=== PATIENT | male | born 1980 | race Hispanic/Latino ===

== ENCOUNTER 2022-05-26 21:38 | Emergency (ER) | payer OTHER ==
[~2022-05-26] VITALS: Ht 175.3 cm; Wt 77.1 kg
[2022-05-26 22:03] LABS: BASOPHILS % (AUTO) 0.4 % (0.0-5.0); EOSINOPHILS % (AUTO) 0.1 % (0.0-8.0); HEMATOCRIT 42.6 % (42-54); LYMPHOCYTES % (AUTO) 24.6 % (21.0-51.0); MEAN CORPUSCULAR HEMOGLOBIN 30.1 pg (27.0-33.0); MEAN CORPUSCULAR VOLUME 86.1 fL (79-99); MONOCYTES % (AUTO) 7.8 % (3.0-13.0); NEUTROPHILS % (AUTO) 66.8 % (40.0-77.0); PLATELET COUNT (AUTO) 164 K/uL (130-400); RED BLOOD CELL COUNT(AUTO) 4.95 MIL/uL (4.50-6.20); RED CELL DISTRIBUTION WIDTH 12.5 % (11.0-15.5)
[2022-05-26 22:11] LABS: CREATININE 1.1 mg/dL (0.5-1.5); POTASSIUM 3.5 mmol/L (3.5-5.1)
[2022-05-26] MEDS: 0.9%NACL 1000ML 1,000 ML IV SCH ×2 (22:11→23:09)
[2022-05-26 22:23] LABS: ALBUMIN 3.4 g/dL (3.5-5.0); TOTAL PROTEIN, SERUM 6.5 g/dL (6.0-8.3)
[2022-05-26] MEDS ORDERED: 0.9%NACL 1000ML 1,000 ML IV SCH (23:00)
[2022-05-26 23:50] LABS: APPEARANCE,URINE CLEAR (CLEAR); BILIRUBIN,URINE NEGATIVE (NEGATIVE); COLOR,URINE YELLOW (YELLOW); GLUCOSE, URINE (UA) NEGATIVE (NEGATIVE); KETONES,URINE 40 mg/dL (NEGATIVE); LEUKOCYTE ESTERASE ,URINE NEGATIVE (NEGATIVE); NITRATE,URINE NEGATIVE (NEGATIVE); OCCULT BLOOD,URINE NEGATIVE (NEGATIVE); PROTEIN,URINE NEGATIVE (NEGATIVE); UROBILINOGEN,URINE 0.2 mg/dL (0.2-1.0)
[2022-05-27] MEDS ORDERED: ACET-66 PO (00:36)
[2022-05-27] MEDS ORDERED: D-ME118S47 PO (00:36)
[2022-05-27] MEDS ORDERED: ONDA4TAB10 PO (00:36)
[2022-05-27 00:58] VITALS: BP 105/59
== END 2022-05-27 01:33 | disposition home or self-care (01) ==
LOC: EDH 21:38
DX: U07.1 COVID-19 (principal); R55 Syncope and collapse; E86.0 Dehydration; J45.909 Unspecified asthma, uncomplicated; F31.9 Bipolar disorder, unspecified
CPT/HCPCS: 99285; 70450; 96360; 71045; 87635; 82550; 83874; 84484; 80053; 85025; 81003; 36415; 72125; 93005; C9803; J7030

== ENCOUNTER 2022-08-04 10:36 | Emergency (ER) | payer OTHER ==
[~2022-08-04] VITALS: Ht 175.3 cm; Wt 83.9 kg
[~2022-08-04 10:36] MED LIST: ACET-66 PO; D-ME118S47 PO; ONDA4TAB10 PO
[2022-08-04] MEDS ORDERED: IPRATROPIUM/ALBUTEROL SULFATE 3 ML SOLUTION IH ONE ×3 (10:47→13:00)
[2022-08-04] MEDS ORDERED: SOLU-MEDROL 125MG VIAL IVP STA (10:47)
[2022-08-04 10:56] LABS: BASOPHILS % (AUTO) 0.3 % (0.0-5.0); EOSINOPHILS % (AUTO) 0.4 % (0.0-8.0); HEMATOCRIT 41.4 % (42-54); LYMPHOCYTES % (AUTO) 6.8 % (21.0-51.0); MEAN CORPUSCULAR HEMOGLOBIN 29.7 pg (27.0-33.0); MEAN CORPUSCULAR HGB CONC 34.5 g/dL (32.0-36.0); MEAN CORPUSCULAR VOLUME 86.1 fL (79-99); MONOCYTES % (AUTO) 7.5 % (3.0-13.0); NEUTROPHILS % (AUTO) 84.7 % (40.0-77.0); PLATELET COUNT (AUTO) 286 K/uL (130-400); RED BLOOD CELL COUNT(AUTO) 4.81 MIL/uL (4.50-6.20); RED CELL DISTRIBUTION WIDTH 13.1 % (11.0-15.5); WHITE BLOOD COUNT (AUTO) 15.8 K/uL (4.8-10.8)
[2022-08-04 11:05] LABS: POTASSIUM 3.6 mmol/L (3.5-5.1)
[2022-08-04 11:09] LABS: ALBUMIN 3.9 g/dL (3.5-5.0); TOTAL PROTEIN, SERUM 7.6 g/dL (6.0-8.3)
[2022-08-04 12:57] VITALS: BP 126/78
[2022-08-04] MEDS ORDERED: PRED5TAB PO (12:58)
== END 2022-08-04 13:46 | disposition home or self-care (01) ==
LOC: EDH 10:36
DX: J45.901 Unspecified asthma with (acute) exacerbation (principal); Z20.822 Contact with and (suspected) exposure to COVID-19; Z88.6 Allergy status to analgesic agent
CPT/HCPCS: 99285; 96374; 71045; 87635; 80053; 85025; 87804 ×2; 36415; 93005; 94640 ×2; C9803; J2930

== ENCOUNTER 2022-08-09 09:52 | Inpatient (IN) | payer OTHER ==
[~2022-08-09] VITALS: Ht 175.3 cm; Wt 83.9 kg
[~2022-08-09 09:52] MED LIST changes: +PRED5TAB PO
[2022-08-09 10:14] LABS: HEMATOCRIT 38.5 % (42-54); MEAN CORPUSCULAR HEMOGLOBIN 29.6 pg (27.0-33.0); MEAN CORPUSCULAR HGB CONC 34.5 g/dL (32.0-36.0); MEAN CORPUSCULAR VOLUME 85.7 fL (79-99); PLATELET COUNT (AUTO) 271 K/uL (130-400); RED BLOOD CELL COUNT(AUTO) 4.49 MIL/uL (4.50-6.20); RED CELL DISTRIBUTION WIDTH 12.7 % (11.0-15.5); WHITE BLOOD COUNT (AUTO) 17.3 K/uL (4.8-10.8)
[2022-08-09 10:22] LABS: CREATININE 0.8 mg/dL (0.5-1.5); POTASSIUM 3.1 mmol/L (3.5-5.1)
[2022-08-09 10:23] LABS: BASOPHILS % (AUTO) 0.2 % (0.0-5.0); EOSINOPHILS % (AUTO) 1.1 % (0.0-8.0); LYMPHOCYTES % (AUTO) 13.4 % (21.0-51.0); MONOCYTES % (AUTO) 10.6 % (3.0-13.0)
[2022-08-09 10:27] LABS: TOTAL PROTEIN, SERUM 7.1 g/dL (6.0-8.3)
[2022-08-09] MEDS ORDERED: AZITHROMYCIN 250 MG TABLET PO ONE (11:00)
[2022-08-09] MEDS ORDERED: CEFTRIAXONE 1G VIAL IVP ONE (11:00)
[2022-08-09] MEDS ORDERED: ACETAMINOPHEN 325 MG TAB PO PRN ×2 (11:00)
[2022-08-09] MEDS: AZITHROMYCIN 500MG+NS 250ML IVPB SCH (11:00)
[2022-08-09] MEDS ORDERED: CEFTRIAXONE 1G VIAL IV SCH (11:00)
[2022-08-09] MEDS ORDERED: SOLU-MEDROL 125MG VIAL IVP ONE (11:00)
[2022-08-09] MEDS ORDERED: IPRATROPIUM/ALBUTEROL SULFATE 3 ML SOLUTION IH ONE (11:00)
[2022-08-09] MEDS ORDERED: DIPHENHYDRAMINE HCL 25 MG CAPSULE PO PRN (11:00)
[2022-08-09] MEDS ORDERED: ACETAMINOPHEN WITH CODEINE 1 TAB TAB PO PRN ×2 (11:00)
[2022-08-09] MEDS ORDERED: ONDANSETRON 4MG INJ IV PRN (11:00)
[2022-08-09] MEDS ORDERED: 0.9%NACL 1000ML 1,000 ML IV ONE (11:00)
[2022-08-09] MEDS ORDERED: ACETAMINOPHEN 500 MG TABLET PO ONE (11:00)
[2022-08-09] MEDS: 0.9%NACL 1000ML 1,000 ML IV SCH ×2 (11:29→20:38)
[2022-08-09] MEDS: SOLU-MEDROL 40MG VIAL IVP SCH ×3 (11:30→23:04)
[2022-08-09] MEDS: IPRATROPIUM 0.5 MG/2.5 ML INH IH SCH ×3 (14:07→22:56)
[2022-08-09 17:40] VITALS: BP 124/70
[2022-08-09 20:28] VITALS: BP 113/73
[2022-08-09] MEDS: FAMOTIDINE 20MG TAB PO SCH (20:38)
[2022-08-09 23:30] VITALS: BP 110/69
[2022-08-10] MEDS: IPRATROPIUM 0.5 MG/2.5 ML INH IH SCH ×5 (01:56→21:33)
[2022-08-10] MEDS: GUAIFENESIN-CODEINE 5 ML SYRUP PO PRN ×3 (03:11→23:03)
[2022-08-10 03:39] VITALS: BP 103/59
[2022-08-10] MEDS: SOLU-MEDROL 40MG VIAL IVP SCH ×4 (04:58→23:03)
[2022-08-10 05:20] LABS: HEMATOCRIT 38.2 % (42-54); MEAN CORPUSCULAR HEMOGLOBIN 29.6 pg (27.0-33.0); MEAN CORPUSCULAR HGB CONC 33.5 g/dL (32.0-36.0); MEAN CORPUSCULAR VOLUME 88.2 fL (79-99); RED BLOOD CELL COUNT(AUTO) 4.33 MIL/uL (4.50-6.20); RED CELL DISTRIBUTION WIDTH 12.8 % (11.0-15.5); WHITE BLOOD COUNT (AUTO) 17.5 K/uL (4.8-10.8)
[2022-08-10 05:26] LABS: CREATININE 0.8 mg/dL (0.5-1.5); POTASSIUM 3.7 mmol/L (3.5-5.1)
[2022-08-10 07:50] VITALS: BP 98/79
[2022-08-10] MEDS: FAMOTIDINE 20MG TAB PO SCH ×2 (08:31→20:07)
[2022-08-10] MEDS: ENOXAPARIN SODIUM 30 MG/0.3 ML SQ SCH (08:32)
[2022-08-10] MEDS: 0.9%NACL 1000ML 1,000 ML IV SCH ×2 (08:32→17:00)
[2022-08-10 11:50] VITALS: BP 105/67
[2022-08-10] MEDS ORDERED: CEFTRIAXONE 1G VIAL IVP SCH (12:30)
[2022-08-10] MEDS ORDERED: 0.9% NACL 250ML 250 ML ONE (12:52)
[2022-08-10] MEDS: AZITHROMYCIN 500MG+NS 250ML IVPB SCH (13:30)
[2022-08-10] MEDS ORDERED: RISP3TAB44 PO (14:30)
[2022-08-10] MEDS ORDERED: ESCI10TA PO (14:30)
[2022-08-10] MEDS ORDERED: LAMO300T PO (14:31)
[2022-08-10 15:50] VITALS: BP 124/76
[2022-08-10 21:02] VITALS: BP 109/70
[2022-08-11] MEDS: IPRATROPIUM 0.5 MG/2.5 ML INH IH SCH ×4 (00:13→09:56)
[2022-08-11 00:21] VITALS: BP 108/59
[2022-08-11] MEDS: 0.9%NACL 1000ML 1,000 ML IV SCH (03:00)
[2022-08-11] MEDS: GUAIFENESIN-CODEINE 5 ML SYRUP PO PRN ×2 (04:25→08:07)
[2022-08-11 04:33] VITALS: BP 106/61
[2022-08-11 05:34] LABS: BASOPHILS % (AUTO) 0.3 % (0.0-5.0); HEMATOCRIT 35.6 % (42-54); LYMPHOCYTES % (AUTO) 11.8 % (21.0-51.0); MEAN CORPUSCULAR HEMOGLOBIN 29.5 pg (27.0-33.0); MEAN CORPUSCULAR VOLUME 86.8 fL (79-99); MONOCYTES % (AUTO) 3.8 % (3.0-13.0); NEUTROPHILS % (AUTO) 81.6 % (40.0-77.0); PLATELET COUNT (AUTO) 329 K/uL (130-400); RED CELL DISTRIBUTION WIDTH 13.1 % (11.0-15.5); WHITE BLOOD COUNT (AUTO) 19.7 K/uL (4.8-10.8)
[2022-08-11] MEDS: SOLU-MEDROL 40MG VIAL IVP SCH (05:51)
[2022-08-11 06:01] LABS: ALBUMIN 2.4 g/dL (3.5-5.0); CREATININE 0.8 mg/dL (0.5-1.5); POTASSIUM 3.8 mmol/L (3.5-5.1); TOTAL PROTEIN, SERUM 6.1 g/dL (6.0-8.3)
[2022-08-11 07:45] VITALS: BP 116/63
[2022-08-11] MEDS: ENOXAPARIN SODIUM 30 MG/0.3 ML SQ SCH (08:07)
[2022-08-11] MEDS: FAMOTIDINE 20MG TAB PO SCH (08:07)
[2022-08-11] MEDS ORDERED: LEVO-70 PO (09:33)
[2022-08-11] MEDS ORDERED: DEXA4 PO (09:33)
== END 2022-08-11 11:35 | disposition home or self-care (01) | DRG 177 ==
LOC: EDH 09:52 → EDHIP 09:53 → 3DH 12:37
PROVIDERS: ADMIT Hospitalist; ATTEND Hospitalist
DX: J15.6 Pneumonia due to other Gram-negative bacteria (principal); J96.01 Acute respiratory failure with hypoxia; E87.1 Hypo-osmolality and hyponatremia; J45.901 Unspecified asthma with (acute) exacerbation; Z20.822 Contact with and (suspected) exposure to COVID-19; E87.6 Hypokalemia; E86.0 Dehydration; K59.00 Constipation, unspecified; T38.0X5A Adverse effect of glucocorticoids and synthetic analogues, initial encounter; F31.9 Bipolar disorder, unspecified; G47.00 Insomnia, unspecified; Z87.891 Personal history of nicotine dependence
CPT/HCPCS: 36415; 71045; 76705; 80048; 80053; 83605; 83880; 84145; 84484; 85025; 85027; 87040; 87071; 87077; 87186; 87205; 87635; 87804; 93005; 94640; 94664; C9803; G0378; J0456; J0696; J1650; J2920; J2930; J7030; J7050

== ENCOUNTER 2023-01-04 02:57 | Emergency (ER) | payer MEDICAID ==
[~2023-01-04 02:57] MED LIST changes: +DEXA4 PO; +ESCI10TA PO; +LAMO300T PO; +LEVO-70 PO; +RISP3TAB44 PO
[2023-01-04 03:39] LABS: BASOPHILS % (AUTO) 0.4 % (0.0-5.0); EOSINOPHILS % (AUTO) 1.2 % (0.0-8.0); HEMATOCRIT 42.1 % (42-54); LYMPHOCYTES % (AUTO) 22.2 % (21.0-51.0); MEAN CORPUSCULAR HEMOGLOBIN 29.8 pg (27.0-33.0); MEAN CORPUSCULAR HGB CONC 34.2 g/dL (32.0-36.0); MONOCYTES % (AUTO) 7.6 % (3.0-13.0); NEUTROPHILS % (AUTO) 68.2 % (40.0-77.0); PLATELET COUNT (AUTO) 293 K/uL (130-400); RED BLOOD CELL COUNT(AUTO) 4.84 MIL/uL (4.50-6.20); RED CELL DISTRIBUTION WIDTH 12.8 % (11.0-15.5); WHITE BLOOD COUNT (AUTO) 9.7 K/uL (4.8-10.8)
[2023-01-04 03:51] LABS: CREATININE 1.1 mg/dL (0.5-1.5); POTASSIUM 3.2 mmol/L (3.5-5.1)
[2023-01-04 03:55] LABS: ALBUMIN 3.7 g/dL (3.5-5.0); TOTAL PROTEIN, SERUM 6.7 g/dL (6.0-8.3)
[2023-01-04] MEDS ORDERED: POTASSIUM BICARB/CIT AC 25 MEQ TABLET.EFF PO STA (03:55)
[2023-01-04] MEDS ORDERED: POTASSIUM BICARB/CIT AC 25 MEQ TABLET.EFF ONE (05:47)
[2023-01-04 07:43] VITALS: BP 114/72
[2023-01-04] MEDS ORDERED: IBUP-2070 PO (07:43)
== END 2023-01-04 08:03 | disposition home or self-care (01) ==
LOC: EDH 02:57
DX: R07.89 Other chest pain (principal); Z79.52 Long term (current) use of systemic steroids; Z79.899 Other long term (current) drug therapy; Z88.6 Allergy status to analgesic agent
CPT/HCPCS: 36415; 71045; 74176; 80053; 84484; 85025; 93005

== ENCOUNTER 2024-10-31 12:31 | Inpatient (IN) | payer SELFPAY ==
[~2024-10-31] VITALS: Ht 175.3 cm; Wt 70.3 kg
[~2024-10-31 12:31] MED LIST changes: +BROM118S48 PO; -D-ME118S47 PO; +IBUP-2070 PO; +ONDA-243 PO; -ONDA4TAB10 PO; +rocuRONium bROMide 10MG/1ML 5ML VL IV ONE
--- NOTE | 2024-10-31 12:53 | EKG ---
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
[2024-10-31] MEDS: 0.9%NACL 1000ML 1,000 ML IV ONE ×2 (13:08→16:08)
[2024-10-31] MEDS: MAGNESIUM 2GM PREMIX 50ML 50 ML IV SCH (13:08)
[2024-10-31] MEDS: Solu-medROL 125MG VIAL IVP ONE (13:08)
[2024-10-31 13:09] LABS: SARS-CoV-2, RNA, NAAT NEGATIVE SARS CoV-2 (NEGATIVE)
--- NOTE | 2024-10-31 13:09 | HMCIMG ---
CHEST 1VW HISTORY: Shortness of breath COMPARISON: 01/04/2023 FINDINGS: A frontal projection of the chest was obtained. No acute pulmonary infiltrates is seen. The heart is normal in size. COPD changes are seen. Degenerative changes are seen. No evidence of aortic calcification is seen. IMPRESSION: 1. No acute pulmonary infiltrate is seen.
[2024-10-31 13:13] LABS: POTASSIUM 3.6 mmol/L (3.5-5.1)
[2024-10-31 13:14] LABS: INFLUENZA TYPE B Negative For Type B (NEGATIVE)
[2024-10-31 13:18] LABS: MAGNESIUM 1.9 mg/dL (1.80-2.40)
[2024-10-31 13:20] LABS: ABG BASE EXCESS -1.7 mmol/L (-2.0-3.0); ABG HCO3 24.9 mmol/L (21.0-28.0); ABG OXYGEN SATURATION 99.3 % (94.0-98.0); ABG PCO2 49 mmHg (35-48); ABG PH 7.325 (7.350-7.450); DEVICE COMMENT LR JULIE; VENT MODE, BG NRBM (ROOM AIR)
[2024-10-31 13:22] LABS: INFLUENZA TYPE A Positive For Type A (NEGATIVE)
--- NOTE | 2024-10-31 13:25 | NUR ---
PT CONTINUES WITH SOB S/P ABG PT PLACED ON BIPAP.
[2024-10-31 13:27] VITALS: PULSE 118; RESP 22; O2SAT 100
[2024-10-31 13:27] LABS: BASOPHILS # (AUTO) 0.05 K/uL (0.00-0.20); BASOPHILS % (AUTO) 0.5 % (0.0-5.0); EOSINOPHILS # (AUTO) 0.01 K/uL (0.00-0.70); EOSINOPHILS % (AUTO) 0.1 % (0.0-8.0); HEMATOCRIT 43.5 % (42-54); IMMATURE GRANULOCYTE ABSOLUTE 0.05 K/uL (0-1); LYMPHOCYTES # (AUTO) 0.7 K/uL (1.0-4.8); LYMPHOCYTES % (AUTO) 6.8 % (21.0-51.0); MEAN CORPUSCULAR HGB CONC 33.8 g/dL (32.0-36.0); MEAN CORPUSCULAR VOLUME 88.8 fL (79-99); MONOCYTES # (AUTO) 1.3 K/uL (0.1-1.0); MONOCYTES % (AUTO) 13.2 % (3.0-13.0); NEUTROPHILS % (AUTO) 78.9 % (40.0-77.0); PLATELET COUNT (AUTO) 317 K/uL (130-400); WHITE BLOOD COUNT (AUTO) 10.2 K/uL (4.8-10.8)
--- NOTE | 2024-10-31 13:40 | NUR ---
PT ANXIOUS, NOT TOLERATING BIPAP MASK, REMOVING BIPAP MASK.
[2024-10-31] MEDS: LORazepam 2 MG/ML 1 ML VIAL IVP ONE (13:43)
[2024-10-31 13:59] LABS: B-TYPE NATRIURETIC PEPTIDE 37 pg/mL (0-100)
--- NOTE | 2024-10-31 13:59 | ERN ---
ED Note History of Present Illness Stated Complaint: SOB Chief Complaint: Adult-Asthma Time Seen by MD: 12:33 Time Seen by Midlevel: 12:33 Dictation: Patient is a 44-year-old male with a past medical history of asthma presenting to the emergency department via EMS for evaluation of shortness of breath. According to EMS patient started having difficulty breathing last night however it worsened today. Upon EMS arrival on scene patient was found to have an O2 saturation in the 50s and was found to be in the tripod position in severe respiratory distress. Patient was given DuoNeb treatments in route and was put on high-flow oxygen. On arrival patient is only reporting shortness of breath and specifically denies any chest pain, or any other symptoms at this time. Allergies: Coded Allergies: aspirin (Unverified Allergy, Unknown, 08/04/22) Home Meds Active Scripts Ibuprofen (Ibuprofen) 600 Mg Tablet, 600 MG PO Q6H PRN for PAIN, #30 TAB Prov:FELA POPE MD 01/04/23 Dexamethasone (Decadron) 4 Mg Tab, 4 MG PO BID, #14 TAB 0 Refills Prov:VINOD SHIELDS 08/11/22 Levofloxacin (Levofloxacin) 500 Mg Tablet, 500 MG PO DAILY, #7 TAB 0 Refills Prov:VINOD SHIELDS 08/11/22 Prednisone (Prednisone) 5 Mg Tablet, 5 MG PO BID for 7 Days, #14 TAB Prov:VICKY MORALES MD 08/04/22 Ondansetron (Ondansetron Odt) 4 Mg Tab.rapdis, 4 MG PO ONCE for nausea, #15 TAB Prov:FELA POPE MD 05/27/22 D-Methorphan Hb/P-Epd HCl/Bpm (Bromfed Dm Cough Syrup) 118 Ml Syrup, 10 ML PO QID, #120 ML Prov:FELA POPE MD 05/27/22 Acetaminophen (Acetaminophen) 500 Mg Tablet, 1000 MG PO QID, #50 TAB Prov:FELA POPE MD 05/27/22 Reported Medications Lamotrigine (Lamictal Xr) 300 Mg Tab.er.24, 300 MG PO DAILY 08/10/22 Escitalopram Oxalate (Lexapro) 10 Mg Tablet, 10 MG PO DAILY, TAB 08/10/22 Risperidone (Risperdal) 3 Mg Tablet, 3 MG PO HS, TAB 08/10/22 Past Medical History Past Medical History: Asthma, Bipolar Surgical History: None Surgical History Other: ABDOMINAL SX Social History: Lives with family, Other Review of System Dictation Constitutional: Negative for fever,chills, and weight loss Eyes: Negative for injury, pain,redness, and discharge ENT: Negative for injury,pain or swelling Cardiovascular: Negative for chest pain, palpitations, and edema Respiratory: Positive shortness of breath negative for cough, and wheezing, Abdomen/GI: Negative for abdominal pain, nausea, vomiting, diarrhea, and con stipation Back: Negative for injury and pain : Negative for injury, bleeding and discharge MS/Extremity: Negative for injury and deformity Skin: Negative for rash, and discoloration Neuro: Negative for headache, weakness, numbness, tingling, and seizure Psych: Negative for suicide ideation, homicidal ideation, and hallucinations Initial Vital Sign VS Vital Signs Date Time Temp Pulse Resp B/P (MAP) Pulse Ox O2 Delivery O2 Flow Rate FiO2 10/31/24 12:36 115 20 97 Nasal Cannula 5.0 10/31/24 12:43 99.7 119/74 N/A Physical Exam Dictation General: awake, alert, moderate respiratory distress Head/Face: Normocephalic, atraumatic Eyes: PERRL, EOMI, vision at baseline ENT: oral cavity clear, TMs clear, no signs of infection Neck: Trachea midline, supple, no nuchal rigidity Cardiovascular: Tachycardic No MRGs Respiratory: Moderate respiratory distress, diminished breath sounds bilaterally, wheezing bilaterally, tachypneic Abdomen: Soft, non-tender, non-distended, normal bowel sounds, no guarding or rebound. Skin: Warm, dry, normal turgor, no rash MS/Extremity: Pulses equal, no cyanosis, neurovascular intact, FROM Neuro: COAx4, GCS 15, strength 5/5, CN 2-12 intact, normal cerebellar exam, normal gait, Psych: Normal behavior, mood, and affect normal Results (Laboratory/Radiology) Laboratory/Radiology Laboratory Tests Test 10/31/24 12:46 10/31/24 12:52 10/31/24 13:18 10/31/24 15:52 Influenza Type A Antigen Positive For Type A Influenza Type B Antigen Negative For Type B SARS-CoV-2, RNA, NAAT NEGATIVE SARS CoV-2 White Blood Count 10.2 K/uL (4.8-10.8) Red Blood Count 4.90 MIL/uL (4.50-6.20) Hemoglobin 14.7 g/dL (14.0-18.0) Hematocrit 43.5 % (42-54) Mean Corpuscular Volume 88.8 fL (79-99) Mean Corpuscular Hemoglobin 30.0 pg (27.0-33.0) Mean Corpuscular Hemoglobin Concent 33.8 g/dL (32.0-36.0) Red Cell Distribution Width 13.0 % (11.0-15.5) Platelet Count 317 K/uL (130-400) Mean Platelet Volume 9.7 fL (7.5-10.5) Immature Granulocyte % (Auto) 0.5 % (0-1) Neutrophils (%) (Auto) 78.9 % (40.0-77.0) H Lymphocytes (%) (Auto) 6.8 % (21.0-51.0) L Monocytes (%) (Auto) 13.2 % (3.0-13.0) H Eosinophils (%) (Auto) 0.1 % (0.0-8.0) Basophils (%) (Auto) 0.5 % (0.0-5.0) Neutrophils # (Auto) 8.0 K/uL (1.8-7.7) H Lymphocytes # (Auto) 0.7 K/uL (1.0-4.8) L Monocytes # (Auto) 1.3 K/uL (0.1-1.0) H Eosinophils # (Auto) 0.01 K/uL (0.00-0.70) Basophils # (Auto) 0.05 K/uL (0.00-0.20) Absolute Immature Granulocyte (auto 0.05 K/uL (0-1) Nucleated Red Blood Cells 0.0 % (0.0-0.19) White Cell Morphology Comment See comments Sodium Level 139 mmol/L (136-145) Potassium Level 3.6 mmol/L (3.5-5.1) Chloride Level 102 mmol/L (101-111) Carbon Dioxide Level 27 mmol/L (21-32) Blood Urea Nitrogen 15 mg/dL (7-18) Creatinine 1.0 mg/dL (0.5-1.3) Glomerular Filtration Rate Calc 96 mL/min (>90) Random Glucose 131 mg/dL (70-105) H Lactic Acid Level 1.6 mmol/L (0.8-2.5) Total Calcium 9.1 mg/dL (8.5-10.1) Magnesium Level 1.90 mg/dL (1.80-2.40) Total Creatine Kinase 131 U/L (21-232) Troponin I High Sensitivity 9 ng/L (4-75) B-Type Natriuretic Peptide 37 pg/mL (0-100) Procalcitonin < 0.05 ng/mL (0.05-0.5) L Blood Gas Specimen Type Arterial Arterial Blood pH 7.325 (7.350-7.450) Arterial Blood Partial Pressure CO2 49 mmHg (35-48) H Arterial Blood Partial Pressure O2 209.0 mmHg (83.0-108.0) H Arterial Blood HCO3 24.9 mmol/L (21.0-28.0) Arterial Blood Oxygen Saturation 99.3 % (94.0-98.0) H Arterial Blood Base Excess -1.7 mmol/L (-2.0-3.0) Blood Gas Temperature 37.0 CELSIUS (35.5-37.0) Blood Gas Flow-by 15.00 L/min (0.00-15.00) Blood Gas Vent Mode NRBM (ROOM AIR) FiO2 100.0 % Blood Gas Specimen Comment LR NYDIA Urine Color YELLOW (YELLOW) Urine Appearance CLEAR (CLEAR) Urine pH 5.5 (5.0-8.0) Urine Specific Robinson 1.035 (1.001-1.031) Urine Protein 30 mg/dL (NEGATIVE) H Urine Glucose (UA) NEGATIVE mg/dL (NEGATIVE) Urine Ketones NEGATIVE mg/dL (NEGATIVE) Urine Occult Blood +- (TRACE) (NEGATIVE) H Urine Nitrate NEGATIVE (NEGATIVE) Urine Bilirubin NEGATIVE mg/dL (NEGATIVE) Urine Urobilinogen 0.2 mg/dL (0.2-1.0) Urine Leukocyte Esterase NEGATIVE Greta/uL Urine RBC 6-10 /HPF (0-1) H Urine WBC 2-5 /HPF (0-1) H Urine Bacteria FEW /HPF (None Seen) Urine Opiates Screen NEGATIVE (NEGATIVE) Urine Barbiturates Screen NEGATIVE (NEGATIVE) Urine Phencyclidine Screen NEGATIVE (NEGATIVE) Urine Amphetamines Screen NEGATIVE (NEGATIVE) Urine Benzodiazepines Screen NEGATIVE (NEGATIVE) Urine Cocaine Screen POSITIVE (NEGATIVE) H Urine Marijuana (THC) Screen POSITIVE (NEGATIVE) H Test 10/31/24 16:10 10/31/24 19:18 Blood Gas Specimen Type Arterial Arterial Arterial Blood pH 7.174 (7.350-7.450) 7.201 (7.350-7.450) Arterial Blood Partial Pressure CO2 70 mmHg (35-48) *H 67 mmHg (35-48) *H Arterial Blood Partial Pressure O2 359.8 mmHg (83.0-108.0) 154.6 mmHg (83.0-108.0) H Arterial Blood HCO3 25.1 mmol/L (21.0-28.0) 25.7 mmol/L (21.0-28.0) Arterial Blood Oxygen Saturation 99.7 % (94.0-98.0) H 98.5 % (94.0-98.0) H Arterial Blood Base Excess -5.0 mmol/L (-2.0-3.0) L -3.8 mmol/L (-2.0-3.0) L Blood Gas Temperature 37.0 CELSIUS (35.5-37.0) 37.0 CELSIUS (35.5-37.0) Blood Gas Respiration Rate 20.0 min. Blood Gas Vent Mode PRVC IT .9 (ROOM AIR) FiO2 80.0 % 60.0 % Blood Gas Tidal Volume 480 ml Blood Gas Specimen Comment RR DR DEGROOT RB [facility] Labs Reviewed?: Yes EKG Comment: EKG 10/31/2024 time 12:50 p.m. ventricular rate 129, [place] 146, QRS D 102, QT 303 sinus tachycardia, right axis deviation. No STEMI ED Course ED Course Orders Procedure Category Date Status Time 12 Lead Ekg Tracing- EKG 10/31/24 Complete Technical 12:35 B-Type Natriuretic LAB 10/31/24 Complete Peptide 12:35 Cbc With Differential LAB 10/31/24 Complete 12:35 Basic Metabolic Panel LAB 10/31/24 Complete 12:35 Troponin I High LAB 10/31/24 Complete Sensitivity 12:35 Magnesium LAB 10/31/24 Complete 12:35 Covid Rna Naat LAB 10/31/24 Complete 12:35 Creatine Kinase, Total LAB 10/31/24 Complete 12:35 Influenza Type A & B, LAB 10/31/24 Complete Rapid 12:35 Procalcitonin LAB 10/31/24 Complete 12:35 Chest 1vw RAD 10/31/24 Resulted 12:35 Methylprednisolone PHA 10/31/24 Complete Succ 125mg (Solu-Medr 13:00 Magnesium 2gm Premix PHA 10/31/24 Complete 50ml (Magnesium 2gm 13:00 Arterial Blood Gas RT 10/31/24 Transmitted 12:35 Bipap Settings RT 10/31/24 Transmitted 12:41 Lactic Acid LAB 10/31/24 Complete 12:41 0.9%Nacl 1000ml (Ns PHA 10/31/24 Complete 1000ml) 13:00 Arterial Blood Gas LAB 10/31/24 Complete 13:18 Lorazepam 2 Mg PHA 10/31/24 Complete (Ativan) 14:00 Oseltamivir Phosphate PHA 10/31/24 Complete (Tamiflu) 14:30 Acetaminophen 325 Tab PHA 10/31/24 In Process (Tylenol 325mg Tab 15:00 Methylprednisolone PHA 10/31/24 In Process Succ 40mg (Solu-Medro 15:00 Famotidine 20mg Tab PHA 10/31/24 In Process (Pepcid 20mg Tab) 21:00 Lactulose 20 Gm/30 Ml PHA 10/31/24 In Process Udcup (Constulose 15:00 Ondansetron 4mg Inj PHA 10/31/24 In Process (Zofran 4mg Inj) 15:00 Ceftriaxone 1g Vial PHA 10/31/24 In Process (Rocephine 1g Inj) 15:00 Azithromycin 500mg+Ns PHA 10/31/24 In Process 250ml (Azithromyci 16:00 Oseltamivir Phosphate PHA 11/01/24 In Process (Tamiflu) 09:00 Magnesium 2gm Premix PHA 10/31/24 In Process 50ml (Magnesium 2gm 15:00 Initiate Po JASON 10/31/24 In Process Hypokalemia Protoc 14:47 Potassium Chloride PHA 10/31/24 In Process 20meq/100ml (Potassiu 15:00 Potassium Chl 10% PHA 10/31/24 In Process Elixir 20meq (Kcl 10% 15:00 Potassium Chloride PHA 10/31/24 In Process 20meq Er (K-Dur/Klor- 15:00 Notify Physician If CPOE 10/31/24 Transmitted There Is 14:47 Notify Md On The Next CPOE 10/31/24 Transmitted 14:47 Notify Md On The CPOE 10/31/24 Transmitted Next(Cont.) 14:47 Montelukast Sodium 10 PHA 10/31/24 In Process Mg Tab (Singulair) 21:00 Respiratory RT 10/31/24 Transmitted Communication 14:51 Pulmonology Consult CONPHYSVC 10/31/24 Transmitted 14:51 Albuterol 0.083% PHA 10/31/24 Complete 2.5mg/3ml (Proventil 15:30 0.9%Nacl 1000ml (Ns PHA 10/31/24 Complete 1000ml) 15:30 Admit Orders ADM 10/31/24 Transmitted 15:18 Cbc With Differential LAB 11/01/24 Verified 04:00 Cbc With Differential LAB 11/02/24 Verified 04:00 Cbc With Differential LAB 11/03/24 Verified 04:00 Comprehensive LAB 11/01/24 Verified Metabolic Panel 04:00 Comprehensive LAB 11/02/24 Verified Metabolic Panel 04:00 Comprehensive LAB 11/03/24 Verified Metabolic Panel 04:00 Magnesium LAB 11/01/24 Verified 04:00 Magnesium LAB 11/02/24 Verified 04:00 Magnesium LAB 11/03/24 Verified 04:00 Propofol 1000 Mg/100 PHA 10/31/24 Complete Ml (Diprivan 1000mg 15:36 Aspiration Precautions CPOE 10/31/24 Transmitted 15:36 Apply Scds CPOE 10/31/24 Transmitted 15:36 Chest 1vw RAD 10/31/24 Resulted 15:48 Nurse Driven Peoples JASON 10/31/24 In Process Removal Pro 15:53 Urinalysis Profile LAB 10/31/24 Complete Catherized 15:53 Etomidate 20mg Vial PHA 10/31/24 Complete (Amidate 20mg Vial) 16:00 Rocuronium [place] PHA 10/31/24 Complete (Zemuron) 16:00 Propofol 1000 Mg/100 PHA 10/31/24 In Process Ml (Diprivan 1000mg 16:00 Midazolam Hcl PHA 10/31/24 Complete (Midazolam Hcl) 16:00 Midazolam 50mg-0.9% PHA 10/31/24 In Process Ns 50ml (Midazolam 5 16:30 Arterial Blood Gas LAB 10/31/24 Complete 16:10 Drug Screen Urine LAB 10/31/24 Complete 16:27 Rocuronium [place] PHA 10/31/24 Complete (Zemuron) 17:00 Nothing By Mouth DIET 11/01/24 Transmitted Breakfast Arterial Blood Gas RT 10/31/24 Transmitted 18:30 Ventilator Settings RT 10/31/24 Transmitted 17:39 Arterial Blood Gas LAB 10/31/24 Complete 19:18 Fentanyl 1000mcg+Ns PHA 10/31/24 Complete 100ml (Fentanyl 1000 19:30 Fentanyl 2500mcg+Ns PHA 10/31/24 In Process 250ml (Fentanyl 2500 19:30 Compound Narc Iv Misc PHA 10/31/24 In Process (Compound Narc Iv 20:00 Acetaminophen 650mg PHA 10/31/24 Complete Supp (Tylenol 650mg 19:42 Norepinephrin 4mg/Ns PHA 10/31/24 Complete 250ml (Levophed 4mg 20:16 Norepinephrin 4mg/Ns PHA 10/31/24 In Process 250ml (Levophed 4mg 20:30 Norepinephrin 4mg/Ns PHA 10/31/24 In Process 250ml (Levophed 4mg 20:30 Acetaminophen 650mg PHA 10/31/24 In Process Supp (Tylenol 650mg 21:00 Vital Signs Date Time Temp Pulse Resp B/P (MAP) Pulse Ox O2 Delivery O2 Flow Rate FiO2 10/31/24 20:49 99.7 98 30 96/55 9 Ventilator+ 45 10/31/24 20:16 82/50 10/31/24 19:42 100.2 10/31/24 19:40 100.2 110 30 98/62 98 Ventilator+ 60 10/31/24 19:24 111 45 10/31/24 18:19 107 30 110/76 100 Ventilator+ 5.0 80 10/31/24 17:30 10/31/24 17:20 109 28 99/64 98 Ventilator+ 5.0 80 10/31/24 16:44 111 22 119/74 98 Ventilator+ 15 80 10/31/24 16:16 60 10/31/24 15:50 125 80 10/31/24 15:31 125 28 10/31/24 15:00 99.7 119 30 118/82 94 Bi-PAP+ 5.0 40 10/31/24 14:30 99.7 120 30 134/89 97 Bi-PAP+ 5.0 40 10/31/24 14:00 99.7 117 30 135/84 94 Bi-PAP+ 40 10/31/24 13:30 99.7 116 22 125/80 97 Non-Rebreather+ 12 40 10/31/24 13:27 118 22 40 10/31/24 12:43 99.7 122 28 119/74 98 Nasal Cannula* 4 N/A Simple Mask* 10/31/24 12:36 115 20 97 Nasal Cannula 5.0 HEART Score Response (Comments) Value History: Low suspicion (0) 0 EKG: Normal 0 Age: < 45yrs (0) 0 Risk Factors: No known risk factors (0) 0 Initial Troponin: Normal limit (0) 0 HEART Score Risk: Low Risk for MACE (1-3) Total 0 Medical Decision Making MDM MDM: Differential diagnosis: Hypoxemia, asthma exacerbation, acute respiratory distress, pneumonia, viral syndrome, pulmonary edema, pneumothorax Rationale: Tests considered and ordered secondary to shared decision making include: labs, ECG and radiology Previous outside records reviewed: Old ER visits. Risk of complication and/or morbidity or mortality of patient management: None Medications-Per medication reconciliation Need for hospitalization: Patient does meet criteria for hospitalization. Need for emergency major/minor surgery: No There are no social concerns with this patient. Prescription drug management Prescriptions will include symptomatic care Patient's prior external medical records from other ER visits were reviewed by me as indicated. Prior testing and results from previous visits were reviewed. Prior tests were taken into account with medical decision making and resource utilization, independent historian/historians were used to obtain complete medical history. I independently interpreted the test that were performed, results were reviewed by me and considered findings on radiology if ordered. Medical management and examination interpretation discussions were had by me with other qualified healthcare professionals as indicated for the patient's care. Procedure Time of Intubation: 15:42 Intubation Method: orotracheal Tube Size (cm): 7.5 Medications: Versed Breath Sounds after Intubation: equal Intubation Complications: no complications Post Intubation Xray: Yes Progress Patient was given continuous nebs on BiPAP despite max treatment patient continued to worsen and became very labored and lethargic requiring emergent intubation. Endotracheal intubation procedure performed by Dr. Gonzalez. Medications given: Propofol, Versed and rocuronium. A 7.5 Tajik ET tube was inserted and visualized going through the vocal cords, colormetric change was visualized, breath sounds were heard in both lung burgess equally. The ET tube was placed at 25 cm measured at the teeth. A chest ray was ordered to verify ET tube placement. Patient tolerated procedure well and there was no complications. Critical Care Note Critical Time: other (Total critical care time was 35 minutes. Excluding time for procedures. Management of critically ill patient with concern for acute de compensation. Management included interpretation of laboratory values and imaging, hemodynamics, time for consultation with consultants and admitting physician.) DX & DISP Disposition: Inpatient Decision to Admit Date: Oct 31, 2024 Departure Impression: Primary Impression: Acute severe exacerbation of asthma Additional Impressions: Respiratory distress, Influenza A, Hypoxemia Condition: Stable Referrals: MOIRA DE ANDA (PCP) I have reviewed, & agreed with my scribe's, documentation. (Entered by Katrin Freeman, acting as a scribe for ULISES Kan) I performed this substantive portion of this visit. I have reviewed and personally made and approve the management plan that is documented in the note by myself or the ELIZA. I acknowledge full responsibility for the patient's management plan. I personally scribed for MARIA ESTHER KAN ([email or web address]) on 10/31/24 at 13:59. Electronically submitted by Katrin Freeman ([place]). I personally scribed for MARIA ESTHER KAN ([email or web address]) on 10/31/24 at 16:06. Electronically submitted by Katrin Freeman ([place]). MARIA ESTHER KAN Oct 31, 2024 13:59
[2024-10-31] MEDS: OSELTAMIVIR PHOSPHATE 75 MG CAP PO ONE (14:34)
[2024-10-31] MEDS ORDERED: PoTASSium chloRIDE 20MEQ ER 20 MEQ ERTAB PO PRN (15:00)
[2024-10-31] MEDS ORDERED: MAGNESIUM 2GM PREMIX 50ML 50 ML IV PRN (15:00)
[2024-10-31] MEDS ORDERED: PoTASSium chloRIDE 20MEQ/100ML 100 ML IV PRN (15:00)
--- NOTE | 2024-10-31 15:01 | HP ---
[facility] HISTORY AND PHYSICAL Date of Service: Oct 31, 2024 Time of Service: 14:54 HISTORY OF PRESENT ILLNESS: [ ] Admission date 10/31/2024 PCP; DR Chaz Garcia chief Complaints: Shortness of breath This is a 44-year-old male was brought in by EMS with chief complaints of Shortness of breath. Apparently the patient called 911 given to having a asthma attack in on arrival patient was found with oxygen saturation of on room air of 54%. Patient has a significant underlying history of asthma he took albu terol inhaler at home he reports he has been using it as per ER note. Unable to obtain history data due to dyspneic we will obtain history from ER notes and from ER physician. On arrival to ED patient was dyspneic per ER physican was hardly moving air throughout all lung Corey and immediately was placed on BiPAP support and was given IV steroids and DuoNeb. ER workup positive for influenza A Patient was seen in ED the patient appears acutely ill. ER physician removed BiPAP to see how patient we will do on 10 L so far oxygenation level at 95%. However he continues to use accessory muscles to breathe he will be transition to ICU: high risk for decompensated airway. 1542 Patient was unable to tolerate 10 L became dyspneic and anxious therefore ER physician intubated patient mode PRVC rate 20 tidal volume 480 Peep: 5 FI O2 60% on sedation patient will transitioned to ICU once bed is available. Spoke to family at bedside all questions answered. REVIEW OF SYSTEMS A14 point ROS was obtained all relevant positive documented otherwise ROS negative PAST MEDICAL HISTORY: [ ]Asthma PAST SURGICAL HISTORY: [ Stomach surgery PAST SOCIAL HISTORY: Smoker smokes 3-4 cigars on a daily basis. No alcohol alcohol as per family FAMILY HISTORY: [ ] noncontributory Coded Allergies: aspirin (Unverified Allergy, Unknown, 08/04/22) PHYSICAL EXAM GENERAL APPEARANCE: The patient is awake, alert, and oriented,++acute cardiopulmonary distress requiring ventilation support and sedation NEUROLOGICAL: Cranial nerves II-XII grossly intact. Motor is 5/5 in bilateral upper and lower extremities proximal to distal. No sensory deficits. HEENT: Face is symmetric. Pupils are equal and reactive. Extraocular movements are intact. NECK: Supple. No JVD. No thyromegaly. No submental, submandibular, pre-/postauricular, occipital or supraclavicular lymphadenopathy. CHEST: Normal chest expansion. No Telemetry. LUNGS: miminal breath sound throughout: ++Wheezing CARDIOVASCULAR: Regular. S1 and S2 normal. No appreciable rubs, murmurs or gallops. ABDOMEN: Soft, nontender, and nondistended. There is no rebound, voluntary guarding, or rigidity. : Deferred. No Peoples. EXTREMITIES: Non-edematous and not cyanotic. No clubbing. Good capillary refill. SKIN: No skin breakdown. Vital Sign (Last 24 Hours) 10/31/24 12:43 Temp 99.7 Pulse 122 Resp 28 B/P (MAP) 119/74 Pulse Ox 98 O2 Delivery Nasal Cannula* Simple Mask* O2 Flow Rate 4 FiO2 N/A LABS: Laboratory: Test 10/31/24 13:18 10/31/24 12:52 10/31/24 12:46 Range/Units Blood Gas Specimen Type Arterial Arterial Blood pH 7.325 L 7.350-7.450 Arterial Blood Partial Pressure CO2 49 H 35-48 mmHg Arterial Blood Partial Pressure O2 209.0 H 83.0-108.0 mmHg Arterial Blood HCO3 24.9 21.0-28.0 mmol/L Arterial Blood Oxygen Saturation 99.3 H 94.0-98.0 % Arterial Blood Base Excess -1.7 -2.0-3.0 mmol/L Blood Gas Temperature 37.0 35.5-37.0 CELSIUS Blood Gas Flow-by 15.00 0.00-15.00 L/min Blood Gas Vent Mode NRBM ROOM AIR FiO2 100.0 % Blood Gas Specimen Comment LR NYDIA White Blood Count 10.2 4.8-10.8 K/uL Red Blood Count 4.90 4.50-6.20 MIL/uL Hemoglobin 14.7 14.0-18.0 g/dL Hematocrit 43.5 42-54 % Mean Corpuscular Volume 88.8 79-99 fL Mean Corpuscular Hemoglobin 30.0 27.0-33.0 pg Mean Corpuscular Hemoglobin Concent 33.8 32.0-36.0 g/dL Red Cell Distribution Width 13.0 11.0-15.5 % Platelet Count 317 130-400 K/uL Mean Platelet Volume 9.7 7.5-10.5 fL Immature Granulocyte % (Auto) 0.5 0-1 % Neutrophils (%) (Auto) 78.9 H 40.0-77.0 % Lymphocytes (%) (Auto) 6.8 L 21.0-51.0 % Monocytes (%) (Auto) 13.2 H 3.0-13.0 % Eosinophils (%) (Auto) 0.1 0.0-8.0 % Basophils (%) (Auto) 0.5 0.0-5.0 % Neutrophils # (Auto) 8.0 H 1.8-7.7 K/uL Lymphocytes # (Auto) 0.7 L 1.0-4.8 K/uL Monocytes # (Auto) 1.3 H 0.1-1.0 K/uL Eosinophils # (Auto) 0.01 0.00-0.70 K/uL Basophils # (Auto) 0.05 0.00-0.20 K/uL Absolute Immature Granulocyte (auto 0.05 0-1 K/uL Nucleated Red Blood Cells 0.0 0.0-0.19 % White Cell Morphology Comment See comments Sodium Level 139 136-145 mmol/L Potassium Level 3.6 3.5-5.1 mmol/L Chloride Level 102 101-111 mmol/L Carbon Dioxide Level 27 21-32 mmol/L Blood Urea Nitrogen 15 7-18 mg/dL Creatinine 1.0 0.5-1.3 mg/dL Glomerular Filtration Rate Calc 96 >90 mL/min Random Glucose 131 H 70-105 mg/dL Lactic Acid Level 1.6 0.8-2.5 mmol/L Total Calcium 9.1 8.5-10.1 mg/dL Magnesium Level 1.90 1.80-2.40 mg/dL Total Creatine Kinase 131 21-232 U/L Troponin I High Sensitivity 9 4-75 ng/L B-Type Natriuretic Peptide 37 0-100 pg/mL Procalcitonin < 0.05 L 0.05-0.5 ng/mL Influenza Type A Antigen Positive For Type A *A NEGATIVE Influenza Type B Antigen Negative For Type B NEGATIVE SARS-CoV-2, RNA, NAAT NEGATIVE SARS CoV-2 NEGATIVE Current Medications Medications (Trade) Dose Ordered Sig/Martinez Route PRN Reason Start Time Stop Time Status Last Admin Dose Admin Acetaminophen (TYLenol 325MG TAB) 650 mg Q4H PRN PO TEMPERATURE GREATER THAN 101.5 10/31/24 15:00 11/30/24 14:59 UNV Azithromycin 250 ml @ 250 mls/hr Q24H IVPB 10/31/24 15:00 11/10/24 14:59 UNV Ceftriaxone Sodium (ROCEphine 1G INJ) 1 gm Q24H IVPB 10/31/24 15:00 11/10/24 14:59 UNV Famotidine (Pepcid 20mg Tab) 20 mg BID PO 10/31/24 21:00 11/30/24 20:59 UNV Lactulose (Constulose 20gm/ 30ml Udcup) 20 gm BID PRN PO CONSTIPATION 10/31/24 15:00 11/30/24 14:59 UNV Magnesium Sulfate 50 ml @ 0 mls/hr PROTOCOL IV 10/31/24 13:00 11/30/24 12:59 10/31/24 13:08 25 MLS/HR Magnesium Sulfate 50 ml @ 0 mls/hr PROTOCOL PRN IV low mag level 10/31/24 15:00 11/30/24 14:59 UNV Methylprednisolone Sodium Succinate (Solu-medROL 40MG) 60 mg Q8H IVP 10/31/24 15:00 11/30/24 14:59 UNV Montelukast Sodium (SinguLAIR) 10 mg HS PO 10/31/24 21:00 11/30/24 20:59 UNV Ondansetron HCl (zoFRAN 4MG INJ) 4 mg Q6H PRN IVP NAUSEA/VOMITING 10/31/24 15:00 11/30/24 14:59 UNV Oseltamivir Phosphate (Tamiflu) 75 mg DAILY PO 11/01/24 09:00 11/06/24 08:59 UNV Potassium Chloride 100 ml @ 100 mls/hr AD PRN IV POTASSIUM PROTOCOL 10/31/24 15:00 11/30/24 14:59 UNV Potassium Chloride (K-Dur/Klor-Con 20meq) 20 meq AD PRN PO POTASSIUM PROTOCOL 10/31/24 15:00 11/30/24 14:59 UNV Potassium Chloride (KCl 10% Elixir 20meq/15ml) 20 meq AD PRN PO POTASSIUM PROTOCOL 10/31/24 15:00 11/30/24 14:59 UNV DIAGNOSTICS / RADIOLOGY: [ ] ASSESSMENT: Sepsis (temperature 99.7 pulse 122 respirations 28) Acute respiratory failure with hypoxia requiring BiPAP support on arrival POA 10 L trials unsuccessful requiring intubation 10/31/2024 at 15:42 p.m. Acute asthma exacerbation POA viral syndrome POA Positive influenza A POA Active smoker smokes cigars 3-4 POA Chronic problems asthma, bipolar disorder. PLAN: [ ] Admit:ICU Droplet isolation condition:Guarded Status: Full code IVF:Heplock Consultants: [facility](critical care) Antibiotics: Azithromycin 500 mg IV daily, Rocephin IV1 gm Daily and PO [place] flu Medications: DuoNeb scheduled, IV steroids: Solumedrol 60 mg poq8 hrs, montelukast 10 mg po HS oxygen supplemental to keep O2 sat above 92%: Continue on mechanical ventilation support mode [place] be see rate 20 tidal volume 480. peep: 5 FiO2 60% aspiration precaution: HOB elevated at 45 degree at all time. Labs cbc, cmp, mag+ Replace electrolytes as needed as per protocol to keep potassium above 4.0 magnesium 2.0. home medications: lamotrigine 300 gm po daily and Risperdal 200 mg at bedtime for bipolar will resumed once off sedation PRN: MEDICATIONS Tylenol 650 mg po every 4 hrs for fever, Tessalon 100 mg po q8 hrs for cough Zofran 4 mg IV every 6 hrs for n/v Hydralazine 5 mg IV every 4 hrs systolic pressure > 160 bowel regiment: lactulose 20 gm PO BID PRN constipation Pain management: Tylenol No. As directed smoking cessation Supportive measures: DVT ppx, GI ppx all questions answered time spent: > 35 min Supervising MD: Dr. Geiger c/d This document was generated in part using voice recognition software, occasional wrong word or sound alike substitutions may have occurred due to the inherent limitations of voice recognition software. Read the chart carefully and recognize using context, where the substitutions have occurred. Although every effort was made to edit the content, primer supervisor and typing errors may occur ADVANCED CARE PLANNING 1. Which of the following were discussed? Hospice Care - Yes / No Therapeutic options - Yes / No Advance Directives - Yes / No Other discussions - 2. Discussed with who? 3. Voluntary nature of this service was explained to the patient? Yes / No 4. Amount of time spent - 5. Reviewed by Physician? (if this service was performed by NPP) Yes / No ATTESTATION BY PHYSICIAN I have seen and examined the patient. I reviewed the documentation, medical d ecision making, and treatment plan as noted by the mid-level provider above. I agree with the findings and plan of care. Lore Geiger MD, ELIZABETH NP Oct 31, 2024 15:01
--- NOTE | 2024-10-31 15:30 | NUR ---
PT CONTINUES TO BE IN DISTRESS, TIGHTNESS TO CHEST, NO IMPROVMENT WITH TREATMENT.
[2024-10-31 15:31] VITALS: PULSE 125; RESP 28
--- NOTE | 2024-10-31 15:45 | NUR ---
VENTILATOR SETTINGS: PRVC MODE TV 480 RATE 20 FIO2 80% PEEP 5
[2024-10-31 15:50] VITALS: PULSE 125; O2SAT 100
[2024-10-31] MEDS ORDERED: MIDAZOLAM HCL 50 MG in 0.9%NACL 50ML 50 ML IV SCH (16:00)
--- NOTE | 2024-10-31 16:00 | NUR ---
INTUBATION NOTE 1540HRS: ETOMIDATE 20MG IVP GIVEN TO PT 1541HRS: ROCURONIUM 100MG IVP GIVEN TO PT. 1542HRS: PT SEDATED AND INTUBATED W/7.5ETT/25CMS AT THE TEETCH 1543HRS: COLOR CHANGE CONFIRMATION ON ETCO2 DETECTOR 1545HRS: PROPOFOL DRIP 20MCG/KG/MIN STARTED POST INTUBATION RSI MEDS GIVEN BY ME. DOROTEO ADNE RN
--- NOTE | 2024-10-31 16:11 | HMCIMG ---
CHEST 1VW HISTORY: Tube placement COMPARISON: 10/31/2024 FINDINGS: A frontal projection of the chest was obtained. Mild bilateral pulmonary infiltrates are seen may be related to mild pulmonary vascular congestion with possible superimposed pneumonitis. The heart is borderline enlarged. Endotracheal tube is seen with distal tip at 4 cm above mónica. No evidence of aortic calcification is seen. IMPRESSION: 1. Mild bilateral pulmonary infiltrates are seen may be related to mild pulmonary vascular congestion with possible superimposed pneumonitis.
[2024-10-31 16:12] LABS: ABG HCO3 25.1 mmol/L (21.0-28.0); ABG OXYGEN SATURATION 99.7 % (94.0-98.0); ABG PCO2 70 mmHg (35-48); ABG PH 7.174 (7.350-7.450); PO2, ARTERIAL BG 359.8 mmHg (83.0-108.0); VENT MODE, BG PRVC IT .9 (ROOM AIR)
[2024-10-31] MEDS: cefTRIAXone 1G VIAL IVPB SCH (16:16)
--- NOTE | 2024-10-31 16:35 | NUR ---
REPORT GIVEN TO JANEL ROUSSEAU PT MOVED FROM ROOM ER 4 TO ER 16
[2024-10-31] MEDS: ALBUTEROL 0.083% 2.5 MG/3 ML INH IH ONE (16:38)
[2024-10-31] MEDS: ETOMIDATE 20MG VIAL IVP ONE (16:42)
[2024-10-31] MEDS: MIDAZOLAM 50MG-0.9% NS 50ML 50 ML IV SCH (16:45)
[2024-10-31] MEDS: proPOFol 1000 MG/100 ML 100 ML IV ONE (16:46)
[2024-10-31] MEDS: Solu-medROL 40MG VIAL IVP SCH (16:50)
[2024-10-31] MEDS: AZITHROMYCIN 500MG+NS 250ML 250 ML IVPB SCH (16:50)
[2024-10-31 17:06] LABS: APPEARANCE,URINE CLEAR (CLEAR); BILIRUBIN,URINE NEGATIVE (NEGATIVE); COLOR,URINE YELLOW (YELLOW); GLUCOSE, URINE (UA) NEGATIVE (NEGATIVE); KETONES,URINE NEGATIVE (NEGATIVE); LEUKOCYTE ESTERASE ,URINE NEGATIVE Leu/uL (NEGATIVE); NITRATE,URINE NEGATIVE (NEGATIVE); PH,URINE 5.5 (5.0-8.0); PROTEIN,URINE 30 mg/dL (NEGATIVE); UROBILINOGEN,URINE 0.2 mg/dL (0.2-1.0)
[2024-10-31 17:07] LABS: ADD UA MICROSCOPIC YES
[2024-10-31 17:14] LABS: AMPHET/METH SCREEN,URINE NEGATIVE (NEGATIVE); BARBITURATE SCREEN, URINE NEGATIVE (NEGATIVE); BENZODIAZEPINES SCREEN,URINE NEGATIVE (NEGATIVE); CANNABINOID SCREEN,URINE POSITIVE (NEGATIVE); COCAINE SCREEN,URINE POSITIVE (NEGATIVE); OPIATE SCREEN,URINE NEGATIVE (NEGATIVE); PHENCYCLIDINE SCREEN,URINE NEGATIVE (NEGATIVE)
[2024-10-31 17:21] LABS: BACTERIA,URINE FEW /HPF (None Seen); MUCUS,URINE MOD LPF (None Seen)
--- NOTE | 2024-10-31 17:39 | CONS ---
[facility] CONSULTATION NOTE Date Patient Seen: Oct 31, 2024 Time of Visit: 2044 Supervising Physician: [Dr. Jesus Alberto Bates ] Reason for Consultation: [Critical care management] Primary Care Physician: [Jose Narvaez Dr. and Dr. Bautista Outpatient Specialists: [ ] Inpatient Consults: [BIS team-pulmo ] PROBLEM LIST: Acute hypoxic respiratory failure needing intubation-POA Acute respiratory distress-POA Respiratory acidosis-POA (+) Flu A -POA Bilateral community-acquired pneumonia-POA Acute asthma exacerbation-POA Septic shock requiring pressor support-POA (+) cocaine and cannabis screen- POA Chronic asthma Bipolar disorder Chronic nicotine disorder - uses 4 cigars daily Anxiety disorder PLAN: -Continue critical care management -Continue vent management and ABG monitoring: adjust accordingly -Start on IV Zosyn and Doxycycline, deescalate as warranted -Continue Tamiflu -Daily SBT and sedation vacation as tolerated -Smoking cessation education -Counselling and patient education regarding lifestyle modification -Neb treatment scheduled q6H and PRN for SOB/wheeze -Continue IV Solumedrol therapy -Manage anxiety PRN HPI: [Patient is unable to participate on the HPI due to being intubated and sedated. Per hospitalist's HPI. "This is a 44-year-old male was brought in by EMS with chief complaints of Shortness of breath. Apparently the patient called 911 given to having a asthma attack in on arrival patient was found with oxygen saturation of on room air of 54%. Patient has a significant underlying history of asthma he took albuterol inhaler at home he reports he has been using it as per ER note. Unable to obtain history data due to dyspneic we will obtain history from ER notes and from ER physician. On arrival to ED patient was dyspneic per ER physican was hardly moving air throughout all lung Corey and immediately was placed on BiPAP support and was given IV steroids and DuoNeb. ER workup positive for influenza A Patient was seen in ED the patient appears acutely ill. ER physician removed BiPAP to see how patient we will do on 10 L so far oxygenation level at 95%. However he continues to use accessory muscles to breathe he will be transition to ICU: high risk for decompensated airway. Patient was unable to tolerate 10 L became dyspneic and anxious therefore ER physician intubated patient mode PRVC rate 20 tidal volume 480 Peep: 5 FI O2 60% on sedation patient will transitioned to ICU once bed is available. Spoke to family at bedside all questions answered." BIS team was consulted for critical care management in the setting of septic shock and intubation 2/2 acute hypoxic respiratory failure. According to the patient's mother, patient was doing well this morning and he even drove him yesterday to the clinic where she herself was diagnosed of flu. This afternoon, everything changed and happened so rapidly with complaint of sudden asthma attack and respiratory distress. Patient is now receiving 3 sedatives namely Propofol, Fentanyl and Versed which according to the bedside RN took awhile to optimize as the patient continues to fight it and tends to override the vent.He is currently on Levophed for pressor support. He appears to continue using his accessory mnuscles despite being on ventilator. Lung sounds have positive wheezing across lung corey. We will continue to follow along patient's response to treatment as enumerated above. Goals of care were discussed with the mother verbalizing understanding and agreement. On behalf of BIS team, thank you for the opportunity to participate on Mr. Lloyd's case. PAST MEDICAL HX: see above PAST SURGICAL HX: noncontributory SOCIAL HISTORY: (+) cigar 4 pieces a day tobacco, no ETOH, (+) cocaine and marijuana illicit drug use Coded Allergies: aspirin (Unverified Allergy, Unknown, 08/04/22) REVIEW OF SYSTEMS: Unable to perform 12 point ROS due to being intubated and sedated. PHYSICAL EXAM: GENERAL: Intubated and sedated HEENT: EOMI, Sclera non icteric, moist mucosa NECK: Supple, no JVD, trachea midline LUNGS: Diffused wheezing bilaterally. No rhonchi or rales HEART: Regular rate and rhythm. Normal S1 and S2, without murmurs ABD: Abdomen soft, nontender. Bowel sounds present EXT: No clubbing cyanosis or edema : Peoples in situ NEURO: Deferred Vital Signs (last 8hr) Date Time Temp Pulse Resp B/P (MAP) Pulse Ox O2 Delivery O2 Flow Rate FiO2 10/31/24 17:30 40 10/31/24 17:20 109 28 99/64 98 Ventilator+ 5.0 80 10/31/24 16:44 111 22 119/74 98 Ventilator+ 15 80 10/31/24 16:16 60 10/31/24 15:50 125 80 10/31/24 15:31 125 28 10/31/24 15:00 99.7 119 30 118/82 94 Bi-PAP+ 5.0 40 10/31/24 14:30 99.7 120 30 134/89 97 Bi-PAP+ 5.0 40 10/31/24 14:00 99.7 117 30 135/84 94 Bi-PAP+ 40 10/31/24 13:30 99.7 116 22 125/80 97 Non-Rebreather+ 12 40 10/31/24 13:27 118 22 40 10/31/24 12:43 99.7 122 28 119/74 98 Nasal Cannula* 4 N/A Simple Mask* 10/31/24 12:36 115 20 97 Nasal Cannula 5.0 LABS: Hematology Labs: Test 10/31/24 12:52 Range/Units White Blood Count 10.2 4.8-10.8 K/uL Red Blood Count 4.90 4.50-6.20 MIL/uL Hemoglobin 14.7 14.0-18.0 g/dL Hematocrit 43.5 42-54 % Mean Corpuscular Volume 88.8 79-99 fL Mean Corpuscular Hemoglobin 30.0 27.0-33.0 pg Mean Corpuscular Hemoglobin Concent 33.8 32.0-36.0 g/dL Red Cell Distribution Width 13.0 11.0-15.5 % Platelet Count 317 130-400 K/uL Mean Platelet Volume 9.7 7.5-10.5 fL Immature Granulocyte % (Auto) 0.5 0-1 % Neutrophils (%) (Auto) 78.9 H 40.0-77.0 % Lymphocytes (%) (Auto) 6.8 L 21.0-51.0 % Monocytes (%) (Auto) 13.2 H 3.0-13.0 % Eosinophils (%) (Auto) 0.1 0.0-8.0 % Basophils (%) (Auto) 0.5 0.0-5.0 % Neutrophils # (Auto) 8.0 H 1.8-7.7 K/uL Lymphocytes # (Auto) 0.7 L 1.0-4.8 K/uL Monocytes # (Auto) 1.3 H 0.1-1.0 K/uL Eosinophils # (Auto) 0.01 0.00-0.70 K/uL Basophils # (Auto) 0.05 0.00-0.20 K/uL Absolute Immature Granulocyte (auto 0.05 0-1 K/uL Nucleated Red Blood Cells 0.0 0.0-0.19 % White Cell Morphology Comment See comments Chemistry Labs: Test 10/31/24 12:52 Range/Units Sodium Level 139 136-145 mmol/L Potassium Level 3.6 3.5-5.1 mmol/L Chloride Level 102 101-111 mmol/L Carbon Dioxide Level 27 21-32 mmol/L Blood Urea Nitrogen 15 7-18 mg/dL Creatinine 1.0 0.5-1.3 mg/dL Glomerular Filtration Rate Calc 96 >90 mL/min Random Glucose 131 H 70-105 mg/dL Lactic Acid Level 1.6 0.8-2.5 mmol/L Total Calcium 9.1 8.5-10.1 mg/dL Magnesium Level 1.90 1.80-2.40 mg/dL Total Creatine Kinase 131 21-232 U/L Troponin I High Sensitivity 9 4-75 ng/L B-Type Natriuretic Peptide 37 0-100 pg/mL Procalcitonin < 0.05 L 0.05-0.5 ng/mL DIAGNOSTICS / RADIOLOGY RESULTS: [ ] PLAN NEURO: Minimize central acting medications as possible. Maintain fall precautions, adequate lighting during the day PULMONARY: Supplemental 02 as needed. Maintain aspiration precautions at all times CARDIOVASCULAR: Follow hemodynamics. Vital signs per facility protocol GI & NUTRITION: Continue with nutritional support. Continue stool softeners and laxatives as needed. KIDNEYS & ELECTROLYTES: Strict monitoring of intake, output and overall fluid balance. Avoid nephrotoxic medications to the extent possible. Medications to be dosed according to renal function. Monitor electrolytes and replace as needed ENDOCRINE: Maintain blood glucose between 100-180 at all times. Hypoglycemia protocol in place INFECTIOUS DISEASE: Trend temperature, WBC and procalcitonin level Follow cultures, deescalate antibiotics as soon as possible. Panculture if new onset fever ONCOLOGY/HEMATOLOGY/COAGULATION: Monitor for s/s of bleeding Monitor hemoglobin, coagulation studies as needed SKIN: Pressure ulcer prevention per facility protocol Specialty mattress ORTHO/REHAB: Continue PT/OT Prophylaxis: Continue GI and DVT prophylaxis Code Status: Full Resuscitation Disposition: TBD Other: Total patient care time: 35 minutes ANANDA LEIVA Oct 31, 2024 17:39
[2024-10-31] MEDS: rocuRONium bROMide 10MG/1ML 5ML VL IV ONE (18:18)
[2024-10-31 19:20] LABS: ABG BASE EXCESS -3.8 mmol/L (-2.0-3.0); ABG HCO3 25.7 mmol/L (21.0-28.0); ABG OXYGEN SATURATION 98.5 % (94.0-98.0); ABG PCO2 67 mmHg (35-48); ABG PH 7.201 (7.350-7.450); PO2, ARTERIAL BG 154.6 mmHg (83.0-108.0)
[2024-10-31 19:24] VITALS: PULSE 111; O2SAT 94
[2024-10-31] MEDS ORDERED: FENTanyl 1000MCG+NS 100ML 100 ML IV SCH (19:30)
[2024-10-31] MEDS: acetaMINOPHEN 650 MG SUPPOSITORY RC PRN (19:42)
[2024-10-31] MEDS ORDERED: COMPOUND NARC IV MISC 1 EACH IVSOLN MISC PRN (20:00)
[2024-10-31] MEDS: NOREPINEPHRIN 4MG/NS 250ML 250 ML IV SCH (20:16)
[2024-10-31] MEDS ORDERED: NOREPINEPHRIN 4MG/NS 250ML 250 ML IV SCH (20:30)
[2024-10-31] MEDS: acetaMINOPHEN 650 MG SUPPOSITORY RC ONE (20:38)
[2024-10-31] MEDS: NOREPINEPHRIN 4MG/NS 250ML 250 ML IV ONE (20:38)
[2024-10-31] MEDS: monteLUKAST sodIUM 10 MG TAB PO SCH (21:00)
[2024-10-31] MEDS: FAMOTIDINE 20MG TAB PO SCH (21:00)
[2024-10-31 21:47] VITALS: PULSE 98; O2SAT 96
--- NOTE | 2024-10-31 22:01 | NUR ---
REPORT GIVEN TO LUPE ROUSSEAU
[2024-10-31] MEDS: proPOFol 1000 MG/100 ML IV PRN (22:50)
[2024-10-31] MEDS: FENTanyl 2500MCG+NS 250ML 250 ML IV SCH (22:52)
[2024-11-01] VITALS (101 sets, daily range): BP systolic 88–124; BP diastolic 44–70; PULSE 49–99; RESP 18–34; TEMP 98.1–100.1; O2SAT 95–99
[2024-11-01] MEDS: ZOSYN 3.375GM +NS 50ML IV SCH (00:49)
[2024-11-01] MEDS: DOXYCYCLINE 100MG+NS 250ML 250 ML IV SCH (00:50)
[2024-11-01 02:32] LABS: BASOPHILS # (AUTO) 0.01 K/uL (0.00-0.20); BASOPHILS % (AUTO) 0.1 % (0.0-5.0); EOSINOPHILS # (AUTO) 0.07 K/uL (0.00-0.70); EOSINOPHILS % (AUTO) 0.5 % (0.0-8.0); HEMATOCRIT 42.2 % (42-54); IMMATURE GRANULOCYTE ABSOLUTE 0.09 K/uL (0-1); LYMPHOCYTES # (AUTO) 0.6 K/uL (1.0-4.8); LYMPHOCYTES % (AUTO) 4.1 % (21.0-51.0); MEAN CORPUSCULAR VOLUME 93.8 fL (79-99); MONOCYTES # (AUTO) 0.7 K/uL (0.1-1.0); MONOCYTES % (AUTO) 4.8 % (3.0-13.0); NEUTROPHILS # (AUTO) 13.1 K/uL (1.8-7.7); NEUTROPHILS % (AUTO) 89.9 % (40.0-77.0); PLATELET COUNT (AUTO) 289 K/uL (130-400); RED CELL DISTRIBUTION WIDTH 13.2 % (11.0-15.5); WHITE BLOOD COUNT (AUTO) 14.5 K/uL (4.8-10.8)
[2024-11-01] MEDS: IpraTROPium/alBUTERol SULFATE 3 ML SOLUTION IH SCH ×2 (02:41→09:58)
[2024-11-01] MEDS: IpraTROPium/alBUTERol SULFATE 3 ML SOLUTION IH ONE ×3 (02:42→09:59)
[2024-11-01 02:53] LABS: ALBUMIN 3.4 g/dL (3.5-5.0); BILIRUBIN,TOTAL 0.3 mg/dL (0.2-1.0); CREATININE 1.6 mg/dL (0.5-1.3); MAGNESIUM 2.4 mg/dL (1.80-2.40); POTASSIUM 5.4 mmol/L (3.5-5.1); TOTAL PROTEIN, SERUM 6.7 g/dL (6.0-8.3)
[2024-11-01] MEDS: OSELTAMIVIR PHOSPHATE 75 MG CAP PO SCH (07:54)
[2024-11-01] MEDS: FAMOTIDINE 20MG VIAL IV SCH (07:54)
[2024-11-01 07:55] LABS: ABG BASE EXCESS -3.3 mmol/L (-2.0-3.0); ABG HCO3 25.6 mmol/L (21.0-28.0); ABG OXYGEN SATURATION 97.8 % (94.0-98.0); ABG PCO2 63 mmHg (35-48); ABG PH 7.224 (7.350-7.450); CARBON MONOXIDE 0.5 % (0.5-1.5); DEVICE COMMENT RR EDDY; HHb 2.2; PO2, ARTERIAL BG 107.6 mmHg (83.0-108.0); VENT MODE, BG PRVC-AC (ROOM AIR)
[2024-11-01] MEDS: ENOXAPARIN SODIUM 40 MG/0.4 ML SYRINGE SQ SCH (07:55)
[2024-11-01 08:57] LABS: INR <= 0.93 (0.85-1.15); PROTHROMBIN TIME 10.4 SEC (9.6-11.6)
--- NOTE | 2024-11-01 09:07 | NUR ---
DCP: HOME [place] pt's mother Shanelle Anderson [phone]. 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 Mother reports pt has applied for SSI in past for Bipolar, was denied. Educated mother on Medicaid criteria. [employer] rep to visit with mother for possible assistance. Pt is independent of all his ADLS. No in home care services or HH needed at this time. [facility] is [facility] at [facility] and [facility]. Pt to wa home with parents. Community resources given to mother Addendum: 11/01/24 at 0910 by DEMAR LUTZ Amended: Links added.
--- NOTE | 2024-11-01 09:34 | PN ---
[facility] PROGRESS NOTE Date Patient Seen: Nov 01, 2024 Time of Visit: 09:34 Supervising Physician: Dr. Macias Primary Care Physician: [Jose Narvaez Dr. and Dr. Bautista Outpatient Specialists: [ ] Inpatient Consults: [[facility] team-pulmo ] PROBLEM LIST: Acute hypoxemic respiratory failure requiring intubation-POA Acute asthma exacerbation-POA Respiratory acidosis-POA (+) Flu A -POA Bilateral community-acquired pneumonia-POA Septic shock requiring pressor support-POA (+) cocaine and cannabis screen- POA Chronic asthma Bipolar disorder Chronic nicotine disorder - uses 4 cigars daily Anxiety disorder INTERVAL HISTORY: 10/31/2024: HPI: [Patient is unable to participate on the HPI due to being intubated and sedated. Per hospitalist's HPI. "This is a 44-year-old male was brought in by EMS with chief complaints of Shortness of breath. Apparently the patient called 911 given to having a asthma attack in on arrival patient was found with oxygen saturation of on room air of 54%. Patient has a significant underlying history of asthma he took albuterol inhaler at home he reports he has been using it as per ER note. Unable to obtain history data due to dyspneic we will obtain history from ER notes and from ER physician. On arrival to ED patient was dyspneic per ER physican was hardly moving air throughout all lung Corey and immediately was placed on BiPAP support and was given IV steroids and DuoNeb. ER workup positive for influenza A Patient was seen in ED the patient appears acutely ill. ER physician removed BiPAP to see how patient we will do on 10 L so far oxygenation level at 95%. However he continues to use accessory muscles to breathe he will be transition to ICU: high risk for decompensated airway. Patient was unable to tolerate 10 L became dyspneic and anxious therefore ER physician intubated patient mode PRVC rate 20 tidal volume 480 Peep: 5 FI O2 60% on sedation patient will transitioned to ICU once bed is available. Spoke to family at bedside all questions answered." [facility] team was consulted for critical care management in the setting of septic shock and intubation 2/2 acute hypoxic respiratory failure. According to the patient's mother, patient was doing well this morning and he even drove him yesterday to the clinic where she herself was diagnosed of flu. This afternoon, everything changed and happened so rapidly with complaint of sudden asthma attack and respiratory distress. Patient is now receiving 3 sedatives namely Propofol, Fentanyl and Versed which according to the bedside RN took awhile to optimize as the patient continues to fight it and tends to override the vent.He is currently on Levophed for pressor support. He appears to continue using his accessory mnuscles despite being on ventilator. Lung sounds have positive wheezing across lung corey. We will continue to follow along patient's response to treatment as enumerated above. Goals of care were discussed with the mother verbalizing understanding and agreement. On behalf of [facility] team, thank you for the opportunity to participate on Mr. Lloyd's case. 11/01/2024: At the time of my evaluation, the patient was lying in bed. He remains intubated and family members present at the bedside. Vital signs today remains generally stable. Laboratory data showed a increase of WBCs to 14.5 which may be reactive to steroids, though neutrophil predominance. Chemistry panel showing elevated potassium to 5.4, we will repeat potassium level later today. Also, renal parameters increase the BUN 27 creatinine 1.6 we will monitor the trend. The patient remains with Tamiflu and empiric antibiotic therapy with Zosyn/doxy combination. The remains on steroid therapy as ordered. The patient remains on sedation with propofol and fentanyl drip. Also on pressor therapy with Levophed. No other complaint. REVIEW OF SYSTEMS: Unable to perform 12 point ROS due to being intubated and sedated. PHYSICAL EXAM: GENERAL: Intubated and sedated HEENT: EOMI, Sclera non icteric, moist mucosa NECK: Supple, no JVD, trachea midline LUNGS: Diffused wheezing bilaterally. No rhonchi or rales HEART: Regular rate and rhythm. Normal S1 and S2, without murmurs ABD: Abdomen soft, nontender. Bowel sounds present EXT: No clubbing cyanosis or edema : Peoples in situ NEURO: Deferred Vital Signs (last 8hr) Date Time Temp Pulse Resp B/P (MAP) Pulse Ox O2 Delivery O2 Flow Rate FiO2 11/01/24 08:30 64 30 106/64 (78) 98 11/01/24 08:15 64 30 111/68 (82) 98 11/01/24 08:00 98.2 11/01/24 08:00 66 31 113/65 (81) 98 11/01/24 07:45 69 32 111/69 (83) 98 11/01/24 07:30 67 32 112/70 (84) 99 11/01/24 07:15 73 31 109/64 (79) 99 11/01/24 07:00 45 11/01/24 06:56 68 45 11/01/24 06:55 65 30 11/01/24 06:46 67 31 101/59 (73) 98 11/01/24 06:31 67 30 103/60 (74) 97 11/01/24 06:16 67 30 102/61 (75) 97 11/01/24 06:01 69 31 105/60 (75) 97 11/01/24 05:46 67 29 107/65 (79) 97 11/01/24 05:37 103/58 11/01/24 05:31 68 29 106/61 (76) 97 11/01/24 05:16 68 33 103/58 (73) 98 11/01/24 05:01 69 31 103/65 (78) 98 11/01/24 04:46 69 30 104/64 (77) 98 11/01/24 04:31 70 32 105/62 (76) 98 11/01/24 04:16 70 30 104/68 (80) 98 11/01/24 04:01 73 31 104/67 (79) 98 11/01/24 04:00 73 31 104/67 98 11/01/24 03:46 76 28 104/66 (79) 98 11/01/24 03:31 76 28 105/68 (80) 98 11/01/24 03:23 45 11/01/24 03:16 80 23 111/62 (78) 98 11/01/24 03:01 84 22 96/67 (77) 99 11/01/24 03:01 83 45 11/01/24 02:46 85 30 102/63 (76) 99 11/01/24 02:42 99 Ventilator+ 45 11/01/24 02:41 84 18 11/01/24 02:31 84 34 97/58 (71) 96 11/01/24 02:16 88 31 89/51 (64) 95 11/01/24 02:01 89 32 95/57 (70) 95 11/01/24 01:45 90 32 92/54 (67) 95 LABS: Hematology Labs: Test 11/01/24 02:22 10/31/24 12:52 Range/Units White Blood Count 14.5 #H 4.8-10.8 K/uL Red Blood Count 4.50 4.50-6.20 MIL/uL Hemoglobin 13.5 L 14.0-18.0 g/dL Hematocrit 42.2 42-54 % Mean Corpuscular Volume 93.8 79-99 fL Mean Corpuscular Hemoglobin 30.0 27.0-33.0 pg Mean Corpuscular Hemoglobin Concent 32.0 32.0-36.0 g/dL Red Cell Distribution Width 13.2 11.0-15.5 % Platelet Count 289 130-400 K/uL Mean Platelet Volume 9.3 7.5-10.5 fL Immature Granulocyte % (Auto) 0.6 0-1 % Neutrophils (%) (Auto) 89.9 H 40.0-77.0 % Lymphocytes (%) (Auto) 4.1 L 21.0-51.0 % Monocytes (%) (Auto) 4.8 3.0-13.0 % Eosinophils (%) (Auto) 0.5 0.0-8.0 % Basophils (%) (Auto) 0.1 0.0-5.0 % Neutrophils # (Auto) 13.1 H 1.8-7.7 K/uL Lymphocytes # (Auto) 0.6 L 1.0-4.8 K/uL Monocytes # (Auto) 0.7 0.1-1.0 K/uL Eosinophils # (Auto) 0.07 0.00-0.70 K/uL Basophils # (Auto) 0.01 0.00-0.20 K/uL Absolute Immature Granulocyte (auto 0.09 0-1 K/uL Nucleated Red Blood Cells 0.0 0.0-0.19 % White Cell Morphology Comment See comments Chemistry Labs: Test 11/01/24 02:22 10/31/24 12:52 Range/Units Sodium Level 137 136-145 mmol/L Potassium Level 5.4 H 3.5-5.1 mmol/L Chloride Level 104 101-111 mmol/L Carbon Dioxide Level 28 21-32 mmol/L Blood Urea Nitrogen 27 H 7-18 mg/dL Creatinine 1.6 H 0.5-1.3 mg/dL Glomerular Filtration Rate Calc 54 >90 mL/min Random Glucose 172 H 70-105 mg/dL Total Calcium 8.2 L 8.5-10.1 mg/dL Magnesium Level 2.40 1.80-2.40 mg/dL Total Bilirubin 0.3 0.2-1.0 mg/dL Aspartate Amino Transf (AST/SGOT) 31 10-37 U/L Alanine Aminotransferase (ALT/SGPT) 36 12-78 U/L Alkaline Phosphatase 86 50-136 U/L Total Protein 6.7 6.0-8.3 g/dL Albumin 3.4 L 3.5-5.0 g/dL Lactic Acid Level 1.6 0.8-2.5 mmol/L Total Creatine Kinase 131 21-232 U/L Troponin I High Sensitivity 9 4-75 ng/L B-Type Natriuretic Peptide 37 0-100 pg/mL Procalcitonin < 0.05 L 0.05-0.5 ng/mL Coagulation Labs: Test 11/01/24 08:35 Range/Units Prothrombin Time 10.4 9.6-11.6 SEC Prothromb Time International Ratio <= 0.93 0.85-1.15 DIAGNOSTICS / RADIOLOGY RESULTS: [ ] PLAN 11/01/2024: For now, we are going to continue current management for the patient. We are going to change steroid therapy to hydrocortisone and we will continue bronchodilator therapy. We will resume his asthma management. He will remain intubated and we will continue on pressor therapy as well as sedation. We are going to repeat surveillance labs in the morning as well as a chest x- ray. We will monitor the patient's progress and response to management. We will continue to provide general supportive care, GI and DVT prophylaxis. Further orders per attending MD and hospital course. NEURO: Minimize central acting medications as possible. Fall Precautions. Well lighted room through the day and minimize interruptions through the night to prevent acute delirium. PULMONARY: Supplemental 02 as needed Titrate Fio2 to keep Spo2 > or = 90% DuoNebs and CPT as needed IS hourly while awake for pulmonary hygiene Out of bed to chair as tolerated CARDIOVASCULAR: Follow hemodynamics. Titrate vasopressor to keep MAP >65 or systolic blood pressure >95mmHg DIPS: [ ] LINES: [ ] GI & NUTRITION: Continue nutritional support Aspirations precautions Prokinetic agents and laxatives as needed KIDNEYS & ELECTROLYTES: Strict monitoring of intake and output Daily weights Avoid nephrotoxic agents Monitor electrolytes and replace as needed Goal urine output of 30mL/hr or 0.5mL/kg/hr Urine output: [ ] Fluid Balance: [ ] ENDOCRINE: Maintain blood glucose between 100-180 at all times. Insulin sliding scale for blood glucose management INFECTIOUS DISEASE: Trend temperature. Shaw-culture if febrile. Micro: [ ] Antibiotics: [ ] HEMATOLOGY & COAGULATION: Monitor H&H. Keep Hgb > 7 Transfuse 1 unit of PRBC for Hgb < 7 Transfuse 1 pack of platelets of platelets < 20, 000 Watch for any signs and symptoms of bleeding SKIN: Pressure ulcer prevention per facility protocol Rehab: PT/OT Prophylaxis: GI: [ ] DVT: [ ] Code Status: Full Resuscitation Disposition: [ ] Other: Total patient care time exceeds 35 minutes excluding all procedures. Case was discussed and seen with my supervising physician. The above plan was formulated and agreed upon. LAURA WHITNEY NP Nov 01, 2024 09:34
--- NOTE | 2024-11-01 09:53 | HMCIMG ---
CHEST 1VW HISTORY: Intubated COMPARISON: None FINDINGS: A frontal projection of the chest was obtained. No acute pulmonary infiltrates is seen. The heart is normal in size. All the lines and tubes are again seen in place. No evidence of aortic calcification is seen. IMPRESSION: 1. No acute pulmonary infiltrate is seen.
--- NOTE | 2024-11-01 10:42 | PRN ---
[facility] Procedure Note [facility] Procedure Note DATE OF PROCEDURE: 11/01/2024 INDICTAION: Septic shock Procedures performed: -Central line placement, right internal jugular vein. -Intraoperative ultrasound guidance with permanent recording of images in chart. Pre-procedure checklist: -Informed consent obtained. -Time-out performed per hospital policy. Medications: -Lidocaine 1% 5 ml Description of procedure: Hand hygiene was performed. Cap, mask, sterile gown, and sterile gloves were donned. Area was prepped with 2% chlorhexidine and a large sterile drape was applied with sterile field maintained. 5 ml of Lidocaine injected into surrounding tissue. Using ultrasound probe with sterile sleeve in place, procedure site was assessed and the vein was entered with direct ultrasound guidance while maintaining strict sterile technique. Triple lumen catheter was inserted with Seldinger technique. Venous blood was aspirated freely from all 3 ports and flushed with 10 ml of 0.9% saline each. Line secured at the hub and sutured in place. Biopatch placed in the correct position and clear sterile dressing was applied. A post-procedure chest x-ray was ordered. Procedure was performed under direct supervision of Dr. Ruddy Macias. Time spent on this procedure is independent of the time spent planning and coordinating the patient's care. LAURA WHITNEY NP Nov 01, 2024 10:42
--- NOTE | 2024-11-01 10:50 | PRN ---
Procedure Note: Art Line Procedure Note Date: 11/01/2024 Time:1032am Procedure: Arterial line This is a procedure note. Procedure performed: 1. Arterial line insertion. 2. Intraoperative Ultrasound Diagnosis: Hypoxic respiratory failure Site: [Right] radial artery. Description of procedure: Consent obtained/ waived, procedure performed emergently. Hand hygiene. Time out done. Chlorhexidine was used to prepare the skin. Intraoperative US was used to localize vascular structure and intra-arterial access of guidewire. 20g Arterial line inserted with Seldinger technique on site specified above. Line secured at the hub. Patient tolerated procedure well. No immediate complications. EBL: 0.5 cc LAURA WHITNEY NP Nov 01, 2024 10:50
[2024-11-01] MEDS: hydroCORTisone SOD SUCCINATE 100 MG/2 ML VIAL IVP SCH (11:22)
[2024-11-01 12:18] LABS: ABG BASE EXCESS -3.8 mmol/L (-2.0-3.0); ABG HCO3 22.7 mmol/L (21.0-28.0); ABG OXYGEN SATURATION 98.6 % (94.0-98.0); ABG PCO2 47 mmHg (35-48); ABG PH 7.306 (7.350-7.450); CARBON MONOXIDE 0.3 % (0.5-1.5); DEVICE COMMENT ALINE; HHb 1.4; PO2, ARTERIAL BG 145.7 mmHg (83.0-108.0); VENT MODE, BG PRVC (ROOM AIR)
--- NOTE | 2024-11-01 12:59 | HMCIMG ---
CHEST 1VW HISTORY: Catheter placement COMPARISON: None FINDINGS: A frontal projection of the chest was obtained. No acute pulmonary infiltrates is seen. The heart is normal in size. Endotracheal tube is seen with distal tip at 3 cm above mónica. All the lines and tubes are again seen in place. No evidence of aortic calcification is seen. IMPRESSION: 1. No acute pulmonary infiltrate is seen.
--- NOTE | 2024-11-01 14:07 | PN ---
[facility] PROGRESS NOTE Date of Service: Nov 01, 2024 Time of Service: 13:12 SUBJECTIVE: 11/01 patient seen at bedside, no acute events overnight. He remains intubated and sedated, on a low dose of pressors. WBC increased from 10.2 up to 14.5, potassium increased from 3.6 up to 5.4, creatinine increased from 1.0 up to 1.6, remainder of his labs are relatively unremarkable. He still has a prominent wheeze. Patient is positive for influenza. Further care per critical Care. REVIEW OF SYSTEMS A14 point ROS was obtained all relevant positive documented otherwise ROS negative PHYSICAL EXAM GENERAL APPEARANCE: The patient is awake, alert, and oriented,++acute cardiopulmonary distress requiring ventilation support and sedation NEUROLOGICAL: Cranial nerves II-XII grossly intact. Motor is 5/5 in bilateral upper and lower extremities proximal to distal. No sensory deficits. HEENT: Face is symmetric. Pupils are equal and reactive. Extraocular movements are intact. NECK: Supple. No JVD. No thyromegaly. No submental, submandibular, pre- /postauricular, occipital or supraclavicular lymphadenopathy. CHEST: Normal chest expansion. No Telemetry. LUNGS: miminal breath sound throughout: ++Wheezing CARDIOVASCULAR: Regular. S1 and S2 normal. No appreciable rubs, murmurs or gallops. ABDOMEN: Soft, nontender, and nondistended. There is no rebound, voluntary guarding, or rigidity. : Deferred. No Peoples. EXTREMITIES: Non-edematous and not cyanotic. No clubbing. Good capillary refill. SKIN: No skin breakdown. Vital Signs (last 8hr) Date Time Temp Pulse Resp B/P (MAP) Pulse Ox O2 Delivery O2 Flow Rate FiO2 11/01/24 12:04 113/52 11/01/24 12:00 60 30 111/59 (76) 98 11/01/24 12:00 98.1 11/01/24 11:52 60 45 11/01/24 11:30 66 30 94/61 (72) 99 11/01/24 11:15 73 30 91/52 (65) 99 11/01/24 11:00 69 30 90/54 (66) 98 88/50 (63) 11/01/24 10:45 63 29 104/63 (77) 99 103/60 (74) 11/01/24 10:30 65 30 103/60 (74) 99 11/01/24 10:15 65 30 103/60 (74) 99 11/01/24 10:08 45 11/01/24 10:00 61 31 111/67 (82) 99 11/01/24 09:59 62 30 11/01/24 09:45 62 31 106/62 (77) 98 11/01/24 09:30 63 31 106/61 (76) 99 11/01/24 09:24 65 45 11/01/24 09:15 63 30 107/66 (80) 98 11/01/24 09:00 61 31 104/61 (75) 98 11/01/24 08:45 63 31 106/64 (78) 98 11/01/24 08:30 64 30 106/64 (78) 98 11/01/24 08:15 64 30 111/68 (82) 98 11/01/24 08:00 98 Ventilator+ 45 11/01/24 08:00 98.2 11/01/24 08:00 66 31 113/65 (81) 98 11/01/24 07:45 69 32 111/69 (83) 98 11/01/24 07:30 67 32 112/70 (84) 99 11/01/24 07:15 73 31 109/64 (79) 99 11/01/24 07:00 45 11/01/24 06:56 68 45 11/01/24 06:55 65 30 11/01/24 06:46 67 31 101/59 (73) 98 11/01/24 06:31 67 30 103/60 (74) 97 11/01/24 06:16 67 30 102/61 (75) 97 11/01/24 06:01 69 31 105/60 (75) 97 11/01/24 05:46 67 29 107/65 (79) 97 11/01/24 05:37 103/58 11/01/24 05:31 68 29 106/61 (76) 97 11/01/24 05:16 68 33 103/58 (73) 98 LABS: Laboratory: Test 11/01/24 12:16 11/01/24 08:35 11/01/24 02:22 10/31/24 15:52 Range/Units Blood Gas Specimen Type Arterial Arterial Blood pH 7.306 L 7.350-7.450 Arterial Blood Partial Pressure CO2 47 35-48 mmHg Arterial Blood Partial Pressure O2 145.7 H 83.0-108.0 mmHg Arterial Blood HCO3 22.7 21.0-28.0 mmol/L Arterial Blood Oxygen Saturation 98.6 H 94.0-98.0 % Arterial Blood Base Excess -3.8 L -2.0-3.0 mmol/L Hemoglobin (Blood Gas) 13.9 13.5-17.5 g/dL Sodium (Blood Gas) 140 136-145 MMOL/L Bedside Potassium (Blood Gas) 4.5 3.4-4.5 MMOL/L Bedside Chloride (Blood Gas) 104 98-107 MMOL/L Bedside Glucose (Blood Gas) 185 H 65-95 MG/DL Bedside Ionized Calcium (Blood Gas) 1.21 1.15-1.33 MMOL/L Bedside Lactic Acid (Blood Gas) 1.57 H 0.36-0.75 MMOL/L Blood Gas Temperature 37.0 35.5-37.0 CELSIUS Blood Gas Respiration Rate 30.0 min. Blood Gas Vent Mode PRVC ROOM AIR FiO2 45.0 % Blood Gas Tidal Volume 450 ml Blood Gas PEEP 5 cm H2O Blood Gas Specimen Comment [place] Prothrombin Time 10.4 9.6-11.6 SEC Prothromb Time International Ratio <= 0.93 0.85-1.15 White Blood Count 14.5 #H 4.8-10.8 K/uL Red Blood Count 4.50 4.50-6.20 MIL/uL Hemoglobin 13.5 L 14.0-18.0 g/dL Hematocrit 42.2 42-54 % Mean Corpuscular Volume 93.8 79-99 fL Mean Corpuscular Hemoglobin 30.0 27.0-33.0 pg Mean Corpuscular Hemoglobin Concent 32.0 32.0-36.0 g/dL Red Cell Distribution Width 13.2 11.0-15.5 % Platelet Count 289 130-400 K/uL Mean Platelet Volume 9.3 7.5-10.5 fL Immature Granulocyte % (Auto) 0.6 0-1 % Neutrophils (%) (Auto) 89.9 H 40.0-77.0 % Lymphocytes (%) (Auto) 4.1 L 21.0-51.0 % Monocytes (%) (Auto) 4.8 3.0-13.0 % Eosinophils (%) (Auto) 0.5 0.0-8.0 % Basophils (%) (Auto) 0.1 0.0-5.0 % Neutrophils # (Auto) 13.1 H 1.8-7.7 K/uL Lymphocytes # (Auto) 0.6 L 1.0-4.8 K/uL Monocytes # (Auto) 0.7 0.1-1.0 K/uL Eosinophils # (Auto) 0.07 0.00-0.70 K/uL Basophils # (Auto) 0.01 0.00-0.20 K/uL Absolute Immature Granulocyte (auto 0.09 0-1 K/uL Nucleated Red Blood Cells 0.0 0.0-0.19 % Sodium Level 137 136-145 mmol/L Potassium Level 5.4 H 3.5-5.1 mmol/L Chloride Level 104 101-111 mmol/L Carbon Dioxide Level 28 21-32 mmol/L Blood Urea Nitrogen 27 H 7-18 mg/dL Creatinine 1.6 H 0.5-1.3 mg/dL Glomerular Filtration Rate Calc 54 >90 mL/min Random Glucose 172 H 70-105 mg/dL Total Calcium 8.2 L 8.5-10.1 mg/dL Magnesium Level 2.40 1.80-2.40 mg/dL Total Bilirubin 0.3 0.2-1.0 mg/dL Aspartate Amino Transf (AST/SGOT) 31 10-37 U/L Alanine Aminotransferase (ALT/SGPT) 36 12-78 U/L Alkaline Phosphatase 86 50-136 U/L Total Protein 6.7 6.0-8.3 g/dL Albumin 3.4 L 3.5-5.0 g/dL Urine Color YELLOW YELLOW Urine Appearance CLEAR CLEAR Urine pH 5.5 5.0-8.0 Urine Specific [place] 1.035 H 1.001-1.031 Urine Protein 30 H NEGATIVE mg/dL Urine Glucose (UA) NEGATIVE NEGATIVE mg/dL Urine Ketones NEGATIVE NEGATIVE mg/dL Urine Occult Blood +- (TRACE) H NEGATIVE Urine Nitrate NEGATIVE NEGATIVE Urine Bilirubin NEGATIVE NEGATIVE mg/dL Urine Urobilinogen 0.2 0.2-1.0 mg/dL Urine Leukocyte Esterase NEGATIVE NEGATIVE Greta/uL Urine RBC 6-10 H 0-1 /HPF Urine WBC 2-5 H 0-1 /HPF Urine Bacteria FEW None Seen /HPF Urine Opiates Screen NEGATIVE NEGATIVE Urine Barbiturates Screen NEGATIVE NEGATIVE Urine Phencyclidine Screen NEGATIVE NEGATIVE Urine Amphetamines Screen NEGATIVE NEGATIVE Urine Benzodiazepines Screen NEGATIVE NEGATIVE Urine Cocaine Screen POSITIVE H NEGATIVE Urine Marijuana (THC) Screen POSITIVE H NEGATIVE Test 10/31/24 13:18 10/31/24 12:52 10/31/24 12:46 Range/Units Blood Gas Flow-by 15.00 0.00-15.00 L/min White Cell Morphology Comment See comments Lactic Acid Level 1.6 0.8-2.5 mmol/L Total Creatine Kinase 131 21-232 U/L Troponin I High Sensitivity 9 4-75 ng/L B-Type Natriuretic Peptide 37 0-100 pg/mL Procalcitonin < 0.05 L 0.05-0.5 ng/mL Influenza Type A Antigen Positive For Type A *A NEGATIVE Influenza Type B Antigen Negative For Type B NEGATIVE SARS-CoV-2, RNA, NAAT NEGATIVE SARS CoV-2 NEGATIVE Current Medications Medications (Trade) Dose Ordered Sig/Martinez Route PRN Reason Start Time Stop Time Status Last Admin Dose Admin Acetaminophen (TYLenol 325MG TAB) 650 mg Q4H PRN PO TEMPERATURE GREATER THAN 101.5 10/31/24 15:00 11/30/24 14:59 Acetaminophen (TYLenol 650MG SUPPOSITORY) 650 mg Q6H PRN RC MILD PAIN (1-3) 10/31/24 21:00 11/30/24 20:59 10/31/24 19:42 650 MG Albuterol (DUOneb) 1 udvial [id number] IH 11/01/24 10:00 12/01/24 01:59 11/01/24 09:58 1 UDVIAL Albuterol (DUOneb) 1 udvial [id number] IH 11/01/24 02:00 11/01/24 09:42 DC 11/01/24 06:56 1 UDVIAL Azithromycin 250 ml @ 250 mls/hr Q24H IVPB 10/31/24 16:00 10/31/24 23:39 DC 10/31/24 16:50 250 MLS/HR Budesonide (Pulmicort 0.5 Mg/2ml) 0.5 mg BIDRESP IH 11/01/24 18:00 12/01/24 17:59 Ceftriaxone Sodium (ROCEphine 1G INJ) 1 gm Q24H IVPB 10/31/24 15:00 10/31/24 23:39 DC 10/31/24 16:16 1 GM Doxycycline Hyclate 250 ml @ 125 mls/hr Q12H IV 11/01/24 00:00 11/11/24 00:00 11/01/24 11:22 125 MLS/HR Enoxaparin Sodium (Lovenox) 40 mg DAILY SQ 11/01/24 09:00 12/01/24 08:59 11/01/24 07:55 40 MG Famotidine (Pepcid 20mg Vial) 20 mg BID IV 11/01/24 09:00 12/01/24 08:59 11/01/24 07:54 20 MG Famotidine (Pepcid 20mg Tab) 20 mg BID PO 10/31/24 21:00 11/01/24 01:45 DC Fentanyl Citrate 100 ml @ 2.5 mls/hr PROTOCOL IV 10/31/24 19:30 10/31/24 19:25 DC Fentanyl/Sodium Chloride 250 ml @ 0 mls/hr PROTOCOL IV 10/31/24 19:30 11/05/24 19:29 11/01/24 09:50 20 MLS/HR Hydrocortisone Sodium Succinate (Solu-corTEF 100MG) 50 mg Q6H IVP 11/01/24 11:00 12/01/24 10:59 11/01/24 11:22 50 MG Lactulose (Constulose 20gm/ 30ml Udcup) 20 gm BID PRN PO CONSTIPATION 10/31/24 15:00 11/30/24 14:59 Magnesium Sulfate 50 ml @ 0 mls/hr PROTOCOL IV 10/31/24 13:00 10/31/24 14:54 DC 10/31/24 13:08 25 MLS/HR Magnesium Sulfate 50 ml @ 0 mls/hr PROTOCOL PRN IV low mag level 10/31/24 15:00 11/30/24 14:59 Methylprednisolone Sodium Succinate (Solu-medROL 40MG) 60 mg Q8H IVP 10/31/24 15:00 11/01/24 09:46 DC 11/01/24 06:42 60 MG Midazolam HCl 50 ml @ 0 mls/hr PROTOCOL IV 10/31/24 16:30 11/07/24 16:29 11/01/24 09:19 9 MLS/HR Midazolam HCl 50 mg/Sodium Chloride 50 ml @ 0 mls/hr PROTOCOL IV 10/31/24 16:00 10/31/24 16:02 DC Montelukast Sodium (SinguLAIR) 10 mg HS PO 10/31/24 21:00 11/30/24 20:59 Norepinephrine 250 ml @ 27.225 mls/ hr PROTOCOL IV 10/31/24 20:30 11/30/24 20:29 11/01/24 12:04 35.58 MLS/HR Norepinephrine 250 ml @ 0 mls/hr PROTOCOL IV 10/31/24 20:30 11/30/24 20:29 Ondansetron HCl (zoFRAN 4MG INJ) 4 mg Q6H PRN IVP NAUSEA/VOMITING 10/31/24 15:00 11/30/24 14:59 Oseltamivir Phosphate (Tamiflu) 75 mg BID PO 11/01/24 09:00 11/06/24 08:59 11/01/24 07:54 75 MG Piperacillin Sod/ Tazobactam Sod (Zosyn 3.375gm+NS 50ml) 3.375 gm Q8H IV 11/01/24 00:00 11/11/24 00:00 11/01/24 07:55 3.375 GM Polyethylene Glycol (MIRalax 3350 17 GM POWD.PACK) 17 gm DAILY PO 11/02/24 09:00 12/02/24 08:59 Potassium Chloride 100 ml @ 100 mls/hr AD PRN IV POTASSIUM PROTOCOL 10/31/24 15:00 11/30/24 14:59 Potassium Chloride (K-Dur/Klor-Con 20meq) 20 meq AD PRN PO POTASSIUM PROTOCOL 10/31/24 15:00 11/30/24 14:59 Potassium Chloride (KCl 10% Elixir 20meq/15ml) 20 meq AD PRN PO POTASSIUM PROTOCOL 10/31/24 15:00 11/30/24 14:59 Propofol (DIPRivan 1000MG/ 100ML) 1,000 mg PROTOCOL PRN IV SEDATION 10/31/24 16:00 11/30/24 15:59 11/01/24 11:36 1,000 MG Rocuronium [place] 100 mg/ Sodium Chloride 100 ml @ 0 mls/hr PROTOCOL IV 10/31/24 16:00 1/8/25 16:44 DC DIAGNOSTICS / RADIOLOGY: [ ] ASSESSMENT: Sepsis, ruled out Acute asthma exacerbation POA Acute hypoxic respiratory failure with hypoxia requiring BiPAP support on arrival POA 10 L trials unsuccessful requiring intubation 10/31/2024 at 15:42 p.m. viral syndrome POA Positive influenza A POA Active smoker smokes cigars 3-4 POA Polysubstance abuse disorder Chronic problems asthma, bipolar disorder. PLAN: Continue DuoNebs Continue budesonide Continue mechanical ventilation, wean as able Continue pressors wean as able Continue Tamiflu 75 mg twice daily Continue Zosyn and doxycycline Disposition: Pending improvement in respiratory status Greater than 35 minutes ICU time spent in care of this patient CHEY HENRIQUEZ MD Nov 01, 2024 14:07
[2024-11-01] MEDS: polyETHYLene GLYCol 3350 17 GM POWD.PACK PO SCH (16:05)
[2024-11-01] MEDS: LACTULOSE 20 GM/30 ML UDCUP PO PRN (16:05)
--- NOTE | 2024-11-01 16:25 | NUR ---
SPEECH TRIGGER COMPLETED (INTUBATION). Pt IS A 44 Y.O. MALE ADMITTED SECONDARY TO ACUTE RESPIRATORY DISTRESS WITH HYPOXIA. Pt HAS A PAST MEDICAL HISTORY SIGNIFICANT FOR ASTHMA. Pt CURRENTLY INTUBATED AND NPO. PLEASE REQUEST [facility] FOR BEDSIDE SWALLOW EVALUATION 24 HOURS POST EXTUBATION IF ANY S/S OF ASPIRATION ARISE WITH ORAL INTAKE. FACILITIES CUSTODIAN COORDINATED WITH NURSE VARELA. ALL QUESTIONS ANSWERED AT THIS TIME. Addendum: 11/01/[address] [facility]Y RIVERA Amended: Links added.
[2024-11-01] MEDS: BUDESONIDE 0.5 MG/2 ML INH IH SCH (18:48)
[2024-11-01] MEDS: INSULIN humuLIN R 100 UNIT/ML 3ML SQ SCH (23:28)
[2024-11-02] VITALS (106 sets, daily range): BP systolic 100–167; BP diastolic 52–96; PULSE 40–115; RESP 23–34; TEMP 97.5–98.9; O2SAT 96–100
[2024-11-02] MEDS: NOREPINEPHRIN 8MG/250ML NS 250 ML IV PRN (00:01)
[2024-11-02 04:27] LABS: ABG BASE EXCESS -2.5 mmol/L (-2.0-3.0); ABG OXYGEN SATURATION 98.6 % (94.0-98.0); ABG PCO2 54 mmHg (35-48); ABG PH 7.282 (7.350-7.450); CARBON MONOXIDE 0.3 % (0.5-1.5); HHb 1.4; PO2, ARTERIAL BG 143.3 mmHg (83.0-108.0); VENT MODE, BG PRVC IT .6 (ROOM AIR)
[2024-11-02 04:38] LABS: BASOPHILS # (AUTO) 0.02 K/uL (0.00-0.20); BASOPHILS % (AUTO) 0.1 % (0.0-5.0); HEMATOCRIT 40.5 % (42-54); IMMATURE GRANULOCYTE ABSOLUTE 0.11 K/uL (0-1); LYMPHOCYTES # (AUTO) 1.5 K/uL (1.0-4.8); LYMPHOCYTES % (AUTO) 7.1 % (21.0-51.0); MEAN CORPUSCULAR HGB CONC 32.3 g/dL (32.0-36.0); MEAN CORPUSCULAR VOLUME 92.9 fL (79-99); MONOCYTES # (AUTO) 1.7 K/uL (0.1-1.0); MONOCYTES % (AUTO) 8.4 % (3.0-13.0); NEUTROPHILS # (AUTO) 17.1 K/uL (1.8-7.7); NEUTROPHILS % (AUTO) 83.9 % (40.0-77.0); PLATELET COUNT (AUTO) 262 K/uL (130-400); RED BLOOD CELL COUNT(AUTO) 4.36 MIL/uL (4.50-6.20); RED CELL DISTRIBUTION WIDTH 13.1 % (11.0-15.5); WHITE BLOOD COUNT (AUTO) 20.4 K/uL (4.8-10.8)
[2024-11-02 04:59] LABS: ALBUMIN 2.7 g/dL (3.5-5.0); BILIRUBIN,TOTAL 0.2 mg/dL (0.2-1.0); CREATININE 0.7 mg/dL (0.5-1.3); MAGNESIUM 2.4 mg/dL (1.80-2.40); POTASSIUM 4.6 mmol/L (3.5-5.1); TOTAL PROTEIN, SERUM 5.7 g/dL (6.0-8.3)
[2024-11-02] MEDS: ARTIFICAL TEARS SOL 15 ML OU SCH (06:58)
--- NOTE | 2024-11-02 08:43 | HMCIMG ---
CHEST 1VW HISTORY: Intubated COMPARISON: 11/01/2024 FINDINGS: A frontal projection of the chest was obtained. No acute pulmonary infiltrates is seen. The heart is borderline enlarged. All the lines and tubes are again seen in place. Endotracheal tube is seen with distal tip at 5.9 cm above mónica. No evidence of aortic calcification is seen. IMPRESSION: 1. No acute pulmonary infiltrate is seen.
[2024-11-02] MEDS: polyETHYLene GLYCol 3350 17 GM POWD.PACK PO SCH (08:50)
[2024-11-02] MEDS: CHLORHEXIDINE GLUCONATE 15 ML MOUTHWASH MM SCH (08:50)
--- NOTE | 2024-11-02 10:22 | PN ---
[facility] PROGRESS NOTE Date Patient Seen: Nov 02, 2024 Time of Visit: 10:22 Supervising Physician: Dr. Macias Primary Care Physician: [Jose Narvaez Dr. and Dr. Bautista Outpatient Specialists: [ ] Inpatient Consults: [BIS team-pulmo ] PROBLEM LIST: Acute hypoxemic respiratory failure requiring intubation-POA Acute asthma exacerbation-POA Respiratory acidosis-POA (+) Flu A -POA Bilateral community-acquired pneumonia-POA Septic shock requiring pressor support-POA (+) cocaine and cannabis screen- POA Chronic asthma Bipolar disorder Chronic nicotine disorder - uses 4 cigars daily Anxiety disorder INTERVAL HISTORY: 10/31/2024: HPI: [Patient is unable to participate on the HPI due to being intubated and sedated. Per hospitalist's HPI. "This is a 44-year-old male was brought in by EMS with chief complaints of Shortness of breath. Apparently the patient called 911 given to having a asthma attack in on arrival patient was found with oxygen saturation of on room air of 54%. Patient has a significant underlying history of asthma he took albuterol inhaler at home he reports he has been using it as per ER note. Unable to obtain history data due to dyspneic we will obtain history from ER notes and from ER physician. On arrival to ED patient was dyspneic per ER physican was hardly moving air throughout all lung Corey and immediately was placed on BiPAP support and was given IV steroids and DuoNeb. ER workup positive for influenza A Patient was seen in ED the patient appears acutely ill. ER physician removed BiPAP to see how patient we will do on 10 L so far oxygenation level at 95%. However he continues to use accessory muscles to breathe he will be transition to ICU: high risk for decompensated airway. Patient was unable to tolerate 10 L became dyspneic and anxious therefore ER physician intubated patient mode PRVC rate 20 tidal volume 480 Peep: 5 FI O2 60% on sedation patient will transitioned to ICU once bed is available. Spoke to family at bedside all questions answered." BIS team was consulted for critical care management in the setting of septic shock and intubation 2/2 acute hypoxic respiratory failure. According to the patient's mother, patient was doing well this morning and he even drove him yesterday to the clinic where she herself was diagnosed of flu. This afternoon, everything changed and happened so rapidly with complaint of sudden asthma attack and respiratory distress. Patient is now receiving 3 sedatives namely Propofol, Fentanyl and Versed which according to the bedside RN took awhile to optimize as the patient continues to fight it and tends to override the vent.He is currently on Levophed for pressor support. He appears to continue using his accessory mnuscles despite being on ventilator. Lung sounds have positive wheezing across lung corey. We will continue to follow along patient's response to treatment as enumerated above. Goals of care were discussed with the mother verbalizing understanding and agreement. On behalf of BIS team, thank you for the opportunity to participate on Mr. Lloyd's case. 11/01/2024: At the time of my evaluation, the patient was lying in bed. He remains intubated and family members present at the bedside. Vital signs today remains generally stable. Laboratory data showed a increase of WBCs to 14.5 which may be reactive to steroids, though neutrophil predominance. Chemistry panel showing elevated potassium to 5.4, we will repeat potassium level later today. Also, renal parameters increase the BUN 27 creatinine 1.6 we will monitor the trend. The patient remains with Tamiflu and empiric antibiotic therapy with Zosyn/doxy combination. The remains on steroid therapy as ordered. The patient remains on sedation with propofol and fentanyl drip. Also on pressor therapy with Levophed. No other complaint. 11/02/2024: At the time of my evaluation, the patient is lying in bed. He remains intubated. Most recent ABG showed a pH of 7.2, pCO2 54 and PO2 of 142.3. He continues on PRVC mode, rate of 26, FiO2 40%, tidal volume of 420 and a PEEP of 5. He is also hydrocortisone and receiving empiric antibiotic therapy with cefepime, doxy and Tamiflu. For sedation, the patient continues on propofol, Versed and fentanyl. Patient's mother was present at the bedside. No new complaint. REVIEW OF SYSTEMS: Unable to perform 12 point ROS due to being intubated and sedated. PHYSICAL EXAM: GENERAL: Intubated and sedated HEENT: EOMI, Sclera non icteric, moist mucosa NECK: Supple, no JVD, trachea midline LUNGS: Diffused wheezing bilaterally. No rhonchi or rales HEART: Regular rate and rhythm. Normal S1 and S2, without murmurs ABD: Abdomen soft, nontender. Bowel sounds present EXT: No clubbing cyanosis or edema : Peoples in situ NEURO: Deferred Vital Signs (last 8hr) Date Time Temp Pulse Resp B/P (MAP) Pulse Ox O2 Delivery O2 Flow Rate FiO2 11/02/24 10:03 51 28 11/02/24 09:35 58 40 11/02/24 08:52 117/62 11/02/24 07:40 40 11/02/24 06:35 42 28 11/02/24 06:31 42 45 11/02/24 06:30 75 28 113/58 (76) 99 45 11/02/24 06:15 41 28 115/57 (76) 100 45 11/02/24 06:00 42 28 120/68 (85) 100 45 118/59 (78) 11/02/24 05:45 42 28 118/58 (78) 100 45 11/02/24 05:30 41 28 118/58 (78) 100 45 11/02/24 05:15 42 28 118/58 (78) 100 45 11/02/24 05:00 43 28 121/69 (86) 100 45 116/58 (77) 11/02/24 04:45 42 28 111/55 (73) 100 45 11/02/24 04:30 41 26 113/56 (75) 100 45 11/02/24 04:15 41 26 115/56 (75) 100 45 11/02/24 04:00 45 11/02/24 04:00 97.5 43 26 119/67 (84) 100 45 110/55 (73) 11/02/24 04:00 100 Ventilator+ 45 11/02/24 03:45 43 26 112/55 (74) 99 45 11/02/24 03:30 42 26 108/53 (71) 99 45 11/02/24 03:15 53 26 119/65 (83) 99 45 11/02/24 03:00 43 26 124/66 (85) 99 45 131/65 (87) 11/02/24 02:45 43 26 134/66 (88) 99 45 11/02/24 02:30 40 28 11/02/24 02:30 41 26 135/67 (89) 100 11/02/24 02:27 40 45 LABS: Hematology Labs: Test 11/02/24 04:14 10/31/24 12:52 Range/Units White Blood Count 20.4 H 4.8-10.8 K/uL Red Blood Count 4.36 L 4.50-6.20 MIL/uL Hemoglobin 13.1 L 14.0-18.0 g/dL Hematocrit 40.5 L 42-54 % Mean Corpuscular Volume 92.9 79-99 fL Mean Corpuscular Hemoglobin 30.0 27.0-33.0 pg Mean Corpuscular Hemoglobin Concent 32.3 32.0-36.0 g/dL Red Cell Distribution Width 13.1 11.0-15.5 % Platelet Count 262 130-400 K/uL Mean Platelet Volume 9.9 7.5-10.5 fL Immature Granulocyte % (Auto) 0.5 0-1 % Neutrophils (%) (Auto) 83.9 H 40.0-77.0 % Lymphocytes (%) (Auto) 7.1 L 21.0-51.0 % Monocytes (%) (Auto) 8.4 3.0-13.0 % Eosinophils (%) (Auto) 0.0 0.0-8.0 % Basophils (%) (Auto) 0.1 0.0-5.0 % Neutrophils # (Auto) 17.1 H 1.8-7.7 K/uL Lymphocytes # (Auto) 1.5 1.0-4.8 K/uL Monocytes # (Auto) 1.7 H 0.1-1.0 K/uL Eosinophils # (Auto) 0.00 0.00-0.70 K/uL Basophils # (Auto) 0.02 0.00-0.20 K/uL Absolute Immature Granulocyte (auto 0.11 0-1 K/uL Nucleated Red Blood Cells 0.0 0.0-0.19 % White Cell Morphology Comment See comments Chemistry Labs: Test 11/02/24 05:53 11/02/24 04:14 10/31/24 12:52 Range/Units Whole Blood Glucose 154 H 70-110 MG/DL Sodium Level 143 136-145 mmol/L Potassium Level 4.6 3.5-5.1 mmol/L Chloride Level 110 101-111 mmol/L Carbon Dioxide Level 29 21-32 mmol/L Blood Urea Nitrogen 17 7-18 mg/dL Creatinine 0.7 0.5-1.3 mg/dL Glomerular Filtration Rate Calc 117 >90 mL/min Random Glucose 162 H 70-105 mg/dL Total Calcium 8.3 L 8.5-10.1 mg/dL Magnesium Level 2.40 1.80-2.40 mg/dL Total Bilirubin 0.2 0.2-1.0 mg/dL Aspartate Amino Transf (AST/SGOT) 38 H 10-37 U/L Alanine Aminotransferase (ALT/SGPT) 32 12-78 U/L Alkaline Phosphatase 65 50-136 U/L Total Protein 5.7 L 6.0-8.3 g/dL Albumin 2.7 L 3.5-5.0 g/dL Lactic Acid Level 1.6 0.8-2.5 mmol/L Total Creatine Kinase 131 21-232 U/L Troponin I High Sensitivity 9 4-75 ng/L B-Type Natriuretic Peptide 37 0-100 pg/mL Procalcitonin < 0.05 L 0.05-0.5 ng/mL Coagulation Labs: Test 11/01/24 08:35 Range/Units Prothrombin Time 10.4 9.6-11.6 SEC Prothromb Time International Ratio <= 0.93 0.85-1.15 DIAGNOSTICS / RADIOLOGY RESULTS: [ ] PLAN 11/01/2024: For now, we are going to continue current management for the patient. We are going to change steroid therapy to hydrocortisone and we will continue bronchodilator therapy. We will resume his asthma management. He will remain intubated and we will continue on pressor therapy as well as sedation. We are going to repeat surveillance labs in the morning as well as a chest x- ray. We will monitor the patient's progress and response to management. We will continue to provide general supportive care, GI and DVT prophylaxis. Further orders per attending MD and hospital course. 11/02/2024: For now, we are going to continue current management for the patient. I am going to increase the rate to 28 L per minute and we will repeat an ABG 2 hours after. We will continue antibiotic therapy as ordered as well as steroid therapy. I am going to change hydrocortisone back to Solu-Medrol 60 mg q.6 hours. We will request a respiratory culture as well as a procalcitonin level with a.m. labs. We will add MRSA coverage with vancomycin pharmacy to dose. We will start the patient on feedings through the NGT with Glucerna 1.5. We will monitor the patient's progress and response to management. Hopefully, we may be able to start SBT soon. We will continue to provide general supportive care, GI and DVT prophylaxis. Further orders per attending MD and hospital course. NEURO: Minimize central acting medications as possible. Fall Precautions. Well lighted room through the day and minimize interruptions through the night to prevent acute delirium. PULMONARY: Supplemental 02 as needed Titrate Fio2 to keep Spo2 > or = 90% DuoNebs and CPT as needed IS hourly while awake for pulmonary hygiene Out of bed to chair as tolerated CARDIOVASCULAR: Follow hemodynamics. Titrate vasopressor to keep MAP >65 or systolic blood pressure >95mmHg DIPS: Propofol, Versed and Fentanyl. LINES: Right SVC central line. Right brachial Arterial line GI & NUTRITION: Continue nutritional support Aspirations precautions Prokinetic agents and laxatives as needed KIDNEYS & ELECTROLYTES: Strict monitoring of intake and output Daily weights Avoid nephrotoxic agents Monitor electrolytes and replace as needed Goal urine output of 30mL/hr or 0.5mL/kg/hr Urine output: 1800 Fluid Balance: +701.4 ENDOCRINE: Maintain blood glucose between 100-180 at all times. Insulin sliding scale for blood glucose management INFECTIOUS DISEASE: Trend temperature. Shaw-culture if febrile. Micro: [ ] Antibiotics: [ ] HEMATOLOGY & COAGULATION: Monitor H&H. Keep Hgb > 7 Transfuse 1 unit of PRBC for Hgb < 7 Transfuse 1 pack of platelets of platelets < 20, 000 Watch for any signs and symptoms of bleeding SKIN: Pressure ulcer prevention per facility protocol Rehab: PT/OT Prophylaxis: GI: Famotidine DVT: Lovenox Code Status: Full Resuscitation Disposition: ICU Other: Total patient care time exceeds 35 minutes excluding all procedures. Case was discussed and seen with my supervising physician. The above plan was formulated and agreed upon. LAURA WHITNEY NP Nov 02, 2024 10:22
[2024-11-02] MEDS ORDERED: VANCOMYCIN PROTOCOL PER PHARMACY IV SCH (10:30)
[2024-11-02 11:05] LABS: ABG BASE EXCESS 0.2 mmol/L (-2.0-3.0); ABG HCO3 26.6 mmol/L (21.0-28.0); ABG OXYGEN SATURATION 96.9 % (94.0-98.0); ABG PCO2 50 mmHg (35-48); ABG PH 7.346 (7.350-7.450); PO2, ARTERIAL BG 95.4 mmHg (83.0-108.0); VENT MODE, BG PRVC (ROOM AIR)
[2024-11-02] MEDS: VANCOMYCIN 2GM/500 ML BAG 500 ML IV ONE (11:15)
[2024-11-02] MEDS: ceFEPime HCL 2 GM VIAL IVPB SCH (11:15)
--- NOTE | 2024-11-02 12:45 | PN ---
[facility] PROGRESS NOTE Date of Service: Nov 02, 2024 Time of Service: 12:43 SUBJECTIVE: 11/01 patient seen at bedside, no acute events overnight. He remains intubated and sedated, on a low dose of pressors. WBC increased from 10.2 up to 14.5, potassium increased from 3.6 up to 5.4, creatinine increased from 1.0 up to 1.6, remainder of his labs are relatively unremarkable. He still has a prominent wheeze. Patient is positive for influenza. Further care per critical Care. 11/02 patient seen at bedside, no acute events overnight. He remains intubated and sedated, FiO2 has been decreased from 45 down to 40%. We will defer to pulmonology for extubation. He remains on pressors, we will wean as able. WBC increased from 14.5 up to 20.4, hemoglobin stable at 13.1, remainder of his labs are relatively unremarkable. REVIEW OF SYSTEMS A14 point ROS was obtained all relevant positive documented otherwise ROS negative PHYSICAL EXAM GENERAL APPEARANCE: The patient is awake, alert, and oriented,++acute cardiopulmonary distress requiring ventilation support and sedation NEUROLOGICAL: Cranial nerves II-XII grossly intact. Motor is 5/5 in bilateral upper and lower extremities proximal to distal. No sensory deficits. HEENT: Face is symmetric. Pupils are equal and reactive. Extraocular movements are intact. NECK: Supple. No JVD. No thyromegaly. No submental, submandibular, pre- /postauricular, occipital or supraclavicular lymphadenopathy. CHEST: Normal chest expansion. No Telemetry. LUNGS: miminal breath sound throughout: ++Wheezing CARDIOVASCULAR: Regular. S1 and S2 normal. No appreciable rubs, murmurs or gallops. ABDOMEN: Soft, nontender, and nondistended. There is no rebound, voluntary guarding, or rigidity. : Deferred. No Peoples. EXTREMITIES: Non-edematous and not cyanotic. No clubbing. Good capillary refill. SKIN: No skin breakdown. Vital Signs (last 8hr) Date Time Temp Pulse Resp B/P (MAP) Pulse Ox O2 Delivery O2 Flow Rate FiO2 11/02/24 12:17 49 40 11/02/24 10:03 51 28 11/02/24 09:35 58 40 11/02/24 08:52 117/62 11/02/24 07:40 40 11/02/24 06:35 42 28 11/02/24 06:31 42 45 11/02/24 06:30 75 28 113/58 (76) 99 45 11/02/24 06:15 41 28 115/57 (76) 100 45 11/02/24 06:00 42 28 120/68 (85) 100 45 118/59 (78) 11/02/24 05:45 42 28 118/58 (78) 100 45 11/02/24 05:30 41 28 118/58 (78) 100 45 11/02/24 05:15 42 28 118/58 (78) 100 45 11/02/24 05:00 43 28 121/69 (86) 100 45 116/58 (77) 11/02/24 04:45 42 28 111/55 (73) 100 45 LABS: Laboratory: Test 11/02/24 11:26 11/02/24 11:04 11/02/24 04:25 11/02/24 04:14 Range/Units Whole Blood Glucose 137 H 70-110 MG/DL Blood Gas Specimen Type Arterial Arterial Blood pH 7.346 L 7.350-7.450 Arterial Blood Partial Pressure CO2 50 H 35-48 mmHg Arterial Blood Partial Pressure O2 95.4 83.0-108.0 mmHg Arterial Blood HCO3 26.6 21.0-28.0 mmol/L Arterial Blood Oxygen Saturation 96.9 94.0-98.0 % Arterial Blood Base Excess 0.2 -2.0-3.0 mmol/L Blood Gas Temperature 37.0 35.5-37.0 CELSIUS Blood Gas Respiration Rate 28.0 min. Blood Gas Vent Mode PRVC ROOM AIR FiO2 40.0 % Blood Gas Tidal Volume 420 ml Blood Gas PEEP 5 cm H2O Blood Gas Specimen Comment ISRAEL FINNEY RN Hemoglobin (Blood Gas) 13.7 13.5-17.5 g/dL Sodium (Blood Gas) 141 136-145 MMOL/L Bedside Potassium (Blood Gas) 4.4 3.4-4.5 MMOL/L Bedside Chloride (Blood Gas) 106 98-107 MMOL/L Bedside Glucose (Blood Gas) 141 H 65-95 MG/DL Bedside Ionized Calcium (Blood Gas) 1.20 1.15-1.33 MMOL/L Bedside Lactic Acid (Blood Gas) 0.83 H 0.36-0.75 MMOL/L White Blood Count 20.4 H 4.8-10.8 K/uL Red Blood Count 4.36 L 4.50-6.20 MIL/uL Hemoglobin 13.1 L 14.0-18.0 g/dL Hematocrit 40.5 L 42-54 % Mean Corpuscular Volume 92.9 79-99 fL Mean Corpuscular Hemoglobin 30.0 27.0-33.0 pg Mean Corpuscular Hemoglobin Concent 32.3 32.0-36.0 g/dL Red Cell Distribution Width 13.1 11.0-15.5 % Platelet Count 262 130-400 K/uL Mean Platelet Volume 9.9 7.5-10.5 fL Immature Granulocyte % (Auto) 0.5 0-1 % Neutrophils (%) (Auto) 83.9 H 40.0-77.0 % Lymphocytes (%) (Auto) 7.1 L 21.0-51.0 % Monocytes (%) (Auto) 8.4 3.0-13.0 % Eosinophils (%) (Auto) 0.0 0.0-8.0 % Basophils (%) (Auto) 0.1 0.0-5.0 % Neutrophils # (Auto) 17.1 H 1.8-7.7 K/uL Lymphocytes # (Auto) 1.5 1.0-4.8 K/uL Monocytes # (Auto) 1.7 H 0.1-1.0 K/uL Eosinophils # (Auto) 0.00 0.00-0.70 K/uL Basophils # (Auto) 0.02 0.00-0.20 K/uL Absolute Immature Granulocyte (auto 0.11 0-1 K/uL Nucleated Red Blood Cells 0.0 0.0-0.19 % Sodium Level 143 136-145 mmol/L Potassium Level 4.6 3.5-5.1 mmol/L Chloride Level 110 101-111 mmol/L Carbon Dioxide Level 29 21-32 mmol/L Blood Urea Nitrogen 17 7-18 mg/dL Creatinine 0.7 0.5-1.3 mg/dL Glomerular Filtration Rate Calc 117 >90 mL/min Random Glucose 162 H 70-105 mg/dL Total Calcium 8.3 L 8.5-10.1 mg/dL Magnesium Level 2.40 1.80-2.40 mg/dL Total Bilirubin 0.2 0.2-1.0 mg/dL Aspartate Amino Transf (AST/SGOT) 38 H 10-37 U/L Alanine Aminotransferase (ALT/SGPT) 32 12-78 U/L Alkaline Phosphatase 65 50-136 U/L Total Protein 5.7 L 6.0-8.3 g/dL Albumin 2.7 L 3.5-5.0 g/dL Test 11/01/24 08:35 10/31/24 15:52 10/31/24 13:18 10/31/24 12:52 Range/Units Prothrombin Time 10.4 9.6-11.6 SEC Prothromb Time International Ratio <= 0.93 0.85-1.15 Urine Color YELLOW YELLOW Urine Appearance CLEAR CLEAR Urine pH 5.5 5.0-8.0 Urine Specific [place] 1.035 H 1.001-1.031 Urine Protein 30 H NEGATIVE mg/dL Urine Glucose (UA) NEGATIVE NEGATIVE mg/dL Urine Ketones NEGATIVE NEGATIVE mg/dL Urine Occult Blood +- (TRACE) H NEGATIVE Urine Nitrate NEGATIVE NEGATIVE Urine Bilirubin NEGATIVE NEGATIVE mg/dL Urine Urobilinogen 0.2 0.2-1.0 mg/dL Urine Leukocyte Esterase NEGATIVE NEGATIVE Greta/uL Urine RBC 6-10 H 0-1 /HPF Urine WBC 2-5 H 0-1 /HPF Urine Bacteria FEW None Seen /HPF Urine Opiates Screen NEGATIVE NEGATIVE Urine Barbiturates Screen NEGATIVE NEGATIVE Urine Phencyclidine Screen NEGATIVE NEGATIVE Urine Amphetamines Screen NEGATIVE NEGATIVE Urine Benzodiazepines Screen NEGATIVE NEGATIVE Urine Cocaine Screen POSITIVE H NEGATIVE Urine Marijuana (THC) Screen POSITIVE H NEGATIVE Blood Gas Flow-by 15.00 0.00-15.00 L/min White Cell Morphology Comment See comments Lactic Acid Level 1.6 0.8-2.5 mmol/L Total Creatine Kinase 131 21-232 U/L Troponin I High Sensitivity 9 4-75 ng/L B-Type Natriuretic Peptide 37 0-100 pg/mL Procalcitonin < 0.05 L 0.05-0.5 ng/mL Test 10/31/24 12:46 Range/Units Influenza Type A Antigen Positive For Type A *A NEGATIVE Influenza Type B Antigen Negative For Type B NEGATIVE SARS-CoV-2, RNA, NAAT NEGATIVE SARS CoV-2 NEGATIVE Current Medications Medications (Trade) Dose Ordered Sig/Martinez Route PRN Reason Start Time Stop Time Status Last Admin Dose Admin Acetaminophen (TYLenol 325MG TAB) 650 mg Q4H PRN PO TEMPERATURE GREATER THAN 101.5 10/31/24 15:00 11/30/24 14:59 Acetaminophen (TYLenol 650MG SUPPOSITORY) 650 mg Q6H PRN RC MILD PAIN (1-3) 10/31/24 21:00 11/30/24 20:59 10/31/24 19:42 650 MG Albuterol (DUOneb) 1 udvial [id number] IH 11/01/24 10:00 12/01/24 01:59 11/02/24 10:03 1 UDVIAL Albuterol (DUOneb) 1 udvial [id number] IH 11/01/24 02:00 11/01/24 09:42 DC 11/01/24 06:56 1 UDVIAL Artificial Tears (Artificial Tears) 1 DROP OR AD Q8H OU 11/02/24 06:30 12/02/24 06:29 11/02/24 06:58 1 DROP Azithromycin 250 ml @ 250 mls/hr Q24H IVPB 10/31/24 16:00 10/31/24 23:39 DC 10/31/24 16:50 250 MLS/HR Budesonide (Pulmicort 0.5 Mg/2ml) 0.5 mg BIDRESP IH 11/01/24 18:00 12/01/24 17:59 11/02/24 06:34 0.5 MG Cefepime HCl (MAXipime 2 gm vial) 2 gm Q8H IVPB 11/02/24 10:30 11/12/24 10:29 11/02/24 11:15 2 GM Ceftriaxone Sodium (ROCEphine 1G INJ) 1 gm Q24H IVPB 10/31/24 15:00 10/31/24 23:39 DC 10/31/24 16:16 1 GM Chlorhexidine Gluconate (Peridex) 15 ml TID MM 11/02/24 09:00 11/16/24 08:59 11/02/24 08:50 15 ML Doxycycline Hyclate 250 ml @ 125 mls/hr Q12H IV 11/01/24 00:00 11/11/24 00:00 11/01/24 23:28 125 MLS/HR Enoxaparin Sodium (Lovenox) 40 mg DAILY SQ 11/01/24 09:00 12/01/24 08:59 11/02/24 08:50 40 MG Famotidine (Pepcid 20mg Vial) 20 mg BID IV 11/01/24 09:00 12/01/24 08:59 11/02/24 08:49 20 MG Famotidine (Pepcid 20mg Tab) 20 mg BID PO 10/31/24 21:00 11/01/24 01:45 DC Fentanyl Citrate 100 ml @ 2.5 mls/hr PROTOCOL IV 10/31/24 19:30 10/31/24 19:25 DC Fentanyl/Sodium Chloride 250 ml @ 0 mls/hr PROTOCOL IV 10/31/24 19:30 11/05/24 19:29 11/02/24 02:56 15 MLS/HR Hydrocortisone Sodium Succinate (Solu-corTEF 100MG) 50 mg Q6H IVP 11/01/24 11:00 12/01/24 10:59 11/02/24 11:15 50 MG Insulin Human Regular (humuLIN R 100 UNIT/ML 3ML) INSULIN SLIDING SCAL... Q6H6 SQ 11/02/24 00:00 12/02/24 00:00 Lactulose (Constulose 20gm/ 30ml Udcup) 20 gm BID PRN PO CONSTIPATION 10/31/24 15:00 11/30/24 14:59 11/01/24 16:05 20 GM Magnesium Sulfate 50 ml @ 0 mls/hr PROTOCOL IV 10/31/24 13:00 10/31/24 14:54 DC 10/31/24 13:08 25 MLS/HR Magnesium Sulfate 50 ml @ 0 mls/hr PROTOCOL PRN IV low mag level 10/31/24 15:00 11/30/24 14:59 Methylprednisolone Sodium Succinate (Solu-medROL 40MG) 60 mg Q8H IVP 10/31/24 15:00 11/01/24 09:46 DC 11/01/24 06:42 60 MG Midazolam HCl 50 ml @ 0 mls/hr PROTOCOL IV 10/31/24 16:30 11/07/24 16:29 11/02/24 08:51 7 MLS/HR Midazolam HCl 50 mg/Sodium Chloride 50 ml @ 0 mls/hr PROTOCOL IV 10/31/24 16:00 10/31/24 16:02 DC Montelukast Sodium (SinguLAIR) 10 mg HS PO 10/31/24 21:00 11/30/24 20:59 11/01/24 19:53 10 MG Norepinephrine 250 ml @ 27.225 mls/ hr PROTOCOL IV 10/31/24 20:30 11/02/24 10:27 DC 11/01/24 18:24 41.06 MLS/HR Norepinephrine 250 ml @ 0 mls/hr PROTOCOL IV 10/31/24 20:30 11/01/24 22:43 DC Norepinephrine Bitartrate 250 ml @ 0 mls/hr AD PRN IV TITRATE 11/01/24 23:00 12/01/24 22:59 11/02/24 08:52 20.5 MLS/HR Ondansetron HCl (zoFRAN 4MG INJ) 4 mg Q6H PRN IVP NAUSEA/VOMITING 10/31/24 15:00 11/30/24 14:59 Oseltamivir Phosphate (Tamiflu) 75 mg BID PO 11/01/24 09:00 11/06/24 08:59 11/02/24 08:50 75 MG Piperacillin Sod/ Tazobactam Sod (Zosyn 3.375gm+NS 50ml) 3.375 gm Q8H IV 11/01/24 00:00 11/02/24 10:26 DC 11/02/24 08:49 3.375 GM Polyethylene Glycol (MIRalax 3350 17 GM POWD.PACK) 17 gm DAILY PO 11/02/24 09:00 12/02/24 08:59 11/02/24 08:50 17 GM Polyethylene Glycol (MIRalax 3350 17 GM POWD.PACK) 17 gm ONCE PO 11/01/24 15:30 11/01/24 21:30 DC 11/01/24 16:05 17 GM Potassium Chloride 100 ml @ 100 mls/hr AD PRN IV POTASSIUM PROTOCOL 10/31/24 15:00 11/30/24 14:59 Potassium Chloride (K-Dur/Klor-Con 20meq) 20 meq AD PRN PO POTASSIUM PROTOCOL 10/31/24 15:00 11/30/24 14:59 Potassium Chloride (KCl 10% Elixir 20meq/15ml) 20 meq AD PRN PO POTASSIUM PROTOCOL 10/31/24 15:00 11/30/24 14:59 Propofol (DIPRivan 1000MG/ 100ML) 1,000 mg PROTOCOL PRN IV SEDATION 10/31/24 16:00 11/30/24 15:59 11/01/24 22:47 1,000 MG Rocuronium [place] 100 mg/ Sodium Chloride 100 ml @ 0 mls/hr PROTOCOL IV 10/31/24 16:00 10/31/24 16:44 DC Vancomycin HCl 250 ml @ 125 mls/hr Q8H IV 11/02/24 20:30 11/12/24 20:29 Vancomycin HCl (Vancomycin Protocol) 1 each AD IV 11/02/24 10:30 11/16/24 10:29 DIAGNOSTICS / RADIOLOGY: [ ] ASSESSMENT: Sepsis, ruled out Acute asthma exacerbation POA Acute hypoxic respiratory failure with hypoxia requiring BiPAP support on arrival POA 10 L trials unsuccessful requiring intubation 10/31/2024 at 15:42 p.m. viral syndrome POA Positive influenza A POA Active smoker smokes cigars 3-4 POA Polysubstance abuse disorder Chronic problems asthma, bipolar disorder. PLAN: Continue DuoNebs Continue budesonide Continue mechanical ventilation, wean as able Continue pressors wean as able Continue Tamiflu 75 mg twice daily Continue Zosyn and doxycycline Disposition: Pending improvement in respiratory status Greater than 35 minutes ICU time spent in care of this patient CHEY HENRIQUEZ MD Nov 02, 2024 12:45
[2024-11-02] MEDS: Solu-medROL 40MG VIAL IVP SCH (14:26)
[2024-11-02] MEDS: VANCOMYCIN 1G/250ML KIT 250 ML IV SCH (20:08)
[2024-11-02] MEDS ORDERED: albuterol sulfate IH (22:59)
[2024-11-03] VITALS (106 sets, daily range): BP systolic 100–174; BP diastolic 46–90; PULSE 37–80; RESP 20–30; TEMP 97.7–98.5; O2SAT 94–99
[2024-11-03 03:41] LABS: BASOPHILS # (AUTO) 0.01 K/uL (0.00-0.20); BASOPHILS % (AUTO) 0.1 % (0.0-5.0); IMMATURE GRANULOCYTE ABSOLUTE 0.09 K/uL (0-1); MEAN CORPUSCULAR HEMOGLOBIN 30.2 pg (27.0-33.0); MEAN CORPUSCULAR HGB CONC 32.8 g/dL (32.0-36.0); MEAN CORPUSCULAR VOLUME 92.2 fL (79-99); MONOCYTES # (AUTO) 0.5 K/uL (0.1-1.0); MONOCYTES % (AUTO) 3.8 % (3.0-13.0); NEUTROPHILS # (AUTO) 12.6 K/uL (1.8-7.7); NEUTROPHILS % (AUTO) 88.5 % (40.0-77.0); PLATELET COUNT (AUTO) 230 K/uL (130-400); RED BLOOD CELL COUNT(AUTO) 4.34 MIL/uL (4.50-6.20); RED CELL DISTRIBUTION WIDTH 13.2 % (11.0-15.5); WHITE BLOOD COUNT (AUTO) 14.2 K/uL (4.8-10.8)
[2024-11-03 04:01] LABS: ALBUMIN 2.6 g/dL (3.5-5.0); BILIRUBIN,TOTAL 0.3 mg/dL (0.2-1.0); CREATININE 0.5 mg/dL (0.5-1.3); MAGNESIUM 2.4 mg/dL (1.80-2.40); TOTAL PROTEIN, SERUM 5.5 g/dL (6.0-8.3)
--- NOTE | 2024-11-03 09:17 | HMCIMG ---
CHEST 1VW HISTORY: Intubated COMPARISON: 11/02/2024 FINDINGS: A frontal projection of the chest was obtained. Mild bilateral pulmonary infiltrates are seen may be related to mild pulmonary vascular congestion with possible superimposed pneumonitis. Endotracheal tube is seen with distal tip at 4.5 cm above mónica. The heart is borderline enlarged. Degenerative changes are seen. No evidence of aortic calcification is seen. IMPRESSION: 1. Mild bilateral pulmonary infiltrates are seen may be related to mild pulmonary vascular congestion with possible superimposed pneumonitis.
--- NOTE | 2024-11-03 10:23 | PN ---
[facility] PROGRESS NOTE Date Patient Seen: Nov 03, 2024 Time of Visit: 10:23 Supervising Physician: Dr. Baxter Primary Care Physician: [Jose Narvaez Dr. and Dr. Bautista Outpatient Specialists: [ ] Inpatient Consults: [[facility] team-pulmo ] PROBLEM LIST: Acute hypoxemic respiratory failure requiring intubation-POA Acute asthma exacerbation-POA Respiratory acidosis-POA (+) Flu A -POA Bilateral community-acquired pneumonia-POA Septic shock requiring pressor support-POA (+) cocaine and cannabis screen- POA Chronic asthma Bipolar disorder Chronic nicotine disorder - uses 4 cigars daily Anxiety disorder INTERVAL HISTORY: 10/31/2024: HPI: [Patient is unable to participate on the HPI due to being intubated and sedated. Per hospitalist's HPI. "This is a 44-year-old male was brought in by EMS with chief complaints of Shortness of breath. Apparently the patient called 911 given to having a asthma attack in on arrival patient was found with oxygen saturation of on room air of 54%. Patient has a significant underlying history of asthma he took albuterol inhaler at home he reports he has been using it as per ER note. Unable to obtain history data due to dyspneic we will obtain history from ER notes and from ER physician. On arrival to ED patient was dyspneic per ER physican was hardly moving air throughout all lung Corey and immediately was placed on BiPAP support and was given IV steroids and DuoNeb. ER workup positive for influenza A Patient was seen in ED the patient appears acutely ill. ER physician removed BiPAP to see how patient we will do on 10 L so far oxygenation level at 95%. However he continues to use accessory muscles to breathe he will be transition to ICU: high risk for decompensated airway. Patient was unable to tolerate 10 L became dyspneic and anxious therefore ER physician intubated patient mode PRVC rate 20 tidal volume 480 Peep: 5 FI O2 60% on sedation patient will transitioned to ICU once bed is available. Spoke to family at bedside all questions answered." BIS team was consulted for critical care management in the setting of septic shock and intubation 2/2 acute hypoxic respiratory failure. According to the patient's mother, patient was doing well this morning and he even drove him yesterday to the clinic where she herself was diagnosed of flu. This afternoon, everything changed and happened so rapidly with complaint of sudden asthma attack and respiratory distress. Patient is now receiving 3 sedatives namely Propofol, Fentanyl and Versed which according to the bedside RN took awhile to optimize as the patient continues to fight it and tends to override the vent.He is currently on Levophed for pressor support. He appears to continue using his accessory mnuscles despite being on ventilator. Lung sounds have positive wheezing across lung corey. We will continue to follow along patient's response to treatment as enumerated above. Goals of care were discussed with the mother verbalizing understanding and agreement. On behalf of BIS team, thank you for the opportunity to participate on Mr. Lloyd's case. 11/01/2024: At the time of my evaluation, the patient was lying in bed. He remains intubated and family members present at the bedside. Vital signs today remains generally stable. Laboratory data showed a increase of WBCs to 14.5 which may be reactive to steroids, though neutrophil predominance. Chemistry panel showing elevated potassium to 5.4, we will repeat potassium level later today. Also, renal parameters increase the BUN 27 creatinine 1.6 we will monitor the trend. The patient remains with Tamiflu and empiric antibiotic therapy with Zosyn/doxy combination. The remains on steroid therapy as ordered. The patient remains on sedation with propofol and fentanyl drip. Also on pressor therapy with Levophed. No other complaint. 11/02/2024: At the time of my evaluation, the patient is lying in bed. He remains intubated. Most recent ABG showed a pH of 7.2, pCO2 54 and PO2 of 142.3. He continues on PRVC mode, rate of 26, FiO2 40%, tidal volume of 420 and a PEEP of 5. He is also hydrocortisone and receiving empiric antibiotic therapy with cefepime, doxy and Tamiflu. For sedation, the patient continues on propofol, Versed and fentanyl. Patient's mother was present at the bedside. No new complaint. 11/03/2024: At the time of my evaluation, the patient was lying in bed, sedated and remains intubated on assist control mode. Vital signs remain generally stable except for bradycardia in the 40s. Laboratory data today showed increased WBC to 14.2 though improved from yesterday. Chemistry panel showed no changes of concern. No overnight acute event. 24 hour I & O: Urine output of a 1050 mL with a positive balance of 1505.7 ML Vent mode/ABG: PRBC/no ABGs this a.m. for review. Sedation Drips: Fentanyl, Versed, propofol Pressors: Norepinephrine Antibiotics/antiviral: Vancomycin, cefepime, doxycycline, Tamiflu Microbiology data: Respiratory culture showing few Gram-positive cocci in chains on Gram stain, culture showing no growth. Blood cultures so far showing no growth. Imaging data: Mild pulmonary vascular congestion. Pathology data: None REVIEW OF SYSTEMS: Unable to perform 12 point ROS due to being intubated and sedated. PHYSICAL EXAM: GENERAL: Intubated and sedated HEENT: EOMI, Sclera non icteric, moist mucosa NECK: Supple, no JVD, trachea midline LUNGS: Diffused wheezing bilaterally. No rhonchi or rales HEART: Regular rate and rhythm. Normal S1 and S2, without murmurs ABD: Abdomen soft, nontender. Bowel sounds present EXT: No clubbing cyanosis or edema : Peoples in situ NEURO: Deferred Vital Signs (last 8hr) Date Time Temp Pulse Resp B/P (MAP) Pulse Ox O2 Delivery O2 Flow Rate FiO2 11/03/24 10:11 42 28 11/03/24 10:00 40 28 137/76 (96) 97 40 115/56 (75) 11/03/24 09:45 40 28 117/57 (77) 11/03/24 09:34 41 40 11/03/24 09:30 41 28 111/55 (73) 11/03/24 09:15 40 28 115/56 (75) 11/03/24 09:00 41 28 129/76 (93) 96 40 111/54 (73) 11/03/24 08:45 41 28 111/54 (73) 11/03/24 08:30 42 28 106/52 (70) 11/03/24 08:15 43 28 107/53 (71) 11/03/24 08:00 98.1 43 28 120/67 (84) 95 40 105/50 (68) 11/03/24 08:00 98.1 11/03/24 07:45 44 28 101/49 (66) 11/03/24 07:40 94 Ventilator+ 40 11/03/24 07:30 44 29 101/49 (66) 95 1/11/25 07:20 40 11/03/24 07:15 45 29 100/46 (64) 95 11/03/24 07:00 45 28 112/82 (92) 94 112/63 (79) 11/03/24 06:45 47 28 102/49 (66) 94 11/03/24 06:44 38 40 11/03/24 06:15 97.9 45 28 116/58 (77) 97 11/03/24 06:00 38 28 111/56 (74) 97 11/03/24 05:45 39 28 112/56 (74) 97 11/03/24 05:30 40 28 114/57 (76) 97 11/03/24 05:15 39 28 113/57 (75) 97 11/03/24 05:00 39 28 126/77 (93) 97 110/55 (73) 11/03/24 04:45 39 28 111/56 (74) 97 11/03/24 04:30 39 28 111/55 (73) 97 11/03/24 04:15 39 28 115/58 (77) 97 11/03/24 04:00 41 28 127/73 (91) 97 112/59 (76) 11/03/24 04:00 40 11/03/24 04:00 97 Ventilator+ 40 11/03/24 03:45 41 28 106/56 (73) 97 11/03/24 03:30 45 28 122/61 (81) 97 11/03/24 03:15 40 28 121/60 (80) 97 11/03/24 03:01 40 40 11/03/24 03:00 42 28 128/69 (88) 97 112/58 (76) 11/03/24 02:45 41 28 114/58 (76) 97 11/03/24 02:30 42 28 111/58 (75) 97 LABS: Hematology Labs: Test 11/03/24 03:27 Range/Units White Blood Count 14.2 #H 4.8-10.8 K/uL Red Blood Count 4.34 L 4.50-6.20 MIL/uL Hemoglobin 13.1 L 14.0-18.0 g/dL Hematocrit 40.0 L 42-54 % Mean Corpuscular Volume 92.2 79-99 fL Mean Corpuscular Hemoglobin 30.2 27.0-33.0 pg Mean Corpuscular Hemoglobin Concent 32.8 32.0-36.0 g/dL Red Cell Distribution Width 13.2 11.0-15.5 % Platelet Count 230 130-400 K/uL Mean Platelet Volume 9.8 7.5-10.5 fL Immature Granulocyte % (Auto) 0.6 0-1 % Neutrophils (%) (Auto) 88.5 H 40.0-77.0 % Lymphocytes (%) (Auto) 7.0 L 21.0-51.0 % Monocytes (%) (Auto) 3.8 3.0-13.0 % Eosinophils (%) (Auto) 0.0 0.0-8.0 % Basophils (%) (Auto) 0.1 0.0-5.0 % Neutrophils # (Auto) 12.6 H 1.8-7.7 K/uL Lymphocytes # (Auto) 1.0 1.0-4.8 K/uL Monocytes # (Auto) 0.5 0.1-1.0 K/uL Eosinophils # (Auto) 0.00 0.00-0.70 K/uL Basophils # (Auto) 0.01 0.00-0.20 K/uL Absolute Immature Granulocyte (auto 0.09 0-1 K/uL Nucleated Red Blood Cells 0.0 0.0-0.19 % Chemistry Labs: Test 11/03/24 06:10 11/03/24 03:27 Range/Units Whole Blood Glucose 137 H 70-110 MG/DL Sodium Level 147 H 136-145 mmol/L Potassium Level 4.0 3.5-5.1 mmol/L Chloride Level 110 101-111 mmol/L Carbon Dioxide Level 32 21-32 mmol/L Blood Urea Nitrogen 18 7-18 mg/dL Creatinine 0.5 0.5-1.3 mg/dL Glomerular Filtration Rate Calc 130 >90 mL/min Random Glucose 145 H 70-105 mg/dL Total Calcium 8.3 L 8.5-10.1 mg/dL Magnesium Level 2.40 1.80-2.40 mg/dL Total Bilirubin 0.3 # 0.2-1.0 mg/dL Aspartate Amino Transf (AST/SGOT) 40 H 10-37 U/L Alanine Aminotransferase (ALT/SGPT) 34 12-78 U/L Alkaline Phosphatase 62 50-136 U/L Total Protein 5.5 L 6.0-8.3 g/dL Albumin 2.6 L 3.5-5.0 g/dL Procalcitonin < 0.05 L 0.05-0.5 ng/mL DIAGNOSTICS / RADIOLOGY RESULTS: [ ] PLAN 11/01/2024: For now, we are going to continue current management for the patient. We are going to change steroid therapy to hydrocortisone and we will continue bronchodilator therapy. We will resume his asthma management. He will remain intubated and we will continue on pressor therapy as well as sedation. We are going to repeat surveillance labs in the morning as well as a chest x- ray. We will monitor the patient's progress and response to management. We will continue to provide general supportive care, GI and DVT prophylaxis. Further orders per attending MD and hospital course. 11/02/2024: For now, we are going to continue current management for the patient. I am going to increase the rate to 28 L per minute and we will repeat an ABG 2 hours after. We will continue antibiotic therapy as ordered as well as steroid therapy. I am going to change hydrocortisone back to Solu-Medrol 60 mg q.6 hours. We will request a respiratory culture as well as a procalcitonin level with a.m. labs. We will add MRSA coverage with vancomycin pharmacy to dose. We will start the patient on feedings through the NGT with Glucerna 1.5. We will monitor the patient's progress and response to management. Hopefully, we may be able to start SBT soon. We will continue to provide general supportive care, GI and DVT prophylaxis. Further orders per attending MD and hospital course. 11/03/2024: The patient will remain sedated for now and we will order paralytic agent rocuronium 50 mg IV x1. I am going to also request an ABG now to assess for gas exchange, then we will adjust ventilator settings. Due to wheezing I am going to increase the Solu-Medrol to 80 mg IV q.6. We will continue to follow the ABG changes. Cardiac-philippe, the patient is stable. He is receiving nutrition through the NGT with Glucerna 1.5, we will continue this regimen for now. There is no major electrolyte derangements and renal parameters are within normal range, we will continue to monitor. We will continue antibiotic therapy as mentioned above and we will follow the culture and sensitivity report. Currently, there is no coagulopathy. Skin remains intact. We will address physical therapy and the need for physical rehabilitation once the acute issues are stabilized. We will monitor the patient's progress and response to management. We will continue to provide general supportive care, GI and DVT prophylaxis. Further orders per attending MD and hospital course. NEURO: Minimize central acting medications as possible. Fall Precautions. Well lighted room through the day and minimize interruptions through the night to prevent acute delirium. PULMONARY: Supplemental 02 as needed Titrate Fio2 to keep Spo2 > or = 90% DuoNebs and CPT as needed IS hourly while awake for pulmonary hygiene Out of bed to chair as tolerated CARDIOVASCULAR: Follow hemodynamics. Titrate vasopressor to keep MAP >65 or systolic blood pressure >95mmHg DIPS: LINES: Right SVC central line. Right brachial Arterial line GI & NUTRITION: Continue nutritional support Aspirations precautions Prokinetic agents and laxatives as needed KIDNEYS & ELECTROLYTES: Strict monitoring of intake and output Daily weights Avoid nephrotoxic agents Monitor electrolytes and replace as needed Goal urine output of 30mL/hr or 0.5mL/kg/hr Urine output: Fluid Balance: ENDOCRINE: Maintain blood glucose between 100-180 at all times. Insulin sliding scale for blood glucose management INFECTIOUS DISEASE: Trend temperature. Shaw-culture if febrile. Micro: [ ] Antibiotics: [ ] HEMATOLOGY & COAGULATION: Monitor H&H. Keep Hgb > 7 Transfuse 1 unit of PRBC for Hgb < 7 Transfuse 1 pack of platelets of platelets < 20, 000 Watch for any signs and symptoms of bleeding SKIN: Pressure ulcer prevention per facility protocol Rehab: PT/OT Prophylaxis: GI: Famotidine DVT: Lovenox Code Status: Full Resuscitation Disposition: ICU Other: Total patient care time exceeds 35 minutes excluding all procedures. Case was discussed and seen with my supervising physician. The above plan was formulated and agreed upon. LAURA WHITNEY NP Nov 03, 2024 10:23
[2024-11-03] MEDS ORDERED: FLUT1AER6 IH (10:54)
[2024-11-03] MEDS: diazePAM 5 MG TAB NG SCH (11:56)
--- NOTE | 2024-11-03 13:59 | PN ---
[facility] PROGRESS NOTE Date of Service: Nov 03, 2024 Time of Service: 13:33 SUBJECTIVE: 11/01 patient seen at bedside, no acute events overnight. He remains intubated and sedated, on a low dose of pressors. WBC increased from 10.2 up to 14.5, potassium increased from 3.6 up to 5.4, creatinine increased from 1.0 up to 1.6, remainder of his labs are relatively unremarkable. He still has a prominent wheeze. Patient is positive for influenza. Further care per critical Care. 11/02 patient seen at bedside, no acute events overnight. He remains intubated and sedated, FiO2 has been decreased from 45 down to 40%. We will defer to pulmonology for extubation. He remains on pressors, we will wean as able. WBC increased from 14.5 up to 20.4, hemoglobin stable at 13.1, remainder of his labs are relatively unremarkable. 11/03 patient seen at bedside, no acute events overnight he remains intubated and sedated, FiO2 at 40%, peep of 5. Patient continues on pressors, we will continue to wean as able. WBC decreased from 20.4 down to 14.2, hemoglobin stable at 13.1 same as yesterday, remainder of his labs are relatively unremarkable. REVIEW OF SYSTEMS A14 point ROS was obtained all relevant positive documented otherwise ROS negative PHYSICAL EXAM GENERAL APPEARANCE: The patient is awake, alert, and oriented,++acute cardiopulmonary distress requiring ventilation support and sedation NEUROLOGICAL: Cranial nerves II-XII grossly intact. Motor is 5/5 in bilateral upper and lower extremities proximal to distal. No sensory deficits. HEENT: Face is symmetric. Pupils are equal and reactive. Extraocular movements are intact. NECK: Supple. No JVD. No thyromegaly. No submental, submandibular, pre- /postauricular, occipital or supraclavicular lymphadenopathy. CHEST: Normal chest expansion. No Telemetry. LUNGS: miminal breath sound throughout: ++Wheezing CARDIOVASCULAR: Regular. S1 and S2 normal. No appreciable rubs, murmurs or gallops. ABDOMEN: Soft, nontender, and nondistended. There is no rebound, voluntary guarding, or rigidity. : Deferred. No Peoples. EXTREMITIES: Non-edematous and not cyanotic. No clubbing. Good capillary refill. SKIN: No skin breakdown. Vital Signs (last 8hr) Date Time Temp Pulse Resp B/P (MAP) Pulse Ox O2 Delivery O2 Flow Rate FiO2 11/03/24 12:00 97.7 40 28 135/75 (95) 99 40 108/53 (71) 11/03/24 12:00 97.7 11/03/24 11:45 40 29 114/56 (75) 11/03/24 11:39 40 40 11/03/24 11:30 94 Ventilator+ 40 11/03/24 11:30 42 28 113/56 (75) 11/03/24 11:15 42 28 113/55 (74) 11/03/24 11:00 41 28 139/77 (97) 99 40 121/58 (79) 11/03/24 10:45 42 28 121/58 (79) 11/03/24 10:30 42 28 120/58 (78) 11/03/24 10:15 41 28 119/57 (77) 11/03/24 10:11 42 28 11/03/24 10:08 40 11/03/24 10:00 40 28 137/76 (96) 97 40 115/56 (75) 11/03/24 09:45 40 28 117/57 (77) 11/03/24 09:34 41 40 11/03/24 09:30 41 28 111/55 (73) 11/03/24 09:15 40 28 115/56 (75) 11/03/24 09:00 41 28 129/76 (93) 96 40 111/54 (73) 11/03/24 08:45 41 28 111/54 (73) 11/03/24 08:30 42 28 106/52 (70) 11/03/24 08:15 43 28 107/53 (71) 11/03/24 08:00 98.1 43 28 120/67 (84) 95 40 105/50 (68) 11/03/24 08:00 98.1 11/03/24 07:45 44 28 101/49 (66) 11/03/24 07:40 94 Ventilator+ 40 11/03/24 07:30 44 29 101/49 (66) 95 11/03/24 07:20 40 11/03/24 07:15 45 29 100/46 (64) 95 11/03/24 07:00 45 28 112/82 (92) 94 112/63 (79) 11/03/24 06:45 47 28 102/49 (66) 94 11/03/24 06:44 38 40 11/03/24 06:15 97.9 45 28 116/58 (77) 97 11/03/24 06:00 38 28 111/56 (74) 97 11/03/24 05:45 39 28 112/56 (74) 97 LABS: Laboratory: Test 11/03/24 11:20 11/03/24 11:04 11/03/24 03:27 11/02/24 11:04 Range/Units Vancomycin Level Trough 11.8 10.0-20.0 UG/ML Whole Blood Glucose 146 H 70-110 MG/DL White Blood Count 14.2 #H 4.8-10.8 K/uL Red Blood Count 4.34 L 4.50-6.20 MIL/uL Hemoglobin 13.1 L 14.0-18.0 g/dL Hematocrit 40.0 L 42-54 % Mean Corpuscular Volume 92.2 79-99 fL Mean Corpuscular Hemoglobin 30.2 27.0-33.0 pg Mean Corpuscular Hemoglobin Concent 32.8 32.0-36.0 g/dL Red Cell Distribution Width 13.2 11.0-15.5 % Platelet Count 230 130-400 K/uL Mean Platelet Volume 9.8 7.5-10.5 fL Immature Granulocyte % (Auto) 0.6 0-1 % Neutrophils (%) (Auto) 88.5 H 40.0-77.0 % Lymphocytes (%) (Auto) 7.0 L 21.0-51.0 % Monocytes (%) (Auto) 3.8 3.0-13.0 % Eosinophils (%) (Auto) 0.0 0.0-8.0 % Basophils (%) (Auto) 0.1 0.0-5.0 % Neutrophils # (Auto) 12.6 H 1.8-7.7 K/uL Lymphocytes # (Auto) 1.0 1.0-4.8 K/uL Monocytes # (Auto) 0.5 0.1-1.0 K/uL Eosinophils # (Auto) 0.00 0.00-0.70 K/uL Basophils # (Auto) 0.01 0.00-0.20 K/uL Absolute Immature Granulocyte (auto 0.09 0-1 K/uL Nucleated Red Blood Cells 0.0 0.0-0.19 % Sodium Level 147 H 136-145 mmol/L Potassium Level 4.0 3.5-5.1 mmol/L Chloride Level 110 101-111 mmol/L Carbon Dioxide Level 32 21-32 mmol/L Blood Urea Nitrogen 18 7-18 mg/dL Creatinine 0.5 0.5-1.3 mg/dL Glomerular Filtration Rate Calc 130 >90 mL/min Random Glucose 145 H 70-105 mg/dL Total Calcium 8.3 L 8.5-10.1 mg/dL Magnesium Level 2.40 1.80-2.40 mg/dL Total Bilirubin 0.3 # 0.2-1.0 mg/dL Aspartate Amino Transf (AST/SGOT) 40 H 10-37 U/L Alanine Aminotransferase (ALT/SGPT) 34 12-78 U/L Alkaline Phosphatase 62 50-136 U/L Total Protein 5.5 L 6.0-8.3 g/dL Albumin 2.6 L 3.5-5.0 g/dL Procalcitonin < 0.05 L 0.05-0.5 ng/mL Blood Gas Specimen Type Arterial Arterial Blood pH 7.346 L 7.350-7.450 Arterial Blood Partial Pressure CO2 50 H 35-48 mmHg Arterial Blood Partial Pressure O2 95.4 83.0-108.0 mmHg Arterial Blood HCO3 26.6 21.0-28.0 mmol/L Arterial Blood Oxygen Saturation 96.9 94.0-98.0 % Arterial Blood Base Excess 0.2 -2.0-3.0 mmol/L Blood Gas Temperature 37.0 35.5-37.0 CELSIUS Blood Gas Respiration Rate 28.0 min. Blood Gas Vent Mode PRVC ROOM AIR FiO2 40.0 % Blood Gas Tidal Volume 420 ml Blood Gas PEEP 5 cm H2O Blood Gas Specimen Comment ISRAEL FINNEY RN Test 11/02/24 04:25 Range/Units Hemoglobin (Blood Gas) 13.7 13.5-17.5 g/dL Sodium (Blood Gas) 141 136-145 MMOL/L Bedside Potassium (Blood Gas) 4.4 3.4-4.5 MMOL/L Bedside Chloride (Blood Gas) 106 98-107 MMOL/L Bedside Glucose (Blood Gas) 141 H 65-95 MG/DL Bedside Ionized Calcium (Blood Gas) 1.20 1.15-1.33 MMOL/L Bedside Lactic Acid (Blood Gas) 0.83 H 0.36-0.75 MMOL/L Current Medications Medications (Trade) Dose Ordered Sig/Martinez Route PRN Reason Start Time Stop Time Status Last Admin Dose Admin Acetaminophen (TYLenol 325MG TAB) 650 mg Q4H PRN PO TEMPERATURE GREATER THAN 101.5 10/31/24 15:00 11/30/24 14:59 Acetaminophen (TYLenol 650MG SUPPOSITORY) 650 mg Q6H PRN RC MILD PAIN (1-3) 10/31/24 21:00 11/30/24 20:59 10/31/24 19:42 650 MG Albuterol (DUOneb) 1 udvial [id number] IH 11/01/24 10:00 12/01/24 01:59 11/03/24 10:04 1 UDVIAL Albuterol (DUOneb) 1 udvial [id number] IH 11/01/24 02:00 11/01/24 09:42 DC 11/01/24 06:56 1 UDVIAL Artificial Tears (Artificial Tears) 1 DROP OR AD Q8H OU 11/02/24 06:30 12/02/24 06:29 11/03/24 13:30 1 DROP Azithromycin 250 ml @ 250 mls/hr Q24H IVPB 10/31/24 16:00 10/31/24 23:39 DC 10/31/24 16:50 250 MLS/HR Budesonide (Pulmicort 0.5 Mg/2ml) 0.5 mg BIDRESP IH 11/01/24 18:00 12/01/24 17:59 11/03/24 06:44 0.5 MG Cefepime HCl (MAXipime 2 gm vial) 2 gm Q8H IVPB 11/02/24 10:30 11/12/24 10:29 11/03/24 09:48 2 GM Ceftriaxone Sodium (ROCEphine 1G INJ) 1 gm Q24H IVPB 10/31/24 15:00 10/31/24 23:39 DC 10/31/24 16:16 1 GM Chlorhexidine Gluconate (Peridex) 15 ml TID MM 11/02/24 09:00 11/16/24 08:59 11/03/24 13:30 15 ML Diazepam (VALium 5 mg TAB) 10 mg Q8H NG 11/03/24 12:00 12/03/24 11:59 11/03/24 11:56 10 MG Doxycycline Hyclate 250 ml @ 125 mls/hr Q12H IV 11/01/24 00:00 11/11/24 00:00 11/03/24 11:00 125 MLS/HR Enoxaparin Sodium (Lovenox) 40 mg DAILY SQ 11/01/24 09:00 12/01/24 08:59 11/03/24 08:49 40 MG Famotidine (Pepcid 20mg Vial) 20 mg BID IV 11/01/24 09:00 12/01/24 08:59 11/03/24 08:49 20 MG Famotidine (Pepcid 20mg Tab) 20 mg BID PO 10/31/24 21:00 11/01/24 01:45 DC Fentanyl Citrate 100 ml @ 2.5 mls/hr PROTOCOL IV 10/31/24 19:30 10/31/24 19:25 DC Fentanyl/Sodium Chloride 250 ml @ 0 mls/hr PROTOCOL IV 10/31/24 19:30 11/05/24 19:29 11/03/24 06:16 20 MLS/HR Hydrocortisone Sodium Succinate (Solu-corTEF 100MG) 50 mg Q6H IVP 11/01/24 11:00 11/02/24 13:55 DC 11/02/24 11:15 50 MG Insulin Human Regular (humuLIN R 100 UNIT/ML 3ML) INSULIN SLIDING SCAL... Q6H6 SQ 11/02/24 00:00 12/02/24 00:00 Lactulose (Constulose 20gm/ 30ml Udcup) 20 gm BID PRN PO CONSTIPATION 10/31/24 15:00 11/30/24 14:59 11/01/24 16:05 20 GM Magnesium Sulfate 50 ml @ 0 mls/hr PROTOCOL IV 10/31/24 13:00 10/31/24 14:54 DC 10/31/24 13:08 25 MLS/HR Magnesium Sulfate 50 ml @ 0 mls/hr PROTOCOL PRN IV low mag level 10/31/24 15:00 11/30/24 14:59 Methylprednisolone Sodium Succinate (Solu-medROL 40MG) 60 mg Q6H IVP 11/02/24 14:00 12/02/24 13:59 11/03/24 08:48 60 MG Methylprednisolone Sodium Succinate (Solu-medROL 40MG) 60 mg Q8H IVP 10/31/24 15:00 11/01/24 09:46 DC 11/01/24 06:42 60 MG Midazolam HCl 50 ml @ 0 mls/hr PROTOCOL IV 10/31/24 16:30 11/07/24 16:29 11/03/24 09:06 10 MLS/HR Midazolam HCl 50 mg/Sodium Chloride 50 ml @ 0 mls/hr PROTOCOL IV 10/31/24 16:00 10/31/24 16:02 DC Montelukast Sodium (SinguLAIR) 10 mg HS PO 10/31/24 21:00 11/30/24 20:59 11/02/24 20:08 10 MG Norepinephrine 250 ml @ 27.225 mls/ hr PROTOCOL IV 10/31/24 20:30 11/02/24 10:27 DC 11/01/24 18:24 41.06 MLS/HR Norepinephrine 250 ml @ 0 mls/hr PROTOCOL IV 10/31/24 20:30 11/01/24 22:43 DC Norepinephrine Bitartrate 250 ml @ 0 mls/hr AD PRN IV TITRATE 11/01/24 23:00 12/01/24 22:59 11/02/24 17:31 20.5 MLS/HR Ondansetron HCl (zoFRAN 4MG INJ) 4 mg Q6H PRN IVP NAUSEA/VOMITING 10/31/24 15:00 11/30/24 14:59 Oseltamivir Phosphate (Tamiflu) 75 mg BID PO 11/01/24 09:00 11/06/24 08:59 11/03/24 08:49 75 MG Piperacillin Sod/ Tazobactam Sod (Zosyn 3.375gm+NS 50ml) 3.375 gm Q8H IV 11/01/24 00:00 11/02/24 10:26 DC 11/02/24 08:49 3.375 GM Polyethylene Glycol (MIRalax 3350 17 GM POWD.PACK) 17 gm DAILY PO 11/02/24 09:00 12/02/24 08:59 11/03/24 08:49 17 GM Polyethylene Glycol (MIRalax 3350 17 GM POWD.PACK) 17 gm ONCE PO 11/01/24 15:30 11/01/24 21:30 DC 11/01/24 16:05 17 GM Potassium Chloride 100 ml @ 100 mls/hr AD PRN IV POTASSIUM PROTOCOL 10/31/24 15:00 11/30/24 14:59 Potassium Chloride (K-Dur/Klor-Con 20meq) 20 meq AD PRN PO POTASSIUM PROTOCOL 10/31/24 15:00 11/30/24 14:59 Potassium Chloride (KCl 10% Elixir 20meq/15ml) 20 meq AD PRN PO POTASSIUM PROTOCOL 10/31/24 15:00 11/30/24 14:59 Propofol (DIPRivan 1000MG/ 100ML) 1,000 mg PROTOCOL PRN IV SEDATION 10/31/24 16:00 11/30/24 15:59 11/01/24 22:47 1,000 MG Rocuronium [place] 100 mg/ Sodium Chloride 100 ml @ 0 mls/hr PROTOCOL IV 10/31/24 16:00 10/31/24 16:44 DC Vancomycin HCl 250 ml @ 125 mls/hr Q8H IV 11/02/24 20:30 11/12/24 20:29 11/03/24 13:16 125 MLS/HR Vancomycin HCl (Vancomycin Protocol) 1 each AD IV 11/02/24 10:30 11/16/24 10:29 DIAGNOSTICS / RADIOLOGY: [ ] ASSESSMENT: Sepsis, ruled out Acute asthma exacerbation POA Acute hypoxic respiratory failure with hypoxia requiring BiPAP support on arrival POA 10 L trials unsuccessful requiring intubation 10/31/2024 at 15:42 p.m. viral syndrome POA Positive influenza A POA Active smoker smokes cigars 3-4 POA Polysubstance abuse disorder Chronic problems asthma, bipolar disorder. PLAN: Continue DuoNebs Continue budesonide Continue mechanical ventilation, wean as able Continue pressors wean as able Continue Tamiflu 75 mg twice daily Continue Zosyn and doxycycline Continue vancomycin Continue dexamethasone Disposition: Pending improvement in respiratory status Greater than 35 minutes ICU time spent in care of this patient CHEY HENRIQUEZ MD Nov 03, 2024 13:59
[2024-11-03 15:21] LABS: ABG BASE EXCESS 0.9 mmol/L (-2.0-3.0); ABG HCO3 26.2 mmol/L (21.0-28.0); ABG OXYGEN SATURATION 95.2 % (94.0-98.0); ABG PCO2 44 mmHg (35-48); CARBON MONOXIDE 0.2 % (0.5-1.5); HHb 4.8; PO2, ARTERIAL BG 76.8 mmHg (83.0-108.0); VENT MODE, BG PRVC (ROOM AIR)
[2024-11-03] MEDS: rocuRONium bROMide 10MG/1ML 5ML VL IV SCH (15:27)
[2024-11-03] MEDS: PHARMACY COMMUNICATION MISC SCH (15:28)
[2024-11-03 16:38] LABS: ABG BASE EXCESS 4.5 mmol/L (-2.0-3.0); ABG HCO3 30.8 mmol/L (21.0-28.0); ABG OXYGEN SATURATION 95.4 % (94.0-98.0); ABG PCO2 53 mmHg (35-48); ABG PH 7.386 (7.350-7.450); CARBON MONOXIDE 0.3 % (0.5-1.5); HHb 4.6; PO2, ARTERIAL BG 81.6 mmHg (83.0-108.0); VENT MODE, BG PRVC (ROOM AIR)
--- NOTE | 2024-11-03 16:45 | NUR ---
ABG RESULTS Jose WHITNEY [employer] HAND NOTIFIED OF ABG RESULTS. NO NEW ORDERS RECEIVED.
[2024-11-03] MEDS: Solu-medROL 40MG VIAL IVP SCH (20:07)
[2024-11-04] VITALS (85 sets, daily range): BP systolic 97–144; BP diastolic 52–77; PULSE 43–88; RESP 14–22; TEMP 97.7–99.3; O2SAT 95–100
[2024-11-04 07:36] LABS: ABG BASE EXCESS -0.1 mmol/L (-2.0-3.0); ABG HCO3 25.4 mmol/L (21.0-28.0); ABG OXYGEN SATURATION 96.5 % (94.0-98.0); ABG PCO2 45 mmHg (35-48); ABG PH 7.373 (7.350-7.450); CARBON MONOXIDE 0.2 % (0.5-1.5); HHb 3.5; VENT MODE, BG PRVC (ROOM AIR)
--- NOTE | 2024-11-04 08:41 | HMCIMG ---
CHEST 1VW HISTORY: Intubated COMPARISON: 11/03/2024 FINDINGS: A frontal projection of the chest was obtained. Mild bilateral pulmonary infiltrates are seen may be related to mild pulmonary vascular congestion with possible superimposed pneumonitis. The heart is borderline enlarged. Endotracheal tube is seen with distal tip at 3.6 cm above mónica. All the lines and tubes are again seen in place. No evidence of aortic calcification is seen. IMPRESSION: 1. Mild bilateral pulmonary infiltrates are seen may be related to mild pulmonary vascular congestion with possible superimposed pneumonitis.
[2024-11-04 10:10] LABS: HEMATOCRIT 39.8 % (42-54); IMMATURE GRANULOCYTE ABSOLUTE 0.11 K/uL (0-1); LYMPHOCYTES # (AUTO) 1.1 K/uL (1.0-4.8); LYMPHOCYTES % (AUTO) 9.8 % (21.0-51.0); MEAN CORPUSCULAR HEMOGLOBIN 30.2 pg (27.0-33.0); MEAN CORPUSCULAR HGB CONC 31.9 g/dL (32.0-36.0); MEAN CORPUSCULAR VOLUME 94.5 fL (79-99); MONOCYTES # (AUTO) 0.6 K/uL (0.1-1.0); MONOCYTES % (AUTO) 5.7 % (3.0-13.0); NEUTROPHILS # (AUTO) 9.4 K/uL (1.8-7.7); NEUTROPHILS % (AUTO) 83.5 % (40.0-77.0); PLATELET COUNT (AUTO) 220 K/uL (130-400); RED BLOOD CELL COUNT(AUTO) 4.21 MIL/uL (4.50-6.20); RED CELL DISTRIBUTION WIDTH 13.3 % (11.0-15.5); WHITE BLOOD COUNT (AUTO) 11.3 K/uL (4.8-10.8)
[2024-11-04 10:17] LABS: CREATININE 0.6 mg/dL (0.5-1.3); POTASSIUM 4.2 mmol/L (3.5-5.1)
--- NOTE | 2024-11-04 11:18 | PN ---
[facility] PROGRESS NOTE Date Patient Seen: Nov 04, 2024 Time of Visit: 11:09 Supervising Physician: Dr. Baxter Primary Care Physician: [Jose Narvaez Dr. and Dr. Bautista Outpatient Specialists: [ ] Inpatient Consults: [BIS team-pulmo ] PROBLEM LIST: Acute hypoxemic respiratory failure requiring intubation-POA Acute asthma exacerbation-POA Respiratory acidosis-POA (+) Flu A -POA Bilateral community-acquired pneumonia-POA Septic shock requiring pressor support-POA (+) cocaine and cannabis screen- POA Chronic asthma Bipolar disorder Chronic nicotine disorder - uses 4 cigars daily Anxiety disorder INTERVAL HISTORY: 10/31/2024: HPI: [Patient is unable to participate on the HPI due to being intubated and sedated. Per hospitalist's HPI. "This is a 44-year-old male was brought in by EMS with chief complaints of Shortness of breath. Apparently the patient called 911 given to having a asthma attack in on arrival patient was found with oxygen saturation of on room air of 54%. Patient has a significant underlying history of asthma he took albuterol inhaler at home he reports he has been using it as per ER note. Unable to obtain history data due to dyspneic we will obtain history from ER notes and from ER physician. On arrival to ED patient was dyspneic per ER physican was hardly moving air throughout all lung Corey and immediately was placed on BiPAP support and was given IV steroids and DuoNeb. ER workup positive for influenza A Patient was seen in ED the patient appears acutely ill. ER physician removed BiPAP to see how patient we will do on 10 L so far oxygenation level at 95%. However he continues to use accessory muscles to breathe he will be transition to ICU: high risk for decompensated airway. Patient was unable to tolerate 10 L became dyspneic and anxious therefore ER physician intubated patient mode PRVC rate 20 tidal volume 480 Peep: 5 FI O2 60% on sedation patient will transitioned to ICU once bed is available. Spoke to family at bedside all questions answered." BIS team was consulted for critical care management in the setting of septic shock and intubation 2/2 acute hypoxic respiratory failure. According to the patient's mother, patient was doing well this morning and he even drove him yesterday to the clinic where she herself was diagnosed of flu. This afternoon, everything changed and happened so rapidly with complaint of sudden asthma attack and respiratory distress. Patient is now receiving 3 sedatives namely Propofol, Fentanyl and Versed which according to the bedside RN took awhile to optimize as the patient continues to fight it and tends to override the vent.He is currently on Levophed for pressor support. He appears to continue using his accessory mnuscles despite being on ventilator. Lung sounds have positive wheezing across lung corey. We will continue to follow along patient's response to treatment as enumerated above. Goals of care were discussed with the mother verbalizing understanding and agreement. On behalf of BIS team, thank you for the opportunity to participate on Mr. Lloyd's case. 11/01/2024: At the time of my evaluation, the patient was lying in bed. He remains intubated and family members present at the bedside. Vital signs today remains generally stable. Laboratory data showed a increase of WBCs to 14.5 which may be reactive to steroids, though neutrophil predominance. Chemistry panel showing elevated potassium to 5.4, we will repeat potassium level later today. Also, renal parameters increase the BUN 27 creatinine 1.6 we will monitor the trend. The patient remains with Tamiflu and empiric antibiotic therapy with Zosyn/doxy combination. The remains on steroid therapy as ordered. The patient remains on sedation with propofol and fentanyl drip. Also on pressor therapy with Levophed. No other complaint. 11/02/2024: At the time of my evaluation, the patient is lying in bed. He remains intubated. Most recent ABG showed a pH of 7.2, pCO2 54 and PO2 of 142.3. He continues on PRVC mode, rate of 26, FiO2 40%, tidal volume of 420 and a PEEP of 5. He is also hydrocortisone and receiving empiric antibiotic therapy with cefepime, doxy and Tamiflu. For sedation, the patient continues on propofol, Versed and fentanyl. Patient's mother was present at the bedside. No new complaint. 11/03/2024: At the time of my evaluation, the patient was lying in bed, sedated and remains intubated on assist control mode. Vital signs remain generally stable except for bradycardia in the 40s. Laboratory data today showed increased WBC to 14.2 though improved from yesterday. Chemistry panel showed no changes of concern. No overnight acute event. 24 hour I & O: Urine output of a 1050 mL with a positive balance of 1505.7 ML Vent mode/ABG: PRBC/no ABGs this a.m. for review. Sedation Drips: Fentanyl, Versed, propofol Pressors: Norepinephrine Antibiotics/antiviral: Vancomycin, cefepime, doxycycline, Tamiflu Microbiology data: Respiratory culture showing few Gram-positive cocci in chains on Gram stain, culture showing no growth. Blood cultures so far showing no growth. Imaging data: Mild pulmonary vascular congestion. Pathology data: None 11/04/2024. At the time of my evaluation, the patient is lying in bed. He remains vented and sedated. Currently off pressor therapy. Family members are present at the bedside. Staff nurse reports no acute events overnight. No other complaint. REVIEW OF SYSTEMS: Unable to perform 12 point ROS due to being intubated and sedated. PHYSICAL EXAM: GENERAL: Intubated and sedated HEENT: EOMI, Sclera non icteric, moist mucosa NECK: Supple, no JVD, trachea midline LUNGS: Diffused wheezing bilaterally. No rhonchi or rales HEART: Regular rate and rhythm. Normal S1 and S2, without murmurs ABD: Abdomen soft, nontender. Bowel sounds present EXT: No clubbing cyanosis or edema : Peoples in situ NEURO: Deferred Vital Signs (last 8hr) Date Time Temp Pulse Resp B/P (MAP) Pulse Ox O2 Delivery O2 Flow Rate FiO2 11/04/24 10:27 40 11/04/24 10:24 61 20 11/04/24 10:21 66 40 11/04/24 08:00 99.3 11/04/24 07:45 98 Ventilator+ 40 11/04/24 07:39 58 20 11/04/24 07:30 53 20 103/55 (71) 98 11/04/24 07:17 57 40 11/04/24 07:15 60 20 113/64 (80) 98 11/04/24 07:00 59 20 101/63 (76) 95 103/57 (72) 11/04/24 06:45 62 18 104/56 (72) 96 11/04/24 05:42 40 11/04/24 04:00 95 Ventilator+ 40 11/04/24 04:00 99.0 11/04/24 03:25 63 40 LABS: Hematology Labs: Test 11/04/24 09:55 Range/Units White Blood Count 11.3 H 4.8-10.8 K/uL Red Blood Count 4.21 L 4.50-6.20 MIL/uL Hemoglobin 12.7 L 14.0-18.0 g/dL Hematocrit 39.8 L 42-54 % Mean Corpuscular Volume 94.5 79-99 fL Mean Corpuscular Hemoglobin 30.2 27.0-33.0 pg Mean Corpuscular Hemoglobin Concent 31.9 L 32.0-36.0 g/dL Red Cell Distribution Width 13.3 11.0-15.5 % Platelet Count 220 130-400 K/uL Mean Platelet Volume 9.7 7.5-10.5 fL Immature Granulocyte % (Auto) 1.0 0-1 % Neutrophils (%) (Auto) 83.5 H 40.0-77.0 % Lymphocytes (%) (Auto) 9.8 L 21.0-51.0 % Monocytes (%) (Auto) 5.7 3.0-13.0 % Eosinophils (%) (Auto) 0.0 0.0-8.0 % Basophils (%) (Auto) 0.0 0.0-5.0 % Neutrophils # (Auto) 9.4 H 1.8-7.7 K/uL Lymphocytes # (Auto) 1.1 1.0-4.8 K/uL Monocytes # (Auto) 0.6 0.1-1.0 K/uL Eosinophils # (Auto) 0.00 0.00-0.70 K/uL Basophils # (Auto) 0.00 0.00-0.20 K/uL Absolute Immature Granulocyte (auto 0.11 0-1 K/uL Nucleated Red Blood Cells 0.0 0.0-0.19 % Chemistry Labs: Test 11/04/24 09:55 11/04/24 06:08 11/03/24 03:27 Range/Units Sodium Level 148 H 136-145 mmol/L Potassium Level 4.2 3.5-5.1 mmol/L Chloride Level 111 101-111 mmol/L Carbon Dioxide Level 35 H 21-32 mmol/L Blood Urea Nitrogen 25 H 7-18 mg/dL Creatinine 0.6 0.5-1.3 mg/dL Glomerular Filtration Rate Calc 123 >90 mL/min Random Glucose 142 H 70-105 mg/dL Total Calcium 8.6 8.5-10.1 mg/dL Whole Blood Glucose 138 H 70-110 MG/DL Magnesium Level 2.40 1.80-2.40 mg/dL Total Bilirubin 0.3 # 0.2-1.0 mg/dL Aspartate Amino Transf (AST/SGOT) 40 H 10-37 U/L Alanine Aminotransferase (ALT/SGPT) 34 12-78 U/L Alkaline Phosphatase 62 50-136 U/L Total Protein 5.5 L 6.0-8.3 g/dL Albumin 2.6 L 3.5-5.0 g/dL Procalcitonin < 0.05 L 0.05-0.5 ng/mL DIAGNOSTICS / RADIOLOGY RESULTS: [ ] PLAN 11/01/2024: For now, we are going to continue current management for the patient. We are going to change steroid therapy to hydrocortisone and we will continue bronchodilator therapy. We will resume his asthma management. He will remain intubated and we will continue on pressor therapy as well as sedation. We are going to repeat surveillance labs in the morning as well as a chest x- ray. We will monitor the patient's progress and response to management. We will continue to provide general supportive care, GI and DVT prophylaxis. Further orders per attending MD and hospital course. 11/02/2024: For now, we are going to continue current management for the patient. I am going to increase the rate to 28 L per minute and we will repeat an ABG 2 hours after. We will continue antibiotic therapy as ordered as well as steroid therapy. I am going to change hydrocortisone back to Solu-Medrol 60 mg q.6 hours. We will request a respiratory culture as well as a procalcitonin level with a.m. labs. We will add MRSA coverage with vancomycin pharmacy to dose. We will start the patient on feedings through the NGT with Glucerna 1.5. We will monitor the patient's progress and response to management. Hopefully, we may be able to start SBT soon. We will continue to provide general supportive care, GI and DVT prophylaxis. Further orders per attending MD and hospital course. 11/03/2024: The patient will remain sedated for now and we will order paralytic agent rocuronium 50 mg IV x1. I am going to also request an ABG now to assess for gas exchange, then we will adjust ventilator settings. Due to wheezing I am going to increase the Solu-Medrol to 80 mg IV q.6. We will continue to follow the ABG changes. Cardiac-philippe, the patient is stable. He is receiving nutrition through the NGT with Glucerna 1.5, we will continue this regimen for now. There is no major electrolyte derangements and renal parameters are within normal range, we will continue to monitor. We will continue antibiotic therapy as mentioned above and we will follow the culture and sensitivity report. Currently, there is no coagulopathy. Skin remains intact. We will address physical therapy and the need for physical rehabilitation once the acute issues are stabilized. We will monitor the patient's progress and response to management. We will continue to provide general supportive care, GI and DVT prophylaxis. Further orders per attending MD and hospital course. 11/04/2024: For now, the patient I am going to continue current management as o rdered. We will continue with current respiratory management and steroid dose. We will follow the progress and response to management. Further orders per attending MD and hospital course. NEURO: Patient is sedated Minimize central acting medications as possible. Fall Precautions. Well lighted room through the day and minimize interruptions through the night to prevent acute delirium. PULMONARY: Supplemental 02 as needed Titrate Fio2 to keep Spo2 > or = 90% DuoNebs and CPT as needed once patient is off vent IS hourly while awake for pulmonary hygiene once patient is off vent Out of bed to chair as tolerated when patient is off vent CARDIOVASCULAR: Follow hemodynamics. Titrate vasopressor to keep MAP >65 or systolic blood pressure >95mmHg DIPS: Currently off Levophed LINES: Right SVC central line. Right brachial Arterial line GI & NUTRITION: Continue nutritional support Aspirations precautions Prokinetic agents and laxatives as needed KIDNEYS & ELECTROLYTES: Strict monitoring of intake and output Daily weights Avoid nephrotoxic agents Monitor electrolytes and replace as needed Goal urine output of 30mL/hr or 0.5mL/kg/hr Urine output: 1100 Fluid Balance: +[id number] ENDOCRINE: Maintain blood glucose between 100-180 at all times. Insulin sliding scale for blood glucose management INFECTIOUS DISEASE: Trend temperature. No recent febrile events. Shaw-culture if febrile. Micro: Respiratory and blood cultures showing no growth Antibiotics: Vanco, cefepime and doxycycline. HEMATOLOGY & COAGULATION: Monitor H&H. Keep Hgb > 7 Transfuse 1 unit of PRBC for Hgb < 7 Transfuse 1 pack of platelets of platelets < 20, 000 Watch for any signs and symptoms of bleeding SKIN: Pressure ulcer prevention per facility protocol Rehab: PT/OT once patient is off vent and condition has stabilized. Prophylaxis: GI: Famotidine DVT: Lovenox Code Status: Full Resuscitation Disposition: ICU Other: Total patient care time exceeds 35 minutes excluding all procedures. Case was discussed and seen with my supervising physician. The above plan was formulated and agreed upon. LAURA WHITNEY NP Nov 04, 2024 11:18
--- NOTE | 2024-11-04 12:04 | PN ---
[facility] PROGRESS NOTE Date of Service: Nov 04, 2024 Time of Service: 12:00 SUBJECTIVE: 11/01 patient seen at bedside, no acute events overnight. He remains intubated and sedated, on a low dose of pressors. WBC increased from 10.2 up to 14.5, potassium increased from 3.6 up to 5.4, creatinine increased from 1.0 up to 1.6, remainder of his labs are relatively unremarkable. He still has a prominent wheeze. Patient is positive for influenza. Further care per critical Care. 11/02 patient seen at bedside, no acute events overnight. He remains intubated and sedated, FiO2 has been decreased from 45 down to 40%. We will defer to pulmonology for extubation. He remains on pressors, we will wean as able. WBC increased from 14.5 up to 20.4, hemoglobin stable at 13.1, remainder of his labs are relatively unremarkable. 11/03 patient seen at bedside, no acute events overnight he remains intubated and sedated, FiO2 at 40%, peep of 5. Patient continues on pressors, we will continue to wean as able. WBC decreased from 20.4 down to 14.2, hemoglobin stable at 13.1 same as yesterday, remainder of his labs are relatively unremarkable. 11/04 patient seen at bedside, no acute events overnight. He remains intubated and sedated, FiO2 at 40% peep of 7. Patient has been weaned off pressors. WBC improved from 14.2 down to 11.3, hemoglobin decreased from 13.1 down to 12.7, remainder of his labs are relatively unremarkable. REVIEW OF SYSTEMS A14 point ROS was obtained all relevant positive documented otherwise ROS negative PHYSICAL EXAM GENERAL APPEARANCE: The patient is awake, alert, and oriented,++acute cardiopulmonary distress requiring ventilation support and sedation NEUROLOGICAL: Cranial nerves II-XII grossly intact. Motor is 5/5 in bilateral upper and lower extremities proximal to distal. No sensory deficits. HEENT: Face is symmetric. Pupils are equal and reactive. Extraocular movements are intact. NECK: Supple. No JVD. No thyromegaly. No submental, submandibular, pre- /postauricular, occipital or supraclavicular lymphadenopathy. CHEST: Normal chest expansion. No Telemetry. LUNGS: miminal breath sound throughout: ++Wheezing CARDIOVASCULAR: Regular. S1 and S2 normal. No appreciable rubs, murmurs or gallops. ABDOMEN: Soft, nontender, and nondistended. There is no rebound, voluntary guarding, or rigidity. : Deferred. No Peoples. EXTREMITIES: Non-edematous and not cyanotic. No clubbing. Good capillary refill. SKIN: No skin breakdown. Vital Signs (last 8hr) Date Time Temp Pulse Resp B/P (MAP) Pulse Ox O2 Delivery O2 Flow Rate FiO2 11/04/24 11:50 97 Ventilator+ 40 11/04/24 10:27 40 11/04/24 10:24 61 20 11/04/24 10:21 66 40 11/04/24 08:00 99.3 11/04/24 07:45 98 Ventilator+ 40 11/04/24 07:39 58 20 11/04/24 07:30 53 20 103/55 (71) 98 11/04/24 07:17 57 40 11/04/24 07:15 60 20 113/64 (80) 98 11/04/24 07:00 59 20 101/63 (76) 95 103/57 (72) 11/04/24 06:45 62 18 104/56 (72) 96 11/04/24 05:42 40 LABS: Laboratory: Test 11/04/24 09:55 11/04/24 07:34 11/04/24 06:08 11/03/24 11:20 Range/Units White Blood Count 11.3 H 4.8-10.8 K/uL Red Blood Count 4.21 L 4.50-6.20 MIL/uL Hemoglobin 12.7 L 14.0-18.0 g/dL Hematocrit 39.8 L 42-54 % Mean Corpuscular Volume 94.5 79-99 fL Mean Corpuscular Hemoglobin 30.2 27.0-33.0 pg Mean Corpuscular Hemoglobin Concent 31.9 L 32.0-36.0 g/dL Red Cell Distribution Width 13.3 11.0-15.5 % Platelet Count 220 130-400 K/uL Mean Platelet Volume 9.7 7.5-10.5 fL Immature Granulocyte % (Auto) 1.0 0-1 % Neutrophils (%) (Auto) 83.5 H 40.0-77.0 % Lymphocytes (%) (Auto) 9.8 L 21.0-51.0 % Monocytes (%) (Auto) 5.7 3.0-13.0 % Eosinophils (%) (Auto) 0.0 0.0-8.0 % Basophils (%) (Auto) 0.0 0.0-5.0 % Neutrophils # (Auto) 9.4 H 1.8-7.7 K/uL Lymphocytes # (Auto) 1.1 1.0-4.8 K/uL Monocytes # (Auto) 0.6 0.1-1.0 K/uL Eosinophils # (Auto) 0.00 0.00-0.70 K/uL Basophils # (Auto) 0.00 0.00-0.20 K/uL Absolute Immature Granulocyte (auto 0.11 0-1 K/uL Nucleated Red Blood Cells 0.0 0.0-0.19 % Sodium Level 148 H 136-145 mmol/L Potassium Level 4.2 3.5-5.1 mmol/L Chloride Level 111 101-111 mmol/L Carbon Dioxide Level 35 H 21-32 mmol/L Blood Urea Nitrogen 25 H 7-18 mg/dL Creatinine 0.6 0.5-1.3 mg/dL Glomerular Filtration Rate Calc 123 >90 mL/min Random Glucose 142 H 70-105 mg/dL Total Calcium 8.6 8.5-10.1 mg/dL Blood Gas Specimen Type Arterial Arterial Blood pH 7.373 7.350-7.450 Arterial Blood Partial Pressure CO2 45 35-48 mmHg Arterial Blood Partial Pressure O2 95.0 83.0-108.0 mmHg Arterial Blood HCO3 25.4 21.0-28.0 mmol/L Arterial Blood Oxygen Saturation 96.5 94.0-98.0 % Arterial Blood Base Excess -0.1 -2.0-3.0 mmol/L Hemoglobin (Blood Gas) 12.8 L 13.5-17.5 g/dL Sodium (Blood Gas) 142 136-145 MMOL/L Bedside Potassium (Blood Gas) 4.1 3.4-4.5 MMOL/L Bedside Chloride (Blood Gas) 105 98-107 MMOL/L Bedside Glucose (Blood Gas) 107 H 65-95 MG/DL Bedside Ionized Calcium (Blood Gas) 1.23 1.15-1.33 MMOL/L Bedside Lactic Acid (Blood Gas) 0.91 H 0.36-0.75 MMOL/L Blood Gas Temperature 37.0 35.5-37.0 CELSIUS Blood Gas Respiration Rate 20.0 min. Blood Gas Vent Mode PRVC ROOM AIR FiO2 40.0 % Blood Gas Tidal Volume 450 ml Blood Gas PEEP 7 cm H2O Blood Gas Specimen Comment A-LINE LAVERN Whole Blood Glucose 138 H 70-110 MG/DL Vancomycin Level Trough 11.8 10.0-20.0 UG/ML Test 11/03/24 03:27 Range/Units Magnesium Level 2.40 1.80-2.40 mg/dL Total Bilirubin 0.3 # 0.2-1.0 mg/dL Aspartate Amino Transf (AST/SGOT) 40 H 10-37 U/L Alanine Aminotransferase (ALT/SGPT) 34 12-78 U/L Alkaline Phosphatase 62 50-136 U/L Total Protein 5.5 L 6.0-8.3 g/dL Albumin 2.6 L 3.5-5.0 g/dL Procalcitonin < 0.05 L 0.05-0.5 ng/mL Current Medications Medications (Trade) Dose Ordered Sig/Martinez Route PRN Reason Start Time Stop Time Status Last Admin Dose Admin Acetaminophen (TYLenol 325MG TAB) 650 mg Q4H PRN PO TEMPERATURE GREATER THAN 101.5 10/31/24 15:00 11/30/24 14:59 Acetaminophen (TYLenol 650MG SUPPOSITORY) 650 mg Q6H PRN RC MILD PAIN (1-3) 10/31/24 21:00 11/30/24 20:59 10/31/24 19:42 650 MG Albuterol (DUOneb) 1 udvial [id number] IH 11/01/24 10:00 12/01/24 01:59 11/04/24 10:23 1 UDVIAL Albuterol (DUOneb) 1 udvial [id number] IH 11/01/24 02:00 11/01/24 09:42 DC 11/01/24 06:56 1 UDVIAL Artificial Tears (Artificial Tears) 1 DROP OR AD Q8H OU 11/02/24 06:30 12/02/24 06:29 11/04/24 06:30 1 DROP Azithromycin 250 ml @ 250 mls/hr Q24H IVPB 10/31/24 16:00 10/31/24 23:39 DC 10/31/24 16:50 250 MLS/HR Budesonide (Pulmicort 0.5 Mg/2ml) 0.5 mg BIDRESP IH 11/01/24 18:00 12/01/24 17:59 11/04/24 07:23 0.5 MG Cefepime HCl (MAXipime 2 gm vial) 2 gm Q8H IVPB 11/02/24 10:30 11/12/24 10:29 11/04/24 09:38 2 GM Ceftriaxone Sodium (ROCEphine 1G INJ) 1 gm Q24H IVPB 10/31/24 15:00 10/31/24 23:39 DC 10/31/24 16:16 1 GM Chlorhexidine Gluconate (Peridex) 15 ml TID MM 11/02/24 09:00 11/16/24 08:59 11/04/24 08:01 15 ML Diazepam (VALium 5 mg TAB) 10 mg Q8H NG 11/03/24 12:00 12/03/24 11:59 11/04/24 11:00 10 MG Doxycycline Hyclate 250 ml @ 125 mls/hr Q12H IV 11/01/24 00:00 11/11/24 00:00 11/04/24 11:00 125 MLS/HR Enoxaparin Sodium (Lovenox) 40 mg DAILY SQ 11/01/24 09:00 12/01/24 08:59 11/04/24 08:01 40 MG Famotidine (Pepcid 20mg Vial) 20 mg BID IV 11/01/24 09:00 12/01/24 08:59 11/04/24 08:01 20 MG Famotidine (Pepcid 20mg Tab) 20 mg BID PO 10/31/24 21:00 11/01/24 01:45 DC Fentanyl Citrate 100 ml @ 2.5 mls/hr PROTOCOL IV 10/31/24 19:30 10/31/24 19:25 DC Fentanyl/Sodium Chloride 250 ml @ 0 mls/hr PROTOCOL IV 10/31/24 19:30 11/05/24 19:29 11/04/24 06:36 15 MLS/HR Hydrocortisone Sodium Succinate (Solu-corTEF 100MG) 50 mg Q6H IVP 11/01/24 11:00 11/02/24 13:55 DC 11/02/24 11:15 50 MG Insulin Human Regular (humuLIN R 100 UNIT/ML 3ML) INSULIN SLIDING SCAL... Q6H6 SQ 11/02/24 00:00 12/02/24 00:00 Lactulose (Constulose 20gm/ 30ml Udcup) 20 gm BID PRN PO CONSTIPATION 10/31/24 15:00 11/30/24 14:59 11/01/24 16:05 20 GM Magnesium Sulfate 50 ml @ 0 mls/hr PROTOCOL IV 10/31/24 13:00 10/31/24 14:54 DC 10/31/24 13:08 25 MLS/HR Magnesium Sulfate 50 ml @ 0 mls/hr PROTOCOL PRN IV low mag level 10/31/24 15:00 11/30/24 14:59 Methylprednisolone Sodium Succinate (Solu-medROL 40MG) 60 mg Q6H IVP 11/02/24 14:00 11/03/24 15:10 DC 11/03/24 13:35 60 MG Methylprednisolone Sodium Succinate (Solu-medROL 40MG) 60 mg Q8H IVP 10/31/24 15:00 11/01/24 09:46 DC 11/01/24 06:42 60 MG Methylprednisolone Sodium Succinate (Solu-medROL 40MG) 80 mg Q6H IVP 11/03/24 20:00 12/03/24 19:59 11/04/24 08:01 80 MG Midazolam HCl 50 ml @ 0 mls/hr PROTOCOL IV 10/31/24 16:30 11/07/24 16:29 11/04/24 08:50 8 MLS/HR Midazolam HCl 50 mg/Sodium Chloride 50 ml @ 0 mls/hr PROTOCOL IV 10/31/24 16:00 10/31/24 16:02 DC Montelukast Sodium (SinguLAIR) 10 mg HS PO 10/31/24 21:00 11/30/24 20:59 11/03/24 19:58 10 MG Norepinephrine 250 ml @ 27.225 mls/ hr PROTOCOL IV 10/31/24 20:30 11/02/24 10:27 DC 11/01/24 18:24 41.06 MLS/HR Norepinephrine 250 ml @ 0 mls/hr PROTOCOL IV 10/31/24 20:30 11/01/24 22:43 DC Norepinephrine Bitartrate 250 ml @ 0 mls/hr AD PRN IV TITRATE 11/01/24 23:00 12/01/24 22:59 11/03/24 22:51 6.48 MLS/HR Ondansetron HCl (zoFRAN 4MG INJ) 4 mg Q6H PRN IVP NAUSEA/VOMITING 10/31/24 15:00 11/30/24 14:59 Oseltamivir Phosphate (Tamiflu) 75 mg BID PO 11/01/24 09:00 11/06/24 08:59 11/04/24 08:01 75 MG Pharmacy Profile Note (Pharmacy Communication) 1 each ONCE MISC 11/03/24 15:30 11/10/24 15:29 Piperacillin Sod/ Tazobactam Sod (Zosyn 3.375gm+NS 50ml) 3.375 gm Q8H IV 11/01/24 00:00 11/02/24 10:26 DC 11/02/24 08:49 3.375 GM Polyethylene Glycol (MIRalax 3350 17 GM POWD.PACK) 17 gm DAILY PO 11/02/24 09:00 12/02/24 08:59 11/04/24 08:01 17 GM Polyethylene Glycol (MIRalax 3350 17 GM POWD.PACK) 17 gm ONCE PO 11/01/24 15:30 11/01/24 21:30 DC 11/01/24 16:05 17 GM Potassium Chloride 100 ml @ 100 mls/hr AD PRN IV POTASSIUM PROTOCOL 10/31/24 15:00 11/30/24 14:59 Potassium Chloride (K-Dur/Klor-Con 20meq) 20 meq AD PRN PO POTASSIUM PROTOCOL 10/31/24 15:00 11/30/24 14:59 Potassium Chloride (KCl 10% Elixir 20meq/15ml) 20 meq AD PRN PO POTASSIUM PROTOCOL 10/31/24 15:00 11/30/24 14:59 Propofol (DIPRivan 1000MG/ 100ML) 1,000 mg PROTOCOL PRN IV SEDATION 10/31/24 16:00 11/30/24 15:59 11/01/24 22:47 1,000 MG Rocuronium [place] 100 mg/ Sodium Chloride 100 ml @ 0 mls/hr PROTOCOL IV 10/31/24 16:00 10/31/24 16:44 DC Rocuronium [place] (ZemuRON) 50 mg ONCE IV 11/03/24 15:25 11/03/24 16:25 DC 11/03/24 15:27 50 MG Vancomycin HCl 250 ml @ 125 mls/hr Q8H IV 11/02/24 20:30 11/12/24 20:29 11/04/24 03:46 125 MLS/HR Vancomycin HCl (Vancomycin Protocol) 1 each AD IV 11/02/24 10:30 11/16/24 10:29 DIAGNOSTICS / RADIOLOGY: [ ] ASSESSMENT: Sepsis, ruled out Acute asthma exacerbation POA Acute hypoxic respiratory failure with hypoxia requiring BiPAP support on arrival POA 10 L trials unsuccessful requiring intubation 10/31/2024 at 15:42 p.m. viral syndrome POA Positive influenza A POA Active smoker smokes cigars 3-4 POA Polysubstance abuse disorder Chronic problems asthma, bipolar disorder. PLAN: Continue DuoNebs Continue budesonide Continue mechanical ventilation, wean as able Continue pressors wean as able Continue Tamiflu 75 mg twice daily Continue Zosyn and doxycycline Continue vancomycin Continue dexamethasone Disposition: Pending improvement in respiratory status Greater than 35 minutes ICU time spent in care of this patient CEHY HENRIQUEZ MD Nov 04, 2024 12:04
[2024-11-04] MEDS ORDERED: COMPOUND IV REFRIGERATED 1 EACH IVSOLN MISC PRN (13:00)
[2024-11-04] MEDS: VANCOMYCIN 1.25 GM/250 ML BAG 250 ML IV SCH (13:27)
[2024-11-05] VITALS (106 sets, daily range): BP systolic 98–151; BP diastolic 54–104; PULSE 38–94; RESP 10–19; TEMP 98.3–99; O2SAT 97–100
[2024-11-05 08:15] LABS: BASOPHILS # (AUTO) 0.01 K/uL (0.00-0.20); BASOPHILS % (AUTO) 0.1 % (0.0-5.0); EOSINOPHILS # (AUTO) 0.02 K/uL (0.00-0.70); EOSINOPHILS % (AUTO) 0.2 % (0.0-8.0); HEMATOCRIT 37.8 % (42-54); LYMPHOCYTES # (AUTO) 1.4 K/uL (1.0-4.8); LYMPHOCYTES % (AUTO) 12.7 % (21.0-51.0); MEAN CORPUSCULAR HEMOGLOBIN 30.1 pg (27.0-33.0); MEAN CORPUSCULAR HGB CONC 32.3 g/dL (32.0-36.0); MEAN CORPUSCULAR VOLUME 93.3 fL (79-99); MONOCYTES # (AUTO) 0.6 K/uL (0.1-1.0); MONOCYTES % (AUTO) 5.8 % (3.0-13.0); NEUTROPHILS # (AUTO) 8.8 K/uL (1.8-7.7); NEUTROPHILS % (AUTO) 80.3 % (40.0-77.0); PLATELET COUNT (AUTO) 207 K/uL (130-400); RED BLOOD CELL COUNT(AUTO) 4.05 MIL/uL (4.50-6.20); RED CELL DISTRIBUTION WIDTH 13.3 % (11.0-15.5)
[2024-11-05 08:35] LABS: CREATININE 0.5 mg/dL (0.5-1.3); MAGNESIUM 2.7 mg/dL (1.80-2.40); PHOSPHORUS 2.7 mg/dL (2.5-4.9); POTASSIUM 4.2 mmol/L (3.5-5.1)
--- NOTE | 2024-11-05 09:09 | HMCIMG ---
CHEST 1VW HISTORY: Intubated COMPARISON: 11/04/2024 FINDINGS: A frontal projection of the chest was obtained. Prominent interstitial markings are seen with possible superimposed infiltrates. Endotracheal tube is seen with distal tip at 4.3 cm above mónica. The heart is borderline enlarged. All the lines and tubes are again seen in place. No evidence of aortic calcification is seen. IMPRESSION: 1. Prominent interstitial markings are seen with possible superimposed infiltrates.
[2024-11-05 09:28] LABS: ABG BASE EXCESS 5.1 mmol/L (-2.0-3.0); ABG HCO3 31.6 mmol/L (21.0-28.0); ABG OXYGEN SATURATION 95.1 % (94.0-98.0); ABG PCO2 55 mmHg (35-48); ABG PH 7.378 (7.350-7.450); CARBON MONOXIDE 0.2 % (0.5-1.5); DEVICE COMMENT ALINE; HHb 4.9; PO2, ARTERIAL BG 80.7 mmHg (83.0-108.0); VENT MODE, BG PRVC (ROOM AIR)
--- NOTE | 2024-11-05 09:31 | PN ---
[facility] PROGRESS NOTE Date of Service: Nov 05, 2024 Time of Service: 09:31 SUBJECTIVE: 11/01 patient seen at bedside, no acute events overnight. He remains intubated and sedated, on a low dose of pressors. WBC increased from 10.2 up to 14.5, potassium increased from 3.6 up to 5.4, creatinine increased from 1.0 up to 1.6, remainder of his labs are relatively unremarkable. He still has a prominent wheeze. Patient is positive for influenza. Further care per critical Care. 11/02 patient seen at bedside, no acute events overnight. He remains intubated and sedated, FiO2 has been decreased from 45 down to 40%. We will defer to pulmonology for extubation. He remains on pressors, we will wean as able. WBC increased from 14.5 up to 20.4, hemoglobin stable at 13.1, remainder of his labs are relatively unremarkable. 11/03 patient seen at bedside, no acute events overnight he remains intubated and sedated, FiO2 at 40%, peep of 5. Patient continues on pressors, we will continue to wean as able. WBC decreased from 20.4 down to 14.2, hemoglobin stable at 13.1 same as yesterday, remainder of his labs are relatively unremarkable. 11/04 patient seen at bedside, no acute events overnight. He remains intubated and sedated, FiO2 at 40% peep of 7. Patient has been weaned off pressors. WBC improved from 14.2 down to 11.3, hemoglobin decreased from 13.1 down to 12.7, remainder of his labs are relatively unremarkable. 11/05 patient is seen and examined at bedside, remains intubated, on mechanical ventilation, on fentanyl and Versed drip. He is on droplet precautions. Getting nutritional support via NG tube. WBC improving, today at 11.0, hemoglobin 12.2, hematocrit 37.8. ABG with pH of 7.37, PO2 80.7. Chest x-ray showing prominent interstitial markings with possible superimposed infiltrates. REVIEW OF SYSTEMS A14 point ROS was obtained all relevant positive documented otherwise ROS negative PHYSICAL EXAM GENERAL APPEARANCE: Patient remains intubated, remains on mechanical ventilation. Nutritional support via NG tube. NEUROLOGICAL: Cranial nerves II-XII grossly intact. Motor is 5/5 in bilateral upper and lower extremities proximal to distal. No sensory deficits. HEENT: Face is symmetric. Pupils are equal and reactive. Extraocular movements are intact. NECK: Supple. No JVD. No thyromegaly. No submental, submandibular, pre-/postauricular, occipital or supraclavicular lymphadenopathy. CHEST: Normal chest expansion. No Telemetry. LUNGS: miminal breath sound throughout: ++Wheezing CARDIOVASCULAR: Regular. S1 and S2 normal. No appreciable rubs, murmurs or gallops. ABDOMEN: Soft, nontender, and nondistended. There is no rebound, voluntary guarding, or rigidity. : Deferred. No Peoples. EXTREMITIES: Non-edematous and not cyanotic. No clubbing. Good capillary refill. SKIN: No skin breakdown. Vital Signs (last 8hr) Date Time Temp Pulse Resp B/P (MAP) Pulse Ox O2 Delivery O2 Flow Rate FiO2 11/05/24 09:13 66 40 11/05/24 07:45 98.4 11/05/24 07:43 40 11/05/24 07:15 44 18 105/54 (71) 99 11/05/24 07:12 42 15 11/05/24 07:00 45 18 105/56 (72) 98 11/05/24 06:50 48 40 11/05/24 06:00 45 16 103/62 (76) 97 40 114/62 (79) 11/05/24 05:45 47 18 109/59 (76) 98 11/05/24 05:30 49 18 116/65 (82) 97 11/05/24 05:15 63 17 142/79 (100) 97 11/05/24 05:00 60 18 118/74 (89) 98 40 138/75 (96) 11/05/24 04:45 49 18 121/66 (84) 98 11/05/24 04:30 51 19 151/86 (107) 99 11/05/24 04:15 42 18 112/57 (75) 98 11/05/24 04:00 40 11/05/24 04:00 98 Ventilator+ 40 11/05/24 04:00 98.8 45 18 103/65 (78) 98 40 105/56 (72) 11/05/24 03:45 44 18 104/54 (71) 98 11/05/24 03:38 48 40 11/05/24 03:30 45 18 104/55 (71) 97 11/05/24 03:15 47 18 106/56 (73) 97 11/05/24 03:00 50 18 121/78 (92) 97 40 113/60 (77) 11/05/24 02:45 61 18 141/76 (97) 97 11/05/24 02:30 52 18 126/65 (85) 98 11/05/24 02:15 92 15 11/05/24 02:15 48 18 120/64 (82) 99 11/05/24 02:00 51 18 123/80 (94) 99 40 125/68 (87) 11/05/24 01:45 45 18 116/62 (80) 99 LABS: Laboratory: Test 11/05/24 09:26 11/05/24 07:56 11/05/24 05:47 11/04/24 11:35 Range/Units Blood Gas Specimen Type Arterial Arterial Blood pH 7.378 7.350-7.450 Arterial Blood Partial Pressure CO2 55 H 35-48 mmHg Arterial Blood Partial Pressure O2 80.7 L 83.0-108.0 mmHg Arterial Blood HCO3 31.6 H 21.0-28.0 mmol/L Arterial Blood Oxygen Saturation 95.1 94.0-98.0 % Arterial Blood Base Excess 5.1 H -2.0-3.0 mmol/L Hemoglobin (Blood Gas) 13.0 L 13.5-17.5 g/dL Sodium (Blood Gas) 141 136-145 MMOL/L Bedside Potassium (Blood Gas) 4.0 3.4-4.5 MMOL/L Bedside Chloride (Blood Gas) 104 98-107 MMOL/L Bedside Glucose (Blood Gas) 138 H 65-95 MG/DL Bedside Ionized Calcium (Blood Gas) 1.22 1.15-1.33 MMOL/L Bedside Lactic Acid (Blood Gas) 1.63 H 0.36-0.75 MMOL/L Blood Gas Temperature 37.0 35.5-37.0 CELSIUS Blood Gas Respiration Rate 18.0 min. Blood Gas Vent Mode PRVC ROOM AIR FiO2 40.0 % Blood Gas Tidal Volume 420 ml Blood Gas PEEP 7 cm H2O Blood Gas Specimen Comment [place] White Blood Count 11.0 H 4.8-10.8 K/uL Red Blood Count 4.05 L 4.50-6.20 MIL/uL Hemoglobin 12.2 L 14.0-18.0 g/dL Hematocrit 37.8 L 42-54 % Mean Corpuscular Volume 93.3 79-99 fL Mean Corpuscular Hemoglobin 30.1 27.0-33.0 pg Mean Corpuscular Hemoglobin Concent 32.3 32.0-36.0 g/dL Red Cell Distribution Width 13.3 11.0-15.5 % Platelet Count 207 130-400 K/uL Mean Platelet Volume 10.3 7.5-10.5 fL Immature Granulocyte % (Auto) 0.9 0-1 % Neutrophils (%) (Auto) 80.3 H 40.0-77.0 % Lymphocytes (%) (Auto) 12.7 L 21.0-51.0 % Monocytes (%) (Auto) 5.8 3.0-13.0 % Eosinophils (%) (Auto) 0.2 0.0-8.0 % Basophils (%) (Auto) 0.1 0.0-5.0 % Neutrophils # (Auto) 8.8 H 1.8-7.7 K/uL Lymphocytes # (Auto) 1.4 1.0-4.8 K/uL Monocytes # (Auto) 0.6 0.1-1.0 K/uL Eosinophils # (Auto) 0.02 0.00-0.70 K/uL Basophils # (Auto) 0.01 0.00-0.20 K/uL Absolute Immature Granulocyte (auto 0.10 0-1 K/uL Nucleated Red Blood Cells 0.0 0.0-0.19 % Sodium Level 148 H 136-145 mmol/L Potassium Level 4.2 3.5-5.1 mmol/L Chloride Level 111 101-111 mmol/L Carbon Dioxide Level 38 H 21-32 mmol/L Blood Urea Nitrogen 26 H 7-18 mg/dL Creatinine 0.5 0.5-1.3 mg/dL Glomerular Filtration Rate Calc 130 >90 mL/min Random Glucose 156 H 70-105 mg/dL Total Calcium 8.3 L 8.5-10.1 mg/dL Phosphorus Level 2.7 2.5-4.9 mg/dL Magnesium Level 2.70 H 1.80-2.40 mg/dL Whole Blood Glucose 139 H 70-110 MG/DL Vancomycin Level Trough 10.3 10.0-20.0 UG/ML Current Medications Medications (Trade) Dose Ordered Sig/Martinez Route PRN Reason Start Time Stop Time Status Last Admin Dose Admin Acetaminophen (TYLenol 325MG TAB) 650 mg Q4H PRN PO TEMPERATURE GREATER THAN 101.5 10/31/24 15:00 11/30/24 14:59 Acetaminophen (TYLenol 650MG SUPPOSITORY) 650 mg Q6H PRN RC MILD PAIN (1-3) 10/31/24 21:00 11/30/24 20:59 10/31/24 19:42 650 MG Albuterol (DUOneb) 1 udvial [id number] IH 11/01/24 10:00 12/01/24 01:59 11/05/24 07:11 1 UDVIAL Albuterol (DUOneb) 1 udvial [id number] IH 11/01/24 02:00 11/01/24 09:42 DC 11/01/24 06:56 1 UDVIAL Artificial Tears (Artificial Tears) 1 DROP OR AD Q8H OU 11/02/24 06:30 12/02/24 06:29 11/05/24 05:53 1 DROP Azithromycin 250 ml @ 250 mls/hr Q24H IVPB 10/31/24 16:00 10/31/24 23:39 DC 10/31/24 16:50 250 MLS/HR Budesonide (Pulmicort 0.5 Mg/2ml) 0.5 mg BIDRESP IH 11/01/24 18:00 12/01/24 17:59 11/05/24 07:11 0.5 MG Cefepime HCl (MAXipime 2 gm vial) 2 gm Q8H IVPB 11/02/24 10:30 11/12/24 10:29 11/05/24 01:29 2 GM Ceftriaxone Sodium (ROCEphine 1G INJ) 1 gm Q24H IVPB 10/31/24 15:00 10/31/24 23:39 DC 10/31/24 16:16 1 GM Chlorhexidine Gluconate (Peridex) 15 ml TID MM 11/02/24 09:00 11/16/24 08:59 11/05/24 08:08 15 ML Diazepam (VALium 5 mg TAB) 10 mg Q8H NG 11/03/24 12:00 12/03/24 11:59 11/05/24 04:18 10 MG Doxycycline Hyclate 250 ml @ 125 mls/hr Q12H IV 11/01/24 00:00 11/11/24 00:00 11/04/24 23:24 125 MLS/HR Enoxaparin Sodium (Lovenox) 40 mg DAILY SQ 11/01/24 09:00 12/01/24 08:59 11/05/24 08:10 40 MG Famotidine (Pepcid 20mg Vial) 20 mg BID IV 11/01/24 09:00 12/01/24 08:59 11/05/24 08:09 20 MG Famotidine (Pepcid 20mg Tab) 20 mg BID PO 10/31/24 21:00 11/01/24 01:45 DC Fentanyl Citrate 100 ml @ 2.5 mls/hr PROTOCOL IV 10/31/24 19:30 10/31/24 19:25 DC Fentanyl/Sodium Chloride 250 ml @ 0 mls/hr PROTOCOL IV 10/31/24 19:30 11/05/24 19:29 11/05/24 09:22 20 MLS/HR Hydrocortisone Sodium Succinate (Solu-corTEF 100MG) 50 mg Q6H IVP 11/01/24 11:00 11/02/24 13:55 DC 11/02/24 11:15 50 MG Insulin Human Regular (humuLIN R 100 UNIT/ML 3ML) INSULIN SLIDING SCAL... Q6H6 SQ 11/02/24 00:00 12/02/24 00:00 Lactulose (Constulose 20gm/ 30ml Udcup) 20 gm BID PRN PO CONSTIPATION 10/31/24 15:00 11/30/24 14:59 11/05/24 08:41 20 GM Magnesium Sulfate 50 ml @ 0 mls/hr PROTOCOL IV 10/31/24 13:00 10/31/24 14:54 DC 10/31/24 13:08 25 MLS/HR Magnesium Sulfate 50 ml @ 0 mls/hr PROTOCOL PRN IV low mag level 10/31/24 15:00 11/30/24 14:59 Methylprednisolone Sodium Succinate (Solu-medROL 40MG) 60 mg Q6H IVP 11/02/24 14:00 11/03/24 15:10 DC 11/03/24 13:35 60 MG Methylprednisolone Sodium Succinate (Solu-medROL 40MG) 60 mg Q8H IVP 10/31/24 15:00 11/01/24 09:46 DC 11/01/24 06:42 60 MG Methylprednisolone Sodium Succinate (Solu-medROL 40MG) 80 mg Q6H IVP 11/03/24 20:00 12/03/24 19:59 11/05/24 08:09 80 MG Midazolam HCl 50 ml @ 0 mls/hr PROTOCOL IV 10/31/24 16:30 11/07/24 16:29 11/05/24 05:02 8 MLS/HR Midazolam HCl 50 mg/Sodium Chloride 50 ml @ 0 mls/hr PROTOCOL IV 10/31/24 16:00 10/31/24 16:02 DC Montelukast Sodium (SinguLAIR) 10 mg HS PO 10/31/24 21:00 11/30/24 20:59 11/04/24 20:07 10 MG Norepinephrine 250 ml @ 27.225 mls/ hr PROTOCOL IV 10/31/24 20:30 11/02/24 10:27 DC 11/01/24 18:24 41.06 MLS/HR Norepinephrine 250 ml @ 0 mls/hr PROTOCOL IV 10/31/24 20:30 11/01/24 22:43 DC Norepinephrine Bitartrate 250 ml @ 0 mls/hr AD PRN IV TITRATE 11/01/24 23:00 12/01/24 22:59 11/03/24 22:51 6.48 MLS/HR Ondansetron HCl (zoFRAN 4MG INJ) 4 mg Q6H PRN IVP NAUSEA/VOMITING 10/31/24 15:00 11/30/24 14:59 Oseltamivir Phosphate (Tamiflu) 75 mg BID PO 11/01/24 09:00 11/06/24 08:59 11/05/24 08:09 75 MG Pharmacy Profile Note (Pharmacy Communication) 1 each ONCE MISC 11/03/24 15:30 11/04/24 13:19 DC Piperacillin Sod/ Tazobactam Sod (Zosyn 3.375gm+NS 50ml) 3.375 gm Q8H IV 11/01/24 00:00 11/02/24 10:26 DC 11/02/24 08:49 3.375 GM Polyethylene Glycol (MIRalax 3350 17 GM POWD.PACK) 17 gm DAILY PO 11/02/24 09:00 12/02/24 08:59 11/05/24 08:09 17 GM Polyethylene Glycol (MIRalax 3350 17 GM POWD.PACK) 17 gm ONCE PO 11/01/24 15:30 11/01/24 21:30 DC 11/01/24 16:05 17 GM Potassium Chloride 100 ml @ 100 mls/hr AD PRN IV POTASSIUM PROTOCOL 10/31/24 15:00 11/30/24 14:59 Potassium Chloride (K-Dur/Klor-Con 20meq) 20 meq AD PRN PO POTASSIUM PROTOCOL 10/31/24 15:00 11/30/24 14:59 Potassium Chloride (KCl 10% Elixir 20meq/15ml) 20 meq AD PRN PO POTASSIUM PROTOCOL 10/31/24 15:00 11/30/24 14:59 Propofol (DIPRivan 1000MG/ 100ML) 1,000 mg PROTOCOL PRN IV SEDATION 10/31/24 16:00 11/30/24 15:59 11/01/24 22:47 1,000 MG Rocuronium [place] 100 mg/ Sodium Chloride 100 ml @ 0 mls/hr PROTOCOL IV 10/31/24 16:00 10/31/24 16:44 DC Rocuronium [place] (ZemuRON) 50 mg ONCE IV 11/03/24 15:25 11/03/24 16:25 DC 11/03/24 15:27 50 MG Vancomycin HCl 250 ml @ 125 mls/hr Q8H IV 11/02/24 20:30 11/04/24 12:45 DC 11/04/24 03:46 125 MLS/HR Vancomycin HCl 250 ml @ 125 mls/hr Q8H IV 11/04/24 13:00 11/14/24 12:59 11/05/24 04:17 125 MLS/HR Vancomycin HCl (Vancomycin Protocol) 1 each AD IV 11/02/24 10:30 11/16/24 10:29 DIAGNOSTICS / RADIOLOGY: [ ] CHEST 1VW HISTORY: Intubated COMPARISON: 11/04/2024 FINDINGS: A frontal projection of the chest was obtained. Prominent interstitial markings are seen with possible superimposed infiltrates. Endotracheal tube is seen with distal tip at 4.3 cm above mónica. The heart is borderline enlarged. All the lines and tubes are again seen in place. No evidence of aortic calcification is seen. IMPRESSION: 1. Prominent interstitial markings are seen with possible superimposed infiltrates. ASSESSMENT: Sepsis, ruled out Acute asthma exacerbation POA Acute hypoxic respiratory failure with hypoxia requiring BiPAP support on arrival POA 10 L trials unsuccessful requiring intubation 10/31/2024 at 15:42 p.m. viral syndrome POA Positive influenza A POA Active smoker smokes cigars 3-4 POA Polysubstance abuse disorder Chronic problems asthma, bipolar disorder. PLAN: Patient remains admitted to the ICU Patient remains intubated, on mechanical ventilation Patient remains sedated with fentanyl and Versed Continue to follow critical care input and recommendation Continue the patient on broad-spectrum IV antibiotics Continue bronchodilators Continue the patient on IV steroids Continue the patient on Tamiflu 75 mg twice daily Continue to replace electrolytes IV per protocol GI and DVT prophylaxis Disposition: Pending improvement in respiratory status Greater than 35 minutes ICU time spent in care of this patient ZACKERY MORALES MD Nov 05, 2024 09:31
--- NOTE | 2024-11-05 11:06 | PN ---
[facility] PROGRESS NOTE Date Patient Seen: Nov 05, 2024 Time of Visit: 11:06 Supervising Physician: Dr. Arnoldo Cortez Primary Care Physician: [Jose Narvaez Dr. and Dr. Bautista Outpatient Specialists: [ ] Inpatient Consults: [[facility] team-p[facility] ] PROBLEM LIST: Acute hypoxemic respiratory failure requiring intubation-POA Acute asthma exacerbation-POA Respiratory acidosis-POA (+) Flu A -POA Bilateral community-acquired pneumonia-POA Septic shock requiring pressor support-POA (+) cocaine and cannabis screen- POA Chronic asthma Bipolar disorder Chronic nicotine disorder - uses 4 cigars daily Anxiety disorder INTERVAL HISTORY: 10/31/2024: HPI: [Patient is unable to participate on the HPI due to being intubated and sedated. Per hospitalist's HPI. "This is a 44-year-old male was brought in by EMS with chief complaints of Shortness of breath. Apparently the patient called 911 given to having a asthma attack in on arrival patient was found with oxygen saturation of on room air of 54%. Patient has a significant underlying history of asthma he took albuterol inhaler at home he reports he has been using it as per ER note. Unable to obtain history data due to dyspneic we will obtain history from ER notes and from ER physician. On arrival to ED patient was dyspneic per ER physican was hardly moving air throughout all lung Corey and immediately was placed on BiPAP support and was given IV steroids and DuoNeb. ER workup positive for influenza A Patient was seen in ED the patient appears acutely ill. ER physician removed BiPAP to see how patient we will do on 10 L so far oxygenation level at 95%. However he continues to use accessory muscles to breathe he will be transition to ICU: high risk for decompensated airway. Patient was unable to tolerate 10 L became dyspneic and anxious therefore ER physician intubated patient mode PRVC rate 20 tidal volume 480 Peep: 5 FI O2 60% on sedation patient will transitioned to ICU once bed is available. Spoke to family at bedside all questions answered." BIS team was consulted for critical care management in the setting of septic shock and intubation 2/2 acute hypoxic respiratory failure. According to the patient's mother, patient was doing well this morning and he even drove him yesterday to the clinic where she herself was diagnosed of flu. This afternoon, everything changed and happened so rapidly with complaint of sudden asthma attack and respiratory distress. Patient is now receiving 3 sedatives namely Propofol, Fentanyl and Versed which according to the bedside RN took awhile to optimize as the patient continues to fight it and tends to override the vent.He is currently on Levophed for pressor support. He appears to continue using his accessory mnuscles despite being on ventilator. Lung sounds have positive wheezing across lung corey. We will continue to follow along patient's response to treatment as enumerated above. Goals of care were discussed with the mother verbalizing understanding and agreement. On behalf of BIS team, thank you for the opportunity to participate on Mr. Lloyd's case. 11/01/2024: At the time of my evaluation, the patient was lying in bed. He remains intubated and family members present at the bedside. Vital signs today remains generally stable. Laboratory data showed a increase of WBCs to 14.5 which may be reactive to steroids, though neutrophil predominance. Chemistry panel showing elevated potassium to 5.4, we will repeat potassium level later today. Also, renal parameters increase the BUN 27 creatinine 1.6 we will monitor the trend. The patient remains with Tamiflu and empiric antibiotic therapy with Zosyn/doxy combination. The remains on steroid therapy as ordered. The patient remains on sedation with propofol and fentanyl drip. Also on pressor therapy with Levophed. No other complaint. 11/02/2024: At the time of my evaluation, the patient is lying in bed. He remains intubated. Most recent ABG showed a pH of 7.2, pCO2 54 and PO2 of 142.3. He continues on PRVC mode, rate of 26, FiO2 40%, tidal volume of 420 and a PEEP of 5. He is also hydrocortisone and receiving empiric antibiotic therapy with cefepime, doxy and Tamiflu. For sedation, the patient continues on propofol, Versed and fentanyl. Patient's mother was present at the bedside. No new complaint. 11/03/2024: At the time of my evaluation, the patient was lying in bed, sedated and remains intubated on assist control mode. Vital signs remain generally stable except for bradycardia in the 40s. Laboratory data today showed increased WBC to 14.2 though improved from yesterday. Chemistry panel showed no changes of concern. No overnight acute event. 24 hour I & O: Urine output of a 1050 mL with a positive balance of 1505.7 ML Vent mode/ABG: PRBC/no ABGs this a.m. for review. Sedation Drips: Fentanyl, Versed, propofol Pressors: Norepinephrine Antibiotics/antiviral: Vancomycin, cefepime, doxycycline, Tamiflu Microbiology data: Respiratory culture showing few Gram-positive cocci in chains on Gram stain, culture showing no growth. Blood cultures so far showing no growth. Imaging data: Mild pulmonary vascular congestion. Pathology data: None 11/04/2024. At the time of my evaluation, the patient is lying in bed. He remains vented and sedated. Currently off pressor therapy. Family members are present at the bedside. Staff nurse reports no acute events overnight. No other complaint. 11/05/2024: At the time of my evaluation, the patient was lying in bed. He remains intubated and is sedated. The patient continues on pressure support 40% FiO2. Family members present at the bedside. The staff nurse reports no acute events overnight. REVIEW OF SYSTEMS: Unable to perform 12 point ROS due to being intubated and sedated. PHYSICAL EXAM: GENERAL: Intubated and sedated HEENT: EOMI, Sclera non icteric, moist mucosa NECK: Supple, no JVD, trachea midline LUNGS: Diminished lung sounds. No wheeze, rhonchi or rales HEART: Regular rate and rhythm. Normal S1 and S2, without murmurs ABD: Abdomen soft, nontender. Bowel sounds present EXT: No clubbing cyanosis or edema : Peoples in situ NEURO: Deferred Vital Signs (last 8hr) Date Time Temp Pulse Resp B/P (MAP) Pulse Ox O2 Delivery O2 Flow Rate FiO2 11/05/24 10:08 40 11/05/24 09:15 66 17 138/78 (98) 96 11/05/24 09:13 66 40 11/05/24 09:00 94 14 133/104 (114) 100 147/84 (105) 11/05/24 08:45 89 17 141/86 (104) 98 11/05/24 08:30 50 18 106/56 (73) 96 11/05/24 08:15 54 18 111/60 (77) 96 11/05/24 08:00 69 18 112/76 (88) 96 134/73 (93) 11/05/24 07:45 98.4 11/05/24 07:45 48 18 112/59 (76) 95 11/05/24 07:43 40 11/05/24 07:30 44 18 116/62 (80) 99 11/05/24 07:15 44 18 105/54 (71) 99 11/05/24 07:12 42 15 11/05/24 07:00 45 18 105/56 (72) 98 11/05/24 06:50 48 40 11/05/24 06:00 45 16 103/62 (76) 97 40 114/62 (79) 11/05/24 05:45 47 18 109/59 (76) 98 11/05/24 05:30 49 18 116/65 (82) 97 11/05/24 05:15 63 17 142/79 (100) 97 11/05/24 05:00 60 18 118/74 (89) 98 40 138/75 (96) 11/05/24 04:45 49 18 121/66 (84) 98 11/05/24 04:30 51 19 151/86 (107) 99 11/05/24 04:15 42 18 112/57 (75) 98 11/05/24 04:00 40 11/05/24 04:00 98 Ventilator+ 40 11/05/24 04:00 98.8 45 18 103/65 (78) 98 40 105/56 (72) 11/05/24 03:45 44 18 104/54 (71) 98 11/05/24 03:38 48 40 11/05/24 03:30 45 18 104/55 (71) 97 11/05/24 03:15 47 18 106/56 (73) 97 LABS: Hematology Labs: Test 11/05/24 07:56 Range/Units White Blood Count 11.0 H 4.8-10.8 K/uL Red Blood Count 4.05 L 4.50-6.20 MIL/uL Hemoglobin 12.2 L 14.0-18.0 g/dL Hematocrit 37.8 L 42-54 % Mean Corpuscular Volume 93.3 79-99 fL Mean Corpuscular Hemoglobin 30.1 27.0-33.0 pg Mean Corpuscular Hemoglobin Concent 32.3 32.0-36.0 g/dL Red Cell Distribution Width 13.3 11.0-15.5 % Platelet Count 207 130-400 K/uL Mean Platelet Volume 10.3 7.5-10.5 fL Immature Granulocyte % (Auto) 0.9 0-1 % Neutrophils (%) (Auto) 80.3 H 40.0-77.0 % Lymphocytes (%) (Auto) 12.7 L 21.0-51.0 % Monocytes (%) (Auto) 5.8 3.0-13.0 % Eosinophils (%) (Auto) 0.2 0.0-8.0 % Basophils (%) (Auto) 0.1 0.0-5.0 % Neutrophils # (Auto) 8.8 H 1.8-7.7 K/uL Lymphocytes # (Auto) 1.4 1.0-4.8 K/uL Monocytes # (Auto) 0.6 0.1-1.0 K/uL Eosinophils # (Auto) 0.02 0.00-0.70 K/uL Basophils # (Auto) 0.01 0.00-0.20 K/uL Absolute Immature Granulocyte (auto 0.10 0-1 K/uL Nucleated Red Blood Cells 0.0 0.0-0.19 % Chemistry Labs: Test 11/05/24 07:56 11/05/24 05:47 Range/Units Sodium Level 148 H 136-145 mmol/L Potassium Level 4.2 3.5-5.1 mmol/L Chloride Level 111 101-111 mmol/L Carbon Dioxide Level 38 H 21-32 mmol/L Blood Urea Nitrogen 26 H 7-18 mg/dL Creatinine 0.5 0.5-1.3 mg/dL Glomerular Filtration Rate Calc 130 >90 mL/min Random Glucose 156 H 70-105 mg/dL Total Calcium 8.3 L 8.5-10.1 mg/dL Phosphorus Level 2.7 2.5-4.9 mg/dL Magnesium Level 2.70 H 1.80-2.40 mg/dL Whole Blood Glucose 139 H 70-110 MG/DL DIAGNOSTICS / RADIOLOGY RESULTS: [ ] PLAN 11/01/2024: For now, we are going to continue current management for the patient. We are going to change steroid therapy to hydrocortisone and we will continue bronchodilator therapy. We will resume his asthma management. He will remain intubated and we will continue on pressor therapy as well as sedation. We are going to repeat surveillance labs in the morning as well as a chest x- ray. We will monitor the patient's progress and response to management. We will continue to provide general supportive care, GI and DVT prophylaxis. Further orders per attending MD and hospital course. 11/02/2024: For now, we are going to continue current management for the patient. I am going to increase the rate to 28 L per minute and we will repeat an ABG 2 hours after. We will continue antibiotic therapy as ordered as well as steroid therapy. I am going to change hydrocortisone back to Solu-Medrol 60 mg q.6 hours. We will request a respiratory culture as well as a procalcitonin level with a.m. labs. We will add MRSA coverage with vancomycin pharmacy to dose. We will start the patient on feedings through the NGT with Glucerna 1.5. We will monitor the patient's progress and response to management. Hopefully, we may be able to start SBT soon. We will continue to provide general sup portive care, GI and DVT prophylaxis. Further orders per attending MD and hospital course. 11/03/2024: The patient will remain sedated for now and we will order paralytic agent rocuronium 50 mg IV x1. I am going to also request an ABG now to assess f or gas exchange, then we will adjust ventilator settings. Due to wheezing I am going to increase the Solu-Medrol to 80 mg IV q.6. We will continue to follow the ABG changes. Cardiac-philippe, the patient is stable. He is receiving nutrition through the NGT with Glucerna 1.5, we will continue this regimen for now. There is no major electrolyte derangements and renal parameters are within normal range, we will continue to monitor. We will continue antibiotic therapy as mentioned above and we will follow the culture and sensitivity report. Currently, there is no coagulopathy. Skin remains intact. We will address physical therapy and the need for physical rehabilitation once the acute issues are stabilized. We will monitor the patient's progress and response to management. We will continue to provide general supportive care, GI and DVT prophylaxis. Further orders per attending MD and hospital course. 11/04/2024: For now, the patient I am going to continue current management as ordered. We will continue with current respiratory management and steroid dose. We will follow the progress and response to management. Further orders per attending MD and hospital course. 11/05/2024: For now, going to continue current management for the patient. He will remain on sedation currently on propofol, fentanyl and is on Levophed. The patient continues on antibiotic therapy with cefepime and vanco. We will attempt to change the patient to volume control in efforts of preparing for extubation. NEURO: Minimize central acting medications as possible. Fall Precautions. Well lighted room through the day and minimize interruptions through the night to prevent acute delirium. PULMONARY: Supplemental 02 as needed Titrate Fio2 to keep Spo2 > or = 90% DuoNebs and CPT as needed once patient is off vent IS hourly while awake for pulmonary hygiene once patient is off vent Out of bed to chair as tolerated when patient is off vent CARDIOVASCULAR: Follow hemodynamics. Titrate vasopressor to keep MAP >65 or systolic blood pressure >95mmHg DIPS: Currently off Levophed LINES: Right SVC central line. Right brachial Arterial line GI & NUTRITION: Continue nutritional support Aspirations precautions Prokinetic agents and laxatives as needed KIDNEYS & ELECTROLYTES: Strict monitoring of intake and output Daily weights Avoid nephrotoxic agents Monitor electrolytes and replace as needed Goal urine output of 30mL/hr or 0.5mL/kg/hr Urine output: 1225 Fluid Balance: +3912.0 ENDOCRINE: Maintain blood glucose between 100-180 at all times. Insulin sliding scale for blood glucose management INFECTIOUS DISEASE: Trend temperature. No recent febrile events. Shaw-culture if febrile. Micro: Respiratory and blood cultures showing no growth Antibiotics: Vanco, cefepime. HEMATOLOGY & COAGULATION: Monitor H&H. Keep Hgb > 7 Transfuse 1 unit of PRBC for Hgb < 7 Transfuse 1 pack of platelets of platelets < 20, 000 Watch for any signs and symptoms of bleeding SKIN: Pressure ulcer prevention per facility protocol Rehab: PT/OT once patient is off vent and condition has stabilized. Prophylaxis: GI: Famotidine DVT: Lovenox Code Status: Full Resuscitation Disposition: ICU Other: Total patient care time exceeds 35 minutes excluding all procedures. Case was discussed and seen with my supervising physician. The above plan was formulated and agreed upon. LAURA WHITNEY NP Nov 05, 2024 11:06
[2024-11-05] MEDS: DEXTROSE 5%-WATER 1,000 ML IV SCH (11:21)
--- NOTE | 2024-11-05 15:29 | NUR ---
Nutrition consult per hypernatremia Reviewed labs, notes, and medications. Dextrose @60 ml/hr Q13H, intubated and sedated, no pressors, on Glucerna 1.5, steroid, sedated, iv abx, hypernatremia 148, elevated BUN 26, Cr WNL, hyperglycemia 163, hypermagnesemia 2.70, hypocalcemia 8.3, elevated AST, CO2 elevated 55 per chart review. Dextrose @ 60 ml/hr Q13H provides 132 kcals, 39 g CHO per day. NG tube in place, Glucerna 1.5 @ 25ml/hr, residual 40 ml 11/04/24, wt via bed scale, last BM 11/02/24, no edema, well nourished, no wounds, 3596 balance 11/04/24 per nursing. Provide goal rate if CO2 WNL and no pressors, Glucerna 1.5 @ 60ml/hr x 22 hrs + 200 Q4H Continue trickle feeds of Glucerna 1.5 @ 25 ml/hr while CO2 elevated. Abnormal labs (elevated bun, Cr WNL, hypernatremia) consider hydrating Pt. Recommendations -Provide Glucerna 1.5 @ 60 ml/hr x 22 hrs + 200 Q4H Provides: 1980 kcals, 109 gm pro, 2201 ml per day -If bolus provide: 5 1/2 cans of Glucerna 1.5 (times: 0900,1400, 1900, 0000,0400) 30 ml before and after each feed -Monitor BM -If no BM >3 days consider stool softener -Monitor electrolytes -Replenish electrolytes per protocol -Monitor wts -Reweigh as able -Order Vit D, vit b12 labs to rule out deficiencies -Provide MVI QD -Recommend Pt to follow up with PCP -Monitor TF tolerance + need for TF adjustment -Monitor goals of care RD to follow + available for consult per protocol Addendum: 11/05/24 at [address] Amended: Links added.
[2024-11-05] MEDS ORDERED: proPOFol 1000 MG/100 ML 100 ML IV PRN (21:00)
[2024-11-05] MEDS: Solu-medROL 40MG VIAL IVP SCH (21:03)
[2024-11-05] MEDS: DOPamine 800MG/D5 250ML 250 ML IV PRN (21:11)
[2024-11-06] VITALS (87 sets, daily range): BP systolic 53–168; BP diastolic 52–133; PULSE 36–107; RESP 10–30; TEMP 98.6–98.9; O2SAT 92–100
[2024-11-06] MEDS ORDERED: FENTanyl CITRate PF 0.05 MG/ML 2,500 MCG in 0.9% NACL 250ML 200 ML IV PRN (03:30)
[2024-11-06] MEDS ORDERED: FENTanyl 2500MCG+NS 250ML 250 ML IV SCH (03:30)
[2024-11-06] MEDS: FENTanyl 2500MCG+NS 250ML 250 ML IV ONE (03:38)
[2024-11-06 04:03] LABS: ABG HCO3 32.6 mmol/L (21.0-28.0); ABG OXYGEN SATURATION 97.8 % (94.0-98.0); ABG PCO2 50 mmHg (35-48); CARBON MONOXIDE 0.2 % (0.5-1.5); HHb 2.2; VENT MODE, BG SIMV (ROOM AIR)
[2024-11-06 04:41] LABS: HEMATOCRIT 39.4 % (42-54); MEAN CORPUSCULAR HGB CONC 32.2 g/dL (32.0-36.0); MEAN CORPUSCULAR VOLUME 92.9 fL (79-99); RED BLOOD CELL COUNT(AUTO) 4.24 MIL/uL (4.50-6.20); WHITE BLOOD COUNT (AUTO) 11.7 K/uL (4.8-10.8)
[2024-11-06 04:48] LABS: ALBUMIN 2.2 g/dL (3.5-5.0); BILIRUBIN,TOTAL 0.8 mg/dL (0.2-1.0); CREATININE 0.6 mg/dL (0.5-1.3); MAGNESIUM 2.3 mg/dL (1.80-2.40); POTASSIUM 4.1 mmol/L (3.5-5.1); TOTAL PROTEIN, SERUM 5.1 g/dL (6.0-8.3)
[2024-11-06] MEDS: furoSEMIDE 20MG VIAL IV ONE (09:17)
[2024-11-06] MEDS: diazePAM 5 MG TAB NG SCH (09:17)
--- NOTE | 2024-11-06 09:20 | PN ---
[facility] PROGRESS NOTE Date Patient Seen: Nov 06, 2024 Time of Visit: 09:16 Supervising Physician: Rhiannon No MD Primary Care Physician: [Jose Narvaez Dr. and Dr. Bautista Outpatient Specialists: [ ] Inpatient Consults: [[facility] team-p[facility]mo ] PROBLEM LIST: Acute hypoxemic respiratory failure requiring intubation-POA Acute asthma exacerbation-POA Respiratory acidosis-POA (+) Flu A -POA Bilateral community-acquired pneumonia-POA Septic shock requiring pressor support-POA (+) cocaine and cannabis screen- POA Chronic asthma Bipolar disorder Chronic nicotine disorder - uses 4 cigars daily Anxiety disorder INTERVAL HISTORY: 10/31/2024: HPI: [Patient is unable to participate on the HPI due to being intubated and sedated. Per hospitalist's HPI. "This is a 44-year-old male was brought in by EMS with chief complaints of Shortness of breath. Apparently the patient called 911 given to having a asthma attack in on arrival patient was found with oxygen saturation of on room air of 54%. Patient has a significant underlying history of asthma he took albuterol inhaler at home he reports he has been using it as per ER note. Unable to obtain history data due to dyspneic we will obtain history from ER notes and from ER physician. On arrival to ED patient was dyspneic per ER physican was hardly moving air throughout all lung Corey and immediately was placed on BiPAP support and was given IV steroids and DuoNeb. ER workup positive for influenza A Patient was seen in ED the patient appears acutely ill. ER physician removed BiPAP to see how patient we will do on 10 L so far oxygenation level at 95%. However he continues to use accessory muscles to breathe he will be transition to ICU: high risk for decompensated airway. Patient was unable to tolerate 10 L became dyspneic and anxious therefore ER physician intubated patient mode PRVC rate 20 tidal volume 480 Peep: 5 FI O2 60% on sedation patient will transitioned to ICU once bed is available. Spoke to family at bedside all questions answered." BIS team was consulted for critical care management in the setting of septic shock and intubation 2/2 acute hypoxic respiratory failure. According to the patient's mother, patient was doing well this morning and he even drove him yesterday to the clinic where she herself was diagnosed of flu. This afternoon, everything changed and happened so rapidly with complaint of sudden asthma attack and respiratory distress. Patient is now receiving 3 sedatives namely Propofol, Fentanyl and Versed which according to the bedside RN took awhile to optimize as the patient continues to fight it and tends to override the vent.He is currently on Levophed for pressor support. He appears to continue using his accessory mnuscles despite being on ventilator. Lung sounds have positive wheezing across lung corey. We will continue to follow along patient's response to treatment as enumerated above. Goals of care were discussed with the mother verbalizing understanding and agreement. On behalf of BIS team, thank you for the opportunity to participate on Mr. Lloyd's case. 11/01/2024: At the time of my evaluation, the patient was lying in bed. He remains intubated and family members present at the bedside. Vital signs today remains generally stable. Laboratory data showed a increase of WBCs to 14.5 which may be reactive to steroids, though neutrophil predominance. Chemistry panel showing elevated potassium to 5.4, we will repeat potassium level later today. Also, renal parameters increase the BUN 27 creatinine 1.6 we will monitor the trend. The patient remains with Tamiflu and empiric antibiotic therapy with Zosyn/doxy combination. The remains on steroid therapy as ordered. The patient remains on sedation with propofol and fentanyl drip. Also on pressor therapy with Levophed. No other complaint. 11/02/2024: At the time of my evaluation, the patient is lying in bed. He remains intubated. Most recent ABG showed a pH of 7.2, pCO2 54 and PO2 of 142.3. He continues on PRVC mode, rate of 26, FiO2 40%, tidal volume of 420 and a PEEP of 5. He is also hydrocortisone and receiving empiric antibiotic therapy with cefepime, doxy and Tamiflu. For sedation, the patient continues on propofol, Versed and fentanyl. Patient's mother was present at the bedside. No new complaint. 11/03/2024: At the time of my evaluation, the patient was lying in bed, sedated and remains intubated on assist control mode. Vital signs remain generally stable except for bradycardia in the 40s. Laboratory data today showed increased WBC to 14.2 though improved from yesterday. Chemistry panel showed no changes of concern. No overnight acute event. 11/04/2024. At the time of my evaluation, the patient is lying in bed. He remains vented and sedated. Currently off pressor therapy. Family members are present at the bedside. Staff nurse reports no acute events overnight. No other complaint. 11/05/2024: At the time of my evaluation, the patient was lying in bed. He remains intubated and is sedated. The patient continues on pressure support 40% FiO2. Family members present at the bedside. The staff nurse reports no acute events overnight. 11/06/24- patient has been afebrile, sinus Rui heart rate in the 40s but hemodynamically stable with good blood pressure 122/76 on the monitor for, respiratory rate of 18 saturating 96% with a FiO2 of 40% on assist control volume control. This morning we will start sedation vacation and spontaneous breathing trials and likely extubate by noon if patient tolerates well and ABG per minutes. Urine output 1.9 L in the last 24 hours with a balance of +3.1 L. patient continues with elevated white count at 11.7 similar to yesterday H&H is 12.7/39.4. Chemistry kidneys are doing well creatinine 0.6 GFR of 123 carbon dioxide of 37 sodium 140 glucose 151 mg/dL total calcium of 8.0 total protein 5.1 albumin 2.2 liver enzymes slightly elevated. Mother and father at bedside explained to them the plan of care and current findings. Both in agreement answered all their questions. REVIEW OF SYSTEMS: Unable to perform 12 point ROS due to being intubated and sedated. PHYSICAL EXAM: GENERAL: Intubated, off sedation opening his eyes, not quite following commands yet. HEENT: EOMI, Sclera non icteric, moist mucosa NECK: Supple, no JVD, trachea midline LUNGS: Diminished lung sounds. No wheeze, rhonchi or rales HEART: Regular rate and rhythm. Normal S1 and S2, without murmurs ABD: Abdomen soft, nontender. Bowel sounds present EXT: No clubbing cyanosis or edema : Peoples in situ NEURO: Moving all extremities no focal weakness. On sedation vacation. Vital Signs (last 8hr) Date Time Temp Pulse Resp B/P (MAP) Pulse Ox O2 Delivery O2 Flow Rate FiO2 11/06/24 08:30 38 18 94/65 (75) 96 11/06/24 08:15 41 16 98/58 (71) 100 11/06/24 08:00 46 16 111/60 (77) 98 40 11/06/24 08:00 40 11/06/24 07:45 41 18 124/61 (82) 100 11/06/24 07:30 59 13 146/72 (96) 100 11/06/24 07:15 81 16 141/71 (94) 100 11/06/24 07:00 82 15 147/75 (99) 100 11/06/24 06:53 43 18 11/06/24 06:49 43 40 11/06/24 06:47 59 18 124/77 (93) 100 142/68 (92) 11/06/24 06:35 45 18 134/79 (97) 100 123/61 (81) 11/06/24 06:32 63 15 127/63 (84) 100 11/06/24 06:17 53 17 131/66 (87) 99 11/06/24 06:02 42 18 117/58 (77) 100 11/06/24 05:47 63 18 145/78 (100) 100 11/06/24 05:32 61 18 144/81 (102) 100 11/06/24 05:17 36 18 131/70 (90) 100 11/06/24 05:02 37 18 131/70 (90) 100 11/06/24 04:47 37 18 127/78 (94) 100 128/69 (88) 11/06/24 04:32 37 18 125/67 (86) 100 11/06/24 04:17 37 18 145/74 (97) 100 11/06/24 04:02 37 18 113/61 (78) 100 11/06/24 04:00 40 11/06/24 04:00 100 Ventilator+ 40 11/06/24 03:47 38 18 120/62 (81) 100 116/64 (81) 11/06/24 03:32 38 18 113/58 (76) 100 11/06/24 03:19 39 40 11/06/24 03:17 45 18 129/69 (89) 100 11/06/24 03:02 40 18 124/65 (84) 100 11/06/24 02:47 36 18 121/74 (90) 100 129/67 (87) 11/06/24 02:32 37 18 127/66 (86) 100 11/06/24 02:17 36 18 131/67 (88) 100 11/06/24 02:17 36 19 11/06/24 02:02 36 18 138/70 (92) 100 11/06/24 01:47 36 18 130/82 (98) 100 133/68 (89) 11/06/24 01:32 38 18 134/68 (90) 100 11/06/24 01:17 37 18 130/67 (88) 100 LABS: Hematology Labs: Test 11/06/24 04:10 11/05/24 07:56 Range/Units White Blood Count 11.7 H 4.8-10.8 K/uL Red Blood Count 4.24 L 4.50-6.20 MIL/uL Hemoglobin 12.7 L 14.0-18.0 g/dL Hematocrit 39.4 L 42-54 % Mean Corpuscular Volume 92.9 79-99 fL Mean Corpuscular Hemoglobin 30.0 27.0-33.0 pg Mean Corpuscular Hemoglobin Concent 32.2 32.0-36.0 g/dL Red Cell Distribution Width 13.0 11.0-15.5 % Platelet Count 188 130-400 K/uL Mean Platelet Volume 10.8 H 7.5-10.5 fL Nucleated Red Blood Cells 0.0 0.0-0.19 % Immature Granulocyte % (Auto) 0.9 0-1 % Neutrophils (%) (Auto) 80.3 H 40.0-77.0 % Lymphocytes (%) (Auto) 12.7 L 21.0-51.0 % Monocytes (%) (Auto) 5.8 3.0-13.0 % Eosinophils (%) (Auto) 0.2 0.0-8.0 % Basophils (%) (Auto) 0.1 0.0-5.0 % Neutrophils # (Auto) 8.8 H 1.8-7.7 K/uL Lymphocytes # (Auto) 1.4 1.0-4.8 K/uL Monocytes # (Auto) 0.6 0.1-1.0 K/uL Eosinophils # (Auto) 0.02 0.00-0.70 K/uL Basophils # (Auto) 0.01 0.00-0.20 K/uL Absolute Immature Granulocyte (auto 0.10 0-1 K/uL Chemistry Labs: Test 11/06/24 04:10 11/06/24 03:04 11/05/24 12:05 11/05/24 07:56 Range/Units Sodium Level 140 136-145 mmol/L Potassium Level 4.1 3.5-5.1 mmol/L Chloride Level 106 101-111 mmol/L Carbon Dioxide Level 37 H 21-32 mmol/L Blood Urea Nitrogen 18 7-18 mg/dL Creatinine 0.6 0.5-1.3 mg/dL Glomerular Filtration Rate Calc 123 >90 mL/min Random Glucose 151 H 70-105 mg/dL Total Calcium 8.0 L 8.5-10.1 mg/dL Magnesium Level 2.30 1.80-2.40 mg/dL Total Bilirubin 0.8 0.2-1.0 mg/dL Aspartate Amino Transf (AST/SGOT) 130 H 10-37 U/L Alanine Aminotransferase (ALT/SGPT) 487 H 12-78 U/L Alkaline Phosphatase 76 50-136 U/L Total Protein 5.1 L 6.0-8.3 g/dL Albumin 2.2 L 3.5-5.0 g/dL Whole Blood Glucose 160 H 70-110 MG/DL Vitamin B12 Level 1384 H 193-986 pg/mL Phosphorus Level 2.7 2.5-4.9 mg/dL DIAGNOSTICS / RADIOLOGY RESULTS: [ ] PLAN Wean steroids to Solu-Medrol 40 mg q.12 IV and continue to wean as tolerated Daily sedation vacation Spontaneous breathing trials Per per for extubation likely later on this afternoon, if tolerates spontaneous breathing trials and ABG per minutes. Chest x-ray daily while intubated Monitor ABG Adjust ventilator settings accordingly. Continue GI and DVT prophylaxis Credentialing Analyst due to drug abuse prior to discharge . NEURO: Minimize central acting medications as possible. Fall Precautions. Well lighted room through the day and minimize interruptions through the night to prevent acute delirium. PULMONARY: Supplemental 02 as needed Titrate Fio2 to keep Spo2 > or = 90% DuoNebs and CPT as needed once patient is off vent IS hourly while awake for pulmonary hygiene once patient is off vent Out of bed to chair as tolerated when patient is off vent CARDIOVASCULAR: Follow hemodynamics. Titrate vasopressor to keep MAP >65 or systolic blood pressure >95mmHg DIPS: None LINES: Right SVC central line. Right Arterial line GI & NUTRITION: Continue nutritional support Aspirations precautions Prokinetic agents and laxatives as needed KIDNEYS & ELECTROLYTES: Strict monitoring of intake and output Daily weights Avoid nephrotoxic agents Monitor electrolytes and replace as needed Goal urine output of 30mL/hr or 0.5mL/kg/hr Urine output: 1225 Fluid Balance: +3912.0 ENDOCRINE: Maintain blood glucose between 100-180 at all times. Insulin sliding scale for blood glucose management INFECTIOUS DISEASE: Trend temperature. No recent febrile events. Shaw-culture if febrile. Micro: Respiratory and blood cultures showing no growth Antibiotics: Vanco, cefepime. HEMATOLOGY & COAGULATION: Monitor H&H. Keep Hgb > 7 Transfuse 1 unit of PRBC for Hgb < 7 Transfuse 1 pack of platelets of platelets < 20, 000 Watch for any signs and symptoms of bleeding SKIN: Pressure ulcer prevention per facility protocol Rehab: PT/OT once patient is off vent and condition has stabilized. Prophylaxis: GI: Famotidine DVT: Lovenox Code Status: Full Resuscitation Disposition: ICU Other: Total patient care time exceeds 35 minutes excluding all procedures. Case was discussed and seen with my supervising physician. The above plan was formulated and agreed upon. JERILYN DIMAS Nov 06, 2024 09:20
--- NOTE | 2024-11-06 11:33 | HMCIMG ---
CHEST 1VW REASON: intubated COMPARISON: 11/05/2024 FINDINGS: Heart size is normal. There is no vascular congestion. ET and NG tubes remain in place. There is a right IJ central line with tip in the superior vena cava, also unchanged. IMPRESSION: 1. Stable chest x-ray.
[2024-11-06 11:47] LABS: ABG BASE EXCESS 6.5 mmol/L (-2.0-3.0); ABG HCO3 31.6 mmol/L (21.0-28.0); ABG OXYGEN SATURATION 98.7 % (94.0-98.0); ABG PCO2 47 mmHg (35-48); ABG PH 7.447 (7.350-7.450); CARBON MONOXIDE 0.3 % (0.5-1.5); CPAP, BG 5 cm H2O; HHb 1.3; PO2, ARTERIAL BG 162.9 mmHg (83.0-108.0); VENT MODE, BG CPAP PS 5 (ROOM AIR)
--- NOTE | 2024-11-06 12:08 | NUR ---
Patient extubated at 1203 and placed on aerosol mask 40%
--- NOTE | 2024-11-06 12:40 | PN ---
[facility] PROGRESS NOTE Date of Service: Nov 06, 2024 Time of Service: 12:38 SUBJECTIVE: 11/01 patient seen at bedside, no acute events overnight. He remains intubated and sedated, on a low dose of pressors. WBC increased from 10.2 up to 14.5, potassium increased from 3.6 up to 5.4, creatinine increased from 1.0 up to 1.6, remainder of his labs are relatively unremarkable. He still has a prominent wheeze. Patient is positive for influenza. Further care per critical Care. 11/02 patient seen at bedside, no acute events overnight. He remains intubated and sedated, FiO2 has been decreased from 45 down to 40%. We will defer to pulmonology for extubation. He remains on pressors, we will wean as able. WBC increased from 14.5 up to 20.4, hemoglobin stable at 13.1, remainder of his labs are relatively unremarkable. 11/03 patient seen at bedside, no acute events overnight he remains intubated and sedated, FiO2 at 40%, peep of 5. Patient continues on pressors, we will continue to wean as able. WBC decreased from 20.4 down to 14.2, hemoglobin stable at 13.1 same as yesterday, remainder of his labs are relatively unremarkable. 11/04 patient seen at bedside, no acute events overnight. He remains intubated and sedated, FiO2 at 40% peep of 7. Patient has been weaned off pressors. WBC improved from 14.2 down to 11.3, hemoglobin decreased from 13.1 down to 12.7, remainder of his labs are relatively unremarkable. 11/05 patient is seen and examined at bedside, remains intubated, on mechanical ventilation, on fentanyl and Versed drip. He is on droplet precautions. Getting nutritional support via NG tube. WBC improving, today at 11.0, hemoglobin 12.2, hematocrit 37.8. ABG with pH of 7.37, PO2 80.7. Chest x-ray showing prominent interstitial markings with possible superimposed infiltrates. 11/06 patient has been seen and examined at bedside, remains intubated, mechanical ventilation, on CPAP trial, off sedation, remains on droplet precaution, BP 147/73, saturating 100% on mechanical ventilation. Off nutritional support via NG tube. ABG shows pH of 7.44, pCO2 47, PO2 1629. Chest x-ray stable, no vascular congestion, heart size is normal. REVIEW OF SYSTEMS A14 point ROS was obtained all relevant positive documented otherwise ROS negative PHYSICAL EXAM GENERAL APPEARANCE: Patient remains intubated, remains on mechanical ventilat ion. Off sedation. NEUROLOGICAL: Cranial nerves II-XII grossly intact. Motor is 5/5 in bilateral upper and lower extremities proximal to distal. No sensory deficits. HEENT: Face is symmetric. Pupils are equal and reactive. Extraocular movements are intact. NECK: Supple. No JVD. No thyromegaly. No submental, submandibular, pre- /postauricular, occipital or supraclavicular lymphadenopathy. CHEST: Normal chest expansion. No Telemetry. LUNGS: No bilateral expiratory wheezing CARDIOVASCULAR: Regular. S1 and S2 normal. No appreciable rubs, murmurs or gallops. ABDOMEN: Soft, nontender, and nondistended. There is no rebound, voluntary guarding, or rigidity. : Deferred. No Peoples. EXTREMITIES: Non-edematous and not cyanotic. No clubbing. Good capillary refill. SKIN: No skin breakdown. Vital Signs (last 8hr) Date Time Temp Pulse Resp B/P (MAP) Pulse Ox O2 Delivery O2 Flow Rate FiO2 11/06/24 12:11 57 16 Aerosol, Face Mask 40 11/06/24 12:03 57 16 40 11/06/24 10:50 56 18 11/06/24 10:45 59 19 147/73 (97) 100 11/06/24 10:30 59 11 148/71 (96) 100 11/06/24 10:15 56 12 157/75 (102) 100 11/06/24 10:08 40 11/06/24 10:00 68 19 151/77 (101) 100 11/06/24 09:46 40 11/06/24 09:45 47 16 147/68 (94) 100 11/06/24 09:36 68 40 11/06/24 09:30 60 14 155/73 (100) 100 11/06/24 09:15 62 16 154/74 (100) 100 11/06/24 09:00 63 17 154/84 (107) 100 11/06/24 08:45 37 18 109/76 (87) 97 40 11/06/24 08:30 38 18 94/65 (75) 96 11/06/24 08:15 41 16 98/58 (71) 100 11/06/24 08:00 100 Ventilator+ 40 11/06/24 08:00 46 16 111/60 (77) 98 40 11/06/24 08:00 40 11/06/24 07:45 41 18 124/61 (82) 100 11/06/24 07:30 59 13 146/72 (96) 100 11/06/24 07:15 81 16 141/71 (94) 100 11/06/24 07:00 82 15 147/75 (99) 100 11/06/24 06:53 43 18 11/06/24 06:49 43 40 11/06/24 06:47 59 18 124/77 (93) 100 142/68 (92) 11/06/24 06:35 45 18 134/79 (97) 100 123/61 (81) 11/06/24 06:32 63 15 127/63 (84) 100 11/06/24 06:17 53 17 131/66 (87) 99 11/06/24 06:02 42 18 117/58 (77) 100 11/06/24 05:47 63 18 145/78 (100) 100 11/06/24 05:32 61 18 144/81 (102) 100 11/06/24 05:17 36 18 131/70 (90) 100 11/06/24 05:02 37 18 131/70 (90) 100 11/06/24 04:47 37 18 127/78 (94) 100 128/69 (88) LABS: Laboratory: Test 11/06/24 11:45 11/06/24 04:10 11/06/24 04:01 11/06/24 03:04 Range/Units Blood Gas Specimen Type Arterial Arterial Blood pH 7.447 7.350-7.450 Arterial Blood Partial Pressure CO2 47 35-48 mmHg Arterial Blood Partial Pressure O2 162.9 H 83.0-108.0 mmHg Arterial Blood HCO3 31.6 H 21.0-28.0 mmol/L Arterial Blood Oxygen Saturation 98.7 H 94.0-98.0 % Arterial Blood Base Excess 6.5 H -2.0-3.0 mmol/L Hemoglobin (Blood Gas) 14.1 13.5-17.5 g/dL Sodium (Blood Gas) 140 136-145 MMOL/L Bedside Potassium (Blood Gas) 3.6 3.4-4.5 MMOL/L Bedside Chloride (Blood Gas) 100 98-107 MMOL/L Bedside Glucose (Blood Gas) 114 H 65-95 MG/DL Bedside Ionized Calcium (Blood Gas) 1.15 1.15-1.33 MMOL/L Bedside Lactic Acid (Blood Gas) 4.52 *H 0.36-0.75 MMOL/L Blood Gas Temperature 37.0 35.5-37.0 CELSIUS Blood Gas Vent Mode CPAP PS 5 ROOM AIR FiO2 40.0 % Blood Gas CPAP 5 cm H2O Blood Gas Specimen Comment ISRAEL VARELA RN White Blood Count 11.7 H 4.8-10.8 K/uL Red Blood Count 4.24 L 4.50-6.20 MIL/uL Hemoglobin 12.7 L 14.0-18.0 g/dL Hematocrit 39.4 L 42-54 % Mean Corpuscular Volume 92.9 79-99 fL Mean Corpuscular Hemoglobin 30.0 27.0-33.0 pg Mean Corpuscular Hemoglobin Concent 32.2 32.0-36.0 g/dL Red Cell Distribution Width 13.0 11.0-15.5 % Platelet Count 188 130-400 K/uL Mean Platelet Volume 10.8 H 7.5-10.5 fL Nucleated Red Blood Cells 0.0 0.0-0.19 % Sodium Level 140 136-145 mmol/L Potassium Level 4.1 3.5-5.1 mmol/L Chloride Level 106 101-111 mmol/L Carbon Dioxide Level 37 H 21-32 mmol/L Blood Urea Nitrogen 18 7-18 mg/dL Creatinine 0.6 0.5-1.3 mg/dL Glomerular Filtration Rate Calc 123 >90 mL/min Random Glucose 151 H 70-105 mg/dL Total Calcium 8.0 L 8.5-10.1 mg/dL Magnesium Level 2.30 1.80-2.40 mg/dL Total Bilirubin 0.8 0.2-1.0 mg/dL Aspartate Amino Transf (AST/SGOT) 130 H 10-37 U/L Alanine Aminotransferase (ALT/SGPT) 487 H 12-78 U/L Alkaline Phosphatase 76 50-136 U/L Total Protein 5.1 L 6.0-8.3 g/dL Albumin 2.2 L 3.5-5.0 g/dL Blood Gas Respiration Rate 18.0 min. Blood Gas Tidal Volume 450 ml Blood Gas PEEP 7 cm H2O Whole Blood Glucose 160 H 70-110 MG/DL Test 11/05/24 12:05 11/05/24 07:56 Range/Units Vitamin B12 Level 1384 H 193-986 pg/mL Vancomycin Level Trough 14.2 # 10.0-20.0 UG/ML Immature Granulocyte % (Auto) 0.9 0-1 % Neutrophils (%) (Auto) 80.3 H 40.0-77.0 % Lymphocytes (%) (Auto) 12.7 L 21.0-51.0 % Monocytes (%) (Auto) 5.8 3.0-13.0 % Eosinophils (%) (Auto) 0.2 0.0-8.0 % Basophils (%) (Auto) 0.1 0.0-5.0 % Neutrophils # (Auto) 8.8 H 1.8-7.7 K/uL Lymphocytes # (Auto) 1.4 1.0-4.8 K/uL Monocytes # (Auto) 0.6 0.1-1.0 K/uL Eosinophils # (Auto) 0.02 0.00-0.70 K/uL Basophils # (Auto) 0.01 0.00-0.20 K/uL Absolute Immature Granulocyte (auto 0.10 0-1 K/uL Phosphorus Level 2.7 2.5-4.9 mg/dL Current Medications Medications (Trade) Dose Ordered Sig/Martinez Route PRN Reason Start Time Stop Time Status Last Admin Dose Admin Acetaminophen (TYLenol 325MG TAB) 650 mg Q4H PRN PO TEMPERATURE GREATER THAN 101.5 10/31/24 15:00 11/30/24 14:59 Acetaminophen (TYLenol 650MG SUPPOSITORY) 650 mg Q6H PRN RC MILD PAIN (1-3) 10/31/24 21:00 11/30/24 20:59 10/31/24 19:42 650 MG Albuterol (DUOneb) 1 udvial [id number] 11/01/24 10:00 12/01/24 01:59 11/06/24 10:49 1 UDVIAL Albuterol (DUOneb) 1 udvial [id number] 11/01/24 02:00 11/01/24 09:42 DC 11/01/24 06:56 1 UDVIAL Artificial Tears (Artificial Tears) 1 DROP OR AD Q8H OU 11/02/24 06:30 11/06/24 12:33 DC 11/06/24 06:49 1 DROP Azithromycin 250 ml @ 250 mls/hr Q24H IVPB 10/31/24 16:00 10/31/24 23:39 DC 10/31/24 16:50 250 MLS/HR Budesonide (Pulmicort 0.5 Mg/2ml) 0.5 mg BIDRESP IH 11/01/24 18:00 12/01/24 17:59 11/06/24 06:53 0.5 MG Cefepime HCl (MAXipime 2 gm vial) 2 gm Q8H IVPB 11/02/24 10:30 11/12/24 10:29 11/06/24 10:11 2 GM Ceftriaxone Sodium (ROCEphine 1G INJ) 1 gm Q24H IVPB 10/31/24 15:00 10/31/24 23:39 DC 10/31/24 16:16 1 GM Chlorhexidine Gluconate (Peridex) 15 ml TID MM 11/02/24 09:00 11/06/24 12:33 DC 11/06/24 08:18 15 ML Dexmedetomidine/ Sodium Chloride (PRECEdex 400MCG/ 100ML-NS) 400 mcg PROTOCOL IV 11/06/24 08:30 12/06/24 08:29 Dextrose 1,000 ml @ 60 mls/hr [id number] IV 11/05/24 11:30 11/06/24 09:04 DC 11/05/24 11:21 60 MLS/HR Diazepam (VALium 5 mg TAB) 10 mg Q6H NG 11/06/24 09:30 11/06/24 12:32 DC 11/06/24 09:17 10 MG Diazepam (VALium 5 mg TAB) 10 mg Q6H PRN NG ANXIETY/AGITATION 11/06/24 13:00 12/03/24 11:59 Diazepam (VALium 5 mg TAB) 10 mg Q8H NG 11/03/24 12:00 11/06/24 09:07 DC 11/06/24 03:28 10 MG Dopamine HCl/ Dextrose 250 ml @ 0 mls/hr AD PRN IV TITRATE 11/05/24 21:00 12/05/24 20:59 11/05/24 21:11 0 MLS/HR Doxycycline Hyclate 250 ml @ 125 mls/hr Q12H IV 11/01/24 00:00 11/11/24 00:00 11/06/24 11:32 125 MLS/HR Enoxaparin Sodium (Lovenox) 40 mg DAILY SQ 11/01/24 09:00 12/01/24 08:59 11/06/24 08:19 40 MG Famotidine (Pepcid 20mg Vial) 20 mg BID IV 11/01/24 09:00 12/01/24 08:59 11/06/24 08:18 20 MG Famotidine (Pepcid 20mg Tab) 20 mg BID PO 10/31/24 21:00 11/01/24 01:45 DC Fentanyl Citrate 100 ml @ 2.5 mls/hr PROTOCOL IV 10/31/24 19:30 10/31/24 19:25 DC Fentanyl Citrate 2500 mcg/Sodium Chloride 250 ml @ 0 mls/hr AD PRN IV TITRATE 11/06/24 03:30 11/06/24 03:31 DC Fentanyl/Sodium Chloride 250 ml @ 0 mls/hr PROTOCOL IV 11/06/24 03:30 11/06/24 12:17 DC Fentanyl/Sodium Chloride 250 ml @ 0 mls/hr PROTOCOL IV 10/31/24 19:30 11/05/24 19:29 DC 11/05/24 19:11 10 MLS/HR Home Med (Home Medication) (Lamotrigine (Lamictal Xr) 300 MG) HS PO 11/06/24 21:00 12/06/24 20:59 Hydrocortisone Sodium Succinate (Solu-corTEF 100MG) 50 mg Q6H IVP 11/01/24 11:00 11/02/24 13:55 DC 11/02/24 11:15 50 MG Insulin Human Regular (humuLIN R 100 UNIT/ML 3ML) INSULIN SLIDING SCAL... Q6H6 SQ 11/02/24 00:00 12/02/24 00:00 Lactulose (Constulose 20gm/ 30ml Udcup) 20 gm BID PRN PO CONSTIPATION 10/31/24 15:00 11/30/24 14:59 11/06/24 08:18 20 GM Magnesium Sulfate 50 ml @ 0 mls/hr PROTOCOL IV 10/31/24 13:00 10/31/24 14:54 DC 10/31/24 13:08 25 MLS/HR Magnesium Sulfate 50 ml @ 0 mls/hr PROTOCOL PRN IV low mag level 10/31/24 15:00 11/30/24 14:59 Methylprednisolone Sodium Succinate (Solu-medROL 40MG) 40 mg Q12H IVP 11/06/24 20:00 12/05/24 19:59 Methylprednisolone Sodium Succinate (Solu-medROL 40MG) 60 mg Q6H IVP 11/02/24 14:00 11/03/24 15:10 DC 11/03/24 13:35 60 MG Methylprednisolone Sodium Succinate (Solu-medROL 40MG) 60 mg Q6H IVP 11/05/24 20:00 11/06/24 08:58 DC 11/06/24 08:19 60 MG Methylprednisolone Sodium Succinate (Solu-medROL 40MG) 60 mg Q8H IVP 10/31/24 15:00 11/01/24 09:46 DC 11/01/24 06:42 60 MG Methylprednisolone Sodium Succinate (Solu-medROL 40MG) 80 mg Q6H IVP 11/03/24 20:00 11/05/24 16:10 DC 11/05/24 13:12 80 MG Midazolam HCl 50 ml @ 0 mls/hr PROTOCOL IV 10/31/24 16:30 11/06/24 12:17 DC 11/05/24 22:14 10 MLS/HR Midazolam HCl 50 mg/Sodium Chloride 50 ml @ 0 mls/hr PROTOCOL IV 10/31/24 16:00 10/31/24 16:02 DC Montelukast Sodium (SinguLAIR) 10 mg HS PO 10/31/24 21:00 11/30/24 20:59 11/05/24 20:41 10 MG Norepinephrine 250 ml @ 27.225 mls/ hr PROTOCOL IV 10/31/24 20:30 11/02/24 10:27 DC 11/01/24 18:24 41.06 MLS/HR Norepinephrine 250 ml @ 0 mls/hr PROTOCOL IV 10/31/24 20:30 11/01/24 22:43 DC Norepinephrine Bitartrate 250 ml @ 0 mls/hr AD PRN IV TITRATE 11/01/24 23:00 2/8/25 22:59 11/03/24 22:51 6.48 MLS/HR Ondansetron HCl (zoFRAN 4MG INJ) 4 mg Q6H PRN IVP NAUSEA/VOMITING 10/31/24 15:00 11/30/24 14:59 Oseltamivir Phosphate (Tamiflu) 75 mg BID PO 11/01/24 09:00 11/06/24 08:59 DC 11/05/24 20:40 75 MG Pharmacy Profile Note (Pharmacy Communication) 1 each ONCE MISC 11/03/24 15:30 11/04/24 13:19 DC Piperacillin Sod/ Tazobactam Sod (Zosyn 3.375gm+NS 50ml) 3.375 gm Q8H IV 11/01/24 00:00 11/02/24 10:26 DC 11/02/24 08:49 3.375 GM Polyethylene Glycol (MIRalax 3350 17 GM POWD.PACK) 17 gm DAILY PO 11/02/24 09:00 12/02/24 08:59 11/06/24 08:18 17 GM Polyethylene Glycol (MIRalax 3350 17 GM POWD.PACK) 17 gm ONCE PO 11/01/24 15:30 11/01/24 21:30 DC 11/01/24 16:05 17 GM Potassium Chloride 100 ml @ 100 mls/hr AD PRN IV POTASSIUM PROTOCOL 10/31/24 15:00 11/30/24 14:59 Potassium Chloride (K-Dur/Klor-Con 20meq) 20 meq AD PRN PO POTASSIUM PROTOCOL 10/31/24 15:00 11/30/24 14:59 Potassium Chloride (KCl 10% Elixir 20meq/15ml) 20 meq AD PRN PO POTASSIUM PROTOCOL 10/31/24 15:00 11/30/24 14:59 Propofol 100 ml @ 0 mls/hr AD PRN IV TITRATE 11/05/24 21:00 12/05/24 20:59 Propofol (DIPRivan 1000MG/ 100ML) 1,000 mg PROTOCOL PRN IV SEDATION 10/31/24 16:00 11/06/24 12:17 DC 11/05/24 21:59 1,000 MG Risperidone (RisperDAL) 3 mg HS PO 11/06/24 21:00 12/06/24 20:59 Rocuronium [place] 100 mg/ Sodium Chloride 100 ml @ 0 mls/hr PROTOCOL IV 10/31/24 16:00 10/31/24 16:44 DC Rocuronium [place] (ZemuRON) 50 mg ONCE IV 11/03/24 15:25 11/03/24 16:25 DC 11/03/24 15:27 50 MG Vancomycin HCl 250 ml @ 125 mls/hr Q8H IV 11/02/24 20:30 11/04/24 12:45 DC 11/04/24 03:46 125 MLS/HR Vancomycin HCl 250 ml @ 125 mls/hr Q8H IV 11/04/24 13:00 11/06/24 06:04 DC 11/05/24 21:02 125 MLS/HR Vancomycin HCl (Vancomycin Protocol) 1 each AD IV 11/02/24 10:30 11/06/24 06:04 DC DIAGNOSTICS / RADIOLOGY: [ ] CHEST 1VW REASON: intubated COMPARISON: 11/05/2024 FINDINGS: Heart size is normal. There is no vascular congestion. ET and NG tubes remain in place. There is a right IJ central line with tip in the superior vena cava, also unchanged. IMPRESSION: 1. Stable chest x-ray. ASSESSMENT: Sepsis, ruled out Acute asthma exacerbation POA Acute hypoxic respiratory failure with hypoxia requiring BiPAP support on arrival POA 10 L trials unsuccessful requiring intubation 10/31/2024 at 15:42 p.m. viral syndrome POA Positive influenza A POA Active smoker smokes cigars 3-4 POA Polysubstance abuse disorder Chronic problems asthma, bipolar disorder. PLAN: Patient remains admitted to the ICU Patient remains intubated, on mechanical ventilation Off sedation Continue to follow critical care input and recommendation Continue the patient on broad-spectrum IV antibiotics Continue bronchodilators Continue the patient on IV steroids Continue the patient on Tamiflu 75 mg twice daily Continue to replace electrolytes IV per protocol GI and DVT prophylaxis Disposition: Pending improvement in respiratory status, trial of extubation today. Greater than 35 minutes ICU time spent in care of this patient ZACKERY MORALES MD Nov 06, 2024 12:40
[2024-11-06] MEDS: diazePAM 5 MG TAB NG PRN (14:17)
[2024-11-06] MEDS: dexmedeTOMIDine 400MCG/NS100ML IV SCH (14:44)
[2024-11-06] MEDS: PoTASSium chl 10% ELIXIR 20MEQ 20 MEQ/15 ML UDCUP PO PRN (16:39)
[2024-11-06] MEDS: oLANZapine 5 MG TAB PO SCH (18:10)
[2024-11-06] MEDS: Solu-medROL 40MG VIAL IVP SCH (20:05)
[2024-11-06] MEDS: LORazepam 2 MG/ML 1 ML VIAL IVP PRN (20:05)
--- NOTE | 2024-11-06 20:48 | NUR ---
Spoke to Meri spike, patient is screaming yelling mom! "Where are you?!", while the mom is at bedside. The mom tells him "Im here" and he yells "no you are not!" Patient pulled off leads. Patient is pulling nasal canula. Patient is maxed out on dose of Precedex 0.5 mcg/kg/hr. The max was ordered by Dr. No. Patient recieved 2 mg ativan iv earlier. Patient is still pulling at medical equipment and screaming at the top of his voice preventing patients in the pod from sleeping. Provider ordered another 2 mg iv push one time dose. Addendum: 11/06/24 at 2100 by KINSEY HASTINGS RN RN Provider ordered 2 mg of ativan iv push
--- NOTE | 2024-11-06 20:56 | EKG ---
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
[2024-11-06] MEDS ORDERED: MIDAZOLAM HCL 1 MG/ML 2ML VIAL IVP ONE (21:00)
[2024-11-06] MEDS ORDERED: rispERIdone 1 MG TABLET PO SCH (21:00)
[2024-11-06] MEDS ORDERED: LAMOTRIGINE 300 MG PO SCH (21:00)
[2024-11-06] MEDS: LORazepam 2 MG/ML 1 ML VIAL IVP ONE (21:07)
[2024-11-06] MEDS: MELATONIN 5 MG TABLET PO SCH (21:09)
--- NOTE | 2024-11-06 21:39 | NUR ---
Spoke to Meri Saleh regarding patient receiving the 2 mg ativan. Patient is still awake trying to take off medical equipment, trying to get out of bed. Not allowing staff to take his blood pressure. Screaming very loudly. Geodon 5 mg intramuscular one time dose. Provider was stated that patient needs a sitter to avoid hurting himself. 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
[2024-11-06] MEDS: ZIPRASIDONE MESYLATE 20 MG/VIAL IM ONE ×2 (22:24)
[2024-11-07] VITALS (34 sets, daily range): BP systolic 101–143; BP diastolic 40–77; PULSE 34–72; RESP 11–24; TEMP 98.2–98.7; O2SAT 95–99
[2024-11-07 04:25] LABS: BASOPHILS # (AUTO) 0.01 K/uL (0.00-0.20); BASOPHILS % (AUTO) 0.1 % (0.0-5.0); HEMATOCRIT 36.5 % (42-54); IMMATURE GRANULOCYTE ABSOLUTE 0.09 K/uL (0-1); LYMPHOCYTES # (AUTO) 3.3 K/uL (1.0-4.8); MEAN CORPUSCULAR HEMOGLOBIN 29.8 pg (27.0-33.0); MEAN CORPUSCULAR HGB CONC 33.7 g/dL (32.0-36.0); MEAN CORPUSCULAR VOLUME 88.4 fL (79-99); MONOCYTES # (AUTO) 1.1 K/uL (0.1-1.0); MONOCYTES % (AUTO) 8.4 % (3.0-13.0); NEUTROPHILS # (AUTO) 8.6 K/uL (1.8-7.7); NEUTROPHILS % (AUTO) 65.8 % (40.0-77.0); PLATELET COUNT (AUTO) 181 K/uL (130-400); RED BLOOD CELL COUNT(AUTO) 4.13 MIL/uL (4.50-6.20); RED CELL DISTRIBUTION WIDTH 12.2 % (11.0-15.5); WHITE BLOOD COUNT (AUTO) 13.1 K/uL (4.8-10.8)
[2024-11-07 04:55] LABS: ALBUMIN 2.6 g/dL (3.5-5.0); BILIRUBIN,TOTAL 0.8 mg/dL (0.2-1.0); CREATININE 0.6 mg/dL (0.5-1.3); MAGNESIUM 2.1 mg/dL (1.80-2.40); POTASSIUM 3.1 mmol/L (3.5-5.1); TOTAL PROTEIN, SERUM 5.6 g/dL (6.0-8.3)
--- NOTE | 2024-11-07 10:54 | HMCIMG ---
CHEST 1VW REASON: Intubated COMPARISON: 11/06/2024 FINDINGS: Lungs are clear. Heart size is normal. There is no vascular congestion. NG and central line remain in place. ET tube is not visualized. IMPRESSION: 1. Stable chest.
[2024-11-07] MEDS: laMOTRigine 100 MG TABLET PO SCH (11:38)
--- NOTE | 2024-11-07 11:39 | PN ---
[facility] PROGRESS NOTE Date of Service: Nov 07, 2024 Time of Service: 11:36 SUBJECTIVE: 11/01 patient seen at bedside, no acute events overnight. He remains intubated and sedated, on a low dose of pressors. WBC increased from 10.2 up to 14.5, potassium increased from 3.6 up to 5.4, creatinine increased from 1.0 up to 1.6, remainder of his labs are relatively unremarkable. He still has a prominent wheeze. Patient is positive for influenza. Further care per critical Care. 11/02 patient seen at bedside, no acute events overnight. He remains intubated and sedated, FiO2 has been decreased from 45 down to 40%. We will defer to pulmonology for extubation. He remains on pressors, we will wean as able. WBC increased from 14.5 up to 20.4, hemoglobin stable at 13.1, remainder of his labs are relatively unremarkable. 11/03 patient seen at bedside, no acute events overnight he remains intubated and sedated, FiO2 at 40%, peep of 5. Patient continues on pressors, we will continue to wean as able. WBC decreased from 20.4 down to 14.2, hemoglobin stable at 13.1 same as yesterday, remainder of his labs are relatively unremarkable. 11/04 patient seen at bedside, no acute events overnight. He remains intubated and sedated, FiO2 at 40% peep of 7. Patient has been weaned off pressors. WBC improved from 14.2 down to 11.3, hemoglobin decreased from 13.1 down to 12.7, remainder of his labs are relatively unremarkable. 11/05 patient is seen and examined at bedside, remains intubated, on mechanical ventilation, on fentanyl and Versed drip. He is on droplet precautions. Getting nutritional support via NG tube. WBC improving, today at 11.0, hemoglobin 12.2, hematocrit 37.8. ABG with pH of 7.37, PO2 80.7. Chest x-ray showing prominent interstitial markings with possible superimposed infiltrates. 11/06 patient has been seen and examined at bedside, remains intubated, mechanical ventilation, on CPAP trial, off sedation, remains on droplet precaution, BP 147/73, saturating 100% on mechanical ventilation. Off nutritional support via NG tube. ABG shows pH of 7.44, pCO2 47, PO2 1629. Chest x-ray stable, no vascular congestion, heart size is normal. 11/07 patient is seen and examined at bedside, extubated yesterday, currently on low-dose Precedex. Withdrawing to painful stimulation. BP 114/55, heart rate of 42, afebrile, saturating 98% on 2 L via nasal cannula. CBC with a hemoglobin 12.3, hematocrit 36.5, WBC 13.1. Potassium level 3.1. Liver enzymes with an AST of 101, ALT 405. Urine toxicology screen positive for cocaine and mar ijuana. Serology test positive for influenza type A. He will remain on droplet precautions. Chest x-ray showing stable chest. Echocardiogram pending. Family at bedside, updated. REVIEW OF SYSTEMS A14 point ROS was obtained all relevant positive documented otherwise ROS negative PHYSICAL EXAM GENERAL APPEARANCE: Extubated, on low-dose Precedex. NEUROLOGICAL: Cranial nerves II-XII grossly intact. Motor is 5/5 in bilateral upper and lower extremities proximal to distal. No sensory deficits. HEENT: Face is symmetric. Pupils are equal and reactive. Extraocular movements are intact. NECK: Supple. No JVD. No thyromegaly. No submental, submandibular, pre- /postauricular, occipital or supraclavicular lymphadenopathy. CHEST: Normal chest expansion. No Telemetry. LUNGS: No bilateral expiratory wheezing CARDIOVASCULAR: Regular. S1 and S2 normal. No appreciable rubs, murmurs or gallops. ABDOMEN: Soft, nontender, and nondistended. There is no rebound, voluntary guarding, or rigidity. : Deferred. No Peoples. EXTREMITIES: Non-edematous and not cyanotic. No clubbing. Good capillary refill. SKIN: No skin breakdown. Vital Signs (last 8hr) Date Time Temp Pulse Resp B/P (MAP) Pulse Ox O2 Delivery O2 Flow Rate FiO2 11/07/24 10:35 42 18 11/07/24 10:35 42 13 N/Cannula Low lpm 2.0 28 11/07/24 08:00 98 Nasal Cannula* 2 28 11/07/24 06:47 46 22 114/55 (74) 97 11/07/24 06:31 42 13 N/Cannula Low lpm 2.0 28 11/07/24 06:31 41 18 11/07/24 05:47 35 23 124/48 (73) 100 11/07/24 04:47 56 20 101/63 (76) 98 11/07/24 04:00 95 Nasal Cannula* 2 28 11/07/24 03:47 98.2 34 24 118/51 (73) 100 LABS: Laboratory: Test 11/07/24 11:13 11/07/24 04:03 11/06/24 11:45 11/06/24 04:01 Range/Units Whole Blood Glucose 122 H 70-110 MG/DL White Blood Count 13.1 H 4.8-10.8 K/uL Red Blood Count 4.13 L 4.50-6.20 MIL/uL Hemoglobin 12.3 L 14.0-18.0 g/dL Hematocrit 36.5 L 42-54 % Mean Corpuscular Volume 88.4 79-99 fL Mean Corpuscular Hemoglobin 29.8 27.0-33.0 pg Mean Corpuscular Hemoglobin Concent 33.7 32.0-36.0 g/dL Red Cell Distribution Width 12.2 11.0-15.5 % Platelet Count 181 130-400 K/uL Mean Platelet Volume 10.3 7.5-10.5 fL Immature Granulocyte % (Auto) 0.7 0-1 % Neutrophils (%) (Auto) 65.8 40.0-77.0 % Lymphocytes (%) (Auto) 25.0 21.0-51.0 % Monocytes (%) (Auto) 8.4 3.0-13.0 % Eosinophils (%) (Auto) 0.0 0.0-8.0 % Basophils (%) (Auto) 0.1 0.0-5.0 % Neutrophils # (Auto) 8.6 H 1.8-7.7 K/uL Lymphocytes # (Auto) 3.3 1.0-4.8 K/uL Monocytes # (Auto) 1.1 H 0.1-1.0 K/uL Eosinophils # (Auto) 0.00 0.00-0.70 K/uL Basophils # (Auto) 0.01 0.00-0.20 K/uL Absolute Immature Granulocyte (auto 0.09 0-1 K/uL Nucleated Red Blood Cells 0.0 0.0-0.19 % Sodium Level 145 136-145 mmol/L Potassium Level 3.1 L 3.5-5.1 mmol/L Chloride Level 106 101-111 mmol/L Carbon Dioxide Level 35 H 21-32 mmol/L Blood Urea Nitrogen 12 7-18 mg/dL Creatinine 0.6 0.5-1.3 mg/dL Glomerular Filtration Rate Calc 123 >90 mL/min Random Glucose 103 70-105 mg/dL Total Calcium 9.0 8.5-10.1 mg/dL Magnesium Level 2.10 1.80-2.40 mg/dL Total Bilirubin 0.8 0.2-1.0 mg/dL Aspartate Amino Transf (AST/SGOT) 109 H 10-37 U/L Alanine Aminotransferase (ALT/SGPT) 405 H 12-78 U/L Alkaline Phosphatase 82 50-136 U/L Total Protein 5.6 L 6.0-8.3 g/dL Albumin 2.6 L 3.5-5.0 g/dL Blood Gas Specimen Type Arterial Arterial Blood pH 7.447 7.350-7.450 Arterial Blood Partial Pressure CO2 47 35-48 mmHg Arterial Blood Partial Pressure O2 162.9 H 83.0-108.0 mmHg Arterial Blood HCO3 31.6 H 21.0-28.0 mmol/L Arterial Blood Oxygen Saturation 98.7 H 94.0-98.0 % Arterial Blood Base Excess 6.5 H -2.0-3.0 mmol/L Hemoglobin (Blood Gas) 14.1 13.5-17.5 g/dL Sodium (Blood Gas) 140 136-145 MMOL/L Bedside Potassium (Blood Gas) 3.6 3.4-4.5 MMOL/L Bedside Chloride (Blood Gas) 100 98-107 MMOL/L Bedside Glucose (Blood Gas) 114 H 65-95 MG/DL Bedside Ionized Calcium (Blood Gas) 1.15 1.15-1.33 MMOL/L Bedside Lactic Acid (Blood Gas) 4.52 *H 0.36-0.75 MMOL/L Blood Gas Temperature 37.0 35.5-37.0 CELSIUS Blood Gas Vent Mode CPAP PS 5 ROOM AIR FiO2 40.0 % Blood Gas CPAP 5 cm H2O Blood Gas Specimen Comment ISRAEL VARELA RN Blood Gas Respiration Rate 18.0 min. Blood Gas Tidal Volume 450 ml Blood Gas PEEP 7 cm H2O Test 11/05/24 12:05 Range/Units Vitamin B12 Level 1384 H 193-986 pg/mL Vancomycin Level Trough 14.2 # 10.0-20.0 UG/ML Current Medications Medications (Trade) Dose Ordered Sig/Martinez Route PRN Reason Start Time Stop Time Status Last Admin Dose Admin Acetaminophen (TYLenol 325MG TAB) 650 mg Q4H PRN PO TEMPERATURE GREATER THAN 101.5 10/31/24 15:00 11/30/24 14:59 Acetaminophen (TYLenol 650MG SUPPOSITORY) 650 mg Q6H PRN RC MILD PAIN (1-3) 10/31/24 21:00 11/30/24 20:59 10/31/24 19:42 650 MG Albuterol (DUOneb) 1 udvial [id number] 11/01/24 10:00 12/01/24 01:59 11/07/24 10:35 1 UDVIAL Albuterol (DUOneb) 1 udvial [id number] IH 11/01/24 02:00 11/01/24 09:42 DC 11/01/24 06:56 1 UDVIAL Artificial Tears (Artificial Tears) 1 DROP OR AD Q8H OU 11/02/24 06:30 11/06/24 12:33 DC 11/06/24 06:49 1 DROP Azithromycin 250 ml @ 250 mls/hr Q24H IVPB 10/31/24 16:00 10/31/24 23:39 DC 10/31/24 16:50 250 MLS/HR Budesonide (Pulmicort 0.5 Mg/2ml) 0.5 mg BIDRESP IH 11/01/24 18:00 12/01/24 17:59 11/07/24 06:28 0.5 MG Cefepime HCl (MAXipime 2 gm vial) 2 gm Q8H IVPB 11/02/24 10:30 11/12/24 10:29 11/07/24 10:21 2 GM Ceftriaxone Sodium (ROCEphine 1G INJ) 1 gm Q24H IVPB 10/31/24 15:00 10/31/24 23:39 DC 10/31/24 16:16 1 GM Chlorhexidine Gluconate (Peridex) 15 ml TID MM 11/02/24 09:00 11/06/24 12:33 DC 11/06/24 08:18 15 ML Dexmedetomidine/ Sodium Chloride (PRECEdex 400MCG/ 100ML-NS) 400 mcg PROTOCOL IV 11/06/24 08:30 12/06/24 08:29 11/07/24 07:32 400 MCG Dextrose 1,000 ml @ 60 mls/hr [id number] IV 11/05/24 11:30 11/06/24 09:04 DC 11/05/24 11:21 60 MLS/HR Diazepam (VALium 5 mg TAB) 10 mg Q6H NG 11/06/24 09:30 11/06/24 12:32 DC 11/06/24 09:17 10 MG Diazepam (VALium 5 mg TAB) 10 mg Q6H PRN NG ANXIETY/AGITATION 11/06/24 13:00 11/06/24 17:35 DC 11/06/24 14:17 10 MG Diazepam (VALium 5 mg TAB) 10 mg Q8H NG 11/03/24 12:00 11/06/24 09:07 DC 11/06/24 03:28 10 MG Dopamine HCl/ Dextrose 250 ml @ 0 mls/hr AD PRN IV TITRATE 11/05/24 21:00 12/05/24 20:59 11/05/24 21:11 0 MLS/HR Doxycycline Hyclate 250 ml @ 125 mls/hr Q12H IV 11/01/24 00:00 11/11/24 00:00 11/06/24 23:10 125 MLS/HR Enoxaparin Sodium (Lovenox) 40 mg DAILY SQ 11/01/24 09:00 12/01/24 08:59 11/07/24 08:28 40 MG Famotidine (Pepcid 20mg Vial) 20 mg BID IV 11/01/24 09:00 12/01/24 08:59 11/07/24 08:27 20 MG Famotidine (Pepcid 20mg Tab) 20 mg BID PO 10/31/24 21:00 11/01/24 01:45 DC Fentanyl Citrate 100 ml @ 2.5 mls/hr PROTOCOL IV 10/31/24 19:30 10/31/24 19:25 DC Fentanyl Citrate 2500 mcg/Sodium Chloride 250 ml @ 0 mls/hr AD PRN IV TITRATE 11/06/24 03:30 11/06/24 03:31 DC Fentanyl/Sodium Chloride 250 ml @ 0 mls/hr PROTOCOL IV 11/06/24 03:30 11/06/24 12:17 DC Fentanyl/Sodium Chloride 250 ml @ 0 mls/hr PROTOCOL IV 10/31/24 19:30 11/05/24 19:29 DC 11/05/24 19:11 10 MLS/HR Home Med (Home Medication) (Lamotrigine (Lamictal Xr) 300 MG) HS PO 11/06/24 21:00 11/06/24 17:25 DC Hydrocortisone Sodium Succinate (Solu-corTEF 100MG) 50 mg Q6H IVP 11/01/24 11:00 11/02/24 13:55 DC 11/02/24 11:15 50 MG Insulin Human Regular (humuLIN R 100 UNIT/ML 3ML) INSULIN SLIDING SCAL... Q6H6 SQ 11/02/24 00:00 12/02/24 00:00 Lactulose (Constulose 20gm/ 30ml Udcup) 20 gm BID PRN PO CONSTIPATION 10/31/24 15:00 11/30/24 14:59 11/06/24 08:18 20 GM Lamotrigine (LAMIctal 100 MG TABLET) 200 mg DAILY PO 11/07/24 11:30 12/07/24 11:29 Lorazepam (AtiVAN) 1 mg Q4H PRN IVP ANXIETY/AGITATION 11/06/24 17:30 11/13/24 17:29 11/07/24 00:38 1 MG Magnesium Sulfate 50 ml @ 0 mls/hr PROTOCOL IV 10/31/24 13:00 10/31/24 14:54 DC 10/31/24 13:08 25 MLS/HR Magnesium Sulfate 50 ml @ 0 mls/hr PROTOCOL PRN IV low mag level 10/31/24 15:00 11/30/24 14:59 Melatonin (Melatonin) 10 mg HS PO 11/06/24 21:00 12/06/24 20:59 11/06/24 21:09 10 MG Methylprednisolone Sodium Succinate (Solu-medROL 40MG) 40 mg Q12H IVP 11/06/24 20:00 12/05/24 19:59 11/07/24 08:27 40 MG Methylprednisolone Sodium Succinate (Solu-medROL 40MG) 60 mg Q6H IVP 11/02/24 14:00 11/03/24 15:10 DC 11/03/24 13:35 60 MG Methylprednisolone Sodium Succinate (Solu-medROL 40MG) 60 mg Q6H IVP 11/05/24 20:00 11/06/24 08:58 DC 11/06/24 08:19 60 MG Methylprednisolone Sodium Succinate (Solu-medROL 40MG) 60 mg Q8H IVP 10/31/24 15:00 11/01/24 09:46 DC 11/01/24 06:42 60 MG Methylprednisolone Sodium Succinate (Solu-medROL 40MG) 80 mg Q6H IVP 11/03/24 20:00 11/05/24 16:10 DC 11/05/24 13:12 80 MG Midazolam HCl 50 ml @ 0 mls/hr PROTOCOL IV 10/31/24 16:30 11/06/24 12:17 DC 11/05/24 22:14 10 MLS/HR Midazolam HCl 50 mg/Sodium Chloride 50 ml @ 0 mls/hr PROTOCOL IV 10/31/24 16:00 10/31/24 16:02 DC Montelukast Sodium (SinguLAIR) 10 mg HS PO 10/31/24 21:00 11/30/24 20:59 11/06/24 20:05 10 MG Norepinephrine 250 ml @ 27.225 mls/ hr PROTOCOL IV 10/31/24 20:30 11/02/24 10:27 DC 11/01/24 18:24 41.06 MLS/HR Norepinephrine 250 ml @ 0 mls/hr PROTOCOL IV 10/31/24 20:30 11/01/24 22:43 DC Norepinephrine Bitartrate 250 ml @ 0 mls/hr AD PRN IV TITRATE 11/01/24 23:00 12/01/24 22:59 11/03/24 22:51 6.48 MLS/HR Olanzapine (ZyPREXA 5 mg tab) 5 mg BID PO 11/06/24 17:30 12/06/24 17:29 11/07/24 08:27 5 MG Ondansetron HCl (zoFRAN 4MG INJ) 4 mg Q6H PRN IVP NAUSEA/VOMITING 10/31/24 15:00 11/30/24 14:59 Oseltamivir Phosphate (Tamiflu) 75 mg BID PO 11/01/24 09:00 11/06/24 08:59 DC 11/05/24 20:40 75 MG Pharmacy Profile Note (Pharmacy Communication) 1 each ONCE MISC 11/03/24 15:30 1/12/25 13:19 DC Piperacillin Sod/ Tazobactam Sod (Zosyn 3.375gm+NS 50ml) 3.375 gm Q8H IV 11/01/24 00:00 11/02/24 10:26 DC 11/02/24 08:49 3.375 GM Polyethylene Glycol (MIRalax 3350 17 GM POWD.PACK) 17 gm DAILY PO 11/02/24 09:00 12/02/24 08:59 11/06/24 08:18 17 GM Polyethylene Glycol (MIRalax 3350 17 GM POWD.PACK) 17 gm ONCE PO 11/01/24 15:30 11/01/24 21:30 DC 11/01/24 16:05 17 GM Potassium Chloride 100 ml @ 100 mls/hr AD PRN IV POTASSIUM PROTOCOL 10/31/24 15:00 11/30/24 14:59 Potassium Chloride (K-Dur/Klor-Con 20meq) 20 meq AD PRN PO POTASSIUM PROTOCOL 10/31/24 15:00 11/30/24 14:59 Potassium Chloride (KCl 10% Elixir 20meq/15ml) 20 meq AD PRN PO POTASSIUM PROTOCOL 10/31/24 15:00 11/30/24 14:59 11/07/24 10:22 20 MEQ Propofol 100 ml @ 0 mls/hr AD PRN IV TITRATE 11/05/24 21:00 11/06/24 13:44 DC Propofol (DIPRivan 1000MG/ 100ML) 1,000 mg PROTOCOL PRN IV SEDATION 10/31/24 16:00 11/06/24 12:17 DC 11/05/24 21:59 1,000 MG Risperidone (RisperDAL) 3 mg HS PO 11/06/24 21:00 11/06/24 17:25 DC Rocuronium [place] 100 mg/ Sodium Chloride 100 ml @ 0 mls/hr PROTOCOL IV 10/31/24 16:00 10/31/24 16:44 DC Rocuronium [place] (ZemuRON) 50 mg ONCE IV 11/03/24 15:25 11/03/24 16:25 DC 11/03/24 15:27 50 MG Vancomycin HCl 250 ml @ 125 mls/hr Q8H IV 11/02/24 20:30 11/04/24 12:45 DC 11/04/24 03:46 125 MLS/HR Vancomycin HCl 250 ml @ 125 mls/hr Q8H IV 11/04/24 13:00 11/06/24 06:04 DC 11/05/24 21:02 125 MLS/HR Vancomycin HCl (Vancomycin Protocol) 1 each AD IV 11/02/24 10:30 11/06/24 06:04 DC DIAGNOSTICS / RADIOLOGY: [ ] CHEST 1VW REASON: Intubated COMPARISON: 11/06/2024 FINDINGS: Lungs are clear. Heart size is normal. There is no vascular congestion. NG and central line remain in place. ET tube is not visualized. IMPRESSION: 1. Stable chest. ASSESSMENT: Sepsis, ruled out Acute asthma exacerbation POA Acute hypoxic respiratory failure with hypoxia requiring BiPAP support on arrival POA 10 L trials unsuccessful requiring intubation 10/31/2024 at 15:42 p.m. viral syndrome POA Positive influenza A POA Active smoker smokes cigars 3-4 POA Polysubstance abuse disorder Chronic problems asthma, bipolar disorder. PLAN: Patient remains admitted to the ICU Continue supplemental oxygen via nasal cannula at 2 L to keep O2 sat greater than 92% Continue Precedex, wean as tolerated Continue to follow critical care input and recommendation Continue the patient on broad-spectrum IV antibiotics Continue bronchodilators Continue the patient on IV steroids Follow a.m. labs. Continue to replace electrolytes IV per protocol GI and DVT prophylaxis Disposition: Pending improvement in respiratory status, echocardiogram to evaluate ejection fraction. Family at bedside, updated, all questions answered. Greater than 35 minutes ICU time spent in care of this patient ZACKERY MORALES MD Nov 07, 2024 11:39
--- NOTE | 2024-11-07 11:49 | PN ---
[facility] PROGRESS NOTE Date Patient Seen: Nov 07, 2024 Time of Visit: 11:48 Supervising Physician: Rhiannon No MD Primary Care Physician: [Jose Narvaez Dr. and Dr. Bautista Outpatient Specialists: [ ] Inpatient Consults: [BIS team-pulmo ] PROBLEM LIST: Acute toxic metabolic encephalopathy POA vs Suspected withdrawals Acute hypoxemic respiratory failure requiring intubation-POA extubated 11/06/24, resolving asymptomatic Sinus Bradycardia Status asthmaticus-POA, resolved Respiratory acidosis-POA (+) Flu A -POA, completed tamiflu Tx Bilateral community-acquired pneumonia-POA Septic shock requiring pressor support-POA Drug abuse (+) cocaine and cannabis screen- POA Chronic asthma Bipolar disorder Chronic nicotine disorder - uses 4 cigars daily Anxiety disorder INTERVAL HISTORY: 10/31/2024: HPI: [Patient is unable to participate on the HPI due to being intubated and sedated. Per hospitalist's HPI. "This is a 44-year-old male was brought in by EMS with chief complaints of Shortness of breath. Apparently the patient called 911 given to having a asthma attack in on arrival patient was found with oxygen saturation of on room air of 54%. Patient has a significant underlying history of asthma he took albuterol inhaler at home he reports he has been using it as per ER note. Unable to obtain history data due to dyspneic we will obtain history from ER notes and from ER physician. On arrival to ED patient was dyspneic per ER physican was hardly moving air throughout all lung Corey and immediately was placed on BiPAP support and was given IV steroids and DuoNeb. ER workup positive for influenza A Patient was seen in ED the patient appears a cutely ill. ER physician removed BiPAP to see how patient we will do on 10 L so far oxygenation level at 95%. However he continues to use accessory muscles to breathe he will be transition to ICU: high risk for decompensated airway. Patient was unable to tolerate 10 L became dyspneic and anxious therefore ER physician intubated patient mode PRVC rate 20 tidal volume 480 Peep: 5 FI O2 60% on sedation patient will transitioned to ICU once bed is available. Spoke to family at bedside all questions answered." BIS team was consulted for critical care management in the setting of septic shock and intubation 2/2 acute hypoxic respiratory failure. According to the patient's mother, patient was doing well this morning and he even drove him yesterday to the clinic where she herself was diagnosed of flu. This afternoon, everything changed and happened so rapidly with complaint of sudden asthma attack and respiratory distress. Patient is now receiving 3 sedatives namely Propofol, Fentanyl and Versed which according to the bedside RN took awhile to optimize as the patient continues to fight it and tends to override the vent.He is currently on Levophed for pressor support. He appears to continue using his accessory mnuscles despite being on ventilator. Lung sounds have positive wheezing across lung corey. We will continue to follow along patient's response to treatment as enumerated above. Goals of care were discussed with the mother verbalizing understanding and agreement. On behalf of BIS team, thank you for the opportunity to participate on Mr. Lloyd's case. 11/01/2024: At the time of my evaluation, the patient was lying in bed. He remains intubated and family members present at the bedside. Vital signs today remains generally stable. Laboratory data showed a increase of WBCs to 14.5 which may be reactive to steroids, though neutrophil predominance. Chemistry panel showing elevated potassium to 5.4, we will repeat potassium level later today. Also, renal parameters increase the BUN 27 creatinine 1.6 we will monitor the trend. The patient remains with Tamiflu and empiric antibiotic therapy with Zosyn/doxy combination. The remains on steroid therapy as ordered. The patient remains on sedation with propofol and fentanyl drip. Also on pressor therapy with Levophed. No other complaint. 11/02/2024: At the time of my evaluation, the patient is lying in bed. He remains intubated. Most recent ABG showed a pH of 7.2, pCO2 54 and PO2 of 142.3. He continues on PRVC mode, rate of 26, FiO2 40%, tidal volume of 420 and a PEEP of 5. He is also hydrocortisone and receiving empiric antibiotic therapy with cefepime, doxy and Tamiflu. For sedation, the patient continues on propofol, Versed and fentanyl. Patient's mother was present at the bedside. No new complaint. 11/03/2024: At the time of my evaluation, the patient was lying in bed, sedated and remains intubated on assist control mode. Vital signs remain generally stable except for bradycardia in the 40s. Laboratory data today showed increased WBC to 14.2 though improved from yesterday. Chemistry panel showed no changes of concern. No overnight acute event. 11/04/2024. At the time of my evaluation, the patient is lying in bed. He remains vented and sedated. Currently off pressor therapy. Family members are present at the bedside. Staff nurse reports no acute events overnight. No other complaint. 11/05/2024: At the time of my evaluation, the patient was lying in bed. He remains intubated and is sedated. The patient continues on pressure support 40% FiO2. Family members present at the bedside. The staff nurse reports no acute events overnight. 11/06/24- patient has been afebrile, sinus Rui heart rate in the 40s but hemodynamically stable with good blood pressure 122/76 on the monitor for, respi ratory rate of 18 saturating 96% with a FiO2 of 40% on assist control volume control. This morning we will start sedation vacation and spontaneous breathing trials and likely extubate by noon if patient tolerates well and ABG per minutes. Urine output 1.9 L in the last 24 hours with a balance of +3.1 L. patient continues with elevated white count at 11.7 similar to yesterday H&H is 12.7/39.4. Chemistry kidneys are doing well creatinine 0.6 GFR of 123 carbon dioxide of 37 sodium 140 glucose 151 mg/dL total calcium of 8.0 total protein 5.1 albumin 2.2 liver enzymes slightly elevated. Mother and father at bedside explained to them the plan of care and current findings. Both in agreement answered all their questions. 11/07/24- Day 1 post extubation he is awake alert and follows commands but easily agitated and continuously calling out for small and occasionally attempting to pull out lines. Today we will discontinue Peoples catheter, central line and wean off oxygen as tolerated. We will attempt to wean completely off Precedex and use p.r.n. anxiety medication, as per RN patient becomes slightly more agitated after Ativan is given therefore we will change to Valium 5 mg per NG tube p.r.n. q.4 hours for agitation. Patient persistently in sinus bradycardia, 2D echo shows LVEF is 60-65% no valvular pathology no pericardial effusion of the diastolic function unable to be assess. We will consult Cardiology and appreciate recommendations. Otherwise CBC similar to yesterday, chemistry potassium slightly low today 3.1 covered per protocol kidneys are doing well liver enzymes slightly elevated but trending down albumin 2.6. Chest x-ray sta ble. Pending abdominal ultrasound for elevated liver enzymes. REVIEW OF SYSTEMS: Unable to perform 12 point ROS due to being intubated and sedated. PHYSICAL EXAM: GENERAL: Awake alert and oriented to, confused and agitated. HEENT: EOMI, Sclera non icteric, moist mucosa NECK: Supple, no JVD, trachea midline LUNGS: Clear lung sounds. No wheeze, rhonchi or rales HEART: Regular rate and rhythm. Normal S1 and S2, without murmurs ABD: Abdomen soft, nontender. Bowel sounds present EXT: No clubbing cyanosis or edema : Peoples in situ NEURO: Moving all extremities no focal weakness. GCS of 14. Vital Signs (last 8hr) Date Time Temp Pulse Resp B/P (MAP) Pulse Ox O2 Delivery O2 Flow Rate FiO2 11/07/24 10:35 42 18 11/07/24 10:35 42 13 N/Cannula Low lpm 2.0 28 11/07/24 08:00 98 Nasal Cannula* 2 28 11/07/24 06:47 46 22 114/55 (74) 97 11/07/24 06:31 42 13 N/Cannula Low lpm 2.0 28 11/07/24 06:31 41 18 11/07/24 05:47 35 23 124/48 (73) 100 11/07/24 04:47 56 20 101/63 (76) 98 11/07/24 04:00 95 Nasal Cannula* 2 28 LABS: Hematology Labs: Test 11/07/24 04:03 Range/Units White Blood Count 13.1 H 4.8-10.8 K/uL Red Blood Count 4.13 L 4.50-6.20 MIL/uL Hemoglobin 12.3 L 14.0-18.0 g/dL Hematocrit 36.5 L 42-54 % Mean Corpuscular Volume 88.4 79-99 fL Mean Corpuscular Hemoglobin 29.8 27.0-33.0 pg Mean Corpuscular Hemoglobin Concent 33.7 32.0-36.0 g/dL Red Cell Distribution Width 12.2 11.0-15.5 % Platelet Count 181 130-400 K/uL Mean Platelet Volume 10.3 7.5-10.5 fL Immature Granulocyte % (Auto) 0.7 0-1 % Neutrophils (%) (Auto) 65.8 40.0-77.0 % Lymphocytes (%) (Auto) 25.0 21.0-51.0 % Monocytes (%) (Auto) 8.4 3.0-13.0 % Eosinophils (%) (Auto) 0.0 0.0-8.0 % Basophils (%) (Auto) 0.1 0.0-5.0 % Neutrophils # (Auto) 8.6 H 1.8-7.7 K/uL Lymphocytes # (Auto) 3.3 1.0-4.8 K/uL Monocytes # (Auto) 1.1 H 0.1-1.0 K/uL Eosinophils # (Auto) 0.00 0.00-0.70 K/uL Basophils # (Auto) 0.01 0.00-0.20 K/uL Absolute Immature Granulocyte (auto 0.09 0-1 K/uL Nucleated Red Blood Cells 0.0 0.0-0.19 % Chemistry Labs: Test 11/07/24 11:13 11/07/24 04:03 11/05/24 12:05 Range/Units Whole Blood Glucose 122 H 70-110 MG/DL Sodium Level 145 136-145 mmol/L Potassium Level 3.1 L 3.5-5.1 mmol/L Chloride Level 106 101-111 mmol/L Carbon Dioxide Level 35 H 21-32 mmol/L Blood Urea Nitrogen 12 7-18 mg/dL Creatinine 0.6 0.5-1.3 mg/dL Glomerular Filtration Rate Calc 123 >90 mL/min Random Glucose 103 70-105 mg/dL Total Calcium 9.0 8.5-10.1 mg/dL Magnesium Level 2.10 1.80-2.40 mg/dL Total Bilirubin 0.8 0.2-1.0 mg/dL Aspartate Amino Transf (AST/SGOT) 109 H 10-37 U/L Alanine Aminotransferase (ALT/SGPT) 405 H 12-78 U/L Alkaline Phosphatase 82 50-136 U/L Total Protein 5.6 L 6.0-8.3 g/dL Albumin 2.6 L 3.5-5.0 g/dL Vitamin B12 Level 1384 H 193-986 pg/mL DIAGNOSTICS / RADIOLOGY RESULTS: [ ] IMAGING REPORT Signed PATIENT: SWATHI GAMING MR#: [id number] : 1980 SEX: M AGE: 44 LOCATION: [facility] ORDER 34 STATUS: ADM IN REPORT#: [id number] SERVICE 31 REASON: assess for heart failure ORDERING PHYSICIAN: JERILYN DIMAS PROCEDURE: ECHO CMP - ECHO 2-D COMPLETE APPROVED REPORT EXAM: Two-dimensional and M-mode echocardiogram with Doppler and color Doppler. INDICATION ICD: Assess for heart failure 2D Dimensions RVDd 3.8 cm LVEF(%) 76.1 (>50%) LVED Vol(simp.) 119.0 mL IVSd 0.5 (0.7-1.1cm) FS(%) 45 % LVES Vol(simp.) 51.1 mL LVDd 5.1 (3.8-5.6cm) LA (2D) 4.0 (1.6-4.0cm) LVEF(%, simp.) 57 % PWd 0.8 (0.7-1.1cm) Ao Root(2D) 3.4 (2.0-3.7cm) LA ESV INDEX (4CH) 26.90 mL/m2 IVSs 1.4 cm LVOT diam 2.4 (1.8-2.4cm) LA ESV INDEX (2CH) 35.50 mL/m2 LVDs 2.8 (2.5-4.0cm) LA ESV INDEX (BP) 30.60 mL/m2 PWs 1.7 cm M-Mode Dimensions EPSS 0.8 cm LA (MM) 3.9 (1.6-4.0cm) Ao Root(MM) 3.8 (2.0-3.7cm) Aortic Valve AoV VTI 0.3 m Ao Mean GR 3.0 mmHg LVOT VTI 0.27 m DIPAK (VMAX) 3.9 cm2 DIPAK (VTI) 3.9 cm2 Mitral Valve MV E Vmax 90.5 cm/s DECEL Time 206 ms MV A Vmax 65.8 cm/s P 1/2 T 117 ms E/A ratio 1.4 MVA (PHT) 1.9 cm2 TDI E/E' Medial 12.9 E/E' Lateral 7.6 Medial E' Peak V 7.00 cm/s Lateral E' Peak V 11.90 cm/s Pulmonary Valve PV Vmax 1.1 m/s PI End Arabella. Rod 77.4 cm/s PV Peak GR 4.8 mmHg Tricuspid Valve RAP (EST) 8 mmHg RVSP 8.0 mmHg Left Ventricle Left ventricular cavity size is normal. There is left ventricular wall thinning. LVEF is 60-65%. The LV diastolic function was unable to be assessed. Right Ventricle The right ventricle is normal size. The right ventricular systolic function is normal. Atria The left atrium size is normal. The right atrium is mildly dilated. Aortic Valve The aortic valve is normal in structure and function. No aortic regurgitation is present. There is no aortic valvular stenosis. Mitral Valve Mitral valve leaflets open well. There is no mitral valve regurgitation noted. There is no mitral valve stenosis. Tricuspid Valve The tricuspid valve is normal in structure and function. There is no tricuspid valve regurgitation noted. Pulmonic Valve The pulmonary valve is normal in structure and function. There is trace of pulmonic valvular regurgitation. Great Vessels The aortic root is normal in size. IVC is normal in size and collapses >50% with inspiration. Pericardium No pericardial effusion. Other Information Quality : Technically difficult study due to body habitus Conclusion Left ventricular cavity size is normal. LVEF is 60-65%. The LV diastolic function was unable to be assessed. The right ventricle is normal size. The right ventricular systolic function is normal. The left atrium size is normal. The right atrium is mildly dilated. No valvular pathology. No pericardial effusion. DICTATED BY: JACK GONZALEZ MD DATE: 11/07/24 0629 PLAN Wean steroidsto prednisone 10 mg po bid DC cefepime DC cvc, fc, and wean off o2 as tolerated. Valium 5 mg p.o (ng Tube). q.4 hours p.r.n. agitation. 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 Ammonia levels in the morning NEURO: Minimize central acting medications as possible. Fall Precautions. Well lighted room through the day and minimize interruptions through the night to prevent acute delirium. PULMONARY: Supplemental 02 as needed Titrate Fio2 to keep Spo2 > or = 90% DuoNebs and CPT as needed once patient is off vent IS hourly while awake for pulmonary hygiene once patient is off vent Out of bed to chair as tolerated when patient is off vent CARDIOVASCULAR: Follow hemodynamics. Titrate vasopressor to keep MAP >65 or systolic blood pressure >95mmHg DIPS: Precedex wean as tolerated LINES: piv GI & NUTRITION: Continue nutritional support Aspirations precautions Prokinetic agents and laxatives as needed KIDNEYS & ELECTROLYTES: Strict monitoring of intake and output Daily weights Avoid nephrotoxic agents Monitor electrolytes and replace as needed Goal urine output of 30mL/hr or 0.5mL/kg/hr ENDOCRINE: Maintain blood glucose between 100-180 at all times. Insulin sliding scale for blood glucose management INFECTIOUS DISEASE: Trend temperature. No recent febrile events. Shaw-culture if febrile. Micro: Respiratory and blood cultures showing no growth Antibiotics: Doxycycline HEMATOLOGY & COAGULATION: Monitor H&H. Keep Hgb > 7 Transfuse 1 unit of PRBC for Hgb < 7 Transfuse 1 pack of platelets of platelets < 20, 000 Watch for any signs and symptoms of bleeding SKIN: Pressure ulcer prevention per facility protocol Rehab: PT/OT once patient is off vent and condition has stabilized. Prophylaxis: GI: Famotidine DVT: Lovenox Code Status: Full Resuscitation Disposition: ICU Other: Total patient care time exceeds 35 minutes excluding all procedures. Case was discussed and seen with my supervising physician. The above plan was formulated and agreed upon. JERILYN DIMAS DIGITAL ENGINEER Nov 07, 2024 11:49
--- NOTE | 2024-11-07 13:30 | NUR ---
SPEECH NOTE: MBSS CANCELLED AT THIS TIME Orders for MBSS received however, as per nurse Hurst, patient not stable enough to participate in study. Recommend continue with NG tube feedings at this time. EXERCISE EQUIPMENT REPAIR TECHNICIAN will follow up and evaluate when patient is appropriate. All questions answered. Addendum: 11/07/[address] [facility] Amended: Links added.
--- NOTE | 2024-11-07 13:42 | NUR ---
Dr. Gonsalez informed of consult. No new orders given.
[2024-11-07] MEDS: diazePAM 5 MG TAB PO ONE (15:16)
--- NOTE | 2024-11-07 16:06 | NUR ---
Central lines D/C'd as per MD order. Explained procedure to patient who verbalized understanding. Removed dressing and cleaned site. Removed suture from site. Removed catheter and applied manual pressure. No signs of bleeding or hematoma. Applied dressing with 4x4 and will continue to monitor.
--- NOTE | 2024-11-07 17:12 | NUR ---
Removed urinary catheter as per MD order. Explained procedure to patient who verbalized understanding. Removed 10 mL of NS from catheter balloon. Removed catheter intact. Explained to patient he would have to urinate in the next 6 hours. Patient understood. Will continue to monitor.
--- NOTE | 2024-11-07 17:14 | HMCSR ---
APPROVED REPORT EXAM: Two-dimensional and M-mode echocardiogram with Doppler and color Doppler. INDICATION ICD: Assess for heart failure 2D Dimensions RVDd3.8 cmLVEF(%)76.1 (>50%)LVED Vol(simp.)119.0 mL IVSd0.5 (0.7-1.1cm)FS(%)45 %LVES Vol(simp.)51.1 mL LVDd5.1 (3.8-5.6cm)LA (2D)4.0 (1.6-4.0cm)LVEF(%, simp.)57 % PWd0.8 (0.7-1.1cm)Ao Root(2D)3.4 (2.0-3.7cm)LA ESV INDEX (4CH)26.90 mL/m2 IVSs1.4 cmLVOT diam2.4 (1.8-2.4cm)LA ESV INDEX (2CH)35.50 mL/m2 LVDs2.8 (2.5-4.0cm)LA ESV INDEX (BP)30.60 mL/m2 PWs1.7 cm M-Mode Dimensions EPSS0.8 cm LA (MM)3.9 (1.6-4.0cm) Ao Root(MM)3.8 (2.0-3.7cm) Aortic Valve AoV VTI0.3 mAo Mean GR3.0 mmHgLVOT VTI0.27 m DIPAK (VMAX)3.9 cm2AVA (VTI) 3.9 cm2 Mitral Valve MV E Vmax90.5 cm/sDECEL Puor830 ms MV A Vmax65.8 cm/sP 1/2 T117 ms E/A ratio1.4MVA (PHT)1.9 cm2 TDI E/E' Urjwux55.9E/E' Lateral7.6 Medial E' Peak V7.00 cm/sLateral E' Peak V11.90 cm/s Pulmonary Valve PV Vmax1.1 m/sPI End Arabella. Rod 77.4 cm/s PV Peak GR4.8 mmHg Tricuspid Valve RAP (EST) 8 mmHgRVSP8.0 mmHg Left Ventricle Left ventricular cavity size is normal. There is left ventricular wall thinning. LVEF is 60-65%. The LV diastolic function was unable to be assessed. Right Ventricle The right ventricle is normal size. The right ventricular systolic function is normal. Atria The left atrium size is normal. The right atrium is mildly dilated. Aortic Valve The aortic valve is normal in structure and function. No aortic regurgitation is present. There is no aortic valvular stenosis. Mitral Valve Mitral valve leaflets open well. There is no mitral valve regurgitation noted. There is no mitral nancie ve stenosis. Tricuspid Valve The tricuspid valve is normal in structure and function. There is no tricuspid valve regurgitation no asya. Pulmonic Valve The pulmonary valve is normal in structure and function. There is trace of pulmonic valvular regurgit ation. Great Vessels The aortic root is normal in size. IVC is normal in size and collapses >50% with inspiration. Pericardium No pericardial effusion. Other Information Quality : Technically difficult study due to body habitus Conclusion Left ventricular cavity size is normal. LVEF is 60-65%. The LV diastolic function was unable to be assessed. The right ventricle is normal size. The right ventricular systolic function is normal. The left atrium size is normal. The right atrium is mildly dilated. No valvular pathology. No pericardial effusion.
[2024-11-07] MEDS: diazePAM 5 MG TAB PO PRN (20:26)
--- NOTE | 2024-11-07 23:44 | CONS ---
CONSULT NOTE: CARDIOLOGY Reason for consult: HPI/story at presentation: This is a pleasant 44 male with past medical history as per present with shortness of breath and respiratory failure, hypoxia, was intubated and managed for influenza and pneumonia subsequently, extubated. Was on Precedex because of mental status changes in the setting of febrile substance use/mental health issues and subsequently, was on Precedex. Was having issues with bradycardia and therefore, cardiology was consulted for evaluation management. Subjective: 11/07/2024 no active cardiac complaint Past medical history: See below Allergies, Meds See chart Review of systems Review of Systems Constitutional: Negative for chills and fever. HENT: Negative for ear discharge and ear pain. Eyes: Negative for photophobia and discharge. Respiratory: Negative for cough, sputum production and stridor. Cardiovascular: Negative for chest pain and palpitations. Gastrointestinal: Negative for diarrhea and vomiting. Genitourinary: Negative for frequency. Musculoskeletal: Negative for myalgias. Skin: Negative for rash. Neurological: Negative for focal weakness and seizures. Endo/Heme/Allergies: Negative for polydipsia. Psychiatric/Behavioral: Negative for hallucinations. Vitals see chart PHYSICAL EXAMINATION GENERAL: The patient is alert and oriented*3 HEENT: Nonicteric sclerae, non traumatic HEART: Regular rate and rhythm with no murmurs LUNGS: Clear to auscultation bilaterally ABDOMEN: No acute issues, non tender GENITAL, RECTAL: deferred SKIN: No rash NEUROLOGIC: NFND EXTREMITIES: No edema ASSESSMENT BRADYCARDIA Resolved, heart rates in the 70s, 11/07/2024 While on Precedex, when sleeping, Conservative management, 11/07/2024 Normal EF echocardiogram, 10/2024 SEPSIS At presentation RESPIRATORY FAILURE Status post recent extubation G-tube in situ Possible influenza A, On steroids 10/2024 TOBACCO USE, POLYSUBSTANCE ABUSE CORE MEASURES Pending OTHER MEDICAL PROBLEMS Reviewed PLAN 11/07/2024 no active cardiac complaints at this time, mildly restless, NG tube in situ. No further issues with bradycardia, current heart rates in the 70s. For now, will manage conservatively. No plans for dopamine or dobutamine as pacemaker at this time. ATTESTATION I was involved substantially in the care of this patient Number and complexity of problems addressed: 1 acute illness with systemic features Amount and or complexity of data Review of prior external note(s) from each unique source: 2+ Ordering of each unique test : 0 Review of the result(s) of each unique test: 2+ Assessment requiring an independent historian(s): No Independent interpretation of test performed by another MD/QHCP/appropriate source (not separately reported) : No Discussion of management or test interpretation with external MD/QHCP/appropriate source (not separately reported) : No Risk status (cardiac, billing related): Moderate GINETTE NOEL MD Nov 07, 2024 23:44
[2024-11-08] VITALS (31 sets, daily range): BP systolic 102–132; BP diastolic 51–90; PULSE 62–96; RESP 13–22; TEMP 97.2–99.6; O2SAT 94–97
[2024-11-08] MEDS: ondanSETRON 4MG INJ IVP PRN (00:54)
[2024-11-08] MEDS: acetaMINOPHEN 325 MG TAB PO PRN (01:13)
[2024-11-08 04:27] LABS: BASOPHILS # (AUTO) 0.01 K/uL (0.00-0.20); BASOPHILS % (AUTO) 0.1 % (0.0-5.0); HEMATOCRIT 38.2 % (42-54); IMMATURE GRANULOCYTE ABSOLUTE 0.12 K/uL (0-1); LYMPHOCYTES # (AUTO) 2.4 K/uL (1.0-4.8); MEAN CORPUSCULAR HEMOGLOBIN 29.7 pg (27.0-33.0); MEAN CORPUSCULAR VOLUME 87.2 fL (79-99); MONOCYTES # (AUTO) 0.6 K/uL (0.1-1.0); MONOCYTES % (AUTO) 5.7 % (3.0-13.0); NEUTROPHILS # (AUTO) 7.7 K/uL (1.8-7.7); NEUTROPHILS % (AUTO) 71.1 % (40.0-77.0); PLATELET COUNT (AUTO) 225 K/uL (130-400); RED BLOOD CELL COUNT(AUTO) 4.38 MIL/uL (4.50-6.20); RED CELL DISTRIBUTION WIDTH 12.2 % (11.0-15.5); WHITE BLOOD COUNT (AUTO) 10.8 K/uL (4.8-10.8)
[2024-11-08 04:54] LABS: CARBON DIOXIDE 32 mmol/L (21-32); CHLORIDE 103 mmol/L (101-111); CREATININE 0.7 mg/dL (0.5-1.3); GLOMERULAR FILTR. RATE CALC 117 mL/min (>90); GLUCOSE,RANDOM 126 mg/dL (70-105); POTASSIUM 3.6 mmol/L (3.5-5.1); SODIUM SERUM 141 mmol/L (136-145); UREA NITROGEN, BLOOD 16 mg/dL (7-18)
[2024-11-08 04:58] LABS: ALANINE AMINOTRANSFERASE 331 U/L (12-78); ALBUMIN 2.7 g/dL (3.5-5.0); AMMONIA < 10 umol/L (11-32); ASPARTATE AMINOTRANSFERASE 68 U/L (10-37); BILIRUBIN,TOTAL 0.6 mg/dL (0.2-1.0); TOTAL PROTEIN, SERUM 5.9 g/dL (6.0-8.3)
[2024-11-08] MEDS: predniSONE 20 MG TABLET PO SCH (07:59)
--- NOTE | 2024-11-08 08:51 | NUR ---
PSYCH CONSULT CALLED DR. ROSNETHAL OFFICE CALLED AND INFORMED OF CONSULT. OFFICE STAFF TOOK DOWN PT'S INFORMATION AND STATED THAT THEY WOULD BE CONTACTING THE MD FOR THIS CONSULT.
--- NOTE | 2024-11-08 08:58 | PN ---
[facility] PROGRESS NOTE Date of Service: Nov 08, 2024 Time of Service: 08:55 SUBJECTIVE: 11/01 patient seen at bedside, no acute events overnight. He remains intubated and sedated, on a low dose of pressors. WBC increased from 10.2 up to 14.5, potassium increased from 3.6 up to 5.4, creatinine increased from 1.0 up to 1.6, remainder of his labs are relatively unremarkable. He still has a prominent wheeze. Patient is positive for influenza. Further care per critical Care. 11/02 patient seen at bedside, no acute events overnight. He remains intubated and sedated, FiO2 has been decreased from 45 down to 40%. We will defer to pulmonology for extubation. He remains on pressors, we will wean as able. WBC increased from 14.5 up to 20.4, hemoglobin stable at 13.1, remainder of his labs are relatively unremarkable. 11/03 patient seen at bedside, no acute events overnight he remains intubated and sedated, FiO2 at 40%, peep of 5. Patient continues on pressors, we will continue to wean as able. WBC decreased from 20.4 down to 14.2, hemoglobin stable at 13.1 same as yesterday, remainder of his labs are relatively unremarkable. 11/04 patient seen at bedside, no acute events overnight. He remains intubated and sedated, FiO2 at 40% peep of 7. Patient has been weaned off pressors. WBC improved from 14.2 down to 11.3, hemoglobin decreased from 13.1 down to 12.7, remainder of his labs are relatively unremarkable. 11/05 patient is seen and examined at bedside, remains intubated, on mechanical ventilation, on fentanyl and Versed drip. He is on droplet precautions. Getting nutritional support via NG tube. WBC improving, today at 11.0, hemoglobin 12.2, hematocrit 37.8. ABG with pH of 7.37, PO2 80.7. Chest x-ray showing prominent interstitial markings with possible superimposed infiltrates. 11/06 patient has been seen and examined at bedside, remains intubated, mechanical ventilation, on CPAP trial, off sedation, remains on droplet precaution, BP 147/73, saturating 100% on mechanical ventilation. Off nutritional support via NG tube. ABG shows pH of 7.44, pCO2 47, PO2 1629. Chest x-ray stable, no vascular congestion, heart size is normal. 11/07 patient is seen and examined at bedside, extubated yesterday, currently on low-dose Precedex. Withdrawing to painful stimulation. BP 114/55, heart rate of 42, afebrile, saturating 98% on 2 L via nasal cannula. CBC with a hemoglobin 12.3, hematocrit 36.5, WBC 13.1. Potassium level 3.1. Liver enzymes with an AST of 101, ALT 405. Urine toxicology screen positive for cocaine and mar ijuana. Serology test positive for influenza type A. He will remain on droplet precautions. Chest x-ray showing stable chest. Echocardiogram pending. Family at bedside, updated. 11/08 the patient has been seen and examined at bedside, he is awake, following commands, getting nutritional support via NG tube, he is asking if it can be removed. He is off Precedex. BP 106/62, afebrile, saturating 97% on air. No chest pain, shortness shortness for breath, no cough. WBC today at 10.8, down from 13.1. Hemoglobin 13.0, hematocrit 38.2. Liver enzymes slowly trending down. Echocardiogram reviewed, LVEF 60-65%, diastolic function. was unable to be assessed. The right ventricle is normal in size, right ventricular systolic function is normal, left atrium size is normal, right atrium is mildly dilated, no valvular pathology, no pericardial effusion. Ultrasound of the abdomen pending. Mother is at bedside, the patient with a history of bipolar, on Lamictal and risperidone at home, discussed with critical Care, patient was bradycardic yesterday, he has been started on Zyprexa instead. Pending speech therapy to evaluate the patient today, as well as physical therapist. We will request psychiatric consultation as well. REVIEW OF SYSTEMS A14 point ROS was obtained all relevant positive documented otherwise ROS negative PHYSICAL EXAM GENERAL APPEARANCE: Awake, following commands, getting nutritional support via NG tube. Off Precedex. NEUROLOGICAL: Cranial nerves II-XII grossly intact. Motor is 5/5 in bilateral upper and lower extremities proximal to distal. No sensory deficits. HEENT: Face is symmetric. Pupils are equal and reactive. Extraocular movements are intact. NECK: Supple. No JVD. No thyromegaly. No submental, submandibular, pre- /postauricular, occipital or supraclavicular lymphadenopathy. CHEST: Normal chest expansion. No Telemetry. LUNGS: No bilateral expiratory wheezing CARDIOVASCULAR: Regular. S1 and S2 normal. No appreciable rubs, murmurs or gallops. ABDOMEN: Soft, nontender, and nondistended. There is no rebound, voluntary guarding, or rigidity. : Deferred. No Peoples. EXTREMITIES: Non-edematous and not cyanotic. No clubbing. Good capillary refill. SKIN: No skin breakdown. Vital Signs (last 8hr) Date Time Temp Pulse Resp B/P (MAP) Pulse Ox O2 Delivery O2 Flow Rate FiO2 11/08/24 04:47 98.4 77 16 106/62 94 11/08/24 04:01 62 18 113/68 97 Room Air 11/08/24 04:00 96 Room Air* 0 21 11/08/24 03:47 78 17 113/68 96 11/08/24 02:47 90 17 103/51 94 11/08/24 01:57 65 13 N/Cannula Low lpm 2.0 28 11/08/24 01:57 65 22 11/08/24 01:47 63 22 106/63 95 LABS: Laboratory: Test 11/08/24 06:36 11/08/24 03:47 11/06/24 11:45 Range/Units Whole Blood Glucose 121 H 70-110 MG/DL White Blood Count 10.8 4.8-10.8 K/uL Red Blood Count 4.38 L 4.50-6.20 MIL/uL Hemoglobin 13.0 L 14.0-18.0 g/dL Hematocrit 38.2 L 42-54 % Mean Corpuscular Volume 87.2 79-99 fL Mean Corpuscular Hemoglobin 29.7 27.0-33.0 pg Mean Corpuscular Hemoglobin Concent 34.0 32.0-36.0 g/dL Red Cell Distribution Width 12.2 11.0-15.5 % Platelet Count 225 130-400 K/uL Mean Platelet Volume 10.7 H 7.5-10.5 fL Immature Granulocyte % (Auto) 1.1 H 0-1 % Neutrophils (%) (Auto) 71.1 40.0-77.0 % Lymphocytes (%) (Auto) 22.0 21.0-51.0 % Monocytes (%) (Auto) 5.7 3.0-13.0 % Eosinophils (%) (Auto) 0.0 0.0-8.0 % Basophils (%) (Auto) 0.1 0.0-5.0 % Neutrophils # (Auto) 7.7 1.8-7.7 K/uL Lymphocytes # (Auto) 2.4 1.0-4.8 K/uL Monocytes # (Auto) 0.6 0.1-1.0 K/uL Eosinophils # (Auto) 0.00 0.00-0.70 K/uL Basophils # (Auto) 0.01 0.00-0.20 K/uL Absolute Immature Granulocyte (auto 0.12 0-1 K/uL Nucleated Red Blood Cells 0.0 0.0-0.19 % Sodium Level 141 136-145 mmol/L Potassium Level 3.6 3.5-5.1 mmol/L Chloride Level 103 101-111 mmol/L Carbon Dioxide Level 32 21-32 mmol/L Blood Urea Nitrogen 16 7-18 mg/dL Creatinine 0.7 0.5-1.3 mg/dL Glomerular Filtration Rate Calc 117 >90 mL/min Random Glucose 126 H 70-105 mg/dL Total Calcium 8.7 8.5-10.1 mg/dL Magnesium Level 2.00 1.80-2.40 mg/dL Total Bilirubin 0.6 # 0.2-1.0 mg/dL Aspartate Amino Transf (AST/SGOT) 68 H 10-37 U/L Alanine Aminotransferase (ALT/SGPT) 331 H 12-78 U/L Alkaline Phosphatase 93 50-136 U/L Ammonia < 10 L 11-32 umol/L Total Protein 5.9 L 6.0-8.3 g/dL Albumin 2.7 L 3.5-5.0 g/dL Blood Gas Specimen Type Arterial Arterial Blood pH 7.447 7.350-7.450 Arterial Blood Partial Pressure CO2 47 35-48 mmHg Arterial Blood Partial Pressure O2 162.9 H 83.0-108.0 mmHg Arterial Blood HCO3 31.6 H 21.0-28.0 mmol/L Arterial Blood Oxygen Saturation 98.7 H 94.0-98.0 % Arterial Blood Base Excess 6.5 H -2.0-3.0 mmol/L Hemoglobin (Blood Gas) 14.1 13.5-17.5 g/dL Sodium (Blood Gas) 140 136-145 MMOL/L Bedside Potassium (Blood Gas) 3.6 3.4-4.5 MMOL/L Bedside Chloride (Blood Gas) 100 98-107 MMOL/L Bedside Glucose (Blood Gas) 114 H 65-95 MG/DL Bedside Ionized Calcium (Blood Gas) 1.15 1.15-1.33 MMOL/L Bedside Lactic Acid (Blood Gas) 4.52 *H 0.36-0.75 MMOL/L Blood Gas Temperature 37.0 35.5-37.0 CELSIUS Blood Gas Vent Mode CPAP PS 5 ROOM AIR FiO2 40.0 % Blood Gas CPAP 5 cm H2O Blood Gas Specimen Comment ISRAEL VARELA RN Current Medications Medications (Trade) Dose Ordered Sig/Martinez Route PRN Reason Start Time Stop Time Status Last Admin Dose Admin Acetaminophen (TYLenol 325MG TAB) 650 mg Q4H PRN PO TEMPERATURE GREATER THAN 101.5 10/31/24 15:00 11/30/24 14:59 11/08/24 01:13 650 MG Acetaminophen (TYLenol 650MG SUPPOSITORY) 650 mg Q6H PRN RC MILD PAIN (1-3) 10/31/24 21:00 11/30/24 20:59 10/31/24 19:42 650 MG Albuterol (DUOneb) 1 udvial [id number] IH 11/01/24 10:00 12/01/24 01:59 11/08/24 01:54 1 UDVIAL Albuterol (DUOneb) 1 udvial [id number] IH 11/01/24 02:00 11/01/24 09:42 DC 11/01/24 06:56 1 UDVIAL Artificial Tears (Artificial Tears) 1 DROP OR AD Q8H OU 11/02/24 06:30 11/06/24 12:33 DC 11/06/24 06:49 1 DROP Azithromycin 250 ml @ 250 mls/hr Q24H IVPB 10/31/24 16:00 10/31/24 23:39 DC 10/31/24 16:50 250 MLS/HR Budesonide (Pulmicort 0.5 Mg/2ml) 0.5 mg BIDRESP IH 11/01/24 18:00 12/01/24 17:59 11/07/24 18:31 0.5 MG Cefepime HCl (MAXipime 2 gm vial) 2 gm Q8H IVPB 11/02/24 10:30 11/07/24 23:37 DC 11/07/24 18:25 2 GM Ceftriaxone Sodium (ROCEphine 1G INJ) 1 gm Q24H IVPB 10/31/24 15:00 10/31/24 23:39 DC 10/31/24 16:16 1 GM Chlorhexidine Gluconate (Peridex) 15 ml TID MM 11/02/24 09:00 11/06/24 12:33 DC 11/06/24 08:18 15 ML Dexmedetomidine/ Sodium Chloride (PRECEdex 400MCG/ 100ML-NS) 400 mcg PROTOCOL IV 11/06/24 08:30 12/06/24 08:29 11/07/24 07:32 400 MCG Dextrose 1,000 ml @ 60 mls/hr [id number] IV 11/05/24 11:30 11/06/24 09:04 DC 11/05/24 11:21 60 MLS/HR Diazepam (VALium 5 mg TAB) 5 mg Q4H PRN PO ANXIETY 11/07/24 17:00 12/07/24 16:59 11/08/24 08:03 5 MG Diazepam (VALium 5 mg TAB) 10 mg Q6H NG 11/06/24 09:30 11/06/24 12:32 DC 11/06/24 09:17 10 MG Diazepam (VALium 5 mg TAB) 10 mg Q6H PRN NG ANXIETY/AGITATION 11/06/24 13:00 11/06/24 17:35 DC 11/06/24 14:17 10 MG Diazepam (VALium 5 mg TAB) 10 mg Q8H NG 11/03/24 12:00 11/06/24 09:07 DC 11/06/24 03:28 10 MG Dopamine HCl/ Dextrose 250 ml @ 0 mls/hr AD PRN IV TITRATE 11/05/24 21:00 12/05/24 20:59 11/05/24 21:11 0 MLS/HR Doxycycline Hyclate 250 ml @ 125 mls/hr Q12H IV 11/01/24 00:00 11/11/24 00:00 11/07/24 23:56 125 MLS/HR Enoxaparin Sodium (Lovenox) 40 mg DAILY SQ 11/01/24 09:00 12/01/24 08:59 11/08/24 08:00 40 MG Famotidine (Pepcid 20mg Vial) 20 mg BID IV 11/01/24 09:00 12/01/24 08:59 11/08/24 07:59 20 MG Famotidine (Pepcid 20mg Tab) 20 mg BID PO 10/31/24 21:00 11/01/24 01:45 DC Fentanyl Citrate 100 ml @ 2.5 mls/hr PROTOCOL IV 10/31/24 19:30 10/31/24 19:25 DC Fentanyl Citrate 2500 mcg/Sodium Chloride 250 ml @ 0 mls/hr AD PRN IV TITRATE 11/06/24 03:30 11/06/24 03:31 DC Fentanyl/Sodium Chloride 250 ml @ 0 mls/hr PROTOCOL IV 11/06/24 03:30 11/06/24 12:17 DC Fentanyl/Sodium Chloride 250 ml @ 0 mls/hr PROTOCOL IV 10/31/24 19:30 11/05/24 19:29 DC 11/05/24 19:11 10 MLS/HR Home Med (Home Medication) (Lamotrigine (Lamictal Xr) 300 MG) HS PO 11/06/24 21:00 11/06/24 17:25 DC Hydrocortisone Sodium Succinate (Solu-corTEF 100MG) 50 mg Q6H IVP 11/01/24 11:00 11/02/24 13:55 DC 11/02/24 11:15 50 MG Insulin Human Regular (humuLIN R 100 UNIT/ML 3ML) INSULIN SLIDING SCAL... Q6H6 SQ 11/02/24 00:00 12/02/24 00:00 Lactulose (Constulose 20gm/ 30ml Udcup) 20 gm BID PRN PO CONSTIPATION 10/31/24 15:00 11/30/24 14:59 11/06/24 08:18 20 GM Lamotrigine (LAMIctal 100 MG TABLET) 200 mg DAILY PO 11/07/24 11:30 12/07/24 11:29 11/08/24 07:59 200 MG Lorazepam (AtiVAN) 1 mg Q4H PRN IVP ANXIETY/AGITATION 11/06/24 17:30 11/07/24 16:46 DC 11/07/24 12:28 1 MG Magnesium Sulfate 50 ml @ 0 mls/hr PROTOCOL IV 10/31/24 13:00 10/31/24 14:54 DC 10/31/24 13:08 25 MLS/HR Magnesium Sulfate 50 ml @ 0 mls/hr PROTOCOL PRN IV low mag level 10/31/24 15:00 11/30/24 14:59 Melatonin (Melatonin) 10 mg HS PO 11/06/24 21:00 12/06/24 20:59 11/07/24 20:27 10 MG Methylprednisolone Sodium Succinate (Solu-medROL 40MG) 40 mg Q12H IVP 11/06/24 20:00 11/07/24 23:34 DC 11/07/24 20:26 40 MG Methylprednisolone Sodium Succinate (Solu-medROL 40MG) 60 mg Q6H IVP 11/02/24 14:00 11/03/24 15:10 DC 11/03/24 13:35 60 MG Methylprednisolone Sodium Succinate (Solu-medROL 40MG) 60 mg Q6H IVP 11/05/24 20:00 11/06/24 08:58 DC 11/06/24 08:19 60 MG Methylprednisolone Sodium Succinate (Solu-medROL 40MG) 60 mg Q8H IVP 10/31/24 15:00 11/01/24 09:46 DC 11/01/24 06:42 60 MG Methylprednisolone Sodium Succinate (Solu-medROL 40MG) 80 mg Q6H IVP 11/03/24 20:00 11/05/24 16:10 DC 11/05/24 13:12 80 MG Midazolam HCl 50 ml @ 0 mls/hr PROTOCOL IV 10/31/24 16:30 11/06/24 12:17 DC 11/05/24 22:14 10 MLS/HR Midazolam HCl 50 mg/Sodium Chloride 50 ml @ 0 mls/hr PROTOCOL IV 10/31/24 16:00 10/31/24 16:02 DC Montelukast Sodium (SinguLAIR) 10 mg HS PO 10/31/24 21:00 11/30/24 20:59 11/07/24 20:27 10 MG Norepinephrine 250 ml @ 27.225 mls/ hr PROTOCOL IV 10/31/24 20:30 11/02/24 10:27 DC 11/01/24 18:24 41.06 MLS/HR Norepinephrine 250 ml @ 0 mls/hr PROTOCOL IV 10/31/24 20:30 11/01/24 22:43 DC Norepinephrine Bitartrate 250 ml @ 0 mls/hr AD PRN IV TITRATE 11/01/24 23:00 12/01/24 22:59 11/03/24 22:51 6.48 MLS/HR Olanzapine (ZyPREXA 5 mg tab) 5 mg BID PO 11/06/24 17:30 12/06/24 17:29 11/08/24 07:59 5 MG Ondansetron HCl (zoFRAN 4MG INJ) 4 mg Q6H PRN IVP NAUSEA/VOMITING 10/31/24 15:00 11/30/24 14:59 11/08/24 00:54 4 MG Oseltamivir Phosphate (Tamiflu) 75 mg BID PO 11/01/24 09:00 11/06/24 08:59 DC 11/05/24 20:40 75 MG Pharmacy Profile Note (Pharmacy Communication) 1 each ONCE MISC 11/03/24 15:30 11/04/24 13:19 DC Piperacillin Sod/ Tazobactam Sod (Zosyn 3.375gm+NS 50ml) 3.375 gm Q8H IV 11/01/24 00:00 11/02/24 10:26 DC 11/02/24 08:49 3.375 GM Polyethylene Glycol (MIRalax 3350 17 GM POWD.PACK) 17 gm DAILY PO 11/02/24 09:00 12/02/24 08:59 11/06/24 08:18 17 GM Polyethylene Glycol (MIRalax 3350 17 GM POWD.PACK) 17 gm ONCE PO 11/01/24 15:30 11/01/24 21:30 DC 11/01/24 16:05 17 GM Potassium Chloride 100 ml @ 100 mls/hr AD PRN IV POTASSIUM PROTOCOL 10/31/24 15:00 11/30/24 14:59 Potassium Chloride (K-Dur/Klor-Con 20meq) 20 meq AD PRN PO POTASSIUM PROTOCOL 10/31/24 15:00 11/30/24 14:59 Potassium Chloride (KCl 10% Elixir 20meq/15ml) 20 meq AD PRN PO POTASSIUM PROTOCOL 10/31/24 15:00 11/30/24 14:59 11/08/24 06:47 20 MEQ Prednisone (deltaSONE/ oraSONE 20MG TAB) 10 mg BID PO 11/08/24 09:00 11/13/24 08:59 11/08/24 07:59 10 MG Propofol 100 ml @ 0 mls/hr AD PRN IV TITRATE 11/05/24 21:00 11/06/24 13:44 DC Propofol (DIPRivan 1000MG/ 100ML) 1,000 mg PROTOCOL PRN IV SEDATION 10/31/24 16:00 11/06/24 12:17 DC 11/05/24 21:59 1,000 MG Risperidone (RisperDAL) 3 mg HS PO 11/06/24 21:00 11/06/24 17:25 DC Rocuronium Prescott 100 mg/ Sodium Chloride 100 ml @ 0 mls/hr PROTOCOL IV 10/31/24 16:00 10/31/24 16:44 DC Rocuronium [place]cott (ZemuRON) 50 mg ONCE IV 11/03/24 15:25 11/03/24 16:25 DC 11/03/24 15:27 50 MG Vancomycin HCl 250 ml @ 125 mls/hr Q8H IV 11/02/24 20:30 11/04/24 12:45 DC 11/04/24 03:46 125 MLS/HR Vancomycin HCl 250 ml @ 125 mls/hr Q8H IV 11/04/24 13:00 11/06/24 06:04 DC 11/05/24 21:02 125 MLS/HR Vancomycin HCl (Vancomycin Protocol) 1 each AD IV 11/02/24 10:30 11/06/24 06:04 DC DIAGNOSTICS / RADIOLOGY: [ ] EXAM: Two-dimensional and M-mode echocardiogram with Doppler and color Doppler. INDICATION ICD: Assess for heart failure 2D Dimensions RVDd 3.8 cm LVEF(%) 76.1 (>50%) LVED Vol(simp.) 119.0 mL IVSd 0.5 (0.7-1.1cm) FS(%) 45 % LVES Vol(simp.) 51.1 mL LVDd 5.1 (3.8-5.6cm) LA (2D) 4.0 (1.6-4.0cm) LVEF(%, simp.) 57 % PWd 0.8 (0.7-1.1cm) Ao Root(2D) 3.4 (2.0-3.7cm) LA ESV INDEX (4CH) 26.90 mL/m2 IVSs 1.4 cm LVOT diam 2.4 (1.8-2.4cm) LA ESV INDEX (2CH) 35.50 mL/m2 LVDs 2.8 (2.5-4.0cm) LA ESV INDEX (BP) 30.60 mL/m2 PWs 1.7 cm M-Mode Dimensions EPSS 0.8 cm LA (MM) 3.9 (1.6-4.0cm) Ao Root(MM) 3.8 (2.0-3.7cm) Aortic Valve AoV VTI 0.3 m Ao Mean GR 3.0 mmHg LVOT VTI 0.27 m DIPAK (VMAX) 3.9 cm2 DIPAK (VTI) 3.9 cm2 Mitral Valve MV E Vmax 90.5 cm/s DECEL Time 206 ms MV A Vmax 65.8 cm/s P 1/2 T 117 ms E/A ratio 1.4 MVA (PHT) 1.9 cm2 TDI E/E' Medial 12.9 E/E' Lateral 7.6 Medial E' Peak V 7.00 cm/s Lateral E' Peak V 11.90 cm/s Pulmonary Valve PV Vmax 1.1 m/s PI End Arabella. Rod 77.4 cm/s PV Peak GR 4.8 mmHg Tricuspid Valve RAP (EST) 8 mmHg RVSP 8.0 mmHg Left Ventricle Left ventricular cavity size is normal. There is left ventricular wall thinning. LVEF is 60-65%. The LV diastolic function was unable to be assessed. Right Ventricle The right ventricle is normal size. The right ventricular systolic function is normal. Atria The left atrium size is normal. The right atrium is mildly dilated. Aortic Valve The aortic valve is normal in structure and function. No aortic regurgitation is present. There is no aortic valvular stenosis. Mitral Valve Mitral valve leaflets open well. There is no mitral valve regurgitation noted. There is no mitral valve stenosis. Tricuspid Valve The tricuspid valve is normal in structure and function. There is no tricuspid valve regurgitation noted. Pulmonic Valve The pulmonary valve is normal in structure and function. There is trace of pulmonic valvular regurgitation. Great Vessels The aortic root is normal in size. IVC is normal in size and collapses >50% with inspiration. Pericardium No pericardial effusion. Other Information Quality : Technically difficult study due to body habitus Conclusion Left ventricular cavity size is normal. LVEF is 60-65%. The LV diastolic function was unable to be assessed. The right ventricle is normal size. The right ventricular systolic function is normal. The left atrium size is normal. The right atrium is mildly dilated. No valvular pathology. No pericardial effusion. DICTATED BY: JACK GONZALEZ MD DATE: 11/07/24 0629 ELECTRONICALLY SIGNED BY: JACK GONZALEZ MD DATE: 11/07/24 1714 ASSESSMENT: Sepsis, ruled out Acute asthma exacerbation POA Acute hypoxic respiratory failure with hypoxia requiring BiPAP support on arrival POA 10 L trials unsuccessful requiring intubation 10/31/2024 at 15:42 p.m. viral syndrome POA Positive influenza A POA Active smoker smokes cigars 3-4 POA Polysubstance abuse disorder Chronic problems asthma, bipolar disorder. PLAN: Patient remains admitted to the ICU Continue supplemental oxygen via nasal cannula at 2 L to keep O2 sat greater than 92% Continue Precedex, wean as tolerated Continue to follow critical care input and recommendation Continue the patient on broad-spectrum IV antibiotics Continue bronchodilators Continue the patient on IV steroids Follow a.m. labs. Continue to replace electrolytes IV per protocol GI and DVT prophylaxis Disposition: Pending improvement in respiratory status, ultrasound abdomen pending, speech therapy to evaluate the patient today, physical therapist to evaluate the patient today, psychiatric consultation requested, we will follow input and recommendations. Possible downgraded to PCU today. Continue to follow critical care input and recommendation. Mother at bedside, updated, all questions answered. Greater than 35 minutes ICU time spent in care of this patient ZACKERY MORALES MD Nov 08, 2024 08:58
--- NOTE | 2024-11-08 10:07 | HMCIMG ---
US ABDOMINAL COMPLETE REASON: transaminitis COMPARISON: 08/09/2022 FINDINGS: There is normal sonographic appearance of the liver. There are no focal mass lesions. The liver is mildly enlarged at 16 cm.There is a normal-appearing gallbladder. Common duct appears normal at 3 mm. Kidneys appear normal in size and appearance. There is no evidence of mass, stone or hydronephrosis. Spleen is normal at 2 x 3 x 10 cm. Aorta was not well visualized, the inferior vena cava appears unremarkable. The pancreas is obscured by overlying bowel gas. IMPRESSION: 1. Mild hepatomegaly, no focal liver lesions identified, spleen size is normal. 2. Otherwise unremarkable exam although the aorta and pancreas were not well seen.
--- NOTE | 2024-11-08 12:53 | PN ---
[facility] PROGRESS NOTE Date Patient Seen: Nov 08, 2024 Time of Visit: 12:53 Supervising Physician: Rhiannon No MD Primary Care Physician: [Jose Narvaez Dr. and Dr. Bautista Outpatient Specialists: [ ] Inpatient Consults: [BIS team-p[facility]mo ] PROBLEM LIST: Insomnia with agitation Acute hypoxemic respiratory failure requiring intubation-POA extubated 11/06/24, resolving asymptomatic Sinus Bradycardia Status asthmaticus-POA, resolved Respiratory acidosis-POA (+) Flu A -POA, completed tamiflu Tx Bilateral community-acquired pneumonia-POA Septic shock requiring pressor support-POA Drug abuse (+) cocaine and cannabis screen- POA Chronic asthma Bipolar disorder Chronic nicotine disorder - uses 4 cigars daily Anxiety disorder INTERVAL HISTORY: 10/31/2024: HPI: [Patient is unable to participate on the HPI due to being intubated and sedated. Per hospitalist's HPI. "This is a 44-year-old male was brought in by EMS with chief complaints of Shortness of breath. Apparently the patient called 911 given to having a asthma attack in on arrival patient was found with oxygen saturation of on room air of 54%. Patient has a significant underlying history of asthma he took albuterol inhaler at home he reports he has been using it as per ER note. Unable to obtain history data due to dyspneic we will obtain history from ER notes and from ER physician. On arrival to ED patient was dyspneic per ER physican was hardly moving air throughout all lung Corey and immediately was placed on BiPAP support and was given IV steroids and DuoNeb. ER workup positive for influenza A Patient was seen in ED the patient appears acutely ill. ER physician removed BiPAP to see how patient we will do on 10 L so far oxygenation level at 95%. However he continues to use accessory muscles to breathe he will be transition to ICU: high risk for decompensated airway. Patient was unable to tolerate 10 L became dyspneic and anxious therefore ER physician intubated patient mode PRVC rate 20 tidal volume 480 Peep: 5 FI O2 60% on sedation patient will transitioned to ICU once bed is available. Spoke to family at bedside all questions answered." BIS team was consulted for critical care management in the setting of septic shock and intubation 2/2 acute hypoxic respiratory failure. According to the patient's mother, patient was doing well this morning and he even drove him yesterday to the clinic where she herself was diagnosed of flu. This afternoon, everything changed and happened so rapidly with complaint of sudden asthma attack and respiratory distress. Patient is now receiving 3 sedatives namely Propofol, Fentanyl and Versed which according to the bedside RN took awhile to optimize as the patient continues to fight it and tends to override the vent.He is currently on Levophed for pressor support. He appears to continue using his accessory mnuscles despite being on ventilator. Lung sounds have positive wheezing across lung corey. We will continue to follow along patient's response to treatment as enumerated above. Goals of care were discussed with the mother verbalizing understanding and agreement. On behalf of BIS team, thank you for the opportunity to participate on Mr. Lloyd's case. 11/01/2024: At the time of my evaluation, the patient was lying in bed. He remains intubated and family members present at the bedside. Vital signs today remains generally stable. Laboratory data showed a increase of WBCs to 14.5 which may be reactive to steroids, though neutrophil predominance. Chemistry panel showing elevated potassium to 5.4, we will repeat potassium level later today. Also, renal parameters increase the BUN 27 creatinine 1.6 we will monitor the trend. The patient remains with Tamiflu and empiric antibiotic therapy with Zosyn/doxy combination. The remains on steroid therapy as ordered. The patient remains on sedation with propofol and fentanyl drip. Also on pressor therapy with Levophed. No other complaint. 11/02/2024: At the time of my evaluation, the patient is lying in bed. He remains intubated. Most recent ABG showed a pH of 7.2, pCO2 54 and PO2 of 142.3. He continues on PRVC mode, rate of 26, FiO2 40%, tidal volume of 420 and a PEEP of 5. He is also hydrocortisone and receiving empiric antibiotic therapy with cefepime, doxy and Tamiflu. For sedation, the patient continues on propofol, Versed and fentanyl. Patient's mother was present at the bedside. No new complaint. 11/03/2024: At the time of my evaluation, the patient was lying in bed, sedated and remains intubated on assist control mode. Vital signs remain generally stable except for bradycardia in the 40s. Laboratory data today showed increased WBC to 14.2 though improved from yesterday. Chemistry panel showed no changes of concern. No overnight acute event. 11/04/2024. At the time of my evaluation, the patient is lying in bed. He remains vented and sedated. Currently off pressor therapy. Family members are present at the bedside. Staff nurse reports no acute events overnight. No other complaint. 11/05/2024: At the time of my evaluation, the patient was lying in bed. He remains intubated and is sedated. The patient continues on pressure support 40% FiO2. Family members present at the bedside. The staff nurse reports no acute events overnight. 11/06/24- patient has been afebrile, sinus Rui heart rate in the 40s but hemodynamically stable with good blood pressure 122/76 on the monitor for, respiratory rate of 18 saturating 96% with a FiO2 of 40% on assist control volume control. This morning we will start sedation vacation and spontaneous breathing trials and likely extubate by noon if patient tolerates well and ABG per minutes. Urine output 1.9 L in the last 24 hours with a balance of +3.1 L. patient continues with elevated white count at 11.7 similar to yesterday H&H is 12.7/39.4. Chemistry kidneys are doing well creatinine 0.6 GFR of 123 carbon dioxide of 37 sodium 140 glucose 151 mg/dL total calcium of 8.0 total protein 5.1 albumin 2.2 liver enzymes slightly elevated. Mother and father at bedside explained to them the plan of care and current findings. Both in agreement answered all their questions. 11/07/24- Day 1 post extubation he is awake alert and follows commands but easily agitated and continuously calling out for small and occasionally attempting to pull out lines. Today we will discontinue Peoples catheter, central line and wean off oxygen as tolerated. We will attempt to wean completely off Precedex and use p.r.n. anxiety medication, as per RN patient becomes slightly more agitated after Ativan is given therefore we will change to Valium 5 mg per NG tube p.r.n. q.4 hours for agitation. Patient persistently in sinus bradycardia, 2D echo shows LVEF is 60-65% no valvular pathology no pericardial effusion of the diastolic function unable to be assess. We will consult Cardiology and appreciate recommendations. Otherwise CBC similar to yesterday, chemistry potassium slightly low today 3.1 covered per protocol kidneys are doing well liver enzymes slightly elevated but trending down albumin 2.6. Chest x-ray stable. Pending abdominal ultrasound for elevated liver enzymes. 11/08/24-per RN patient has been trouble sleeping at night and has not left well in the last three days. Patient constantly yelling off face mom, crying, attempting to pull tubes out. We will add trazodone 50 mg b.i.d. one time dose of Benadryl 50 mg IV push. Hemodynamically stable and afebrile heart rate in the 70s respiratory rate of 16 saturating 95% on room air. Good urine output of 2.5 L in the last 24 hours with a balance of-2.2 L. WBCs have normalized 10.8 today H&H of 13/38.2 with a platelet count that is 225k. Chemistry unremarkable liver enzymes trending down. PT is with nebulizer treatments p.r.n.. Steroids have been weaned to prednisone 10 mg p.o. b.i.d.. Abdomen ultrasound shows mild hepatomegaly, no focal liver lesions identified spleen size is normal. Otherwise unremarkable exam although the aorta and pancreas were not well seen. Per speech pending MBSS, patient currently agitated and with generalized weakness unable to safely perform the MBSS, we will re-evaluate tomorrow. Mother was at bedside at the time of my visit explained today's findings and plan of care both patient and mother in agreement. REVIEW OF SYSTEMS: Unable to perform 12 point ROS due to being intubated and sedated. PHYSICAL EXAM: GENERAL: Awake alert and oriented to, confused and agitated. HEENT: EOMI, Sclera non icteric, moist mucosa NG tube NECK: Supple, no JVD, trachea midline LUNGS: Clear lung sounds. No wheeze, rhonchi or rales HEART: Regular rate and rhythm. Normal S1 and S2, without murmurs ABD: Abdomen soft, nontender. Bowel sounds present EXT: No clubbing cyanosis or edema : Peoples in situ NEURO: Moving all extremities no focal weakness. GCS of 14. Vital Signs (last 8hr) Date Time Temp Pulse Resp B/P (MAP) Pulse Ox O2 Delivery O2 Flow Rate FiO2 11/08/24 10:00 87 20 121/71 94 Room Air 11/08/24 09:16 65 13 N/Cannula Low lpm 11/08/24 09:00 87 17 109/75 95 Room Air 11/08/24 08:00 96 Room Air* 0 11/08/24 08:00 98.2 66 15 119/90 94 Room Air 11/08/24 07:00 75 19 125/71 95 Room Air LABS: Hematology Labs: Test 11/08/24 03:47 Range/Units White Blood Count 10.8 4.8-10.8 K/uL Red Blood Count 4.38 L 4.50-6.20 MIL/uL Hemoglobin 13.0 L 14.0-18.0 g/dL Hematocrit 38.2 L 42-54 % Mean Corpuscular Volume 87.2 79-99 fL Mean Corpuscular Hemoglobin 29.7 27.0-33.0 pg Mean Corpuscular Hemoglobin Concent 34.0 32.0-36.0 g/dL Red Cell Distribution Width 12.2 11.0-15.5 % Platelet Count 225 130-400 K/uL Mean Platelet Volume 10.7 H 7.5-10.5 fL Immature Granulocyte % (Auto) 1.1 H 0-1 % Neutrophils (%) (Auto) 71.1 40.0-77.0 % Lymphocytes (%) (Auto) 22.0 21.0-51.0 % Monocytes (%) (Auto) 5.7 3.0-13.0 % Eosinophils (%) (Auto) 0.0 0.0-8.0 % Basophils (%) (Auto) 0.1 0.0-5.0 % Neutrophils # (Auto) 7.7 1.8-7.7 K/uL Lymphocytes # (Auto) 2.4 1.0-4.8 K/uL Monocytes # (Auto) 0.6 0.1-1.0 K/uL Eosinophils # (Auto) 0.00 0.00-0.70 K/uL Basophils # (Auto) 0.01 0.00-0.20 K/uL Absolute Immature Granulocyte (auto 0.12 0-1 K/uL Nucleated Red Blood Cells 0.0 0.0-0.19 % Chemistry Labs: Test 11/08/24 12:45 11/08/24 03:47 Range/Units Whole Blood Glucose 132 H 70-110 MG/DL Sodium Level 141 136-145 mmol/L Potassium Level 3.6 3.5-5.1 mmol/L Chloride Level 103 101-111 mmol/L Carbon Dioxide Level 32 21-32 mmol/L Blood Urea Nitrogen 16 7-18 mg/dL Creatinine 0.7 0.5-1.3 mg/dL Glomerular Filtration Rate Calc 117 >90 mL/min Random Glucose 126 H 70-105 mg/dL Total Calcium 8.7 8.5-10.1 mg/dL Magnesium Level 2.00 1.80-2.40 mg/dL Total Bilirubin 0.6 # 0.2-1.0 mg/dL Aspartate Amino Transf (AST/SGOT) 68 H 10-37 U/L Alanine Aminotransferase (ALT/SGPT) 331 H 12-78 U/L Alkaline Phosphatase 93 50-136 U/L Ammonia < 10 L 11-32 umol/L Total Protein 5.9 L 6.0-8.3 g/dL Albumin 2.7 L 3.5-5.0 g/dL DIAGNOSTICS / RADIOLOGY RESULTS: [ ] IMAGING REPORT Signed PATIENT: SWATHI GAMING MR#: [id number] : 1980 SEX: M AGE: 44 LOCATION: [facility] ORDER 34 STATUS: ADM IN REPORT#: [id number] SERVICE 31 REASON: assess for heart failure ORDERING PHYSICIAN: JERILYN DIMAS PROCEDURE: ECHO CMP - ECHO 2-D COMPLETE APPROVED REPORT EXAM: Two-dimensional and M-mode echocardiogram with Doppler and color Doppler. INDICATION ICD: Assess for heart failure 2D Dimensions RVDd 3.8 cm LVEF(%) 76.1 (>50%) LVED Vol(simp.) 119.0 mL IVSd 0.5 (0.7-1.1cm) FS(%) 45 % LVES Vol(simp.) 51.1 mL LVDd 5.1 (3.8-5.6cm) LA (2D) 4.0 (1.6-4.0cm) LVEF(%, simp.) 57 % PWd 0.8 (0.7-1.1cm) Ao Root(2D) 3.4 (2.0-3.7cm) LA ESV INDEX (4CH) 26.90 mL/m2 IVSs 1.4 cm LVOT diam 2.4 (1.8-2.4cm) LA ESV INDEX (2CH) 35.50 mL/m2 LVDs 2.8 (2.5-4.0cm) LA ESV INDEX (BP) 30.60 mL/m2 PWs 1.7 cm M-Mode Dimensions EPSS 0.8 cm LA (MM) 3.9 (1.6-4.0cm) Ao Root(MM) 3.8 (2.0-3.7cm) Aortic Valve AoV VTI 0.3 m Ao Mean GR 3.0 mmHg LVOT VTI 0.27 m DIPAK (VMAX) 3.9 cm2 DIPAK (VTI) 3.9 cm2 Mitral Valve MV E Vmax 90.5 cm/s DECEL Time 206 ms MV A Vmax 65.8 cm/s P 1/2 T 117 ms E/A ratio 1.4 MVA (PHT) 1.9 cm2 TDI E/E' Medial 12.9 E/E' Lateral 7.6 Medial E' Peak V 7.00 cm/s Lateral E' Peak V 11.90 cm/s Pulmonary Valve PV Vmax 1.1 m/s PI End Arabella. Rod 77.4 cm/s PV Peak GR 4.8 mmHg Tricuspid Valve RAP (EST) 8 mmHg RVSP 8.0 mmHg Left Ventricle Left ventricular cavity size is normal. There is left ventricular wall thinning. LVEF is 60-65%. The LV diastolic function was unable to be assessed. Right Ventricle The right ventricle is normal size. The right ventricular systolic function is normal. Atria The left atrium size is normal. The right atrium is mildly dilated. Aortic Valve The aortic valve is normal in structure and function. No aortic regurgitation is present. There is no aortic valvular stenosis. Mitral Valve Mitral valve leaflets open well. There is no mitral valve regurgitation noted. There is no mitral valve stenosis. Tricuspid Valve The tricuspid valve is normal in structure and function. There is no tricuspid valve regurgitation noted. Pulmonic Valve The pulmonary valve is normal in structure and function. There is trace of pulmonic valvular regurgitation. Great Vessels The aortic root is normal in size. IVC is normal in size and collapses >50% with inspiration. Pericardium No pericardial effusion. Other Information Quality : Technically difficult study due to body habitus Conclusion Left ventricular cavity size is normal. LVEF is 60-65%. The LV diastolic function was unable to be assessed. The right ventricle is normal size. The right ventricular systolic function is normal. The left atrium size is normal. The right atrium is mildly dilated. No valvular pathology. No pericardial effusion. DICTATED BY: JACK GONZALEZ MD DATE: 11/07/24 0629 ELECTRONICALLY SIGNED BY: JACK GONZALEZ MD DATE: 11/07/24 1714 Signed PATIENT: SWATHI GAMING MR#: [id number] : 1980 SEX: M AGE: 44 LOCATION: [facility] ORDER 1148 STATUS: ADM IN REPORT#: [id number] SERVICE 0500 REASON: transaminitis ORDERING PHYSICIAN: JERILYN DIMAS PROCEDURE: ABDOMEN - US ABDOMINAL COMPLETE US ABDOMINAL COMPLETE REASON: transaminitis COMPARISON: 08/09/2022 FINDINGS: There is normal sonographic appearance of the liver. There are no focal mass lesions. The liver is mildly enlarged at 16 cm.There is a normal-appearing gallbladder. Common duct appears normal at 3 mm. Kidneys appear normal in size and appearance. There is no evidence of mass, stone or hydronephrosis. Spleen is normal at 2 x 3 x 10 cm. Aorta was not well visualized, the inferior vena cava appears unremarkable. The pancreas is obscured by overlying bowel gas. IMPRESSION: 1. Mild hepatomegaly, no focal liver lesions identified, spleen size is normal. 2. Otherwise unremarkable exam although the aorta and pancreas were not well seen. DICTATED BY: DYLAN ALVAREZ MD DATE: 11/08/24 1002 ELECTRONICALLY SIGNED BY: DYLAN ALVAREZ MD DATE: 11/08/24 1007 PLAN Wean steroidsto prednisone 10 mg po bid DC cefepime DC cvc, fc, and wean off o2 as tolerated. Valium 5 mg p.o (ng Tube). q.4 hours p.r.n. agitation. 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 Ammonia levels in the morning Hold home medication Risperdal and add trazodone 50 mg p.o. b.i.d. Adjust Lamictal to home dose which is 3 mg q.h.s.. NEURO: Minimize central acting medications as possible. Fall Precautions. Well lighted room through the day and minimize interruptions through the night to prevent acute delirium. PULMONARY: Supplemental 02 as needed Titrate Fio2 to keep Spo2 > or = 90% DuoNebs and CPT as needed once patient is off vent IS hourly while awake for pulmonary hygiene once patient is off vent Out of bed to chair as tolerated when patient is off vent CARDIOVASCULAR: Follow hemodynamics. Titrate vasopressor to keep MAP >65 or systolic blood pressure >95mmHg DIPS: Precedex wean as tolerated LINES: piv GI & NUTRITION: Continue nutritional support Aspirations precautions Prokinetic agents and laxatives as needed KIDNEYS & ELECTROLYTES: Strict monitoring of intake and output Daily weights Avoid nephrotoxic agents Monitor electrolytes and replace as needed Goal urine output of 30mL/hr or 0.5mL/kg/hr ENDOCRINE: Maintain blood glucose between 100-180 at all times. Insulin sliding scale for blood glucose management INFECTIOUS DISEASE: Trend temperature. No recent febrile events. Shaw-culture if febrile. Micro: Respiratory and blood cultures showing no growth Antibiotics: Doxycycline HEMATOLOGY & COAGULATION: Monitor H&H. Keep Hgb > 7 Transfuse 1 unit of PRBC for Hgb < 7 Transfuse 1 pack of platelets of platelets < 20, 000 Watch for any signs and symptoms of bleeding SKIN: Pressure ulcer prevention per facility protocol Rehab: PT/OT once patient is off vent and condition has stabilized. Prophylaxis: GI: Famotidine DVT: Lovenox Code Status: Full Resuscitation Disposition: ICU Other: Total patient care time exceeds 35 minutes excluding all procedures. Case was discussed and seen with my supervising physician. The above plan was formulated and agreed upon. JERILYN DIMAS Nov 08, 2024 12:53
[2024-11-08] MEDS: DiphenhydrAMINE HCL 50 MG/ML VIAL IV PRN (13:47)
[2024-11-08] MEDS: NICOTINE 14 MG/ 24 HR PATCH TD ONE (13:47)
--- NOTE | 2024-11-08 14:12 | NUR ---
CM NOTE/PSYCH CONSULT CANCELLED CM spoke to [facility] with medical staff services. Confirmed that Dr. Charlton will not be available for hospital consults until 11/14/24. CM updated Dr. Archibald with above. Received orders to cancel consult.
[2024-11-08] MEDS: IpraTROPium/alBUTERol SULFATE 3 ML SOLUTION IH SCH (14:30)
[2024-11-08] MEDS: laMOTRigine 100 MG TABLET PO SCH (20:29)
[2024-11-08] MEDS: trAZOdone HCL 50 MG TAB PO SCH (20:31)
[2024-11-08] MEDS: predniSONE 10 MG TABLET PO SCH (20:31)
[2024-11-09] VITALS (16 sets, daily range): BP systolic 103–161; BP diastolic 66–110; PULSE 59–112; RESP 13–34; TEMP 98.1–99.4; O2SAT 94–95
[2024-11-09 04:20] LABS: BASOPHILS # (AUTO) 0.02 K/uL (0.00-0.20); BASOPHILS % (AUTO) 0.2 % (0.0-5.0); EOSINOPHILS # (AUTO) 0.04 K/uL (0.00-0.70); EOSINOPHILS % (AUTO) 0.3 % (0.0-8.0); HEMATOCRIT 41.3 % (42-54); IMMATURE GRANULOCYTE ABSOLUTE 0.16 K/uL (0-1); LYMPHOCYTES # (AUTO) 3.1 K/uL (1.0-4.8); LYMPHOCYTES % (AUTO) 25.7 % (21.0-51.0); MEAN CORPUSCULAR HGB CONC 34.4 g/dL (32.0-36.0); MEAN CORPUSCULAR VOLUME 87.3 fL (79-99); MONOCYTES % (AUTO) 8.1 % (3.0-13.0); NEUTROPHILS # (AUTO) 7.7 K/uL (1.8-7.7); NEUTROPHILS % (AUTO) 64.4 % (40.0-77.0); PLATELET COUNT (AUTO) 238 K/uL (130-400); RED BLOOD CELL COUNT(AUTO) 4.73 MIL/uL (4.50-6.20); RED CELL DISTRIBUTION WIDTH 12.7 % (11.0-15.5)
--- NOTE | 2024-11-09 04:23 | NUR ---
1999 PATIENT TOSSING IN BED ATTEMPTING TO PULL AT NG TUBE, PIV AND SURROUNDING EQUIPMENT, PATIENT MOTHER AND SITTER IN ROOM WITH NURSE TO REDIRECT PATIENT. 2139 PATIENT ATTEMPTED TO PULL NG TUBE OUT AND SITTER AND NURSE REDIRECTED ACTIONS AND BEHAVIOR. 299 PATIENT NOTED SHOUTING THROUGH THE NIGHT. TUGGING AND PULLING AT NG TUBE, PIV AND SURROUNDING EQUIPMENT. 414 PATIENT'S MOTHER REPORTED TO NURSE THAT PATIENT IS HALLUCINATING BECAUSE HE SEES A CAT, SHE STATED THAT PATIENT HAS BEEN ON LAMICTAL AND RISPERIDONE FOR MORE THAN 10 YEARS AND THOSE MEDICATIONS HAVE WORKED VERSUS EVERYTHING HE IS RECEIVING NOW. EXPLAINED AND EDUCATED PATIENT MOTHER REGARDING MEDICATION REGIMEN, REASON FOR MEDICATIONS AND CONTRAINDICATIONS GIVEN THE PATIENT'S RECREATIONAL, POLYSUBSTANCE USE AND THE LACK OF SLEEP OF THE PATIENT OVER THE LAST THREE DAYS. PATIENT MOTHER STATED SHE IS KNOWLEDGEABLE AND AWARE. 419 PAGED AND SPOKE TO Edelmira SERVIN NP REGARDING PATIENT'S MOTHER INFORMATION. BUILDING SUPERVISOR AWARE, NO ORDERS PROVIDED AT THIS TIME.
[2024-11-09 04:25] LABS: ALBUMIN 2.8 g/dL (3.5-5.0); BILIRUBIN,TOTAL 0.8 mg/dL (0.2-1.0); CREATININE 0.7 mg/dL (0.5-1.3); POTASSIUM 3.8 mmol/L (3.5-5.1); TOTAL PROTEIN, SERUM 6.1 g/dL (6.0-8.3)
--- NOTE | 2024-11-09 06:45 | PN ---
CONSULT NOTE: CARDIOLOGY Reason for consult: HPI/story at presentation: This is a pleasant 44 male with past medical history as per present with shortness of breath and respiratory failure, hypoxia, was intubated and managed for influenza and pneumonia subsequently, extubated. Was on Precedex because of mental status changes in the setting of febrile substance use/mental health issues and subsequently, was on Precedex. Was having issues with bradycardia and therefore, cardiology was consulted for evaluation management. Subjective: 11/07/2024 no active cardiac complaint 11/08/24 no active cardiac complaints Past medical history: See below Allergies, Meds See chart Review of systems Review of Systems Constitutional: Negative for chills and fever. HENT: Negative for ear discharge and ear pain. Eyes: Negative for photophobia and discharge. Respiratory: Negative for cough, sputum production and stridor. Cardiovascular: Negative for chest pain and palpitations. Gastrointestinal: Negative for diarrhea and vomiting. Genitourinary: Negative for frequency. Musculoskeletal: Negative for myalgias. Skin: Negative for rash. Neurological: Negative for focal weakness and seizures. Endo/Heme/Allergies: Negative for polydipsia. Psychiatric/Behavioral: Negative for hallucinations. Vitals see chart PHYSICAL EXAMINATION GENERAL: The patient is alert and oriented*3 HEENT: Nonicteric sclerae, non traumatic HEART: Regular rate and rhythm with no murmurs LUNGS: Clear to auscultation bilaterally ABDOMEN: No acute issues, non tender GENITAL, RECTAL: deferred SKIN: No rash NEUROLOGIC: NFND EXTREMITIES: No edema ASSESSMENT BRADYCARDIA Resolved, heart rates in the 70s, 11/07/2024 While on Precedex, when sleeping, Conservative management, 11/07/2024 Normal EF echocardiogram, 10/2024 SEPSIS At presentation RESPIRATORY FAILURE Status post recent extubation G-tube in situ Possible influenza A, On steroids 10/2024 TOBACCO USE, POLYSUBSTANCE ABUSE CORE MEASURES Pending OTHER MEDICAL PROBLEMS Reviewed PLAN 11/07/2024 no active cardiac complaints at this time, mildly restless, NG tube in situ. No further issues with bradycardia, current heart rates in the 70s. For now, will manage conservatively. No plans for dopamine or dobutamine as pacemaker at this time. No further issues with bradycardia, current heart rates are in the 70s and 80s. NO active cardiac complaints, dysphagia is being addressed, continue conservative measures from a cardiac standpoint. This is a delayed note. Seen and examined 11/08/24 at around 1800 ATTESTATION I was involved substantially in the care of this patient Number and complexity of problems addressed: 1 acute illness with systemic features Amount and or complexity of data Review of prior external note(s) from each unique source: 2+ Ordering of each unique test : 0 Review of the result(s) of each unique test: 2+ Assessment requiring an independent historian(s): No Independent interpretation of test performed by another MD/QHCP/appropriate source (not separately reported) : No Discussion of management or test interpretation with external MD/QHCP/appropriate source (not separately reported) : No Risk status (cardiac, billing related): Moderate Vitals/Labs Vital Signs Date Time Temp Pulse Resp B/P (MAP) Pulse Ox O2 Delivery O2 Flow Rate FiO2 11/09/24 03:47 98.6 84 13 127/73 96 Room Air 11/08/24 20:00 0 21 Laboratory Tests 11/09/24 03:51 Medications Current Medications Methylprednisolone Sodium Succinate 125 mg ONCE ONCE IVP Last administered on 10/31/24at 13:08; Start 10/31/24 at 13:00; Stop 10/31/24 at 13:01; Status DC Magnesium Sulfate 50 ml @ 0 mls/hr PROTOCOL IV Last administered on 10/31/24at 13:08; Start 10/31/24 at 13:00; Stop 10/31/24 at 14:54; Status DC Sodium Chloride 1,000 ml @ 0 mls/hr ONCE ONCE IV Last administered on 10/31/24at 13:08; Start 10/31/24 at 13:00; Stop 10/31/24 at 13:01; Status DC Lorazepam 1 mg ONCE ONCE IVP Last administered on 10/31/24at 13:43; Start 10/31/24 at 14:00; Stop 10/31/24 at 14:01; Status DC Oseltamivir Phosphate 75 mg ONCE ONCE PO Last administered on 10/31/24at 14:34; Start 10/31/24 at 14:30; Stop 10/31/24 at 14:31; Status DC Acetaminophen 650 mg Q4H PRN PO Last administered on 11/08/24at 01:13; Start 10/31/24 at 15:00; Stop 11/30/24 at 14:59 Methylprednisolone Sodium Succinate 60 mg Q8H IVP Last administered on 11/01/24at 06:42; Start 10/31/24 at 15:00; Stop 11/01/24 at 09:46; Status DC Famotidine 20 mg BID PO; Start 10/31/24 at 21:00; Stop 11/01/24 at 01:45; Status DC Lactulose 20 gm BID PRN PO Last administered on 11/06/24at 08:18; Start 10/31/24 at 15:00; Stop 11/30/24 at 14:59 Ondansetron HCl 4 mg Q6H PRN IVP Last administered on 11/08/24at 00:54; Start 10/31/24 at 15:00; Stop 11/30/24 at 14:59 Ceftriaxone Sodium 1 gm Q24H IVPB Last administered on 10/31/24at 16:16; Start 10/31/24 at 15:00; Stop 10/31/24 at 23:39; Status DC Azithromycin 250 ml @ 250 mls/hr Q24H IVPB Last administered on 10/31/24at 16:50; Start 10/31/24 at 16:00; Stop 10/31/24 at 23:39; Status DC Oseltamivir Phosphate 75 mg BID PO Last administered on 11/05/24at 20:40; Start 11/01/24 at 09:00; Stop 11/06/24 at 08:59; Status DC Magnesium Sulfate 50 ml @ 0 mls/hr PROTOCOL PRN IV; Start 10/31/24 at 15:00; Stop 11/30/24 at 14:59 Potassium Chloride 100 ml @ 100 mls/hr AD PRN IV; Start 10/31/24 at 15:00; Stop 11/30/24 at 14:59 Potassium Chloride 20 meq AD PRN PO Last administered on 11/09/24at 06:21; Start 10/31/24 at 15:00; Stop 11/30/24 at 14:59 Potassium Chloride 20 meq AD PRN PO; Start 10/31/24 at 15:00; Stop 11/30/24 at 14:59 Montelukast Sodium 10 mg HS PO Last administered on 11/08/24at 20:30; Start 10/31/24 at 21:00; Stop 11/30/24 at 20:59 Albuterol Sulfate 10 mg ONCE ONCE IH Last administered on 10/31/24at 16:38; Start 10/31/24 at 15:30; Stop 10/31/24 at 15:31; Status DC Sodium Chloride 1,000 ml @ 0 mls/hr ONCE ONCE IV Last administered on 10/31/24at 16:08; Start 10/31/24 at 15:30; Stop 10/31/24 at 15:31; Status DC Propofol 100 ml @ As Directed STK-MED ONCE IV; Start 10/31/24 at 15:36; Stop 10/31/24 at 15:36; Status DC Etomidate 20 mg ONCE ONCE IVP Last administered on 10/31/24at 16:42; Start 10/31/24 at 16:00; Stop 10/31/24 at 16:02; Status DC Rocuronium [place] 100 mg/ Sodium Chloride 100 ml @ 0 mls/hr PROTOCOL IV; Start 10/31/24 at 16:00; Stop 10/31/24 at 16:44; Status DC Propofol 1,000 mg PROTOCOL PRN IV Last administered on 11/05/24at 21:59; Start 10/31/24 at 16:00; Stop 11/06/24 at 12:17; Status DC Midazolam HCl 50 mg/Sodium Chloride 50 ml @ 0 mls/hr PROTOCOL IV; Start 10/31/24 at 16:00; Stop 10/31/24 at 16:02; Status DC Midazolam HCl 50 ml @ 0 mls/hr PROTOCOL IV Last administered on 11/05/24at 22:14; Start 10/31/24 at 16:30; Stop 11/06/24 at 12:17; Status DC Rocuronium [place] 100 mg ONCE ONCE IV; Start 10/31/24 at 17:00; Stop 10/31/24 at 17:01; Status DC Fentanyl Citrate 100 ml @ 2.5 mls/hr PROTOCOL IV; Start 10/31/24 at 19:30; Stop 10/31/24 at 19:25; Status DC Fentanyl/Sodium Chloride 250 ml @ 0 mls/hr PROTOCOL IV Last administered on 11/05/24at 19:11; Start 10/31/24 at 19:30; Stop 11/05/24 at 19:29; Status DC Acetaminophen 650 mg STK-MED ONCE RC; Start 10/31/24 at 19:42; Stop 10/31/24 at 19:42; Status DC Norepinephrine 250 ml @ As Directed STK-MED ONCE IV; Start 10/31/24 at 20:16; Stop 10/31/24 at 20:16; Status DC Norepinephrine 250 ml @ 27.225 mls/ hr PROTOCOL IV Last administered on 11/01/24at 18:24; Start 10/31/24 at 20:30; Stop 11/02/24 at 10:27; Status DC Norepinephrine 250 ml @ 0 mls/hr PROTOCOL IV; Start 10/31/24 at 20:30; Stop 11/01/24 at 22:43; Status DC Acetaminophen 650 mg Q6H PRN RC Last administered on 10/31/24at 19:42; Start 10/31/24 at 21:00; Stop 11/30/24 at 20:59 Piperacillin Sod/ Tazobactam Sod 3.375 gm Q8H IV Last administered on 11/02/24at 08:49; Start 11/01/24 at 00:00; Stop 11/02/24 at 10:26; Status DC Doxycycline Hyclate 250 ml @ 125 mls/hr Q12H IV Last administered on 11/09/24at 01:35; Start 11/01/24 at 00:00; Stop 11/11/24 at 00:00 Enoxaparin Sodium 40 mg DAILY SQ Last administered on 11/08/24at 08:00; Start 11/01/24 at 09:00; Stop 12/01/24 at 08:59 Famotidine 20 mg BID IV Last administered on 11/08/24at 20:30; Start 11/01/24 at 09:00; Stop 12/01/24 at 08:59 Albuterol 1 udvial [id number] IH Last administered on 11/01/24at 06:56; Start 11/01/24 at 02:00; Stop 11/01/24 at 09:42; Status DC Albuterol 1 udvial STK-MED ONCE IH; Start 11/01/24 at 02:39; Stop 11/01/24 at 02:39; Status DC Albuterol 1 udvial STK-MED ONCE IH; Start 11/01/24 at 06:32; Stop 11/01/24 at 06:32; Status DC Albuterol 1 udvial [id number] IH Last administered on 11/08/24at 01:54; Start 11/01/24 at 10:00; Stop 11/08/24 at 09:13; Status DC Budesonide 0.5 mg BIDRESP IH Last administered on 11/08/24at 18:43; Start 11/01/24 at 18:00; Stop 12/01/24 at 17:59 Albuterol 1 udvial STK-MED ONCE IH; Start 11/01/24 at 09:43; Stop 11/01/24 at 09:48; Status DC Hydrocortisone Sodium Succinate 50 mg Q6H IVP Last administered on 11/02/24at 11:15; Start 11/01/24 at 11:00; Stop 11/02/24 at 13:55; Status DC Polyethylene Glycol 17 gm DAILY PO Last administered on 11/06/24at 08:18; Start 11/02/24 at 09:00; Stop 12/02/24 at 08:59 Polyethylene Glycol 17 gm ONCE PO Last administered on 11/01/24at 16:05; Start 11/01/24 at 15:30; Stop 11/01/24 at 21:30; Status DC Insulin Human Regular INSULIN SLIDING SCAL... Q6H6 SQ; Start 11/02/24 at 00:00; Stop 12/02/24 at 00:00 Norepinephrine Bitartrate 250 ml @ 0 mls/hr AD PRN IV Last administered on 11/03/24at 22:51; Start 11/01/24 at 23:00; Stop 11/08/24 at 12:53; Status DC Chlorhexidine Gluconate 15 ml TID MM Last administered on 11/06/24at 08:18; Start 11/02/24 at 09:00; Stop 11/06/24 at 12:33; Status DC Artificial Tears 1 DROP OR AD Q8H OU Last administered on 11/06/24at 06:49; Start 11/02/24 at 06:30; Stop 11/06/24 at 12:33; Status DC Cefepime HCl 2 gm Q8H IVPB Last administered on 11/07/24at 18:25; Start 11/02/24 at 10:30; Stop 11/07/24 at 23:37; Status DC Vancomycin HCl 1 each AD IV; Start 11/02/24 at 10:30; Stop 11/06/24 at 06:04; Status DC Vancomycin HCl 500 ml @ 250 mls/hr ONCE ONCE IV Last administered on 11/02/24at 11:15; Start 11/02/24 at 10:30; Stop 11/02/24 at 12:29; Status DC Vancomycin HCl 250 ml @ 125 mls/hr Q8H IV Last administered on 11/04/24at 03:46; Start 11/02/24 at 20:30; Stop 11/04/24 at 12:45; Status DC Methylprednisolone Sodium Succinate 60 mg Q6H IVP Last administered on 11/03/24at 13:35; Start 11/02/24 at 14:00; Stop 11/03/24 at 15:10; Status DC Diazepam 10 mg Q8H NG Last administered on 11/06/24at 03:28; Start 11/03/24 at 12:00; Stop 11/06/24 at 09:07; Status DC Methylprednisolone Sodium Succinate 80 mg Q6H IVP Last administered on 11/05/24at 13:12; Start 11/03/24 at 20:00; Stop 11/05/24 at 16:10; Status DC Pharmacy Profile Note 1 each ONCE MISC; Start 11/03/24 at 15:30; Stop 11/04/24 at 13:19; Status DC Rocuronium [place] 50 mg ONCE IV Last administered on 11/03/24at 15:27; Start 11/03/24 at 15:25; Stop 11/03/24 at 16:25; Status DC Vancomycin HCl 250 ml @ 125 mls/hr Q8H IV Last administered on 11/05/24at 21:02; Start 11/04/24 at 13:00; Stop 11/06/24 at 06:04; Status DC Dextrose 1,000 ml @ 60 mls/hr [id number] IV Last administered on 11/05/24at 11:21; Start 11/05/24 at 11:30; Stop 11/06/24 at 09:04; Status DC Rocuronium [place] 50 mg STK-MED ONCE IV; Start 10/31/24 at 12:21; Stop 11/05/24 at 12:21; Status DC Methylprednisolone Sodium Succinate 60 mg Q6H IVP Last administered on 11/06/24at 08:19; Start 11/05/24 at 20:00; Stop 11/06/24 at 08:58; Status DC Dopamine HCl/ Dextrose 250 ml @ 0 mls/hr AD PRN IV Last administered on 11/05/24at 21:11; Start 11/05/24 at 21:00; Stop 11/08/24 at 12:53; Status DC Propofol 100 ml @ 0 mls/hr AD PRN IV; Start 11/05/24 at 21:00; Stop 11/06/24 at 13:44; Status DC Fentanyl/Sodium Chloride 250 ml @ As Directed STK-MED ONCE IV Last administered on 11/06/24at 03:38; Start 11/06/24 at 03:09; Stop 11/06/24 at 03:09; Status DC Fentanyl Citrate 2500 mcg/Sodium Chloride 250 ml @ 0 mls/hr AD PRN IV; Start 11/06/24 at 03:30; Stop 11/06/24 at 03:31; Status DC Fentanyl/Sodium Chloride 250 ml @ 0 mls/hr PROTOCOL IV; Start 11/06/24 at 03:30; Stop 11/06/24 at 12:17; Status DC Dexmedetomidine/ Sodium Chloride 400 mcg PROTOCOL IV Last administered on 11/07/24at 07:32; Start 11/06/24 at 08:30; Stop 11/08/24 at 12:53; Status DC Methylprednisolone Sodium Succinate 40 mg Q12H IVP Last administered on 11/07/24at 20:26; Start 11/06/24 at 20:00; Stop 11/07/24 at 23:34; Status DC Furosemide 20 mg ONCE ONCE IV Last administered on 11/06/24at 09:17; Start 11/06/24 at 09:30; Stop 11/06/24 at 09:31; Status DC Diazepam 10 mg Q6H NG Last administered on 11/06/24at 09:17; Start 11/06/24 at 09:30; Stop 11/06/24 at 12:32; Status DC Home Med (Lamotrigine (Lamictal Xr) 300 MG) HS PO; Start 11/06/24 at 21:00; Stop 11/06/24 at 17:25; Status DC Risperidone 3 mg HS PO; Start 11/06/24 at 21:00; Stop 11/06/24 at 17:25; Status DC Diazepam 10 mg Q6H PRN NG Last administered on 11/06/24at 14:17; Start 11/06/24 at 13:00; Stop 11/06/24 at 17:35; Status DC Olanzapine 5 mg BID PO Last administered on 11/08/24at 20:31; Start 11/06/24 at 17:30; Stop 12/06/24 at 17:29 Lorazepam 1 mg Q4H PRN IVP Last administered on 11/07/24at 12:28; Start 11/06/24 at 17:30; Stop 11/07/24 at 16:46; Status DC Melatonin 10 mg HS PO Last administered on 11/08/24at 20:29; Start 11/06/24 at 21:00; Stop 12/06/24 at 20:59 Midazolam HCl 2 mg ONCE ONCE IVP; Start 11/06/24 at 21:00; Stop 11/06/24 at 21:04; Status DC Lorazepam 2 mg ONCE ONCE IVP Last administered on 11/06/24at 21:07; Start 11/06/24 at 21:30; Stop 11/06/24 at 21:31; Status DC Ziprasidone 5 mg ONCE ONCE IM Last administered on 11/06/24at 22:24; Start 11/06/24 at 22:00; Stop 11/06/24 at 22:01; Status DC Ziprasidone 20 mg STK-MED ONCE IM; Start 11/06/24 at 21:50; Stop 11/06/24 at 21:50; Status DC Lamotrigine 200 mg DAILY PO Last administered on 11/08/24at 07:59; Start 11/07/24 at 11:30; Stop 11/08/24 at 13:32; Status DC Diazepam 10 mg ONCE ONCE PO Last administered on 11/07/24at 15:16; Start 11/07/24 at 15:30; Stop 11/07/24 at 15:31; Status DC Diazepam 5 mg Q4H PRN PO Last administered on 11/08/24at 20:30; Start 11/07/24 at 17:00; Stop 12/07/24 at 16:59 Prednisone 10 mg BID PO Last administered on 11/08/24at 07:59; Start 11/08/24 at 09:00; Stop 11/08/24 at 09:16; Status DC Albuterol 1 udvial [id number] IH Last administered on 11/08/24at 18:43; Start 11/08/24 at 14:00; Stop 12/01/24 at 01:59 Prednisone 10 mg BID PO Last administered on 11/08/24at 20:31; Start 11/08/24 at 21:00; Stop 11/13/24 at 08:59 Lamotrigine 300 mg HS PO Last administered on 11/08/24at 20:29; Start 11/08/24 at 21:00; Stop 12/08/24 at 20:59 Diphenhydramine HCl 25 mg Q12H9 PRN IV Last administered on 11/08/24at 20:28; Start 11/08/24 at 13:30; Stop 12/08/24 at 13:29 Nicotine 14 mg DAILY TD; Start 11/09/24 at 09:00; Stop 12/09/24 at 08:59 Nicotine 14 mg ONCE ONCE TD Last administered on 11/08/24at 13:47; Start 11/08/24 at 13:30; Stop 11/08/24 at 13:36; Status DC Trazodone HCl 50 mg BID PO Last administered on 11/08/24at 20:31; Start 11/08/24 at 21:00; Stop 12/08/24 at 20:59 GINETTE NOEL MD Nov 09, 2024 06:45
--- NOTE | 2024-11-09 07:21 | NUR ---
REPORT AND CARE RENDERED TO Edelmira ROCA RN
[2024-11-09] MEDS: NICOTINE 14 MG/ 24 HR PATCH TD SCH (09:35)
--- NOTE | 2024-11-09 09:39 | PN ---
[facility] PROGRESS NOTE Date Patient Seen: Nov 09, 2024 Time of Visit: 09:39 Supervising Physician: Nilesh Hobson MD Primary Care Physician: [Alaina CLinica Dr. Ware, Jose and Dr. Bautista Outpatient Specialists: [ ] Inpatient Consults: [[facility] team-pulmo ] PROBLEM LIST: Severe oral dysphagia per MBSS on 11/09/24 on NG tube feeds Insomnia with agitation Acute hypoxemic respiratory failure requiring intubation-POA extubated 11/06/24, resolved now RA asymptomatic Sinus Bradycardia, resolved Status asthmaticus-POA, resolved Respiratory acidosis-POA, resolved (+) Flu A -POA, completed tamiflu Tx Bilateral community-acquired pneumonia-POA, resolved Septic shock requiring pressor support-POA, resolved post critical illness Deconditioning and debilitation Drug abuse (+) cocaine and cannabis screen- POA Chronic asthma Bipolar disorder Chronic nicotine disorder - uses 4 cigars daily Anxiety disorder PLAN: Pt to continue with his home inhalers on discharge Fluticasone/Salmeterol 55mcg- 14mcg / Actuation 1 puff IH BID, rescue inhaler Albuterol sulfate 90mch IH QID PRN Arrange outpatient pulmonology referral for PFT and follow-up management upon discharge in 1 week. Steroids have been weaned now prednisone 10mg po bid for 4 more days. Aspiration precautions and F/U with speech therapist recs recommends SNF for Speech therapy and Physical therapy on DC I have advised pt and mother for pt to stop smoking marijuana cigars and cigarettes as this has triggered his asthma and there is high possibility of if he smokes again and triggers a status asthmaticus attack. INTERVAL HISTORY: 10/31/2024: HPI: [Patient is unable to participate on the HPI due to being intubated and sedated. Per hospitalist's HPI. "This is a 44-year-old male was brought in by EMS with chief complaints of Shortness of breath. Apparently the patient called 911 given to having a asthma attack in on arrival patient was found with oxygen saturation of on room air of 54%. Patient has a significant underlying history of asthma he took albuterol inhaler at home he reports he has been using it as per ER note. Unable to obtain history data due to dyspneic we will obtain history from ER notes and from ER physician. On arrival to ED patient was dyspneic per ER physican was hardly moving air throughout all lung Corey and immediately was placed on BiPAP support and was given IV steroids and DuoNeb. ER workup positive for influenza A Patient was seen in ED the patient appears acutely ill. ER physician removed BiPAP to see how patient we will do on 10 L so far oxygenation level at 95%. However he continues to use accessory muscles to breathe he will be transition to ICU: high risk for decompensated airway. Patient was unable to tolerate 10 L became dyspneic and anxious therefore ER physician intubated patient mode PRVC rate 20 tidal volume 480 Peep: 5 FI O2 60% on sedation patient will transitioned to ICU once bed is available. Spoke to family at bedside all questions answered." [facility]IS team was consulted for critical care management in the setting of septic shock and intubation 2/2 acute hypoxic respiratory failure. According to the patient's mother, patient was doing well this morning and he even drove him yesterday to the clinic where she herself was diagnosed of flu. This afternoon, everything changed and happened so rapidly with complaint of sudden asthma attack and respiratory distress. Patient is now receiving 3 sedatives namely Propofol, Fentanyl and Versed which according to the bedside RN took awhile to optimize as the patient continues to fight it and tends to override the vent.He is currently on Levophed for pressor support. He appears to continue using his accessory mnuscles despite being on ventilator. Lung sounds have positive wheezing across lung corey. We will continue to follow along patient's response to treatment as enumerated above. Goals of care were discussed with the mother verbalizing understanding and agreement. On behalf of [facility] team, thank you for the opportunity to participate on Mr. Lloyd's case. 11/01/2024: At the time of my evaluation, the patient was lying in bed. He remains intubated and family members present at the bedside. Vital signs today remains generally stable. Laboratory data showed a increase of WBCs to 14.5 which may be reactive to steroids, though neutrophil predominance. Chemistry panel showing elevated potassium to 5.4, we will repeat potassium level later today. Also, renal parameters increase the BUN 27 creatinine 1.6 we will monitor the trend. The patient remains with Tamiflu and empiric antibiotic therapy with Zosyn/doxy combination. The remains on steroid therapy as ordered. The patient remains on sedation with propofol and fentanyl drip. Also on pressor therapy with Levophed. No other complaint. 11/02/2024: At the time of my evaluation, the patient is lying in bed. He remains intubated. Most recent ABG showed a pH of 7.2, pCO2 54 and PO2 of 142.3. He continues on PRVC mode, rate of 26, FiO2 40%, tidal volume of 420 and a PEEP of 5. He is also hydrocortisone and receiving empiric antibiotic ther apy with cefepime, doxy and Tamiflu. For sedation, the patient continues on propofol, Versed and fentanyl. Patient's mother was present at the bedside. No new complaint. 11/03/2024: At the time of my evaluation, the patient was lying in bed, sedated and remains intubated on assist control mode. Vital signs remain generally stable except for bradycardia in the 40s. Laboratory data today showed increased WBC to 14.2 though improved from yesterday. Chemistry panel showed no changes of concern. No overnight acute event. 11/04/2024. At the time of my evaluation, the patient is lying in bed. He remains vented and sedated. Currently off pressor therapy. Family members are present at the bedside. Staff nurse reports no acute events overnight. No othe r complaint. 11/05/2024: At the time of my evaluation, the patient was lying in bed. He remains intubated and is sedated. The patient continues on pressure support 40% FiO2. Family members present at the bedside. The staff nurse reports no acute events overnight. 11/06/24- patient has been afebrile, sinus Rui heart rate in the 40s but hemodynamically stable with good blood pressure 122/76 on the monitor for, respiratory rate of 18 saturating 96% with a FiO2 of 40% on assist control volume control. This morning we will start sedation vacation and spontaneous breathing trials and likely extubate by noon if patient tolerates well and ABG per minutes. Urine output 1.9 L in the last 24 hours with a balance of +3.1 L. patient continues with elevated white count at 11.7 similar to yesterday H&H is 12.7/39.4. Chemistry kidneys are doing well creatinine 0.6 GFR of 123 carbon di oxide of 37 sodium 140 glucose 151 mg/dL total calcium of 8.0 total protein 5.1 albumin 2.2 liver enzymes slightly elevated. Mother and father at bedside explained to them the plan of care and current findings. Both in agreement answered all their questions. 11/07/24- Day 1 post extubation he is awake alert and follows commands but easily agitated and continuously calling out for small and occasionally attempting to pull out lines. Today we will discontinue Peoples catheter, central line and wean off oxygen as tolerated. We will attempt to wean completely off Precedex and use p.r.n. anxiety medication, as per RN patient becomes slightly more agitated after Ativan is given therefore we will change to Valium 5 mg per NG tube p.r.n. q.4 hours for agitation. Patient persistently in sinus bradycardia, 2D echo shows LVEF is 60-65% no valvular pathology no pericardial effusion of the caitie stolic function unable to be assess. We will consult Cardiology and appreciate recommendations. Otherwise CBC similar to yesterday, chemistry potassium slightly low today 3.1 covered per protocol kidneys are doing well liver enzymes slightly elevated but trending down albumin 2.6. Chest x-ray stable. Pending abdominal ultrasound for elevated liver enzymes. 11/08/24-per RN patient has been trouble sleeping at night and has not left well in the last three days. Patient constantly yelling off face mom, crying, attempting to pull tubes out. We will add trazodone 50 mg b.i.d. one time dose of Benadryl 50 mg IV push. Hemodynamically stable and afebrile heart rate in the 70s respiratory rate of 16 saturating 95% on room air. Good urine output of 2.5 L in the last 24 hours with a balance of-2.2 L. WBCs have normalized 10.8 today H&H of 13/38.2 with a platelet count that is 225k. Chemistry unremarkable liver enzymes trending down. PT is with nebulizer treatments p.r.n.. Steroids have been weaned to prednisone 10 mg p.o. b.i.d.. Abdomen ultrasound shows mild hepatomegaly, no focal liver lesions identified spleen size is normal. Otherwise unremarkable exam although the aorta and pancreas were not well seen. Per speech pending MBSS, patient currently agitated and with generalized weakness unable to safely perform the MBSS, we will re-evaluate tomorrow. Mother was at bedside at the time of my visit explained today's findings and plan of care both patient and mother in agreement. 11/09/24-Pt is awake alert and oriented to place and person. Pt has crying spells and creams for mom, pt also occasionally verbally offensive to nurses. He has been complaining of generalized weakness and as per mom pt was independent at home and ambulatory. He even requires repositioning from mother and nurses for his head. Likely that some of his behavior is from his Bipolar disorder but due to mother concern that pt is not back to his baseline we will order a CT head and Ct Cervical spine to rule out am intracranial bleed or cervical injury. Pt is back on his psych medications that he takes at home. He has been hemodynamically stable and no further episodes of bradycardia. pt has been evaluated by Cardiology and cleared. Pt complains of upper airway gurgle. RT to deep suction. He continues with NG tube for feedings, MBSS per speech with + signs of oral dysphagia. They recommend for pt to continue to be NPO and for tube feedings. Per Dr Archibald to reevaluate on Tuesday. Pt to continue working with PT. From pulmonary standpoint patient is stable at this time. We will sign off. Patient will need to follow-up with pulmonary service of choice 1-2 weeks postdischarge. Please reach to us should the need arise. On behalf of [facility] we are thankful for your team to let us participate in the care of this patient. We will be available if assistance in pulmonary critical care needed. REVIEW OF SYSTEMS: Unable to perform 12 point ROS due to being intubated and sedated. PHYSICAL EXAM: GENERAL: Awake alert and oriented to, confused and agitated. HEENT: EOMI, Sclera non icteric, moist mucosa NG tube NECK: Supple, no JVD, trachea midline LUNGS: Clear lung sounds. No wheeze, rhonchi or rales HEART: Regular rate and rhythm. Normal S1 and S2, without murmurs ABD: Abdomen soft, nontender. Bowel sounds present EXT: No clubbing cyanosis or edema : Peoples in situ NEURO: Moving all extremities no focal weakness. GCS of 14. Vital Signs (last 8hr) Date Time Temp Pulse Resp B/P (MAP) Pulse Ox O2 Delivery O2 Flow Rate FiO2 11/09/24 06:59 88 17 N/Cannula Low lpm 21 11/09/24 06:55 93 23 11/09/24 03:47 98.6 84 13 127/73 96 Room Air 11/09/24 02:47 77 19 114/71 96 Room Air 11/09/24 01:47 77 13 112/74 94 Room Air LABS: Hematology Labs: Test 11/09/24 03:51 Range/Units White Blood Count 12.0 H 4.8-10.8 K/uL Red Blood Count 4.73 4.50-6.20 MIL/uL Hemoglobin 14.2 14.0-18.0 g/dL Hematocrit 41.3 L 42-54 % Mean Corpuscular Volume 87.3 79-99 fL Mean Corpuscular Hemoglobin 30.0 27.0-33.0 pg Mean Corpuscular Hemoglobin Concent 34.4 32.0-36.0 g/dL Red Cell Distribution Width 12.7 11.0-15.5 % Platelet Count 238 130-400 K/uL Mean Platelet Volume 10.2 7.5-10.5 fL Immature Granulocyte % (Auto) 1.3 H 0-1 % Neutrophils (%) (Auto) 64.4 40.0-77.0 % Lymphocytes (%) (Auto) 25.7 21.0-51.0 % Monocytes (%) (Auto) 8.1 3.0-13.0 % Eosinophils (%) (Auto) 0.3 0.0-8.0 % Basophils (%) (Auto) 0.2 0.0-5.0 % Neutrophils # (Auto) 7.7 1.8-7.7 K/uL Lymphocytes # (Auto) 3.1 1.0-4.8 K/uL Monocytes # (Auto) 1.0 0.1-1.0 K/uL Eosinophils # (Auto) 0.04 0.00-0.70 K/uL Basophils # (Auto) 0.02 0.00-0.20 K/uL Absolute Immature Granulocyte (auto 0.16 0-1 K/uL Nucleated Red Blood Cells 0.0 0.0-0.19 % Chemistry Labs: Test 11/09/24 03:51 11/09/24 01:13 11/08/24 03:47 Range/Units Sodium Level 143 136-145 mmol/L Potassium Level 3.8 3.5-5.1 mmol/L Chloride Level 106 101-111 mmol/L Carbon Dioxide Level 31 21-32 mmol/L Blood Urea Nitrogen 21 H 7-18 mg/dL Creatinine 0.7 0.5-1.3 mg/dL Glomerular Filtration Rate Calc 117 >90 mL/min Random Glucose 104 70-105 mg/dL Total Calcium 9.0 8.5-10.1 mg/dL Magnesium Level 2.00 1.80-2.40 mg/dL Total Bilirubin 0.8 0.2-1.0 mg/dL Aspartate Amino Transf (AST/SGOT) 55 H 10-37 U/L Alanine Aminotransferase (ALT/SGPT) 293 H 12-78 U/L Alkaline Phosphatase 93 50-136 U/L Total Protein 6.1 6.0-8.3 g/dL Albumin 2.8 L 3.5-5.0 g/dL Whole Blood Glucose 118 H 70-110 MG/DL Ammonia < 10 L 11-32 umol/L DIAGNOSTICS / RADIOLOGY RESULTS: [ ] PLAN NEURO: Minimize central acting medications as possible. Maintain fall precautions, adequate lighting during the day PULMONARY: Supplemental 02 as needed. Maintain aspiration precautions at all times CARDIOVASCULAR: Follow hemodynamics. Vital signs per facility protocol GI & NUTRITION: Continue with nutritional support. Continue stool softeners and laxatives as needed. KIDNEYS & ELECTROLYTES: Strict monitoring of intake, output and overall fluid balance. Avoid nephrotoxic medications to the extent possible. Medications to be dosed according to renal function. Monitor electrolytes and replace as needed ENDOCRINE: Maintain blood glucose between 100-180 at all times. Hypoglycemia protocol in place INFECTIOUS DISEASE: Trend temperature, WBC and procalcitonin level Follow cultures, deescalate antibiotics as soon as possible. Panculture if new onset fever ONCOLOGY/HEMATOLOGY/COAGULATION: Monitor for s/s of bleeding Monitor hemoglobin, coagulation studies as needed SKIN: Pressure ulcer prevention per facility protocol Specialty mattress ORTHO/REHAB: Continue PT/OT Prophylaxis: Continue GI and DVT prophylaxis Code Status: Full Resuscitation Disposition: TBD Other: Total patient care time: 35 minutes JERILYN DIMAS Nov 09, 2024 09:39
[2024-11-09] MEDS: ceTIRIzine HCL 5 MG TABLET PO SCH (10:08)
--- NOTE | 2024-11-09 10:49 | NUR ---
TRANSFER TO 4TH FLOOR Patient transferred to room 430 from 2nd floor. Patient's mother at bedside, oriented to room. Patient able to answer name and location appropriately, showing some lethargy and delayed response. NG tube in place at 55cm, clamped. Patient complaining of pain in abdomen, stating he needs a bm. 1:[address]
--- NOTE | 2024-11-09 11:14 | HMCIMG ---
CHEST 1VW REASON: HYPOXIC INCREASE SECRETIONS COMPARISON: 11/07/2024 FINDINGS: Lungs are clear. Heart size is normal. There is no vascular congestion. There are no pleural effusions. Right IJ central line is been removed. NG tube remains in place. IMPRESSION: 1. No acute finding in the chest.
--- NOTE | 2024-11-09 13:07 | PN ---
[facility] PROGRESS NOTE Date of Service: Nov 09, 2024 Time of Service: 13:05 SUBJECTIVE: 11/01 patient seen at bedside, no acute events overnight. He remains intubated and sedated, on a low dose of pressors. WBC increased from 10.2 up to 14.5, potassium increased from 3.6 up to 5.4, creatinine increased from 1.0 up to 1.6, remainder of his labs are relatively unremarkable. He still has a prominent wheeze. Patient is positive for influenza. Further care per critical Care. 11/02 patient seen at bedside, no acute events overnight. He remains intubated and sedated, FiO2 has been decreased from 45 down to 40%. We will defer to pulmonology for extubation. He remains on pressors, we will wean as able. WBC increased from 14.5 up to 20.4, hemoglobin stable at 13.1, remainder of his labs are relatively unremarkable. 11/03 patient seen at bedside, no acute events overnight he remains intubated and sedated, FiO2 at 40%, peep of 5. Patient continues on pressors, we will continue to wean as able. WBC decreased from 20.4 down to 14.2, hemoglobin stable at 13.1 same as yesterday, remainder of his labs are relatively unremarkable. 11/04 patient seen at bedside, no acute events overnight. He remains intubated and sedated, FiO2 at 40% peep of 7. Patient has been weaned off pressors. WBC improved from 14.2 down to 11.3, hemoglobin decreased from 13.1 down to 12.7, remainder of his labs are relatively unremarkable. 11/05 patient is seen and examined at bedside, remains intubated, on mechanical ventilation, on fentanyl and Versed drip. He is on droplet precautions. Getting nutritional support via NG tube. WBC improving, today at 11.0, hemoglobin 12.2, hematocrit 37.8. ABG with pH of 7.37, PO2 80.7. Chest x-ray showing prominent interstitial markings with possible superimposed infiltrates. 11/06 patient has been seen and examined at bedside, remains intubated, mechanical ventilation, on CPAP trial, off sedation, remains on droplet precaution, BP 147/73, saturating 100% on mechanical ventilation. Off nutritional support via NG tube. ABG shows pH of 7.44, pCO2 47, PO2 1629. Chest x-ray stable, no vascular congestion, heart size is normal. 11/07 patient is seen and examined at bedside, extubated yesterday, currently on low-dose Precedex. Withdrawing to painful stimulation. BP 114/55, heart rate of 42, afebrile, saturating 98% on 2 L via nasal cannula. CBC with a hemoglobin 12.3, hematocrit 36.5, WBC 13.1. Potassium level 3.1. Liver enzymes with an AST of 101, ALT 405. Urine toxicology screen positive for cocaine and mar ijuana. Serology test positive for influenza type A. He will remain on droplet precautions. Chest x-ray showing stable chest. Echocardiogram pending. Family at bedside, updated. 11/08 the patient has been seen and examined at bedside, he is awake, following commands, getting nutritional support via NG tube, he is asking if it can be removed. He is off Precedex. BP 106/62, afebrile, saturating 97% on air. No chest pain, shortness shortness for breath, no cough. WBC today at 10.8, down from 13.1. Hemoglobin 13.0, hematocrit 38.2. Liver enzymes slowly trending down. Echocardiogram reviewed, LVEF 60-65%, diastolic function. was unable to be assessed. The right ventricle is normal in size, right ventricular systolic function is normal, left atrium size is normal, right atrium is mildly dilated, no valvular pathology, no pericardial effusion. Ultrasound of the abdomen pending. Mother is at bedside, the patient with a history of bipolar, on Lamictal and risperidone at home, discussed with critical Care, patient was bradycardic yesterday, he has been started on Zyprexa instead. Pending speech therapy to evaluate the patient today, as well as physical therapist. We will request psychiatric consultation as well. 11/09 the patient has been seen and examined, he has been downgraded from the ICU to the medical floor, he is alert, awake, following commands, still with the NG tube in place, clamped, he is awaiting MBS assess today. BP 104/76, heart rate of 101, afebrile, saturating normal on room air, he denies chest pain, no shortness a breath, no nausea, no vomiting, he remains alert oriented x3, not combative, not agitated. He is mood is appropriate. CBC with a hemoglobin 14.2, hematocrit 41.3, WBC 12.0. Sodium 143, potassium 3.8, chest x-ray no acute findings. We will request PT therapy to evaluate the patient and we will discuss discharge plan with case management. REVIEW OF SYSTEMS A14 point ROS was obtained all relevant positive documented otherwise ROS negative PHYSICAL EXAM GENERAL APPEARANCE: Awake, following commands, getting nutritional support via NG tube. Off Precedex. NEUROLOGICAL: Cranial nerves II-XII grossly intact. Motor is 5/5 in bilateral upper and lower extremities proximal to distal. No sensory deficits. HEENT: Face is symmetric. Pupils are equal and reactive. Extraocular movements are intact. NECK: Supple. No JVD. No thyromegaly. No submental, submandibular, pre- /postauricular, occipital or supraclavicular lymphadenopathy. CHEST: Normal chest expansion. No Telemetry. LUNGS: No bilateral expiratory wheezing CARDIOVASCULAR: Regular. S1 and S2 normal. No appreciable rubs, murmurs or gallops. ABDOMEN: Soft, nontender, and nondistended. There is no rebound, voluntary guarding, or rigidity. : Deferred. No Peoples. EXTREMITIES: Non-edematous and not cyanotic. No clubbing. Good capillary refill. SKIN: No skin breakdown. Vital Signs (last 8hr) Date Time Temp Pulse Resp B/P (MAP) Pulse Ox O2 Delivery O2 Flow Rate FiO2 11/09/24 12:00 98.2 101 19 104/76 92 Room Air 11/09/24 09:47 112 34 120/74 95 Room Air 11/09/24 08:47 106 19 161/110 95 Room Air 11/09/24 07:47 107 19 124/77 94 Room Air 11/09/24 07:15 94 Room Air* 0 21 11/09/24 06:59 88 17 N/Cannula Low lpm 21 11/09/24 06:55 93 23 LABS: Laboratory: Test 11/09/24 12:56 11/09/24 03:51 11/08/24 03:47 Range/Units Whole Blood Glucose 112 H 70-110 MG/DL White Blood Count 12.0 H 4.8-10.8 K/uL Red Blood Count 4.73 4.50-6.20 MIL/uL Hemoglobin 14.2 14.0-18.0 g/dL Hematocrit 41.3 L 42-54 % Mean Corpuscular Volume 87.3 79-99 fL Mean Corpuscular Hemoglobin 30.0 27.0-33.0 pg Mean Corpuscular Hemoglobin Concent 34.4 32.0-36.0 g/dL Red Cell Distribution Width 12.7 11.0-15.5 % Platelet Count 238 130-400 K/uL Mean Platelet Volume 10.2 7.5-10.5 fL Immature Granulocyte % (Auto) 1.3 H 0-1 % Neutrophils (%) (Auto) 64.4 40.0-77.0 % Lymphocytes (%) (Auto) 25.7 21.0-51.0 % Monocytes (%) (Auto) 8.1 3.0-13.0 % Eosinophils (%) (Auto) 0.3 0.0-8.0 % Basophils (%) (Auto) 0.2 0.0-5.0 % Neutrophils # (Auto) 7.7 1.8-7.7 K/uL Lymphocytes # (Auto) 3.1 1.0-4.8 K/uL Monocytes # (Auto) 1.0 0.1-1.0 K/uL Eosinophils # (Auto) 0.04 0.00-0.70 K/uL Basophils # (Auto) 0.02 0.00-0.20 K/uL Absolute Immature Granulocyte (auto 0.16 0-1 K/uL Nucleated Red Blood Cells 0.0 0.0-0.19 % Sodium Level 143 136-145 mmol/L Potassium Level 3.8 3.5-5.1 mmol/L Chloride Level 106 101-111 mmol/L Carbon Dioxide Level 31 21-32 mmol/L Blood Urea Nitrogen 21 H 7-18 mg/dL Creatinine 0.7 0.5-1.3 mg/dL Glomerular Filtration Rate Calc 117 >90 mL/min Random Glucose 104 70-105 mg/dL Total Calcium 9.0 8.5-10.1 mg/dL Magnesium Level 2.00 1.80-2.40 mg/dL Total Bilirubin 0.8 0.2-1.0 mg/dL Aspartate Amino Transf (AST/SGOT) 55 H 10-37 U/L Alanine Aminotransferase (ALT/SGPT) 293 H 12-78 U/L Alkaline Phosphatase 93 50-136 U/L Total Protein 6.1 6.0-8.3 g/dL Albumin 2.8 L 3.5-5.0 g/dL Ammonia < 10 L 11-32 umol/L Current Medications Medications (Trade) Dose Ordered Sig/Martinez Route PRN Reason Start Time Stop Time Status Last Admin Dose Admin Acetaminophen (TYLenol 325MG TAB) 650 mg Q4H PRN PO TEMPERATURE GREATER THAN 101.5 10/31/24 15:00 11/30/24 14:59 11/08/24 01:13 650 MG Acetaminophen (TYLenol 650MG SUPPOSITORY) 650 mg Q6H PRN RC MILD PAIN (1-3) 10/31/24 21:00 11/30/24 20:59 10/31/24 19:42 650 MG Albuterol (DUOneb) 1 udvial [id number] IH 11/01/24 10:00 11/08/24 09:13 DC 11/08/24 01:54 1 UDVIAL Albuterol (DUOneb) 1 udvial [id number] IH 11/01/24 02:00 11/01/24 09:42 DC 11/01/24 06:56 1 UDVIAL Albuterol (DUOneb) 1 udvial [id number] IH 11/08/24 14:00 12/01/24 01:59 11/09/24 06:54 1 UDVIAL Artificial Tears (Artificial Tears) 1 DROP OR AD Q8H OU 11/02/24 06:30 11/06/24 12:33 DC 11/06/24 06:49 1 DROP Azithromycin 250 ml @ 250 mls/hr Q24H IVPB 10/31/24 16:00 10/31/24 23:39 DC 10/31/24 16:50 250 MLS/HR Budesonide (Pulmicort 0.5 Mg/2ml) 0.5 mg BIDRESP IH 11/01/24 18:00 12/01/24 17:59 11/09/24 06:54 0.5 MG Cefepime HCl (MAXipime 2 gm vial) 2 gm Q8H IVPB 11/02/24 10:30 11/07/24 23:37 DC 11/07/24 18:25 2 GM Ceftriaxone Sodium (ROCEphine 1G INJ) 1 gm Q24H IVPB 10/31/24 15:00 10/31/24 23:39 DC 10/31/24 16:16 1 GM Cetirizine HCl (ZYRtec 5 MG TABLET) 10 mg DAILY PO 11/09/24 09:30 12/09/24 09:29 11/09/24 10:08 10 MG Chlorhexidine Gluconate (Peridex) 15 ml TID MM 11/02/24 09:00 11/06/24 12:33 DC 11/06/24 08:18 15 ML Dexmedetomidine/ Sodium Chloride (PRECEdex 400MCG/ 100ML-NS) 400 mcg PROTOCOL IV 11/06/24 08:30 11/08/24 12:53 DC 11/07/24 07:32 400 MCG Dextrose 1,000 ml @ 60 mls/hr [id number] IV 11/05/24 11:30 11/06/24 09:04 DC 11/05/24 11:21 60 MLS/HR Diazepam (VALium 5 mg TAB) 5 mg Q4H PRN PO ANXIETY 11/07/24 17:00 11/09/24 09:31 DC 11/08/24 20:30 5 MG Diazepam (VALium 5 mg TAB) 10 mg Q6H NG 11/06/24 09:30 11/06/24 12:32 DC 11/06/24 09:17 10 MG Diazepam (VALium 5 mg TAB) 10 mg Q6H PRN NG ANXIETY/AGITATION 11/06/24 13:00 11/06/24 17:35 DC 11/06/24 14:17 10 MG Diazepam (VALium 5 mg TAB) 10 mg Q8H NG 11/03/24 12:00 11/06/24 09:07 DC 11/06/24 03:28 10 MG Diphenhydramine HCl (BENAdryl INJ) 25 mg Q12H9 PRN IV SLEEP 11/08/24 13:30 12/08/24 13:29 11/09/24 08:30 25 MG Dopamine HCl/ Dextrose 250 ml @ 0 mls/hr AD PRN IV TITRATE 11/05/24 21:00 11/08/24 12:53 DC 11/05/24 21:11 0 MLS/HR Doxycycline Hyclate 250 ml @ 125 mls/hr Q12H IV 11/01/24 00:00 11/09/24 09:31 DC 11/09/24 01:35 125 MLS/HR Enoxaparin Sodium (Lovenox) 40 mg DAILY SQ 11/01/24 09:00 12/01/24 08:59 11/09/24 08:27 40 MG Famotidine (Pepcid 20mg Vial) 20 mg BID IV 11/01/24 09:00 12/01/24 08:59 11/09/24 08:26 20 MG Famotidine (Pepcid 20mg Tab) 20 mg BID PO 10/31/24 21:00 11/01/24 01:45 DC Fentanyl Citrate 100 ml @ 2.5 mls/hr PROTOCOL IV 10/31/24 19:30 10/31/24 19:25 DC Fentanyl Citrate 2500 mcg/Sodium Chloride 250 ml @ 0 mls/hr AD PRN IV TITRATE 11/06/24 03:30 11/06/24 03:31 DC Fentanyl/Sodium Chloride 250 ml @ 0 mls/hr PROTOCOL IV 11/06/24 03:30 11/06/24 12:17 DC Fentanyl/Sodium Chloride 250 ml @ 0 mls/hr PROTOCOL IV 10/31/24 19:30 11/05/24 19:29 DC 11/05/24 19:11 10 MLS/HR Home Med (Home Medication) (Lamotrigine (Lamictal Xr) 300 MG) HS PO 11/06/24 21:00 11/06/24 17:25 DC Hydrocortisone Sodium Succinate (Solu-corTEF 100MG) 50 mg Q6H IVP 11/01/24 11:00 11/02/24 13:55 DC 11/02/24 11:15 50 MG Insulin Human Regular (humuLIN R 100 UNIT/ML 3ML) INSULIN SLIDING SCAL... Q6H6 SQ 11/02/24 00:00 12/02/24 00:00 Lactulose (Constulose 20gm/ 30ml Udcup) 20 gm BID PRN PO CONSTIPATION 10/31/24 15:00 11/30/24 14:59 11/06/24 08:18 20 GM Lamotrigine (LAMIctal 100 MG TABLET) 200 mg DAILY PO 11/07/24 11:30 11/08/24 13:32 DC 11/08/24 07:59 200 MG Lamotrigine (LAMIctal 100 MG TABLET) 300 mg HS PO 11/08/24 21:00 12/08/24 20:59 11/08/24 20:29 300 MG Lorazepam (AtiVAN) 1 mg Q4H PRN IVP ANXIETY/AGITATION 11/06/24 17:30 11/07/24 16:46 DC 11/07/24 12:28 1 MG Magnesium Sulfate 50 ml @ 0 mls/hr PROTOCOL IV 10/31/24 13:00 10/31/24 14:54 DC 10/31/24 13:08 25 MLS/HR Magnesium Sulfate 50 ml @ 0 mls/hr PROTOCOL PRN IV low mag level 10/31/24 15:00 11/30/24 14:59 Melatonin (Melatonin) 10 mg HS PO 11/06/24 21:00 12/06/24 20:59 11/08/24 20:29 10 MG Methylprednisolone Sodium Succinate (Solu-medROL 40MG) 40 mg Q12H IVP 11/06/24 20:00 11/07/24 23:34 DC 11/07/24 20:26 40 MG Methylprednisolone Sodium Succinate (Solu-medROL 40MG) 60 mg Q6H IVP 11/02/24 14:00 11/03/24 15:10 DC 11/03/24 13:35 60 MG Methylprednisolone Sodium Succinate (Solu-medROL 40MG) 60 mg Q6H IVP 11/05/24 20:00 11/06/24 08:58 DC 11/06/24 08:19 60 MG Methylprednisolone Sodium Succinate (Solu-medROL 40MG) 60 mg Q8H IVP 10/31/24 15:00 11/01/24 09:46 DC 11/01/24 06:42 60 MG Methylprednisolone Sodium Succinate (Solu-medROL 40MG) 80 mg Q6H IVP 11/03/24 20:00 11/05/24 16:10 DC 11/05/24 13:12 80 MG Midazolam HCl 50 ml @ 0 mls/hr PROTOCOL IV 10/31/24 16:30 11/06/24 12:17 DC 11/05/24 22:14 10 MLS/HR Midazolam HCl 50 mg/Sodium Chloride 50 ml @ 0 mls/hr PROTOCOL IV 10/31/24 16:00 10/31/24 16:02 DC Montelukast Sodium (SinguLAIR) 10 mg HS PO 10/31/24 21:00 11/30/24 20:59 11/08/24 20:30 10 MG Nicotine (Nicoderm) 14 mg DAILY TD 11/09/24 09:00 12/09/24 08:59 11/09/24 09:35 14 MG Norepinephrine 250 ml @ 27.225 mls/ hr PROTOCOL IV 10/31/24 20:30 11/02/24 10:27 DC 11/01/24 18:24 41.06 MLS/HR Norepinephrine 250 ml @ 0 mls/hr PROTOCOL IV 10/31/24 20:30 11/01/24 22:43 DC Norepinephrine Bitartrate 250 ml @ 0 mls/hr AD PRN IV TITRATE 11/01/24 23:00 11/08/24 12:53 DC 11/03/24 22:51 6.48 MLS/HR Olanzapine (ZyPREXA 5 mg tab) 5 mg BID PO 11/06/24 17:30 11/09/24 09:31 DC 11/09/24 08:26 5 MG Ondansetron HCl (zoFRAN 4MG INJ) 4 mg Q6H PRN IVP NAUSEA/VOMITING 10/31/24 15:00 11/30/24 14:59 11/08/24 00:54 4 MG Oseltamivir Phosphate (Tamiflu) 75 mg BID PO 11/01/24 09:00 11/06/24 08:59 DC 11/05/24 20:40 75 MG Pharmacy Profile Note (Pharmacy Communication) 1 each ONCE MISC 11/03/24 15:30 11/04/24 13:19 DC Piperacillin Sod/ Tazobactam Sod (Zosyn 3.375gm+NS 50ml) 3.375 gm Q8H IV 11/01/24 00:00 11/02/24 10:26 DC 11/02/24 08:49 3.375 GM Polyethylene Glycol (MIRalax 3350 17 GM POWD.PACK) 17 gm DAILY PO 11/02/24 09:00 12/02/24 08:59 11/09/24 08:26 17 GM Polyethylene Glycol (MIRalax 3350 17 GM POWD.PACK) 17 gm ONCE PO 11/01/24 15:30 11/01/24 21:30 DC 11/01/24 16:05 17 GM Potassium Chloride 100 ml @ 100 mls/hr AD PRN IV POTASSIUM PROTOCOL 10/31/24 15:00 11/30/24 14:59 Potassium Chloride (K-Dur/Klor-Con 20meq) 20 meq AD PRN PO POTASSIUM PROTOCOL 10/31/24 15:00 11/30/24 14:59 Potassium Chloride (KCl 10% Elixir 20meq/15ml) 20 meq AD PRN PO POTASSIUM PROTOCOL 10/31/24 15:00 11/30/24 14:59 11/09/24 06:21 20 MEQ Prednisone (deltaSONE/ ORASONE 10MG) 10 mg BID PO 11/08/24 21:00 11/13/24 08:59 11/09/24 08:26 10 MG Prednisone (deltaSONE/ oraSONE 20MG TAB) 10 mg BID PO 11/08/24 09:00 11/08/24 09:16 DC 11/08/24 07:59 10 MG Propofol 100 ml @ 0 mls/hr AD PRN IV TITRATE 11/05/24 21:00 11/06/24 13:44 DC Propofol (DIPRivan 1000MG/ 100ML) 1,000 mg PROTOCOL PRN IV SEDATION 10/31/24 16:00 11/06/24 12:17 DC 11/05/24 21:59 1,000 MG Risperidone (RisperDAL) 3 mg HS PO 11/06/24 21:00 11/06/24 17:25 DC Risperidone (RisperDAL) 3 mg HS PO 11/09/24 21:00 12/09/24 20:59 Rocuronium [place] 100 mg/ Sodium Chloride 100 ml @ 0 mls/hr PROTOCOL IV 10/31/24 16:00 10/31/24 16:44 DC Rocuronium [place] (ZemuRON) 50 mg ONCE IV 11/03/24 15:25 11/03/24 16:25 DC 11/03/24 15:27 50 MG Trazodone HCl (DesyREL/OlepTRO) 50 mg BID PO 11/08/24 21:00 11/09/24 09:31 DC 11/08/24 20:31 50 MG Vancomycin HCl 250 ml @ 125 mls/hr Q8H IV 11/02/24 20:30 11/04/24 12:45 DC 11/04/24 03:46 125 MLS/HR Vancomycin HCl 250 ml @ 125 mls/hr Q8H IV 11/04/24 13:00 11/06/24 06:04 DC 11/05/24 21:02 125 MLS/HR Vancomycin HCl (Vancomycin Protocol) 1 each AD IV 11/02/24 10:30 11/06/24 06:04 DC DIAGNOSTICS / RADIOLOGY: [ ] CHEST 1VW REASON: HYPOXIC INCREASE SECRETIONS COMPARISON: 11/07/2024 FINDINGS: Lungs are clear. Heart size is normal. There is no vascular congestion. There are no pleural effusions. Right IJ central line is been removed. NG tube remains in place. IMPRESSION: 1. No acute finding in the chest. ASSESSMENT: Sepsis, ruled out Acute asthma exacerbation POA Acute hypoxic respiratory failure with hypoxia requiring BiPAP support on arrival POA 10 L trials unsuccessful requiring intubation 10/31/2024 at 15:42 p.m. viral syndrome POA Positive influenza A POA Active smoker smokes cigars 3-4 POA Polysubstance abuse disorder Chronic problems asthma, bipolar disorder. PLAN: Patient downgraded to the medical floor Continue supplemental oxygen via nasal cannula at 2 L to keep O2 sat greater than 92% Continue to monitor mental status and respiratory status Continue to follow critical care input and recommendation Continue the patient on broad-spectrum IV antibiotics Continue bronchodilators Continue the patient on steroids, continue to taper. Follow a.m. labs. Continue to replace electrolytes IV per protocol GI and DVT prophylaxis Disposition: Pending improvement in clinical status, pending MBS today, we will discuss discharge plan with case management. Continue rest of the medical management. Mother at bedside, updated, all questions answered. ZACKERY MORALES MD Nov 09, 2024 13:07
--- NOTE | 2024-11-09 13:30 | NUR ---
MBSS COMPLETED. Severe oral dysphagia; unable to assess pharyngeal phase due to severity of oral dysphagia. Initial recommendations were to keep patient NPO with plans for fpc alternate means to meet nutrition/hydration. As per nurse Espana, would like patient to be re-evaluated Tuesday. EYELET MACHINE OPERATOR coordinated with nurse Espana to order bedside evaluation instead of MBSS to determine if patient is appropriate for MBSS. New recommendations are to continue NPO and NG tube feedings until Tuesday. Speech therapy not warranted at this time as patient is confused and unable to follow commands. All questions answered. Addendum: 11/09/[address] [facility] Amended: Links added.
--- NOTE | 2024-11-09 14:34 | HMCIMG ---
CT CERVICAL SPINE W/O CONTRAST REASON: AMS COMPARISON: None TECHNIQUE: Images are obtained from skull base to the upper thoracic spine in the axial plane. Sagittal and coronal reconstruction images were then performed. FINDINGS: There are normal appearing vertebral bodies. Alignment is unremarkable and disc interspace heights are well preserved. There is no evidence of fracture or subluxation. Soft tissues appear normal as well. IMPRESSION: Normal noncontrast CT of the cervical spine. CT was performed with one or more following dose reduction techniques: automated exposure control, adjustment of the mA and kv according to patient's size, or use of a iterative reconstruction technique.
--- NOTE | 2024-11-09 14:34 | HMCIMG ---
Exam: NONCONTRAST CT BRAIN REASON: AMS . COMPARISON: None. TECHNIQUE: Images are obtained from vertex to the skull base. The exam was performed without IV contrast. FINDINGS: There is normal appearing brain parenchyma. There are no focal mass lesions. There is is no evidence of intracranial hemorrhage or acute stroke. Ventricles and sulci appear normal. Posterior fossa and brainstem structures are unremarkable. Paranasal sinuses and remaining extracranial soft tissues appear normal as well. IMPRESSION: 1. Normal noncontrast CT brain. CT was performed with one or more following dose reduction techniques: automated exposure control, adjustment of the mA and kv according to patient's size, or use of a iterative reconstruction technique.
--- NOTE | 2024-11-09 14:38 | HMCIMG ---
MODIFIED BARIUM SWALLOW W CINE REASON: SWALLOWING ABILITY FINDINGS: Fluoroscopic assistance was provided to the speech pathologist while performing examination. For findings and dietary recommendations, refer to speech pathologist's report. FLUORO TIME: 0.3 minutes IMPRESSION: Modified barium swallow as described.
--- NOTE | 2024-11-09 14:38 | NUR ---
Spoke with Speech therapist Catrina after MBSS, military police officer recommending npo, tf, and peg placement. Dr. Archibald notified of the results and recommendations. Per Dr. Archibald, patient no to have peg consultation yet. Keep patient on TF, order MVI, and patient should be retested on Tuesday. Patient back in room from MBSS. Patient's family at bedside including mother, updated on results and ngt will remain in place. Updated on plan of care.
--- NOTE | 2024-11-09 14:59 | NUR ---
PT Patient has been asking to get up to the bathroom but remains significantly weak. Back in room from MBSS and mother immediately asking for PT. Called PT and they came to bedside, at that time patient refusing to work with them. Family (not in room) updated. Patient encouraged to work on bed mobility.
--- NOTE | 2024-11-09 16:00 | NUR ---
Tube Feeding NG in right nare~55cm, no change. Verified GI aspirate. HOB at 30 degrees. Educated family patient cannot reduce hob below 30 deg. while TF running - mother verbalized understanding. 200 FWF given. Tube feeding intiated on continuous rate 25ml/hr.
[2024-11-09] MEDS: rispERIdone 1 MG TABLET PO SCH (21:05)
--- NOTE | 2024-11-09 23:55 | PN ---
CONSULT NOTE: CARDIOLOGY Reason for consult: HPI/story at presentation: This is a pleasant 44 male with past medical history as per present with shortness of breath and respiratory failure, hypoxia, was intubated and managed for influenza and pneumonia subsequently, extubated. Was on Precedex because of mental status changes in the setting of febrile substance use/mental health issues and subsequently, was on Precedex. Was having issues with bradycardia and therefore, cardiology was consulted for evaluation management. Subjective: 11/07/2024 no active cardiac complaint 11/08/24 no active cardiac complaints 11/09/2024 not on acute distress Past medical history: See below Allergies, Meds See chart Review of systems Review of Systems Constitutional: Negative for chills and fever. HENT: Negative for ear discharge and ear pain. Eyes: Negative for photophobia and discharge. Respiratory: Negative for cough, sputum production and stridor. Cardiovascular: Negative for chest pain and palpitations. Gastrointestinal: Negative for diarrhea and vomiting. Genitourinary: Negative for frequency. Musculoskeletal: Negative for myalgias. Skin: Negative for rash. Neurological: Negative for focal weakness and seizures. Endo/Heme/Allergies: Negative for polydipsia. Psychiatric/Behavioral: Negative for hallucinations. Vitals see chart PHYSICAL EXAMINATION GENERAL: The patient is alert and oriented*3 HEENT: Nonicteric sclerae, non traumatic HEART: Regular rate and rhythm with no murmurs LUNGS: Clear to auscultation bilaterally ABDOMEN: No acute issues, non tender GENITAL, RECTAL: deferred SKIN: No rash NEUROLOGIC: NFND EXTREMITIES: No edema ASSESSMENT BRADYCARDIA Resolved, heart rates in the 70s, 11/07/2024 While on Precedex, when sleeping, Conservative management, 11/07/2024 Normal EF echocardiogram, 10/2024 SEPSIS At presentation RESPIRATORY FAILURE Status post recent extubation G-tube in situ Possible influenza A, On steroids 10/2024 TOBACCO USE, POLYSUBSTANCE ABUSE CORE MEASURES Pending OTHER MEDICAL PROBLEMS Reviewed PLAN 11/07/2024 no active cardiac complaints at this time, mildly restless, NG tube in situ. No further issues with bradycardia, current heart rates in the 70s. For now, will manage conservatively. No plans for dopamine or dobutamine as pacemaker at this time. No further issues with bradycardia, current heart rates are in the 70s and 80s. NO active cardiac complaints, dysphagia is being addressed, continue conservative measures from a cardiac standpoint. This is a delayed note. Seen and examined 11/08/24 at around 1800 11/09/2024 Doing better,, no further issues with bradycardia, current heart rates are in the 80s. Clinically, also improving, mental status is good. G-tube is sensitive. Dysphagia still concern. Eventual plans for nursing home facility at discharge. ATTESTATION I was involved substantially in the care of this patient Number and complexity of problems addressed: 1 acute illness with systemic features Amount and or complexity of data Review of prior external note(s) from each unique source: 2+ Ordering of each unique test : 0 Review of the result(s) of each unique test: 2+ Assessment requiring an independent historian(s): No Independent interpretation of test performed by another MD/QHCP/appropriate source (not separately reported) : No Discussion of management or test interpretation with external MD/QHCP/appropriate source (not separately reported) : No Risk status (cardiac, billing related): Moderate Vitals/Labs Vital Signs Date Time Temp Pulse Resp B/P (MAP) Pulse Ox O2 Delivery O2 Flow Rate FiO2 11/09/24 22:57 99.0 59 19 103/66 100 Room Air 21 11/09/24 07:15 0 Laboratory Tests 11/09/24 03:51 Medications Current Medications Methylprednisolone Sodium Succinate 125 mg ONCE ONCE IVP Last administered on 10/31/24at 13:08; Start 10/31/24 at 13:00; Stop 10/31/24 at 13:01; Status DC Magnesium Sulfate 50 ml @ 0 mls/hr PROTOCOL IV Last administered on 10/31/24at 13:08; Start 10/31/24 at 13:00; Stop 10/31/24 at 14:54; Status DC Sodium Chloride 1,000 ml @ 0 mls/hr ONCE ONCE IV Last administered on 10/31/24at 13:08; Start 10/31/24 at 13:00; Stop 10/31/24 at 13:01; Status DC Lorazepam 1 mg ONCE ONCE IVP Last administered on 10/31/24at 13:43; Start 10/31/24 at 14:00; Stop 10/31/24 at 14:01; Status DC Oseltamivir Phosphate 75 mg ONCE ONCE PO Last administered on 10/31/24at 14:34; Start 10/31/24 at 14:30; Stop 10/31/24 at 14:31; Status DC Acetaminophen 650 mg Q4H PRN PO Last administered on 11/08/24at 01:13; Start 10/31/24 at 15:00; Stop 11/30/24 at 14:59 Methylprednisolone Sodium Succinate 60 mg Q8H IVP Last administered on 11/01/24at 06:42; Start 10/31/24 at 15:00; Stop 11/01/24 at 09:46; Status DC Famotidine 20 mg BID PO; Start 10/31/24 at 21:00; Stop 11/01/24 at 01:45; Status DC Lactulose 20 gm BID PRN PO Last administered on 11/06/24at 08:18; Start 10/31/24 at 15:00; Stop 11/30/24 at 14:59 Ondansetron HCl 4 mg Q6H PRN IVP Last administered on 11/08/24at 00:54; Start 10/31/24 at 15:00; Stop 11/30/24 at 14:59 Ceftriaxone Sodium 1 gm Q24H IVPB Last administered on 10/31/24at 16:16; Start 10/31/24 at 15:00; Stop 10/31/24 at 23:39; Status DC Azithromycin 250 ml @ 250 mls/hr Q24H IVPB Last administered on 10/31/24at 16:50; Start 10/31/24 at 16:00; Stop 10/31/24 at 23:39; Status DC Oseltamivir Phosphate 75 mg BID PO Last administered on 11/05/24at 20:40; Start 11/01/24 at 09:00; Stop 11/06/24 at 08:59; Status DC Magnesium Sulfate 50 ml @ 0 mls/hr PROTOCOL PRN IV; Start 10/31/24 at 15:00; Stop 11/30/24 at 14:59 Potassium Chloride 100 ml @ 100 mls/hr AD PRN IV; Start 10/31/24 at 15:00; Stop 11/30/24 at 14:59 Potassium Chloride 20 meq AD PRN PO Last administered on 11/09/24at 06:21; Start 10/31/24 at 15:00; Stop 11/30/24 at 14:59 Potassium Chloride 20 meq AD PRN PO; Start 10/31/24 at 15:00; Stop 11/30/24 at 14:59 Montelukast Sodium 10 mg HS PO Last administered on 11/09/24at 21:05; Start 10/31/24 at 21:00; Stop 11/30/24 at 20:59 Albuterol Sulfate 10 mg ONCE ONCE IH Last administered on 10/31/24at 16:38; Start 10/31/24 at 15:30; Stop 10/31/24 at 15:31; Status DC Sodium Chloride 1,000 ml @ 0 mls/hr ONCE ONCE IV Last administered on 10/31/24at 16:08; Start 10/31/24 at 15:30; Stop 10/31/24 at 15:31; Status DC Propofol 100 ml @ As Directed STK-MED ONCE IV; Start 10/31/24 at 15:36; Stop 10/31/24 at 15:36; Status DC Etomidate 20 mg ONCE ONCE IVP Last administered on 10/31/24at 16:42; Start 10/31/24 at 16:00; Stop 10/31/24 at 16:02; Status DC Rocuronium [place] 100 mg/ Sodium Chloride 100 ml @ 0 mls/hr PROTOCOL IV; Start 10/31/24 at 16:00; Stop 10/31/24 at 16:44; Status DC Propofol 1,000 mg PROTOCOL PRN IV Last administered on 11/05/24at 21:59; Start 10/31/24 at 16:00; Stop 11/06/24 at 12:17; Status DC Midazolam HCl 50 mg/Sodium Chloride 50 ml @ 0 mls/hr PROTOCOL IV; Start 10/31/24 at 16:00; Stop 10/31/24 at 16:02; Status DC Midazolam HCl 50 ml @ 0 mls/hr PROTOCOL IV Last administered on 11/05/24at 22:14; Start 10/31/24 at 16:30; Stop 11/06/24 at 12:17; Status DC Rocuronium [place] 100 mg ONCE ONCE IV; Start 10/31/24 at 17:00; Stop 10/31/24 at 17:01; Status DC Fentanyl Citrate 100 ml @ 2.5 mls/hr PROTOCOL IV; Start 10/31/24 at 19:30; Stop 10/31/24 at 19:25; Status DC Fentanyl/Sodium Chloride 250 ml @ 0 mls/hr PROTOCOL IV Last administered on 11/05/24at 19:11; Start 10/31/24 at 19:30; Stop 11/05/24 at 19:29; Status DC Acetaminophen 650 mg STK-MED ONCE RC; Start 10/31/24 at 19:42; Stop 10/31/24 at 19:42; Status DC Norepinephrine 250 ml @ As Directed STK-MED ONCE IV; Start 10/31/24 at 20:16; Stop 10/31/24 at 20:16; Status DC Norepinephrine 250 ml @ 27.225 mls/ hr PROTOCOL IV Last administered on 11/01/24at 18:24; Start 10/31/24 at 20:30; Stop 11/02/24 at 10:27; Status DC Norepinephrine 250 ml @ 0 mls/hr PROTOCOL IV; Start 10/31/24 at 20:30; Stop 11/01/24 at 22:43; Status DC Acetaminophen 650 mg Q6H PRN RC Last administered on 10/31/24at 19:42; Start 10/31/24 at 21:00; Stop 11/30/24 at 20:59 Piperacillin Sod/ Tazobactam Sod 3.375 gm Q8H IV Last administered on 11/02/24at 08:49; Start 11/01/24 at 00:00; Stop 11/02/24 at 10:26; Status DC Doxycycline Hyclate 250 ml @ 125 mls/hr Q12H IV Last administered on 11/09/24at 01:35; Start 11/01/24 at 00:00; Stop 11/09/24 at 09:31; Status DC Enoxaparin Sodium 40 mg DAILY SQ Last administered on 11/09/24at 08:27; Start 11/01/24 at 09:00; Stop 12/01/24 at 08:59 Famotidine 20 mg BID IV Last administered on 11/09/24at 21:04; Start 11/01/24 at 09:00; Stop 12/01/24 at 08:59 Albuterol 1 udvial [id number] IH Last administered on 11/01/24at 06:56; Start 11/01/24 at 02:00; Stop 11/01/24 at 09:42; Status DC Albuterol 1 udvial STK-MED ONCE IH; Start 11/01/24 at 02:39; Stop 11/01/24 at 02:39; Status DC Albuterol 1 udvial STK-MED ONCE IH; Start 11/01/24 at 06:32; Stop 11/01/24 at 06:32; Status DC Albuterol 1 udvial [id number] IH Last administered on 11/08/24at 01:54; Start 11/01/24 at 10:00; Stop 11/08/24 at 09:13; Status DC Budesonide 0.5 mg BIDRESP IH Last administered on 11/09/24at 19:37; Start 11/01/24 at 18:00; Stop 12/01/24 at 17:59 Albuterol 1 udvial STK-MED ONCE IH; Start 11/01/24 at 09:43; Stop 11/01/24 at 09:48; Status DC Hydrocortisone Sodium Succinate 50 mg Q6H IVP Last administered on 11/02/24at 11:15; Start 11/01/24 at 11:00; Stop 11/02/24 at 13:55; Status DC Polyethylene Glycol 17 gm DAILY PO Last administered on 11/09/24at 08:26; Start 11/02/24 at 09:00; Stop 12/02/24 at 08:59 Polyethylene Glycol 17 gm ONCE PO Last administered on 11/01/24at 16:05; Start 11/01/24 at 15:30; Stop 11/01/24 at 21:30; Status DC Insulin Human Regular INSULIN SLIDING SCAL... Q6H6 SQ; Start 11/02/24 at 00:00; Stop 12/02/24 at 00:00 Norepinephrine Bitartrate 250 ml @ 0 mls/hr AD PRN IV Last administered on 11/03/24at 22:51; Start 11/01/24 at 23:00; Stop 11/08/24 at 12:53; Status DC Chlorhexidine Gluconate 15 ml TID MM Last administered on 11/06/24at 08:18; Start 11/02/24 at 09:00; Stop 11/06/24 at 12:33; Status DC Artificial Tears 1 DROP OR AD Q8H OU Last administered on 11/06/24at 06:49; Start 11/02/24 at 06:30; Stop 11/06/24 at 12:33; Status DC Cefepime HCl 2 gm Q8H IVPB Last administered on 11/07/24at 18:25; Start 11/02/24 at 10:30; Stop 11/07/24 at 23:37; Status DC Vancomycin HCl 1 each AD IV; Start 11/02/24 at 10:30; Stop 11/06/24 at 06:04; Status DC Vancomycin HCl 500 ml @ 250 mls/hr ONCE ONCE IV Last administered on 11/02/24at 11:15; Start 11/02/24 at 10:30; Stop 11/02/24 at 12:29; Status DC Vancomycin HCl 250 ml @ 125 mls/hr Q8H IV Last administered on 11/04/24at 03:46; Start 11/02/24 at 20:30; Stop 11/04/24 at 12:45; Status DC Methylprednisolone Sodium Succinate 60 mg Q6H IVP Last administered on 11/03/24at 13:35; Start 11/02/24 at 14:00; Stop 11/03/24 at 15:10; Status DC Diazepam 10 mg Q8H NG Last administered on 11/06/24at 03:28; Start 11/03/24 at 12:00; Stop 11/06/24 at 09:07; Status DC Methylprednisolone Sodium Succinate 80 mg Q6H IVP Last administered on 11/05/24at 13:12; Start 11/03/24 at 20:00; Stop 11/05/24 at 16:10; Status DC Pharmacy Profile Note 1 each ONCE MISC; Start 11/03/24 at 15:30; Stop 11/04/24 at 13:19; Status DC Rocuronium [place] 50 mg ONCE IV Last administered on 11/03/24at 15:27; Start 11/03/24 at 15:25; Stop 11/03/24 at 16:25; Status DC Vancomycin HCl 250 ml @ 125 mls/hr Q8H IV Last administered on 11/05/24at 21:02; Start 11/04/24 at 13:00; Stop 11/06/24 at 06:04; Status DC Dextrose 1,000 ml @ 60 mls/hr [id number] IV Last administered on 11/05/24at 11:21; Start 11/05/24 at 11:30; Stop 11/06/24 at 09:04; Status DC Rocuronium [place] 50 mg STK-MED ONCE IV; Start 10/31/24 at 12:21; Stop 11/05/24 at 12:21; Status DC Methylprednisolone Sodium Succinate 60 mg Q6H IVP Last administered on 11/06/24at 08:19; Start 11/05/24 at 20:00; Stop 11/06/24 at 08:58; Status DC Dopamine HCl/ Dextrose 250 ml @ 0 mls/hr AD PRN IV Last administered on 11/05/24at 21:11; Start 11/05/24 at 21:00; Stop 11/08/24 at 12:53; Status DC Propofol 100 ml @ 0 mls/hr AD PRN IV; Start 11/05/24 at 21:00; Stop 11/06/24 at 13:44; Status DC Fentanyl/Sodium Chloride 250 ml @ As Directed STK-MED ONCE IV Last administered on 11/06/24at 03:38; Start 11/06/24 at 03:09; Stop 11/06/24 at 03:09; Status DC Fentanyl Citrate 2500 mcg/Sodium Chloride 250 ml @ 0 mls/hr AD PRN IV; Start 11/06/24 at 03:30; Stop 11/06/24 at 03:31; Status DC Fentanyl/Sodium Chloride 250 ml @ 0 mls/hr PROTOCOL IV; Start 11/06/24 at 03:30; Stop 11/06/24 at 12:17; Status DC Dexmedetomidine/ Sodium Chloride 400 mcg PROTOCOL IV Last administered on 11/07/24at 07:32; Start 11/06/24 at 08:30; Stop 11/08/24 at 12:53; Status DC Methylprednisolone Sodium Succinate 40 mg Q12H IVP Last administered on 11/07/24at 20:26; Start 11/06/24 at 20:00; Stop 11/07/24 at 23:34; Status DC Furosemide 20 mg ONCE ONCE IV Last administered on 11/06/24at 09:17; Start 11/06/24 at 09:30; Stop 11/06/24 at 09:31; Status DC Diazepam 10 mg Q6H NG Last administered on 11/06/24at 09:17; Start 11/06/24 at 09:30; Stop 11/06/24 at 12:32; Status DC Home Med (Lamotrigine (Lamictal Xr) 300 MG) HS PO; Start 11/06/24 at 21:00; Stop 11/06/24 at 17:25; Status DC Risperidone 3 mg HS PO; Start 11/06/24 at 21:00; Stop 11/06/24 at 17:25; Status DC Diazepam 10 mg Q6H PRN NG Last administered on 11/06/24at 14:17; Start 11/06/24 at 13:00; Stop 11/06/24 at 17:35; Status DC Olanzapine 5 mg BID PO Last administered on 11/09/24at 08:26; Start 11/06/24 at 17:30; Stop 11/09/24 at 09:31; Status DC Lorazepam 1 mg Q4H PRN IVP Last administered on 11/07/24at 12:28; Start 11/06/24 at 17:30; Stop 11/07/24 at 16:46; Status DC Melatonin 10 mg HS PO Last administered on 11/09/24at 21:05; Start 11/06/24 at 21:00; Stop 12/06/24 at 20:59 Midazolam HCl 2 mg ONCE ONCE IVP; Start 11/06/24 at 21:00; Stop 11/06/24 at 21:04; Status DC Lorazepam 2 mg ONCE ONCE IVP Last administered on 11/06/24at 21:07; Start 11/06/24 at 21:30; Stop 11/06/24 at 21:31; Status DC Ziprasidone 5 mg ONCE ONCE IM Last administered on 11/06/24at 22:24; Start 11/06/24 at 22:00; Stop 11/06/24 at 22:01; Status DC Ziprasidone 20 mg STK-MED ONCE IM; Start 11/06/24 at 21:50; Stop 11/06/24 at 21:50; Status DC Lamotrigine 200 mg DAILY PO Last administered on 11/08/24at 07:59; Start 11/07/24 at 11:30; Stop 11/08/24 at 13:32; Status DC Diazepam 10 mg ONCE ONCE PO Last administered on 11/07/24at 15:16; Start 11/07/24 at 15:30; Stop 11/07/24 at 15:31; Status DC Diazepam 5 mg Q4H PRN PO Last administered on 11/08/24at 20:30; Start 11/07/24 at 17:00; Stop 11/09/24 at 09:31; Status DC Prednisone 10 mg BID PO Last administered on 11/08/24at 07:59; Start 11/08/24 at 09:00; Stop 11/08/24 at 09:16; Status DC Albuterol 1 udvial [id number] IH Last administered on 11/09/24at 19:37; Start 11/08/24 at 14:00; Stop 12/01/24 at 01:59 Prednisone 10 mg BID PO Last administered on 11/09/24at 21:05; Start 11/08/24 at 21:00; Stop 11/09/24 at 23:34; Status DC Lamotrigine 300 mg HS PO Last administered on 11/09/24at 21:05; Start 11/08/24 at 21:00; Stop 12/08/24 at 20:59 Diphenhydramine HCl 25 mg Q12H9 PRN IV Last administered on 11/09/24at 08:30; Start 11/08/24 at 13:30; Stop 11/09/24 at 23:34; Status DC Nicotine 14 mg DAILY TD Last administered on 11/09/24at 09:35; Start 11/09/24 at 09:00; Stop 12/09/24 at 08:59 Nicotine 14 mg ONCE ONCE TD Last administered on 11/08/24at 13:47; Start 11/08/24 at 13:30; Stop 11/08/24 at 13:36; Status DC Trazodone HCl 50 mg BID PO Last administered on 11/08/24at 20:31; Start 11/08/24 at 21:00; Stop 11/09/24 at 09:31; Status DC Risperidone 3 mg HS PO Last administered on 11/09/24at 21:05; Start 11/09/24 at 21:00; Stop 12/09/24 at 20:59 Cetirizine HCl 10 mg DAILY PO Last administered on 11/09/24at 10:08; Start 11/09/24 at 09:30; Stop 12/09/24 at 09:29 Multivitamins/ Minerals 10 ml/ Folic Acid 1 mg/ Thiamine HCl 100 mg/Sodium Chloride 1,010 ml @ 0 mls/hr DAILY IV; Start 11/10/24 at 09:00; Stop 11/12/24 at 09:01 GINETTE NOEL MD Nov 09, 2024 23:55
[2024-11-10] VITALS (11 sets, daily range): BP systolic 96–118; BP diastolic 62–65; PULSE 78–126; RESP 18–19; TEMP 97.7–99.1; O2SAT 94–100
[2024-11-10 04:09] LABS: BASOPHILS # (AUTO) 0.04 K/uL (0.00-0.20); BASOPHILS % (AUTO) 0.2 % (0.0-5.0); EOSINOPHILS # (AUTO) 0.04 K/uL (0.00-0.70); EOSINOPHILS % (AUTO) 0.2 % (0.0-8.0); HEMATOCRIT 48.9 % (42-54); IMMATURE GRANULOCYTE ABSOLUTE 0.35 K/uL (0-1); LYMPHOCYTES # (AUTO) 4.1 K/uL (1.0-4.8); LYMPHOCYTES % (AUTO) 20.6 % (21.0-51.0); MEAN CORPUSCULAR HEMOGLOBIN 29.9 pg (27.0-33.0); MEAN CORPUSCULAR HGB CONC 34.2 g/dL (32.0-36.0); MEAN CORPUSCULAR VOLUME 87.5 fL (79-99); MONOCYTES % (AUTO) 10.1 % (3.0-13.0); NEUTROPHILS # (AUTO) 13.4 K/uL (1.8-7.7); NEUTROPHILS % (AUTO) 67.1 % (40.0-77.0); PLATELET COUNT (AUTO) 328 K/uL (130-400); RED BLOOD CELL COUNT(AUTO) 5.59 MIL/uL (4.50-6.20); RED CELL DISTRIBUTION WIDTH 12.9 % (11.0-15.5); WHITE BLOOD COUNT (AUTO) 19.9 K/uL (4.8-10.8)
--- NOTE | 2024-11-10 04:24 | NUR ---
NOTE PATIENT WOKE FROM SLEEP AGITATED HE IS SITTING UP IN BED AND KEEPS SAYING TO MOM "LET'S GO I DON'T TRUST THESE PEOPLE, YOU HAVEN'T BEEN WITH ME ALL NIGHT." I ASK PT WHAT IS GOING ON AND WHY DOES HE WANT TO LEAVE. PT STATES, "I'M SCARED AND I WANT TO GO HOME." I TELL PT HE IS SAFE HE IS IN THE HOSPITAL AND WE ARE TAKING CARE OF HIM AND HE CAN NOT GO AT THIS TIME UNTIL HE GETS BETTER. PT CONTINUES TO TELL MOM, "LET'S GO MOM YOU ARE GOING TO REGRET THIS FOR THE REST OF YOUR LIFE IF I , LET'S GO." PT IS ANGRY AND WILL NOT LISTEN TO NURSE OR MOM. WILL CONTINUE TO MONITOR.
[2024-11-10 04:27] LABS: ALBUMIN 3.4 g/dL (3.5-5.0); CREATININE 0.8 mg/dL (0.5-1.3); MAGNESIUM 2.4 mg/dL (1.80-2.40); POTASSIUM 4.9 mmol/L (3.5-5.1); TOTAL PROTEIN, SERUM 6.8 g/dL (6.0-8.3)
[2024-11-10] MEDS: M.V.I. IV [ADULT] 10 ML, FOLic ACID 5 MG/ML VIAL 1 MG, THIAMINE HCL 100 MG in 0.9%NACL ... IV SCH (07:56)
--- NOTE | 2024-11-10 09:44 | PN ---
[facility] PROGRESS NOTE Date of Service: Nov 10, 2024 Time of Service: 09:40 SUBJECTIVE: 11/01 patient seen at bedside, no acute events overnight. He remains intubated and sedated, on a low dose of pressors. WBC increased from 10.2 up to 14.5, potassium increased from 3.6 up to 5.4, creatinine increased from 1.0 up to 1.6, remainder of his labs are relatively unremarkable. He still has a prominent wheeze. Patient is positive for influenza. Further care per critical Care. 11/02 patient seen at bedside, no acute events overnight. He remains intubated and sedated, FiO2 has been decreased from 45 down to 40%. We will defer to pulmonology for extubation. He remains on pressors, we will wean as able. WBC increased from 14.5 up to 20.4, hemoglobin stable at 13.1, remainder of his labs are relatively unremarkable. 11/03 patient seen at bedside, no acute events overnight he remains intubated and sedated, FiO2 at 40%, peep of 5. Patient continues on pressors, we will continue to wean as able. WBC decreased from 20.4 down to 14.2, hemoglobin stable at 13.1 same as yesterday, remainder of his labs are relatively unremarkable. 11/04 patient seen at bedside, no acute events overnight. He remains intubated and sedated, FiO2 at 40% peep of 7. Patient has been weaned off pressors. WBC improved from 14.2 down to 11.3, hemoglobin decreased from 13.1 down to 12.7, remainder of his labs are relatively unremarkable. 11/05 patient is seen and examined at bedside, remains intubated, on mechanical ventilation, on fentanyl and Versed drip. He is on droplet precautions. Getting nutritional support via NG tube. WBC improving, today at 11.0, hemoglobin 12.2, hematocrit 37.8. ABG with pH of 7.37, PO2 80.7. Chest x-ray showing prominent interstitial markings with possible superimposed infiltrates. 11/06 patient has been seen and examined at bedside, remains intubated, mechanical ventilation, on CPAP trial, off sedation, remains on droplet precaution, BP 147/73, saturating 100% on mechanical ventilation. Off nutritional support via NG tube. ABG shows pH of 7.44, pCO2 47, PO2 1629. Chest x-ray stable, no vascular congestion, heart size is normal. 11/07 patient is seen and examined at bedside, extubated yesterday, currently on low-dose Precedex. Withdrawing to painful stimulation. BP 114/55, heart rate of 42, afebrile, saturating 98% on 2 L via nasal cannula. CBC with a hemoglobin 12.3, hematocrit 36.5, WBC 13.1. Potassium level 3.1. Liver enzymes with an AST of 101, ALT 405. Urine toxicology screen positive for cocaine and mar ijuana. Serology test positive for influenza type A. He will remain on droplet precautions. Chest x-ray showing stable chest. Echocardiogram pending. Family at bedside, updated. 11/08 the patient has been seen and examined at bedside, he is awake, following commands, getting nutritional support via NG tube, he is asking if it can be removed. He is off Precedex. BP 106/62, afebrile, saturating 97% on air. No chest pain, shortness shortness for breath, no cough. WBC today at 10.8, down from 13.1. Hemoglobin 13.0, hematocrit 38.2. Liver enzymes slowly trending down. Echocardiogram reviewed, LVEF 60-65%, diastolic function. was unable to be assessed. The right ventricle is normal in size, right ventricular systolic function is normal, left atrium size is normal, right atrium is mildly dilated, no valvular pathology, no pericardial effusion. Ultrasound of the abdomen pending. Mother is at bedside, the patient with a history of bipolar, on Lamictal and risperidone at home, discussed with critical Care, patient was bradycardic yesterday, he has been started on Zyprexa instead. Pending speech therapy to evaluate the patient today, as well as physical therapist. We will request psychiatric consultation as well. 11/09 the patient has been seen and examined, he has been downgraded from the ICU to the medical floor, he is alert, awake, following commands, still with the NG tube in place, clamped, he is awaiting MBS assess today. BP 104/76, heart rate of 101, afebrile, saturating normal on room air, he denies chest pain, no shortness a breath, no nausea, no vomiting, he remains alert oriented x3, not combative, not agitated. He is mood is appropriate. CBC with a hemoglobin 14.2, hematocrit 41.3, WBC 12.0. Sodium 143, potassium 3.8, chest x-ray no acute findings. We will request PT therapy to evaluate the patient and we will discuss discharge plan with case management. 11/10 patient is seen and examined, awake, sitting in the chair, following commands, getting nutritional support via NG tube. BP 105/65, afebrile, saturating 94-95% on room air, hemoglobin 16.7, hematocrit 48.9, WBC 19.9, platelet 328. Septic workup negative, leukocytosis likely secondary to use of IV steroids, patient now off steroids. Completed course of prednisone p.o. he has been restarted on risperidone 3 mg p.o. at bedtime from home dose, continue Lamictal 300 mg p.o. HS. Discussed with case management, no psychiatrist available to evaluate the patient, however the patient does not have any acute crisis, he is not combative, he is not agitated, denies suicidal or homicidal ideation, psychiatric evaluation discontinued. Patient can follow up as an outpatient. Continue home medications. Cardiology input noted and appreciated, heart rate controlled, continue to monitor. Chest x-ray done, stable, the patient underwent modified barium swallow 11/09/2024, secondary to severe oral dysphagia, unable to assess due to severity, recommended to keep the patient NPO, plan for long-term alternate means to meet nutrition/hydration. Discussed with the RN JOAQUIM today, patient to be started on multivitamin IV, we will reassess on Tuesday. REVIEW OF SYSTEMS A14 point ROS was obtained all relevant positive documented otherwise ROS negative PHYSICAL EXAM GENERAL APPEARANCE: Awake, following commands, getting nutritional support via NG tube. Off Precedex. NEUROLOGICAL: Cranial nerves II-XII grossly intact. Motor is 5/5 in bilateral upper and lower extremities proximal to distal. No sensory deficits. HEENT: Face is symmetric. Pupils are equal and reactive. Extraocular movements are intact. NECK: Supple. No JVD. No thyromegaly. No submental, submandibular, pre- /postauricular, occipital or supraclavicular lymphadenopathy. CHEST: Normal chest expansion. No Telemetry. LUNGS: No bilateral expiratory wheezing CARDIOVASCULAR: Regular. S1 and S2 normal. No appreciable rubs, murmurs or gallops. ABDOMEN: Soft, nontender, and nondistended. There is no rebound, voluntary guarding, or rigidity. : Deferred. No Peoples. EXTREMITIES: Non-edematous and not cyanotic. No clubbing. Good capillary refill. SKIN: No skin breakdown. Vital Signs (last 8hr) Date Time Temp Pulse Resp B/P (MAP) Pulse Ox O2 Delivery O2 Flow Rate FiO2 11/10/24 08:00 95 Room Air* 0 21 11/10/24 08:00 97.7 93 18 105/65 94 Room Air 21 11/10/24 06:56 105 19 N/Cannula Low lpm 21 11/10/24 06:53 106 19 11/10/24 04:00 98.1 110 19 118/65 95 Room Air 21 LABS: Laboratory: Test 11/10/24 05:39 11/10/24 03:50 Range/Units Whole Blood Glucose 121 H 70-110 MG/DL White Blood Count 19.9 #H 4.8-10.8 K/uL Red Blood Count 5.59 4.50-6.20 MIL/uL Hemoglobin 16.7 14.0-18.0 g/dL Hematocrit 48.9 42-54 % Mean Corpuscular Volume 87.5 79-99 fL Mean Corpuscular Hemoglobin 29.9 27.0-33.0 pg Mean Corpuscular Hemoglobin Concent 34.2 32.0-36.0 g/dL Red Cell Distribution Width 12.9 11.0-15.5 % Platelet Count 328 # 130-400 K/uL Mean Platelet Volume 10.0 7.5-10.5 fL Immature Granulocyte % (Auto) 1.8 H 0-1 % Neutrophils (%) (Auto) 67.1 40.0-77.0 % Lymphocytes (%) (Auto) 20.6 L 21.0-51.0 % Monocytes (%) (Auto) 10.1 3.0-13.0 % Eosinophils (%) (Auto) 0.2 0.0-8.0 % Basophils (%) (Auto) 0.2 0.0-5.0 % Neutrophils # (Auto) 13.4 H 1.8-7.7 K/uL Lymphocytes # (Auto) 4.1 1.0-4.8 K/uL Monocytes # (Auto) 2.0 H 0.1-1.0 K/uL Eosinophils # (Auto) 0.04 0.00-0.70 K/uL Basophils # (Auto) 0.04 0.00-0.20 K/uL Absolute Immature Granulocyte (auto 0.35 0-1 K/uL Nucleated Red Blood Cells 0.0 0.0-0.19 % Sodium Level 142 136-145 mmol/L Potassium Level 4.9 3.5-5.1 mmol/L Chloride Level 105 101-111 mmol/L Carbon Dioxide Level 27 21-32 mmol/L Blood Urea Nitrogen 23 H 7-18 mg/dL Creatinine 0.8 0.5-1.3 mg/dL Glomerular Filtration Rate Calc 113 >90 mL/min Random Glucose 131 H 70-105 mg/dL Total Calcium 10.1 8.5-10.1 mg/dL Magnesium Level 2.40 1.80-2.40 mg/dL Total Bilirubin 1.0 # 0.2-1.0 mg/dL Aspartate Amino Transf (AST/SGOT) 64 H 10-37 U/L Alanine Aminotransferase (ALT/SGPT) 307 H 12-78 U/L Alkaline Phosphatase 121 # 50-136 U/L Total Protein 6.8 6.0-8.3 g/dL Albumin 3.4 #L 3.5-5.0 g/dL Procalcitonin < 0.05 L 0.05-0.5 ng/mL Current Medications Medications (Trade) Dose Ordered Sig/Martinez Route PRN Reason Start Time Stop Time Status Last Admin Dose Admin Acetaminophen (TYLenol 325MG TAB) 650 mg Q4H PRN PO TEMPERATURE GREATER THAN 101.5 10/31/24 15:00 11/30/24 14:59 11/08/24 01:13 650 MG Acetaminophen (TYLenol 650MG SUPPOSITORY) 650 mg Q6H PRN RC MILD PAIN (1-3) 10/31/24 21:00 11/30/24 20:59 10/31/24 19:42 650 MG Albuterol (DUOneb) 1 udvial [id number] 11/01/24 10:00 11/08/24 09:13 DC 11/08/24 01:54 1 UDVIAL Albuterol (DUOneb) 1 udvial [id number] 11/01/24 02:00 11/01/24 09:42 DC 11/01/24 06:56 1 UDVIAL Albuterol (DUOneb) 1 udvial [id number] IH 11/08/24 14:00 12/01/24 01:59 11/10/24 06:52 1 UDVIAL Artificial Tears (Artificial Tears) 1 DROP OR AD Q8H OU 11/02/24 06:30 11/06/24 12:33 DC 11/06/24 06:49 1 DROP Azithromycin 250 ml @ 250 mls/hr Q24H IVPB 10/31/24 16:00 10/31/24 23:39 DC 10/31/24 16:50 250 MLS/HR Budesonide (Pulmicort 0.5 Mg/2ml) 0.5 mg BIDRESP IH 11/01/24 18:00 12/01/24 17:59 11/10/24 06:52 0.5 MG Cefepime HCl (MAXipime 2 gm vial) 2 gm Q8H IVPB 11/02/24 10:30 11/07/24 23:37 DC 11/07/24 18:25 2 GM Ceftriaxone Sodium (ROCEphine 1G INJ) 1 gm Q24H IVPB 10/31/24 15:00 10/31/24 23:39 DC 10/31/24 16:16 1 GM Cetirizine HCl (ZYRtec 5 MG TABLET) 10 mg DAILY PO 11/09/24 09:30 12/09/24 09:29 11/10/24 07:46 10 MG Chlorhexidine Gluconate (Peridex) 15 ml TID MM 11/02/24 09:00 11/06/24 12:33 DC 11/06/24 08:18 15 ML Dexmedetomidine/ Sodium Chloride (PRECEdex 400MCG/ 100ML-NS) 400 mcg PROTOCOL IV 11/06/24 08:30 11/08/24 12:53 DC 11/07/24 07:32 400 MCG Dextrose 1,000 ml @ 60 mls/hr [id number] IV 11/05/24 11:30 11/06/24 09:04 DC 11/05/24 11:21 60 MLS/HR Diazepam (VALium 5 mg TAB) 5 mg Q4H PRN PO ANXIETY 11/07/24 17:00 11/09/24 09:31 DC 11/08/24 20:30 5 MG Diazepam (VALium 5 mg TAB) 10 mg Q6H NG 11/06/24 09:30 11/06/24 12:32 DC 11/06/24 09:17 10 MG Diazepam (VALium 5 mg TAB) 10 mg Q6H PRN NG ANXIETY/AGITATION 11/06/24 13:00 11/06/24 17:35 DC 11/06/24 14:17 10 MG Diazepam (VALium 5 mg TAB) 10 mg Q8H NG 11/03/24 12:00 11/06/24 09:07 DC 11/06/24 03:28 10 MG Diphenhydramine HCl (BENAdryl INJ) 25 mg Q12H9 PRN IV SLEEP 11/08/24 13:30 11/09/24 23:34 DC 11/09/24 08:30 25 MG Dopamine HCl/ Dextrose 250 ml @ 0 mls/hr AD PRN IV TITRATE 11/05/24 21:00 11/08/24 12:53 DC 11/05/24 21:11 0 MLS/HR Doxycycline Hyclate 250 ml @ 125 mls/hr Q12H IV 11/01/24 00:00 11/09/24 09:31 DC 11/09/24 01:35 125 MLS/HR Enoxaparin Sodium (Lovenox) 40 mg DAILY SQ 11/01/24 09:00 12/01/24 08:59 11/10/24 07:46 40 MG Famotidine (Pepcid 20mg Vial) 20 mg BID IV 11/01/24 09:00 12/01/24 08:59 11/10/24 07:56 20 MG Famotidine (Pepcid 20mg Tab) 20 mg BID PO 10/31/24 21:00 11/01/24 01:45 DC Fentanyl Citrate 100 ml @ 2.5 mls/hr PROTOCOL IV 10/31/24 19:30 10/31/24 19:25 DC Fentanyl Citrate 2500 mcg/Sodium Chloride 250 ml @ 0 mls/hr AD PRN IV TITRATE 11/06/24 03:30 11/06/24 03:31 DC Fentanyl/Sodium Chloride 250 ml @ 0 mls/hr PROTOCOL IV 11/06/24 03:30 11/06/24 12:17 DC Fentanyl/Sodium Chloride 250 ml @ 0 mls/hr PROTOCOL IV 10/31/24 19:30 11/05/24 19:29 DC 11/05/24 19:11 10 MLS/HR Home Med (Home Medication) (Lamotrigine (Lamictal Xr) 300 MG) HS PO 11/06/24 21:00 11/06/24 17:25 DC Hydrocortisone Sodium Succinate (Solu-corTEF 100MG) 50 mg Q6H IVP 11/01/24 11:00 11/02/24 13:55 DC 11/02/24 11:15 50 MG Insulin Human Regular (humuLIN R 100 UNIT/ML 3ML) INSULIN SLIDING SCAL... Q6H6 SQ 11/02/24 00:00 12/02/24 00:00 Lactulose (Constulose 20gm/ 30ml Udcup) 20 gm BID PRN PO CONSTIPATION 10/31/24 15:00 11/30/24 14:59 11/06/24 08:18 20 GM Lamotrigine (LAMIctal 100 MG TABLET) 200 mg DAILY PO 11/07/24 11:30 11/08/24 13:32 DC 11/08/24 07:59 200 MG Lamotrigine (LAMIctal 100 MG TABLET) 300 mg HS PO 11/08/24 21:00 12/08/24 20:59 11/09/24 21:05 300 MG Lorazepam (AtiVAN) 1 mg Q4H PRN IVP ANXIETY/AGITATION 11/06/24 17:30 11/07/24 16:46 DC 11/07/24 12:28 1 MG Magnesium Sulfate 50 ml @ 0 mls/hr PROTOCOL IV 10/31/24 13:00 10/31/24 14:54 DC 10/31/24 13:08 25 MLS/HR Magnesium Sulfate 50 ml @ 0 mls/hr PROTOCOL PRN IV low mag level 10/31/24 15:00 11/30/24 14:59 Melatonin (Melatonin) 10 mg HS PO 11/06/24 21:00 12/06/24 20:59 11/09/24 21:05 10 MG Methylprednisolone Sodium Succinate (Solu-medROL 40MG) 40 mg Q12H IVP 11/06/24 20:00 11/07/24 23:34 DC 11/07/24 20:26 40 MG Methylprednisolone Sodium Succinate (Solu-medROL 40MG) 60 mg Q6H IVP 11/02/24 14:00 11/03/24 15:10 DC 11/03/24 13:35 60 MG Methylprednisolone Sodium Succinate (Solu-medROL 40MG) 60 mg Q6H IVP 11/05/24 20:00 11/06/24 08:58 DC 11/06/24 08:19 60 MG Methylprednisolone Sodium Succinate (Solu-medROL 40MG) 60 mg Q8H IVP 10/31/24 15:00 11/01/24 09:46 DC 11/01/24 06:42 60 MG Methylprednisolone Sodium Succinate (Solu-medROL 40MG) 80 mg Q6H IVP 11/03/24 20:00 11/05/24 16:10 DC 11/05/24 13:12 80 MG Midazolam HCl 50 ml @ 0 mls/hr PROTOCOL IV 10/31/24 16:30 11/06/24 12:17 DC 11/05/24 22:14 10 MLS/HR Midazolam HCl 50 mg/Sodium Chloride 50 ml @ 0 mls/hr PROTOCOL IV 10/31/24 16:00 10/31/24 16:02 DC Montelukast Sodium (SinguLAIR) 10 mg HS PO 10/31/24 21:00 11/30/24 20:59 11/09/24 21:05 10 MG Multivitamins/ Minerals 10 ml/ Folic Acid 1 mg/ Thiamine HCl 100 mg/Sodium Chloride 1,010 ml @ 0 mls/hr DAILY IV 11/10/24 09:00 11/12/24 09:01 11/10/24 07:56 50 MLS/HR Nicotine (Nicoderm) 14 mg DAILY TD 11/09/24 09:00 12/09/24 08:59 11/10/24 07:57 14 MG Norepinephrine 250 ml @ 27.225 mls/ hr PROTOCOL IV 10/31/24 20:30 11/02/24 10:27 DC 11/01/24 18:24 41.06 MLS/HR Norepinephrine 250 ml @ 0 mls/hr PROTOCOL IV 10/31/24 20:30 11/01/24 22:43 DC Norepinephrine Bitartrate 250 ml @ 0 mls/hr AD PRN IV TITRATE 11/01/24 23:00 11/08/24 12:53 DC 11/03/24 22:51 6.48 MLS/HR Olanzapine (ZyPREXA 5 mg tab) 5 mg BID PO 11/06/24 17:30 11/09/24 09:31 DC 11/09/24 08:26 5 MG Ondansetron HCl (zoFRAN 4MG INJ) 4 mg Q6H PRN IVP NAUSEA/VOMITING 10/31/24 15:00 11/30/24 14:59 11/08/24 00:54 4 MG Oseltamivir Phosphate (Tamiflu) 75 mg BID PO 11/01/24 09:00 11/06/24 08:59 DC 11/05/24 20:40 75 MG Pharmacy Profile Note (Pharmacy Communication) 1 each ONCE MISC 11/03/24 15:30 11/04/24 13:19 DC Piperacillin Sod/ Tazobactam Sod (Zosyn 3.375gm+NS 50ml) 3.375 gm Q8H IV 11/01/24 00:00 11/02/24 10:26 DC 11/02/24 08:49 3.375 GM Polyethylene Glycol (MIRalax 3350 17 GM POWD.PACK) 17 gm DAILY PO 11/02/24 09:00 12/02/24 08:59 11/10/24 07:57 17 GM Polyethylene Glycol (MIRalax 3350 17 GM POWD.PACK) 17 gm ONCE PO 11/01/24 15:30 11/01/24 21:30 DC 11/01/24 16:05 17 GM Potassium Chloride 100 ml @ 100 mls/hr AD PRN IV POTASSIUM PROTOCOL 10/31/24 15:00 11/30/24 14:59 Potassium Chloride (K-Dur/Klor-Con 20meq) 20 meq AD PRN PO POTASSIUM PROTOCOL 10/31/24 15:00 11/30/24 14:59 Potassium Chloride (KCl 10% Elixir 20meq/15ml) 20 meq AD PRN PO POTASSIUM PROTOCOL 10/31/24 15:00 11/30/24 14:59 11/09/24 06:21 20 MEQ Prednisone (deltaSONE/ ORASONE 10MG) 10 mg BID PO 11/08/24 21:00 11/09/24 23:34 DC 11/09/24 21:05 10 MG Prednisone (deltaSONE/ oraSONE 20MG TAB) 10 mg BID PO 11/08/24 09:00 11/08/24 09:16 DC 11/08/24 07:59 10 MG Propofol 100 ml @ 0 mls/hr AD PRN IV TITRATE 11/05/24 21:00 11/06/24 13:44 DC Propofol (DIPRivan 1000MG/ 100ML) 1,000 mg PROTOCOL PRN IV SEDATION 10/31/24 16:00 11/06/24 12:17 DC 11/05/24 21:59 1,000 MG Risperidone (RisperDAL) 3 mg HS PO 11/06/24 21:00 11/06/24 17:25 DC Risperidone (RisperDAL) 3 mg HS PO 11/09/24 21:00 12/09/24 20:59 11/09/24 21:05 3 MG Rocuronium [place] 100 mg/ Sodium Chloride 100 ml @ 0 mls/hr PROTOCOL IV 10/31/24 16:00 10/31/24 16:44 DC Rocuronium [place] (ZemuRON) 50 mg ONCE IV 11/03/24 15:25 11/03/24 16:25 DC 11/03/24 15:27 50 MG Trazodone HCl (DesyREL/OlepTRO) 50 mg BID PO 11/08/24 21:00 11/09/24 09:31 DC 11/08/24 20:31 50 MG Vancomycin HCl 250 ml @ 125 mls/hr Q8H IV 11/02/24 20:30 11/04/24 12:45 DC 11/04/24 03:46 125 MLS/HR Vancomycin HCl 250 ml @ 125 mls/hr Q8H IV 11/04/24 13:00 11/06/24 06:04 DC 11/05/24 21:02 125 MLS/HR Vancomycin HCl (Vancomycin Protocol) 1 each AD IV 11/02/24 10:30 11/06/24 06:04 DC DIAGNOSTICS / RADIOLOGY: [ ] ASSESSMENT: Sepsis, ruled out Acute asthma exacerbation POA Acute hypoxic respiratory failure with hypoxia requiring BiPAP support on arrival POA 10 L trials unsuccessful requiring intubation 10/31/2024 at 15:42 p.m. viral syndrome POA Positive influenza A POA Active smoker smokes cigars 3-4 POA Polysubstance abuse disorder Chronic problems asthma, bipolar disorder. PLAN: Patient downgraded to the medical floor Continue supplemental oxygen via nasal cannula at 2 L to keep O2 sat greater than 92% Continue to monitor mental status and respiratory status Continue to follow critical care input and recommendation Continue the patient on broad-spectrum IV antibiotics Continue bronchodilators Continue the patient on steroids, continue to taper. Follow a.m. labs. Continue to replace electrolytes IV per protocol GI and DVT prophylaxis Disposition: Pending improvement in clinical status. Failed MBSS assess yesterday, we will repeat again on Tuesday. Mother at bedside, updated, all questions answered. ZACKERY MORALES MD Nov 10, 2024 09:44
[2024-11-11] VITALS (12 sets, daily range): BP systolic 95–103; BP diastolic 55–70; PULSE 78–118; RESP 18–22; TEMP 97.7–98.5; O2SAT 92–100
--- NOTE | 2024-11-11 01:01 | PN ---
CARDIOLOGY Reason for consult: HPI/story at presentation: This is a pleasant 44 male with past medical history as per present with shortness of breath and respiratory failure, hypoxia, was intubated and managed for influenza and pneumonia subsequently, extubated. Was on Precedex because of mental status changes in the setting of febrile substance use/mental health issues and subsequently, was on Precedex. Was having issues with bradycardia and therefore, cardiology was consulted for evaluation management. Subjective: 11/07/2024 no active cardiac complaint 11/08/24 no active cardiac complaints 11/09/2024 not on acute distress 11/10/2024 no complaints Past medical history: See below Allergies, Meds See chart Review of systems Review of Systems Constitutional: Negative for chills and fever. HENT: Negative for ear discharge and ear pain. Eyes: Negative for photophobia and discharge. Respiratory: Negative for cough, sputum production and stridor. Cardiovascular: Negative for chest pain and palpitations. Gastrointestinal: Negative for diarrhea and vomiting. Genitourinary: Negative for frequency. Musculoskeletal: Negative for myalgias. Skin: Negative for rash. Neurological: Negative for focal weakness and seizures. Endo/Heme/Allergies: Negative for polydipsia. Psychiatric/Behavioral: Negative for hallucinations. Vitals see chart PHYSICAL EXAMINATION GENERAL: The patient is alert and oriented*3 HEENT: Nonicteric sclerae, non traumatic HEART: Regular rate and rhythm with no murmurs LUNGS: Clear to auscultation bilaterally ABDOMEN: No acute issues, non tender GENITAL, RECTAL: deferred SKIN: No rash NEUROLOGIC: NFND EXTREMITIES: No edema ASSESSMENT BRADYCARDIA Resolved, heart rates in the 70s, 11/07/2024 While on Precedex, when sleeping, Conservative management, 11/07/2024 Normal EF echocardiogram, 10/2024 SEPSIS At presentation RESPIRATORY FAILURE Status post recent extubation G-tube in situ Possible influenza A, On steroids 10/2024 TOBACCO USE, POLYSUBSTANCE ABUSE CORE MEASURES Pending OTHER MEDICAL PROBLEMS Reviewed PLAN 11/07/2024 no active cardiac complaints at this time, mildly restless, NG tube in situ. No further issues with bradycardia, current heart rates in the 70s. For now, will manage conservatively. No plans for dopamine or dobutamine as pacemaker at this time. No further issues with bradycardia, current heart rates are in the 70s and 80s. NO active cardiac complaints, dysphagia is being addressed, continue conservative measures from a cardiac standpoint. This is a delayed note. Seen and examined 11/08/24 at around 1800 11/09/2024 Doing better,, no further issues with bradycardia, current heart rates are in the 80s. Clinically, also improving, mental status is good. G-tube is sensitive. Dysphagia still concern. Eventual plans for care home facility at discharge. 11/10/2024 No further issues with bradycardia, mental status appears to be better today, family at bedside. Continue conservative measures. Seen and examined 11/10/24 1800. This is a delayed note. ATTESTATION I was involved substantially in the care of this patient Number and complexity of problems addressed: 2 or more stable chronic issues Amount and or complexity of data Review of prior external note(s) from each unique source: 2+ Ordering of each unique test : 0 Review of the result(s) of each unique test: 2+ Assessment requiring an independent historian(s): No Independent interpretation of test performed by another MD/QHCP/appropriate source (not separately reported) : No Discussion of management or test interpretation with external MD/QHCP/appropriate source (not separately reported) : No Risk status (cardiac, billing related): low Vitals/Labs Vital Signs Date Time Temp Pulse Resp B/P (MAP) Pulse Ox O2 Delivery O2 Flow Rate FiO2 11/10/24 22:32 101 19 11/10/24 22:32 N/Cannula Low lpm 21 11/10/24 20:42 100 0 11/10/24 19:27 99.1 96/64 Laboratory Tests 11/10/24 03:50 Medications Current Medications Methylprednisolone Sodium Succinate 125 mg ONCE ONCE IVP Last administered on 10/31/24at 13:08; Start 10/31/24 at 13:00; Stop 10/31/24 at 13:01; Status DC Magnesium Sulfate 50 ml @ 0 mls/hr PROTOCOL IV Last administered on 10/31/24at 13:08; Start 10/31/24 at 13:00; Stop 10/31/24 at 14:54; Status DC Sodium Chloride 1,000 ml @ 0 mls/hr ONCE ONCE IV Last administered on 10/31/24at 13:08; Start 10/31/24 at 13:00; Stop 10/31/24 at 13:01; Status DC Lorazepam 1 mg ONCE ONCE IVP Last administered on 10/31/24at 13:43; Start 10/31/24 at 14:00; Stop 10/31/24 at 14:01; Status DC Oseltamivir Phosphate 75 mg ONCE ONCE PO Last administered on 10/31/24at 14:34; Start 10/31/24 at 14:30; Stop 10/31/24 at 14:31; Status DC Acetaminophen 650 mg Q4H PRN PO Last administered on 11/08/24at 01:13; Start 10/31/24 at 15:00; Stop 11/30/24 at 14:59 Methylprednisolone Sodium Succinate 60 mg Q8H IVP Last administered on 11/01/24at 06:42; Start 10/31/24 at 15:00; Stop 11/01/24 at 09:46; Status DC Famotidine 20 mg BID PO; Start 10/31/24 at 21:00; Stop 11/01/24 at 01:45; Status DC Lactulose 20 gm BID PRN PO Last administered on 11/06/24at 08:18; Start 10/31/24 at 15:00; Stop 11/30/24 at 14:59 Ondansetron HCl 4 mg Q6H PRN IVP Last administered on 11/08/24at 00:54; Start 10/31/24 at 15:00; Stop 11/30/24 at 14:59 Ceftriaxone Sodium 1 gm Q24H IVPB Last administered on 10/31/24at 16:16; Start 10/31/24 at 15:00; Stop 10/31/24 at 23:39; Status DC Azithromycin 250 ml @ 250 mls/hr Q24H IVPB Last administered on 10/31/24at 16:50; Start 10/31/24 at 16:00; Stop 10/31/24 at 23:39; Status DC Oseltamivir Phosphate 75 mg BID PO Last administered on 11/05/24at 20:40; Start 11/01/24 at 09:00; Stop 11/06/24 at 08:59; Status DC Magnesium Sulfate 50 ml @ 0 mls/hr PROTOCOL PRN IV; Start 10/31/24 at 15:00; Stop 11/30/24 at 14:59 Potassium Chloride 100 ml @ 100 mls/hr AD PRN IV; Start 10/31/24 at 15:00; Stop 11/30/24 at 14:59 Potassium Chloride 20 meq AD PRN PO Last administered on 11/09/24at 06:21; Start 10/31/24 at 15:00; Stop 11/30/24 at 14:59 Potassium Chloride 20 meq AD PRN PO; Start 10/31/24 at 15:00; Stop 11/30/24 at 14:59 Montelukast Sodium 10 mg HS PO Last administered on 11/10/24at 20:25; Start 10/31/24 at 21:00; Stop 11/30/24 at 20:59 Albuterol Sulfate 10 mg ONCE ONCE IH Last administered on 10/31/24at 16:38; Start 10/31/24 at 15:30; Stop 10/31/24 at 15:31; Status DC Sodium Chloride 1,000 ml @ 0 mls/hr ONCE ONCE IV Last administered on 10/31/24at 16:08; Start 10/31/24 at 15:30; Stop 10/31/24 at 15:31; Status DC Propofol 100 ml @ As Directed STK-MED ONCE IV; Start 10/31/24 at 15:36; Stop 10/31/24 at 15:36; Status DC Etomidate 20 mg ONCE ONCE IVP Last administered on 10/31/24at 16:42; Start 10/31/24 at 16:00; Stop 10/31/24 at 16:02; Status DC Rocuronium [place] 100 mg/ Sodium Chloride 100 ml @ 0 mls/hr PROTOCOL IV; Start 10/31/24 at 16:00; Stop 10/31/24 at 16:44; Status DC Propofol 1,000 mg PROTOCOL PRN IV Last administered on 11/05/24at 21:59; Start 10/31/24 at 16:00; Stop 11/06/24 at 12:17; Status DC Midazolam HCl 50 mg/Sodium Chloride 50 ml @ 0 mls/hr PROTOCOL IV; Start 10/31/24 at 16:00; Stop 10/31/24 at 16:02; Status DC Midazolam HCl 50 ml @ 0 mls/hr PROTOCOL IV Last administered on 11/05/24at 22:14; Start 10/31/24 at 16:30; Stop 11/06/24 at 12:17; Status DC Rocuronium [place] 100 mg ONCE ONCE IV; Start 10/31/24 at 17:00; Stop 10/31/24 at 17:01; Status DC Fentanyl Citrate 100 ml @ 2.5 mls/hr PROTOCOL IV; Start 10/31/24 at 19:30; Stop 10/31/24 at 19:25; Status DC Fentanyl/Sodium Chloride 250 ml @ 0 mls/hr PROTOCOL IV Last administered on 11/05/24at 19:11; Start 10/31/24 at 19:30; Stop 11/05/24 at 19:29; Status DC Acetaminophen 650 mg STK-MED ONCE RC; Start 10/31/24 at 19:42; Stop 10/31/24 at 19:42; Status DC Norepinephrine 250 ml @ As Directed STK-MED ONCE IV; Start 10/31/24 at 20:16; Stop 10/31/24 at 20:16; Status DC Norepinephrine 250 ml @ 27.225 mls/ hr PROTOCOL IV Last administered on 11/01/24at 18:24; Start 10/31/24 at 20:30; Stop 11/02/24 at 10:27; Status DC Norepinephrine 250 ml @ 0 mls/hr PROTOCOL IV; Start 10/31/24 at 20:30; Stop 11/01/24 at 22:43; Status DC Acetaminophen 650 mg Q6H PRN RC Last administered on 10/31/24at 19:42; Start 10/31/24 at 21:00; Stop 11/30/24 at 20:59 Piperacillin Sod/ Tazobactam Sod 3.375 gm Q8H IV Last administered on 11/02/24at 08:49; Start 11/01/24 at 00:00; Stop 11/02/24 at 10:26; Status DC Doxycycline Hyclate 250 ml @ 125 mls/hr Q12H IV Last administered on 11/09/24at 01:35; Start 11/01/24 at 00:00; Stop 11/09/24 at 09:31; Status DC Enoxaparin Sodium 40 mg DAILY SQ Last administered on 11/10/24at 07:46; Start 11/01/24 at 09:00; Stop 12/01/24 at 08:59 Famotidine 20 mg BID IV Last administered on 11/10/24at 20:24; Start 11/01/24 at 09:00; Stop 12/01/24 at 08:59 Albuterol 1 udvial [id number] IH Last administered on 11/01/24at 06:56; Start 11/01/24 at 02:00; Stop 11/01/24 at 09:42; Status DC Albuterol 1 udvial STK-MED ONCE IH; Start 11/01/24 at 02:39; Stop 11/01/24 at 02:39; Status DC Albuterol 1 udvial STK-MED ONCE IH; Start 11/01/24 at 06:32; Stop 11/01/24 at 06:32; Status DC Albuterol 1 udvial [id number] IH Last administered on 11/08/24at 01:54; Start 11/01/24 at 10:00; Stop 11/08/24 at 09:13; Status DC Budesonide 0.5 mg BIDRESP IH Last administered on 11/10/24at 22:30; Start 11/01/24 at 18:00; Stop 12/01/24 at 17:59 Albuterol 1 udvial STK-MED ONCE IH; Start 11/01/24 at 09:43; Stop 11/01/24 at 09:48; Status DC Hydrocortisone Sodium Succinate 50 mg Q6H IVP Last administered on 11/02/24at 11:15; Start 11/01/24 at 11:00; Stop 11/02/24 at 13:55; Status DC Polyethylene Glycol 17 gm DAILY PO Last administered on 11/10/24at 07:57; Start 11/02/24 at 09:00; Stop 12/02/24 at 08:59 Polyethylene Glycol 17 gm ONCE PO Last administered on 11/01/24at 16:05; Start 11/01/24 at 15:30; Stop 11/01/24 at 21:30; Status DC Insulin Human Regular INSULIN SLIDING SCAL... Q6H6 SQ; Start 11/02/24 at 00:00; Stop 12/02/24 at 00:00 Norepinephrine Bitartrate 250 ml @ 0 mls/hr AD PRN IV Last administered on 11/03/24at 22:51; Start 11/01/24 at 23:00; Stop 11/08/24 at 12:53; Status DC Chlorhexidine Gluconate 15 ml TID MM Last administered on 11/06/24at 08:18; Start 11/02/24 at 09:00; Stop 11/06/24 at 12:33; Status DC Artificial Tears 1 DROP OR AD Q8H OU Last administered on 11/06/24at 06:49; Start 11/02/24 at 06:30; Stop 11/06/24 at 12:33; Status DC Cefepime HCl 2 gm Q8H IVPB Last administered on 11/07/24at 18:25; Start 11/02/24 at 10:30; Stop 11/07/24 at 23:37; Status DC Vancomycin HCl 1 each AD IV; Start 11/02/24 at 10:30; Stop 11/06/24 at 06:04; Status DC Vancomycin HCl 500 ml @ 250 mls/hr ONCE ONCE IV Last administered on 11/02/24at 11:15; Start 11/02/24 at 10:30; Stop 11/02/24 at 12:29; Status DC Vancomycin HCl 250 ml @ 125 mls/hr Q8H IV Last administered on 11/04/24at 03:46; Start 11/02/24 at 20:30; Stop 11/04/24 at 12:45; Status DC Methylprednisolone Sodium Succinate 60 mg Q6H IVP Last administered on 11/03/24at 13:35; Start 11/02/24 at 14:00; Stop 11/03/24 at 15:10; Status DC Diazepam 10 mg Q8H NG Last administered on 11/06/24at 03:28; Start 11/03/24 at 12:00; Stop 11/06/24 at 09:07; Status DC Methylprednisolone Sodium Succinate 80 mg Q6H IVP Last administered on 11/05/24at 13:12; Start 11/03/24 at 20:00; Stop 11/05/24 at 16:10; Status DC Pharmacy Profile Note 1 each ONCE MISC; Start 11/03/24 at 15:30; Stop 11/04/24 at 13:19; Status DC Rocuronium [place] 50 mg ONCE IV Last administered on 11/03/24at 15:27; Start 11/03/24 at 15:25; Stop 11/03/24 at 16:25; Status DC Vancomycin HCl 250 ml @ 125 mls/hr Q8H IV Last administered on 11/05/24at 21:02; Start 11/04/24 at 13:00; Stop 11/06/24 at 06:04; Status DC Dextrose 1,000 ml @ 60 mls/hr [id number] IV Last administered on 11/05/24at 11:21; Start 11/05/24 at 11:30; Stop 11/06/24 at 09:04; Status DC Rocuronium [place] 50 mg STK-MED ONCE IV; Start 10/31/24 at 12:21; Stop 11/05/24 at 12:21; Status DC Methylprednisolone Sodium Succinate 60 mg Q6H IVP Last administered on 11/06/24at 08:19; Start 11/05/24 at 20:00; Stop 11/06/24 at 08:58; Status DC Dopamine HCl/ Dextrose 250 ml @ 0 mls/hr AD PRN IV Last administered on 11/05/24at 21:11; Start 11/05/24 at 21:00; Stop 11/08/24 at 12:53; Status DC Propofol 100 ml @ 0 mls/hr AD PRN IV; Start 11/05/24 at 21:00; Stop 11/06/24 at 13:44; Status DC Fentanyl/Sodium Chloride 250 ml @ As Directed STK-MED ONCE IV Last administered on 11/06/24at 03:38; Start 11/06/24 at 03:09; Stop 11/06/24 at 03:09; Status DC Fentanyl Citrate 2500 mcg/Sodium Chloride 250 ml @ 0 mls/hr AD PRN IV; Start 11/06/24 at 03:30; Stop 11/06/24 at 03:31; Status DC Fentanyl/Sodium Chloride 250 ml @ 0 mls/hr PROTOCOL IV; Start 11/06/24 at 03:30; Stop 11/06/24 at 12:17; Status DC Dexmedetomidine/ Sodium Chloride 400 mcg PROTOCOL IV Last administered on 11/07/24at 07:32; Start 11/06/24 at 08:30; Stop 11/08/24 at 12:53; Status DC Methylprednisolone Sodium Succinate 40 mg Q12H IVP Last administered on 11/07/24at 20:26; Start 11/06/24 at 20:00; Stop 11/07/24 at 23:34; Status DC Furosemide 20 mg ONCE ONCE IV Last administered on 11/06/24at 09:17; Start 11/06/24 at 09:30; Stop 11/06/24 at 09:31; Status DC Diazepam 10 mg Q6H NG Last administered on 11/06/24at 09:17; Start 11/06/24 at 09:30; Stop 11/06/24 at 12:32; Status DC Home Med (Lamotrigine (Lamictal Xr) 300 MG) HS PO; Start 11/06/24 at 21:00; Stop 11/06/24 at 17:25; Status DC Risperidone 3 mg HS PO; Start 11/06/24 at 21:00; Stop 11/06/24 at 17:25; Status DC Diazepam 10 mg Q6H PRN NG Last administered on 11/06/24at 14:17; Start 11/06/24 at 13:00; Stop 11/06/24 at 17:35; Status DC Olanzapine 5 mg BID PO Last administered on 11/09/24at 08:26; Start 11/06/24 at 17:30; Stop 11/09/24 at 09:31; Status DC Lorazepam 1 mg Q4H PRN IVP Last administered on 11/07/24at 12:28; Start 11/06/24 at 17:30; Stop 11/07/24 at 16:46; Status DC Melatonin 10 mg HS PO Last administered on 11/10/24at 20:25; Start 11/06/24 at 21:00; Stop 12/06/24 at 20:59 Midazolam HCl 2 mg ONCE ONCE IVP; Start 11/06/24 at 21:00; Stop 11/06/24 at 21:04; Status DC Lorazepam 2 mg ONCE ONCE IVP Last administered on 11/06/24at 21:07; Start 11/06/24 at 21:30; Stop 11/06/24 at 21:31; Status DC Ziprasidone 5 mg ONCE ONCE IM Last administered on 11/06/24at 22:24; Start 11/06/24 at 22:00; Stop 11/06/24 at 22:01; Status DC Ziprasidone 20 mg STK-MED ONCE IM; Start 11/06/24 at 21:50; Stop 11/06/24 at 21:50; Status DC Lamotrigine 200 mg DAILY PO Last administered on 11/08/24at 07:59; Start 11/07/24 at 11:30; Stop 11/08/24 at 13:32; Status DC Diazepam 10 mg ONCE ONCE PO Last administered on 11/07/24at 15:16; Start 11/07/24 at 15:30; Stop 11/07/24 at 15:31; Status DC Diazepam 5 mg Q4H PRN PO Last administered on 11/08/24at 20:30; Start 11/07/24 at 17:00; Stop 11/09/24 at 09:31; Status DC Prednisone 10 mg BID PO Last administered on 11/08/24at 07:59; Start 11/08/24 at 09:00; Stop 11/08/24 at 09:16; Status DC Albuterol 1 udvial [id number] IH Last administered on 11/10/24at 22:32; Start 11/08/24 at 14:00; Stop 12/01/24 at 01:59 Prednisone 10 mg BID PO Last administered on 11/09/24at 21:05; Start 11/08/24 at 21:00; Stop 11/09/24 at 23:34; Status DC Lamotrigine 300 mg HS PO Last administered on 11/10/24at 20:25; Start 11/08/24 at 21:00; Stop 12/08/24 at 20:59 Diphenhydramine HCl 25 mg Q12H9 PRN IV Last administered on 11/09/24at 08:30; Start 11/08/24 at 13:30; Stop 11/09/24 at 23:34; Status DC Nicotine 14 mg DAILY TD Last administered on 11/10/24at 07:57; Start 11/09/24 at 09:00; Stop 12/09/24 at 08:59 Nicotine 14 mg ONCE ONCE TD Last administered on 11/08/24at 13:47; Start 11/08/24 at 13:30; Stop 11/08/24 at 13:36; Status DC Trazodone HCl 50 mg BID PO Last administered on 11/08/24at 20:31; Start 11/08/24 at 21:00; Stop 11/09/24 at 09:31; Status DC Risperidone 3 mg HS PO Last administered on 11/10/24at 20:25; Start 11/09/24 at 21:00; Stop 12/09/24 at 20:59 Cetirizine HCl 10 mg DAILY PO Last administered on 11/10/24at 07:46; Start 11/09/24 at 09:30; Stop 12/09/24 at 09:29 Multivitamins/ Minerals 10 ml/ Folic Acid 1 mg/ Thiamine HCl 100 mg/Sodium Chloride 1,010 ml @ 0 mls/hr DAILY IV Last administered on 11/10/24at 07:56; Start 11/10/24 at 09:00; Stop 11/10/24 at 12:59; Status DC GINETTE NOEL MD Nov 11, 2024 01:01
[2024-11-11 04:46] LABS: HEMATOCRIT 50.3 % (42-54); MEAN CORPUSCULAR HEMOGLOBIN 29.5 pg (27.0-33.0); MEAN CORPUSCULAR HGB CONC 32.6 g/dL (32.0-36.0); MEAN CORPUSCULAR VOLUME 90.6 fL (79-99); RED BLOOD CELL COUNT(AUTO) 5.55 MIL/uL (4.50-6.20); RED CELL DISTRIBUTION WIDTH 13.3 % (11.0-15.5)
[2024-11-11 05:17] LABS: ALBUMIN 3.1 g/dL (3.5-5.0); BILIRUBIN,TOTAL 0.7 mg/dL (0.2-1.0); CREATININE 1.1 mg/dL (0.5-1.3); MAGNESIUM 2.5 mg/dL (1.80-2.40); POTASSIUM 4.4 mmol/L (3.5-5.1); TOTAL PROTEIN, SERUM 7.1 g/dL (6.0-8.3)
--- NOTE | 2024-11-11 10:37 | PN ---
[facility] PROGRESS NOTE Date of Service: Nov 11, 2024 Time of Service: 10:33 SUBJECTIVE: 11/01 patient seen at bedside, no acute events overnight. He remains intubated and sedated, on a low dose of pressors. WBC increased from 10.2 up to 14.5, potassium increased from 3.6 up to 5.4, creatinine increased from 1.0 up to 1.6, remainder of his labs are relatively unremarkable. He still has a prominent wheeze. Patient is positive for influenza. Further care per critical Care. 11/02 patient seen at bedside, no acute events overnight. He remains intubated and sedated, FiO2 has been decreased from 45 down to 40%. We will defer to pulmonology for extubation. He remains on pressors, we will wean as able. WBC increased from 14.5 up to 20.4, hemoglobin stable at 13.1, remainder of his labs are relatively unremarkable. 11/03 patient seen at bedside, no acute events overnight he remains intubated and sedated, FiO2 at 40%, peep of 5. Patient continues on pressors, we will continue to wean as able. WBC decreased from 20.4 down to 14.2, hemoglobin stable at 13.1 same as yesterday, remainder of his labs are relatively unremarkable. 11/04 patient seen at bedside, no acute events overnight. He remains intubated and sedated, FiO2 at 40% peep of 7. Patient has been weaned off pressors. WBC improved from 14.2 down to 11.3, hemoglobin decreased from 13.1 down to 12.7, remainder of his labs are relatively unremarkable. 11/05 patient is seen and examined at bedside, remains intubated, on mechanical ventilation, on fentanyl and Versed drip. He is on droplet precautions. Getting nutritional support via NG tube. WBC improving, today at 11.0, hemoglobin 12.2, hematocrit 37.8. ABG with pH of 7.37, PO2 80.7. Chest x-ray showing prominent interstitial markings with possible superimposed infiltrates. 11/06 patient has been seen and examined at bedside, remains intubated, mechanical ventilation, on CPAP trial, off sedation, remains on droplet precaution, BP 147/73, saturating 100% on mechanical ventilation. Off nutritional support via NG tube. ABG shows pH of 7.44, pCO2 47, PO2 1629. Chest x-ray stable, no vascular congestion, heart size is normal. 11/07 patient is seen and examined at bedside, extubated yesterday, currently on low-dose Precedex. Withdrawing to painful stimulation. BP 114/55, heart rate of 42, afebrile, saturating 98% on 2 L via nasal cannula. CBC with a hemoglobin 12.3, hematocrit 36.5, WBC 13.1. Potassium level 3.1. Liver enzymes with an AST of 101, ALT 405. Urine toxicology screen positive for cocaine and mar ijuana. Serology test positive for influenza type A. He will remain on droplet precautions. Chest x-ray showing stable chest. Echocardiogram pending. Family at bedside, updated. 11/08 the patient has been seen and examined at bedside, he is awake, following commands, getting nutritional support via NG tube, he is asking if it can be removed. He is off Precedex. BP 106/62, afebrile, saturating 97% on air. No chest pain, shortness shortness for breath, no cough. WBC today at 10.8, down from 13.1. Hemoglobin 13.0, hematocrit 38.2. Liver enzymes slowly trending down. Echocardiogram reviewed, LVEF 60-65%, diastolic function. was unable to be assessed. The right ventricle is normal in size, right ventricular systolic function is normal, left atrium size is normal, right atrium is mildly dilated, no valvular pathology, no pericardial effusion. Ultrasound of the abdomen pending. Mother is at bedside, the patient with a history of bipolar, on Lamictal and risperidone at home, discussed with critical Care, patient was bradycardic yesterday, he has been started on Zyprexa instead. Pending speech therapy to evaluate the patient today, as well as physical therapist. We will request psychiatric consultation as well. 11/09 the patient has been seen and examined, he has been downgraded from the ICU to the medical floor, he is alert, awake, following commands, still with the NG tube in place, clamped, he is awaiting MBS assess today. BP 104/76, heart rate of 101, afebrile, saturating normal on room air, he denies chest pain, no shortness a breath, no nausea, no vomiting, he remains alert oriented x3, not combative, not agitated. He is mood is appropriate. CBC with a hemoglobin 14.2, hematocrit 41.3, WBC 12.0. Sodium 143, potassium 3.8, chest x-ray no acute findings. We will request PT therapy to evaluate the patient and we will discuss discharge plan with case management. 11/10 patient is seen and examined, awake, sitting in the chair, following commands, getting nutritional support via NG tube. BP 105/65, afebrile, saturating 94-95% on room air, hemoglobin 16.7, hematocrit 48.9, WBC 19.9, platelet 328. Septic workup negative, leukocytosis likely secondary to use of IV steroids, patient now off steroids. Completed course of prednisone p.o. he has been restarted on risperidone 3 mg p.o. at bedtime from home dose, continue Lamictal 300 mg p.o. HS. Discussed with case management, no psychiatrist available to evaluate the patient, however the patient does not have any acute crisis, he is not combative, he is not agitated, denies suicidal or homicidal ideation, psychiatric evaluation discontinued. Patient can follow up as an outpatient. Continue home medications. Cardiology input noted and appreciated, heart rate controlled, continue to monitor. Chest x-ray done, stable, the patient underwent modified barium swallow 11/09/2024, secondary to severe oral dysphagia, unable to assess due to severity, recommended to keep the patient NPO, plan for long-term alternate means to meet nutrition/hydration. Discussed with the RN JOAQUIM today, patient to be started on multivitamin IV, we will reassess on Tuesday. 11/11 patient is seen and examined at bedside, comfortable, no acute events overnight, hemodynamically stable, afebrile, Patient initially admitted to the ICU secondary to bronchial asthma exacerbation, requiring intubation and mechanical ventilation, successfully extubated and downgraded to the medical floor, patient with a history of bipolar on Lamictal and risperidone. The patient underwent modified barium swallow 11/09/2024, secondary to severe oral dysphagia, unable to assess due to severity, recommended to keep the patient N PO, patient currently getting nutritional support via NG tube. Plan to reassess on Tuesday. REVIEW OF SYSTEMS A14 point ROS was obtained all relevant positive documented otherwise ROS negative PHYSICAL EXAM GENERAL APPEARANCE: Awake, following commands, getting nutritional support via NG tube. Off Precedex. NEUROLOGICAL: Cranial nerves II-XII grossly intact. Motor is 5/5 in bilateral upper and lower extremities proximal to distal. No sensory deficits. HEENT: Face is symmetric. Pupils are equal and reactive. Extraocular movements are intact. NECK: Supple. No JVD. No thyromegaly. No submental, submandibular, pre- /postauricular, occipital or supraclavicular lymphadenopathy. CHEST: Normal chest expansion. No Telemetry. LUNGS: No bilateral expiratory wheezing CARDIOVASCULAR: Regular. S1 and S2 normal. No appreciable rubs, murmurs or gallops. ABDOMEN: Soft, nontender, and nondistended. There is no rebound, voluntary guarding, or rigidity. : Deferred. No Peoples. EXTREMITIES: Non-edematous and not cyanotic. No clubbing. Good capillary refill. SKIN: No skin breakdown. Vital Signs (last 8hr) Date Time Temp Pulse Resp B/P (MAP) Pulse Ox O2 Delivery O2 Flow Rate FiO2 11/11/24 08:00 99 Room Air* 0 21 11/11/24 07:46 97.7 117 20 98/60 97 Room Air 11/11/24 06:55 97 19 11/11/24 06:52 97 19 N/Cannula Low lpm 21 11/11/24 04:00 97.9 78 22 103/57 93 Room Air LABS: Laboratory: Test 11/11/24 05:23 11/11/24 04:33 11/10/24 03:50 Range/Units Whole Blood Glucose 124 H 70-110 MG/DL White Blood Count 10.0 4.8-10.8 K/uL Red Blood Count 5.55 4.50-6.20 MIL/uL Hemoglobin 16.4 14.0-18.0 g/dL Hematocrit 50.3 42-54 % Mean Corpuscular Volume 90.6 79-99 fL Mean Corpuscular Hemoglobin 29.5 27.0-33.0 pg Mean Corpuscular Hemoglobin Concent 32.6 32.0-36.0 g/dL Red Cell Distribution Width 13.3 11.0-15.5 % Platelet Count 338 130-400 K/uL Mean Platelet Volume 9.9 7.5-10.5 fL Nucleated Red Blood Cells 0.0 0.0-0.19 % Sodium Level 144 136-145 mmol/L Potassium Level 4.4 3.5-5.1 mmol/L Chloride Level 106 101-111 mmol/L Carbon Dioxide Level 31 21-32 mmol/L Blood Urea Nitrogen 31 H 7-18 mg/dL Creatinine 1.1 0.5-1.3 mg/dL Glomerular Filtration Rate Calc 85 >90 mL/min Random Glucose 139 H 70-105 mg/dL Total Calcium 9.5 8.5-10.1 mg/dL Magnesium Level 2.50 H 1.80-2.40 mg/dL Total Bilirubin 0.7 0.2-1.0 mg/dL Aspartate Amino Transf (AST/SGOT) 127 H 10-37 U/L Alanine Aminotransferase (ALT/SGPT) 370 H 12-78 U/L Alkaline Phosphatase 165 H 50-136 U/L Total Protein 7.1 6.0-8.3 g/dL Albumin 3.1 L 3.5-5.0 g/dL Immature Granulocyte % (Auto) 1.8 H 0-1 % Neutrophils (%) (Auto) 67.1 40.0-77.0 % Lymphocytes (%) (Auto) 20.6 L 21.0-51.0 % Monocytes (%) (Auto) 10.1 3.0-13.0 % Eosinophils (%) (Auto) 0.2 0.0-8.0 % Basophils (%) (Auto) 0.2 0.0-5.0 % Neutrophils # (Auto) 13.4 H 1.8-7.7 K/uL Lymphocytes # (Auto) 4.1 1.0-4.8 K/uL Monocytes # (Auto) 2.0 H 0.1-1.0 K/uL Eosinophils # (Auto) 0.04 0.00-0.70 K/uL Basophils # (Auto) 0.04 0.00-0.20 K/uL Absolute Immature Granulocyte (auto 0.35 0-1 K/uL Procalcitonin < 0.05 L 0.05-0.5 ng/mL Current Medications Medications (Trade) Dose Ordered Sig/Martinez Route PRN Reason Start Time Stop Time Status Last Admin Dose Admin Acetaminophen (TYLenol 325MG TAB) 650 mg Q4H PRN PO TEMPERATURE GREATER THAN 101.5 10/31/24 15:00 11/30/24 14:59 11/08/24 01:13 650 MG Acetaminophen (TYLenol 650MG SUPPOSITORY) 650 mg Q6H PRN RC MILD PAIN (1-3) 10/31/24 21:00 11/30/24 20:59 10/31/24 19:42 650 MG Albuterol (DUOneb) 1 udvial [id number] IH 11/01/24 10:00 11/08/24 09:13 DC 11/08/24 01:54 1 UDVIAL Albuterol (DUOneb) 1 udvial [id number] IH 11/01/24 02:00 11/01/24 09:42 DC 11/01/24 06:56 1 UDVIAL Albuterol (DUOneb) 1 udvial [id number] IH 11/08/24 14:00 12/01/24 01:59 11/11/24 06:51 1 UDVIAL Artificial Tears (Artificial Tears) 1 DROP OR AD Q8H OU 11/02/24 06:30 11/06/24 12:33 DC 11/06/24 06:49 1 DROP Azithromycin 250 ml @ 250 mls/hr Q24H IVPB 10/31/24 16:00 10/31/24 23:39 DC 10/31/24 16:50 250 MLS/HR Budesonide (Pulmicort 0.5 Mg/2ml) 0.5 mg BIDRESP IH 11/01/24 18:00 12/01/24 17:59 11/11/24 06:50 0.5 MG Cefepime HCl (MAXipime 2 gm vial) 2 gm Q8H IVPB 11/02/24 10:30 11/07/24 23:37 DC 11/07/24 18:25 2 GM Ceftriaxone Sodium (ROCEphine 1G INJ) 1 gm Q24H IVPB 10/31/24 15:00 10/31/24 23:39 DC 10/31/24 16:16 1 GM Cetirizine HCl (ZYRtec 5 MG TABLET) 10 mg DAILY PO 11/09/24 09:30 12/09/24 09:29 11/11/24 07:21 10 MG Chlorhexidine Gluconate (Peridex) 15 ml TID MM 11/02/24 09:00 11/06/24 12:33 DC 11/06/24 08:18 15 ML Dexmedetomidine/ Sodium Chloride (PRECEdex 400MCG/ 100ML-NS) 400 mcg PROTOCOL IV 11/06/24 08:30 11/08/24 12:53 DC 11/07/24 07:32 400 MCG Dextrose 1,000 ml @ 60 mls/hr [id number] IV 11/05/24 11:30 11/06/24 09:04 DC 11/05/24 11:21 60 MLS/HR Diazepam (VALium 5 mg TAB) 5 mg Q4H PRN PO ANXIETY 11/07/24 17:00 11/09/24 09:31 DC 11/08/24 20:30 5 MG Diazepam (VALium 5 mg TAB) 10 mg Q6H NG 11/06/24 09:30 11/06/24 12:32 DC 11/06/24 09:17 10 MG Diazepam (VALium 5 mg TAB) 10 mg Q6H PRN NG ANXIETY/AGITATION 11/06/24 13:00 11/06/24 17:35 DC 11/06/24 14:17 10 MG Diazepam (VALium 5 mg TAB) 10 mg Q8H NG 11/03/24 12:00 11/06/24 09:07 DC 11/06/24 03:28 10 MG Diphenhydramine HCl (BENAdryl INJ) 25 mg Q12H9 PRN IV SLEEP 11/08/24 13:30 11/09/24 23:34 DC 11/09/24 08:30 25 MG Dopamine HCl/ Dextrose 250 ml @ 0 mls/hr AD PRN IV TITRATE 11/05/24 21:00 11/08/24 12:53 DC 11/05/24 21:11 0 MLS/HR Doxycycline Hyclate 250 ml @ 125 mls/hr Q12H IV 11/01/24 00:00 11/09/24 09:31 DC 11/09/24 01:35 125 MLS/HR Enoxaparin Sodium (Lovenox) 40 mg DAILY SQ 11/01/24 09:00 12/01/24 08:59 11/11/24 07:20 40 MG Famotidine (Pepcid 20mg Vial) 20 mg BID IV 11/01/24 09:00 12/01/24 08:59 11/11/24 07:18 20 MG Famotidine (Pepcid 20mg Tab) 20 mg BID PO 10/31/24 21:00 11/01/24 01:45 DC Fentanyl Citrate 100 ml @ 2.5 mls/hr PROTOCOL IV 10/31/24 19:30 10/31/24 19:25 DC Fentanyl Citrate 2500 mcg/Sodium Chloride 250 ml @ 0 mls/hr AD PRN IV TITRATE 11/06/24 03:30 11/06/24 03:31 DC Fentanyl/Sodium Chloride 250 ml @ 0 mls/hr PROTOCOL IV 11/06/24 03:30 11/06/24 12:17 DC Fentanyl/Sodium Chloride 250 ml @ 0 mls/hr PROTOCOL IV 10/31/24 19:30 11/05/24 19:29 DC 11/05/24 19:11 10 MLS/HR Home Med (Home Medication) (Lamotrigine (Lamictal Xr) 300 MG) HS PO 11/06/24 21:00 11/06/24 17:25 DC Hydrocortisone Sodium Succinate (Solu-corTEF 100MG) 50 mg Q6H IVP 11/01/24 11:00 11/02/24 13:55 DC 11/02/24 11:15 50 MG Insulin Human Regular (humuLIN R 100 UNIT/ML 3ML) INSULIN SLIDING SCAL... Q6H6 SQ 11/02/24 00:00 12/02/24 00:00 Lactulose (Constulose 20gm/ 30ml Udcup) 20 gm BID PRN PO CONSTIPATION 10/31/24 15:00 11/30/24 14:59 11/06/24 08:18 20 GM Lamotrigine (LAMIctal 100 MG TABLET) 200 mg DAILY PO 11/07/24 11:30 11/08/24 13:32 DC 11/08/24 07:59 200 MG Lamotrigine (LAMIctal 100 MG TABLET) 300 mg HS PO 11/08/24 21:00 12/08/24 20:59 11/10/24 20:25 300 MG Lorazepam (AtiVAN) 1 mg Q4H PRN IVP ANXIETY/AGITATION 11/06/24 17:30 11/07/24 16:46 DC 11/07/24 12:28 1 MG Magnesium Sulfate 50 ml @ 0 mls/hr PROTOCOL IV 10/31/24 13:00 10/31/24 14:54 DC 10/31/24 13:08 25 MLS/HR Magnesium Sulfate 50 ml @ 0 mls/hr PROTOCOL PRN IV low mag level 10/31/24 15:00 11/30/24 14:59 Melatonin (Melatonin) 10 mg HS PO 11/06/24 21:00 12/06/24 20:59 11/10/24 20:25 10 MG Methylprednisolone Sodium Succinate (Solu-medROL 40MG) 40 mg Q12H IVP 11/06/24 20:00 11/07/24 23:34 DC 11/07/24 20:26 40 MG Methylprednisolone Sodium Succinate (Solu-medROL 40MG) 60 mg Q6H IVP 11/02/24 14:00 11/03/24 15:10 DC 11/03/24 13:35 60 MG Methylprednisolone Sodium Succinate (Solu-medROL 40MG) 60 mg Q6H IVP 11/05/24 20:00 11/06/24 08:58 DC 11/06/24 08:19 60 MG Methylprednisolone Sodium Succinate (Solu-medROL 40MG) 60 mg Q8H IVP 10/31/24 15:00 11/01/24 09:46 DC 11/01/24 06:42 60 MG Methylprednisolone Sodium Succinate (Solu-medROL 40MG) 80 mg Q6H IVP 11/03/24 20:00 11/05/24 16:10 DC 11/05/24 13:12 80 MG Midazolam HCl 50 ml @ 0 mls/hr PROTOCOL IV 10/31/24 16:30 11/06/24 12:17 DC 11/05/24 22:14 10 MLS/HR Midazolam HCl 50 mg/Sodium Chloride 50 ml @ 0 mls/hr PROTOCOL IV 10/31/24 16:00 10/31/24 16:02 DC Montelukast Sodium (SinguLAIR) 10 mg HS PO 10/31/24 21:00 11/30/24 20:59 11/10/24 20:25 10 MG Multivitamins/ Minerals 10 ml/ Folic Acid 1 mg/ Thiamine HCl 100 mg/Sodium Chloride 1,010 ml @ 0 mls/hr DAILY IV 11/10/24 09:00 11/10/24 12:59 DC 11/10/24 07:56 50 MLS/HR Nicotine (Nicoderm) 14 mg DAILY TD 11/09/24 09:00 12/09/24 08:59 11/11/24 07:21 14 MG Norepinephrine 250 ml @ 27.225 mls/ hr PROTOCOL IV 10/31/24 20:30 11/02/24 10:27 DC 11/01/24 18:24 41.06 MLS/HR Norepinephrine 250 ml @ 0 mls/hr PROTOCOL IV 10/31/24 20:30 11/01/24 22:43 DC Norepinephrine Bitartrate 250 ml @ 0 mls/hr AD PRN IV TITRATE 11/01/24 23:00 11/08/24 12:53 DC 11/03/24 22:51 6.48 MLS/HR Olanzapine (ZyPREXA 5 mg tab) 5 mg BID PO 11/06/24 17:30 11/09/24 09:31 DC 11/09/24 08:26 5 MG Ondansetron HCl (zoFRAN 4MG INJ) 4 mg Q6H PRN IVP NAUSEA/VOMITING 10/31/24 15:00 11/30/24 14:59 11/08/24 00:54 4 MG Oseltamivir Phosphate (Tamiflu) 75 mg BID PO 11/01/24 09:00 11/06/24 08:59 DC 11/05/24 20:40 75 MG Pharmacy Profile Note (Pharmacy Communication) 1 each ONCE MISC 11/03/24 15:30 11/04/24 13:19 DC Piperacillin Sod/ Tazobactam Sod (Zosyn 3.375gm+NS 50ml) 3.375 gm Q8H IV 11/01/24 00:00 11/02/24 10:26 DC 11/02/24 08:49 3.375 GM Polyethylene Glycol (MIRalax 3350 17 GM POWD.PACK) 17 gm DAILY PO 11/02/24 09:00 12/02/24 08:59 11/11/24 07:18 17 GM Polyethylene Glycol (MIRalax 3350 17 GM POWD.PACK) 17 gm ONCE PO 11/01/24 15:30 11/01/24 21:30 DC 11/01/24 16:05 17 GM Potassium Chloride 100 ml @ 100 mls/hr AD PRN IV POTASSIUM PROTOCOL 10/31/24 15:00 11/30/24 14:59 Potassium Chloride (K-Dur/Klor-Con 20meq) 20 meq AD PRN PO POTASSIUM PROTOCOL 10/31/24 15:00 11/30/24 14:59 Potassium Chloride (KCl 10% Elixir 20meq/15ml) 20 meq AD PRN PO POTASSIUM PROTOCOL 10/31/24 15:00 11/30/24 14:59 11/09/24 06:21 20 MEQ Prednisone (deltaSONE/ ORASONE 10MG) 10 mg BID PO 11/08/24 21:00 11/09/24 23:34 DC 11/09/24 21:05 10 MG Prednisone (deltaSONE/ oraSONE 20MG TAB) 10 mg BID PO 11/08/24 09:00 11/08/24 09:16 DC 11/08/24 07:59 10 MG Propofol 100 ml @ 0 mls/hr AD PRN IV TITRATE 11/05/24 21:00 11/06/24 13:44 DC Propofol (DIPRivan 1000MG/ 100ML) 1,000 mg PROTOCOL PRN IV SEDATION 10/31/24 16:00 11/06/24 12:17 DC 11/05/24 21:59 1,000 MG Risperidone (RisperDAL) 3 mg HS PO 11/06/24 21:00 11/06/24 17:25 DC Risperidone (RisperDAL) 3 mg HS PO 11/09/24 21:00 12/09/24 20:59 11/10/24 20:25 3 MG Rocuronium [place] 100 mg/ Sodium Chloride 100 ml @ 0 mls/hr PROTOCOL IV 10/31/24 16:00 10/31/24 16:44 DC Rocuronium [place] (ZemuRON) 50 mg ONCE IV 11/03/24 15:25 11/03/24 16:25 DC 11/03/24 15:27 50 MG Trazodone HCl (DesyREL/OlepTRO) 50 mg BID PO 11/08/24 21:00 11/09/24 09:31 DC 11/08/24 20:31 50 MG Vancomycin HCl 250 ml @ 125 mls/hr Q8H IV 11/02/24 20:30 11/04/24 12:45 DC 11/04/24 03:46 125 MLS/HR Vancomycin HCl 250 ml @ 125 mls/hr Q8H IV 11/04/24 13:00 11/06/24 06:04 DC 11/05/24 21:02 125 MLS/HR Vancomycin HCl (Vancomycin Protocol) 1 each AD IV 11/02/24 10:30 11/06/24 06:04 DC DIAGNOSTICS / RADIOLOGY: [ ] ASSESSMENT: Sepsis, ruled out Acute asthma exacerbation POA Acute hypoxic respiratory failure with hypoxia requiring BiPAP support on arrival POA 10 L trials unsuccessful requiring intubation 10/31/2024 at 15:42 p.m. viral syndrome POA Positive influenza A POA Active smoker smokes cigars 3-4 POA Polysubstance abuse disorder Chronic problems asthma, bipolar disorder. PLAN: Patient downgraded to the medical floor Continue supplemental oxygen via nasal cannula at 2 L to keep O2 sat greater than 92% Continue to monitor mental status and respiratory status Continue to follow critical care input and recommendation Continue the patient on broad-spectrum IV antibiotics Continue bronchodilators Continue the patient on steroids, continue to taper. Follow a.m. labs. Continue to replace electrolytes IV per protocol GI and DVT prophylaxis Disposition: Pending improvement in clinical status. Failed MBSS, plan to reassess on Tuesday. Mother at bedside, updated, all questions answered. ZACKERY MORALES MD Nov 11, 2024 10:37
--- NOTE | 2024-11-11 18:01 | PN ---
CARDIOLOGY Reason for consult: HPI/story at presentation: This is a pleasant 44 male with past medical history as per present with shortness of breath and respiratory failure, hypoxia, was intubated and managed for influenza and pneumonia subsequently, extubated. Was on Precedex because of mental status changes in the setting of febrile substance use/mental health issues and subsequently, was on Precedex. Was having issues with bradycardia and therefore, cardiology was consulted for evaluation management. Subjective: 11/07/2024 no active cardiac complaint 11/08/24 no active cardiac complaints 11/09/2024 not on acute distress 11/10/2024 no complaints 11/11/2024 no complaints Past medical history: See below Allergies, Meds See chart Review of systems Review of Systems Constitutional: Negative for chills and fever. HENT: Negative for ear discharge and ear pain. Eyes: Negative for photophobia and discharge. Respiratory: Negative for cough, sputum production and stridor. Cardiovascular: Negative for chest pain and palpitations. Gastrointestinal: Negative for diarrhea and vomiting. Genitourinary: Negative for frequency. Musculoskeletal: Negative for myalgias. Skin: Negative for rash. Neurological: Negative for focal weakness and seizures. Endo/Heme/Allergies: Negative for polydipsia. Psychiatric/Behavioral: Negative for hallucinations. Vitals see chart PHYSICAL EXAMINATION GENERAL: The patient is alert and oriented*3 HEENT: Nonicteric sclerae, non traumatic HEART: Regular rate and rhythm with no murmurs LUNGS: Clear to auscultation bilaterally ABDOMEN: No acute issues, non tender GENITAL, RECTAL: deferred SKIN: No rash NEUROLOGIC: NFND EXTREMITIES: No edema ASSESSMENT BRADYCARDIA Resolved, heart rates in the 70s, 11/07/2024 While on Precedex, when sleeping, Conservative management, 11/07/2024 Normal EF echocardiogram, 10/2024 SEPSIS At presentation RESPIRATORY FAILURE Status post recent extubation G-tube in situ Possible influenza A, On steroids 10/2024 TOBACCO USE, POLYSUBSTANCE ABUSE CORE MEASURES Pending OTHER MEDICAL PROBLEMS Reviewed PLAN 11/07/2024 no active cardiac complaints at this time, mildly restless, NG tube in situ. No further issues with bradycardia, current heart rates in the 70s. For now, will manage conservatively. No plans for dopamine or dobutamine as pacemaker at this time. No further issues with bradycardia, current heart rates are in the 70s and 80s. NO active cardiac complaints, dysphagia is being addressed, continue conservative measures from a cardiac standpoint. This is a delayed note. Seen and examined 11/08/24 at around 1800 11/09/2024 Doing better,, no further issues with bradycardia, current heart rates are in the 80s. Clinically, also improving, mental status is good. G-tube is sensitive. Dysphagia still concern. Eventual plans for residential facility at discharge. 11/10/2024 No further issues with bradycardia, mental status appears to be better today, family at bedside. Continue conservative measures. Seen and examined 11/10/24 1800. This is a delayed note. 11/11/2024 Dysphagia issues are being addressed by primary. No further issues of bradycardia, will follow peripherally. Please call us back if needed. Currently at her acceptable. Remains asymptomatic from a cardiac standpoint. Previous echocardiogram also, was within normal limits. Will follow peripherally. Seen and examined 11/11/2024 at around 1 PM. ATTESTATION I was involved substantially in the care of this patient Number and complexity of problems addressed: 2 or more stable chronic issues Amount and or complexity of data Review of prior external note(s) from each unique source: 2+ Ordering of each unique test : 0 Review of the result(s) of each unique test: 2+ Assessment requiring an independent historian(s): No Independent interpretation of test performed by another MD/QHCP/appropriate source (not separately reported) : No Discussion of management or test interpretation with external MD/QHCP/appropriate source (not separately reported) : No Risk status (cardiac, billing related): low Vitals/Labs Vital Signs Date Time Temp Pulse Resp B/P (MAP) Pulse Ox O2 Delivery O2 Flow Rate FiO2 11/11/24 14:46 92 19 11/11/24 08:00 99 Room Air* 0 21 11/11/24 07:46 97.7 98/60 Laboratory Tests 11/11/24 04:33 Medications Current Medications Methylprednisolone Sodium Succinate 125 mg ONCE ONCE IVP Last administered on 10/31/24at 13:08; Start 10/31/24 at 13:00; Stop 10/31/24 at 13:01; Status DC Magnesium Sulfate 50 ml @ 0 mls/hr PROTOCOL IV Last administered on 10/31/24at 13:08; Start 10/31/24 at 13:00; Stop 10/31/24 at 14:54; Status DC Sodium Chloride 1,000 ml @ 0 mls/hr ONCE ONCE IV Last administered on 10/31/24at 13:08; Start 10/31/24 at 13:00; Stop 10/31/24 at 13:01; Status DC Lorazepam 1 mg ONCE ONCE IVP Last administered on 10/31/24at 13:43; Start 10/31/24 at 14:00; Stop 10/31/24 at 14:01; Status DC Oseltamivir Phosphate 75 mg ONCE ONCE PO Last administered on 10/31/24at 14:34; Start 10/31/24 at 14:30; Stop 10/31/24 at 14:31; Status DC Acetaminophen 650 mg Q4H PRN PO Last administered on 11/08/24at 01:13; Start 10/31/24 at 15:00; Stop 11/30/24 at 14:59 Methylprednisolone Sodium Succinate 60 mg Q8H IVP Last administered on 11/01/24at 06:42; Start 10/31/24 at 15:00; Stop 11/01/24 at 09:46; Status DC Famotidine 20 mg BID PO; Start 10/31/24 at 21:00; Stop 11/01/24 at 01:45; Status DC Lactulose 20 gm BID PRN PO Last administered on 11/06/24at 08:18; Start 10/31/24 at 15:00; Stop 11/30/24 at 14:59 Ondansetron HCl 4 mg Q6H PRN IVP Last administered on 11/08/24at 00:54; Start 10/31/24 at 15:00; Stop 11/30/24 at 14:59 Ceftriaxone Sodium 1 gm Q24H IVPB Last administered on 10/31/24at 16:16; Start 10/31/24 at 15:00; Stop 10/31/24 at 23:39; Status DC Azithromycin 250 ml @ 250 mls/hr Q24H IVPB Last administered on 10/31/24at 16:50; Start 10/31/24 at 16:00; Stop 10/31/24 at 23:39; Status DC Oseltamivir Phosphate 75 mg BID PO Last administered on 11/05/24at 20:40; Start 11/01/24 at 09:00; Stop 11/06/24 at 08:59; Status DC Magnesium Sulfate 50 ml @ 0 mls/hr PROTOCOL PRN IV; Start 10/31/24 at 15:00; Stop 11/30/24 at 14:59 Potassium Chloride 100 ml @ 100 mls/hr AD PRN IV; Start 10/31/24 at 15:00; Stop 11/30/24 at 14:59 Potassium Chloride 20 meq AD PRN PO Last administered on 11/09/24at 06:21; Start 10/31/24 at 15:00; Stop 11/30/24 at 14:59 Potassium Chloride 20 meq AD PRN PO; Start 10/31/24 at 15:00; Stop 11/30/24 at 14:59 Montelukast Sodium 10 mg HS PO Last administered on 11/10/24at 20:25; Start 10/31/24 at 21:00; Stop 11/30/24 at 20:59 Albuterol Sulfate 10 mg ONCE ONCE IH Last administered on 10/31/24at 16:38; Start 10/31/24 at 15:30; Stop 10/31/24 at 15:31; Status DC Sodium Chloride 1,000 ml @ 0 mls/hr ONCE ONCE IV Last administered on 10/31/24at 16:08; Start 10/31/24 at 15:30; Stop 10/31/24 at 15:31; Status DC Propofol 100 ml @ As Directed STK-MED ONCE IV; Start 10/31/24 at 15:36; Stop 10/31/24 at 15:36; Status DC Etomidate 20 mg ONCE ONCE IVP Last administered on 10/31/24at 16:42; Start 10/31/24 at 16:00; Stop 10/31/24 at 16:02; Status DC Rocuronium Broaddus 100 mg/ Sodium Chloride 100 ml @ 0 mls/hr PROTOCOL IV; Start 10/31/24 at 16:00; Stop 10/31/24 at 16:44; Status DC Propofol 1,000 mg PROTOCOL PRN IV Last administered on 11/05/24at 21:59; Start 10/31/24 at 16:00; Stop 11/06/24 at 12:17; Status DC Midazolam HCl 50 mg/Sodium Chloride 50 ml @ 0 mls/hr PROTOCOL IV; Start 10/31/24 at 16:00; Stop 10/31/24 at 16:02; Status DC Midazolam HCl 50 ml @ 0 mls/hr PROTOCOL IV Last administered on 11/05/24at 22:14; Start 10/31/24 at 16:30; Stop 11/06/24 at 12:17; Status DC Rocuronium Broaddus 100 mg ONCE ONCE IV; Start 10/31/24 at 17:00; Stop 10/31/24 at 17:01; Status DC Fentanyl Citrate 100 ml @ 2.5 mls/hr PROTOCOL IV; Start 10/31/24 at 19:30; Stop 10/31/24 at 19:25; Status DC Fentanyl/Sodium Chloride 250 ml @ 0 mls/hr PROTOCOL IV Last administered on 11/05/24at 19:11; Start 10/31/24 at 19:30; Stop 11/05/24 at 19:29; Status DC Acetaminophen 650 mg STK-MED ONCE RC; Start 10/31/24 at 19:42; Stop 10/31/24 at 19:42; Status DC Norepinephrine 250 ml @ As Directed STK-MED ONCE IV; Start 10/31/24 at 20:16; Stop 10/31/24 at 20:16; Status DC Norepinephrine 250 ml @ 27.225 mls/ hr PROTOCOL IV Last administered on 11/01/24at 18:24; Start 10/31/24 at 20:30; Stop 11/02/24 at 10:27; Status DC Norepinephrine 250 ml @ 0 mls/hr PROTOCOL IV; Start 10/31/24 at 20:30; Stop 11/01/24 at 22:43; Status DC Acetaminophen 650 mg Q6H PRN RC Last administered on 10/31/24at 19:42; Start 10/31/24 at 21:00; Stop 11/30/24 at 20:59 Piperacillin Sod/ Tazobactam Sod 3.375 gm Q8H IV Last administered on 11/02/24at 08:49; Start 11/01/24 at 00:00; Stop 11/02/24 at 10:26; Status DC Doxycycline Hyclate 250 ml @ 125 mls/hr Q12H IV Last administered on 11/09/24at 01:35; Start 11/01/24 at 00:00; Stop 11/09/24 at 09:31; Status DC Enoxaparin Sodium 40 mg DAILY SQ Last administered on 11/11/24at 07:20; Start 11/01/24 at 09:00; Stop 12/01/24 at 08:59 Famotidine 20 mg BID IV Last administered on 11/11/24at 07:18; Start 11/01/24 at 09:00; Stop 12/01/24 at 08:59 Albuterol 1 udvial [id number] IH Last administered on 11/01/24at 06:56; Start 11/01/24 at 02:00; Stop 11/01/24 at 09:42; Status DC Albuterol 1 udvial STK-MED ONCE IH; Start 11/01/24 at 02:39; Stop 11/01/24 at 02:39; Status DC Albuterol 1 udvial STK-MED ONCE IH; Start 11/01/24 at 06:32; Stop 11/01/24 at 06:32; Status DC Albuterol 1 udvial [id number] IH Last administered on 11/08/24at 01:54; Start 11/01/24 at 10:00; Stop 11/08/24 at 09:13; Status DC Budesonide 0.5 mg BIDRESP IH Last administered on 11/11/24at 06:50; Start 11/01/24 at 18:00; Stop 12/01/24 at 17:59 Albuterol 1 udvial STK-MED ONCE IH; Start 11/01/24 at 09:43; Stop 11/01/24 at 09:48; Status DC Hydrocortisone Sodium Succinate 50 mg Q6H IVP Last administered on 11/02/24at 11:15; Start 11/01/24 at 11:00; Stop 11/02/24 at 13:55; Status DC Polyethylene Glycol 17 gm DAILY PO Last administered on 11/11/24at 07:18; Start 11/02/24 at 09:00; Stop 12/02/24 at 08:59 Polyethylene Glycol 17 gm ONCE PO Last administered on 11/01/24at 16:05; Start 11/01/24 at 15:30; Stop 11/01/24 at 21:30; Status DC Insulin Human Regular INSULIN SLIDING SCAL... Q6H6 SQ; Start 11/02/24 at 00:00; Stop 12/02/24 at 00:00 Norepinephrine Bitartrate 250 ml @ 0 mls/hr AD PRN IV Last administered on 11/03/24at 22:51; Start 11/01/24 at 23:00; Stop 11/08/24 at 12:53; Status DC Chlorhexidine Gluconate 15 ml TID MM Last administered on 11/06/24at 08:18; Start 11/02/24 at 09:00; Stop 11/06/24 at 12:33; Status DC Artificial Tears 1 DROP OR AD Q8H OU Last administered on 11/06/24at 06:49; Start 11/02/24 at 06:30; Stop 11/06/24 at 12:33; Status DC Cefepime HCl 2 gm Q8H IVPB Last administered on 11/07/24at 18:25; Start 11/02/24 at 10:30; Stop 11/07/24 at 23:37; Status DC Vancomycin HCl 1 each AD IV; Start 11/02/24 at 10:30; Stop 11/06/24 at 06:04; Status DC Vancomycin HCl 500 ml @ 250 mls/hr ONCE ONCE IV Last administered on 11/02/24at 11:15; Start 11/02/24 at 10:30; Stop 11/02/24 at 12:29; Status DC Vancomycin HCl 250 ml @ 125 mls/hr Q8H IV Last administered on 11/04/24at 03:46; Start 11/02/24 at 20:30; Stop 11/04/24 at 12:45; Status DC Methylprednisolone Sodium Succinate 60 mg Q6H IVP Last administered on 11/03/24at 13:35; Start 11/02/24 at 14:00; Stop 11/03/24 at 15:10; Status DC Diazepam 10 mg Q8H NG Last administered on 11/06/24at 03:28; Start 11/03/24 at 12:00; Stop 11/06/24 at 09:07; Status DC Methylprednisolone Sodium Succinate 80 mg Q6H IVP Last administered on 11/05/24at 13:12; Start 11/03/24 at 20:00; Stop 11/05/24 at 16:10; Status DC Pharmacy Profile Note 1 each ONCE MISC; Start 11/03/24 at 15:30; Stop 11/04/24 at 13:19; Status DC Rocuronium Broaddus 50 mg ONCE IV Last administered on 11/03/24at 15:27; Start 11/03/24 at 15:25; Stop 11/03/24 at 16:25; Status DC Vancomycin HCl 250 ml @ 125 mls/hr Q8H IV Last administered on 11/05/24at 21:02; Start 11/04/24 at 13:00; Stop 11/06/24 at 06:04; Status DC Dextrose 1,000 ml @ 60 mls/hr [id number] IV Last administered on 11/05/24at 11:21; Start 11/05/24 at 11:30; Stop 11/06/24 at 09:04; Status DC Rocuronium Broaddus 50 mg STK-MED ONCE IV; Start 10/31/24 at 12:21; Stop 11/05/24 at 12:21; Status DC Methylprednisolone Sodium Succinate 60 mg Q6H IVP Last administered on 11/06/24at 08:19; Start 11/05/24 at 20:00; Stop 11/06/24 at 08:58; Status DC Dopamine HCl/ Dextrose 250 ml @ 0 mls/hr AD PRN IV Last administered on 11/05/24at 21:11; Start 11/05/24 at 21:00; Stop 11/08/24 at 12:53; Status DC Propofol 100 ml @ 0 mls/hr AD PRN IV; Start 11/05/24 at 21:00; Stop 11/06/24 at 13:44; Status DC Fentanyl/Sodium Chloride 250 ml @ As Directed STK-MED ONCE IV Last administered on 11/06/24at 03:38; Start 11/06/24 at 03:09; Stop 11/06/24 at 03:09; Status DC Fentanyl Citrate 2500 mcg/Sodium Chloride 250 ml @ 0 mls/hr AD PRN IV; Start 11/06/24 at 03:30; Stop 11/06/24 at 03:31; Status DC Fentanyl/Sodium Chloride 250 ml @ 0 mls/hr PROTOCOL IV; Start 11/06/24 at 03:30; Stop 11/06/24 at 12:17; Status DC Dexmedetomidine/ Sodium Chloride 400 mcg PROTOCOL IV Last administered on 11/07/24at 07:32; Start 11/06/24 at 08:30; Stop 11/08/24 at 12:53; Status DC Methylprednisolone Sodium Succinate 40 mg Q12H IVP Last administered on 11/07/24at 20:26; Start 11/06/24 at 20:00; Stop 11/07/24 at 23:34; Status DC Furosemide 20 mg ONCE ONCE IV Last administered on 11/06/24at 09:17; Start 11/06/24 at 09:30; Stop 11/06/24 at 09:31; Status DC Diazepam 10 mg Q6H NG Last administered on 11/06/24at 09:17; Start 11/06/24 at 09:30; Stop 11/06/24 at 12:32; Status DC Home Med (Lamotrigine (Lamictal Xr) 300 MG) HS PO; Start 11/06/24 at 21:00; Stop 11/06/24 at 17:25; Status DC Risperidone 3 mg HS PO; Start 11/06/24 at 21:00; Stop 11/06/24 at 17:25; Status DC Diazepam 10 mg Q6H PRN NG Last administered on 11/06/24at 14:17; Start 11/06/24 at 13:00; Stop 11/06/24 at 17:35; Status DC Olanzapine 5 mg BID PO Last administered on 11/09/24at 08:26; Start 11/06/24 at 17:30; Stop 11/09/24 at 09:31; Status DC Lorazepam 1 mg Q4H PRN IVP Last administered on 11/07/24at 12:28; Start 11/06/24 at 17:30; Stop 11/07/24 at 16:46; Status DC Melatonin 10 mg HS PO Last administered on 11/10/24at 20:25; Start 11/06/24 at 21:00; Stop 12/06/24 at 20:59 Midazolam HCl 2 mg ONCE ONCE IVP; Start 11/06/24 at 21:00; Stop 11/06/24 at 21:04; Status DC Lorazepam 2 mg ONCE ONCE IVP Last administered on 11/06/24at 21:07; Start 11/06/24 at 21:30; Stop 11/06/24 at 21:31; Status DC Ziprasidone 5 mg ONCE ONCE IM Last administered on 11/06/24at 22:24; Start 11/06/24 at 22:00; Stop 11/06/24 at 22:01; Status DC Ziprasidone 20 mg STK-MED ONCE IM; Start 11/06/24 at 21:50; Stop 11/06/24 at 21:50; Status DC Lamotrigine 200 mg DAILY PO Last administered on 11/08/24at 07:59; Start 11/07/24 at 11:30; Stop 11/08/24 at 13:32; Status DC Diazepam 10 mg ONCE ONCE PO Last administered on 11/07/24at 15:16; Start 11/07/24 at 15:30; Stop 11/07/24 at 15:31; Status DC Diazepam 5 mg Q4H PRN PO Last administered on 11/08/24at 20:30; Start 11/07/24 at 17:00; Stop 11/09/24 at 09:31; Status DC Prednisone 10 mg BID PO Last administered on 11/08/24at 07:59; Start 11/08/24 at 09:00; Stop 11/08/24 at 09:16; Status DC Albuterol 1 udvial [id number] IH Last administered on 11/11/24at 14:45; Start 11/08/24 at 14:00; Stop 12/01/24 at 01:59 Prednisone 10 mg BID PO Last administered on 11/09/24at 21:05; Start 11/08/24 at 21:00; Stop 11/09/24 at 23:34; Status DC Lamotrigine 300 mg HS PO Last administered on 11/10/24at 20:25; Start 11/08/24 at 21:00; Stop 12/08/24 at 20:59 Diphenhydramine HCl 25 mg Q12H9 PRN IV Last administered on 11/09/24at 08:30; Start 11/08/24 at 13:30; Stop 11/09/24 at 23:34; Status DC Nicotine 14 mg DAILY TD Last administered on 11/11/24at 07:21; Start 11/09/24 at 09:00; Stop 12/09/24 at 08:59 Nicotine 14 mg ONCE ONCE TD Last administered on 11/08/24at 13:47; Start 11/08/24 at 13:30; Stop 11/08/24 at 13:36; Status DC Trazodone HCl 50 mg BID PO Last administered on 11/08/24at 20:31; Start 11/08/24 at 21:00; Stop 11/09/24 at 09:31; Status DC Risperidone 3 mg HS PO Last administered on 11/10/24at 20:25; Start 11/09/24 at 21:00; Stop 12/09/24 at 20:59 Cetirizine HCl 10 mg DAILY PO Last administered on 11/11/24at 07:21; Start 11/09/24 at 09:30; Stop 12/09/24 at 09:29 Multivitamins/ Minerals 10 ml/ Folic Acid 1 mg/ Thiamine HCl 100 mg/Sodium Chloride 1,010 ml @ 0 mls/hr DAILY IV Last administered on 11/10/24at 07:56; Start 11/10/24 at 09:00; Stop 11/10/24 at 12:59; Status DC GINETTE NOEL MD Nov 11, 2024 18:01
--- NOTE | 2024-11-11 19:00 | HMCIMG ---
US ABDOMINAL COMPLETE REASON: elevated liver enzymes 11/08/2024 COMPARISON: None FINDINGS: There is normal sonographic appearance of the liver. There are no focal mass lesions. Liver is mildly enlarged at 17 cm.Previous exam described gallstones, these are not visualized on the current study. Gallbladder appears normal with no evidence of wall thickening or pericholecystic edema. Common duct appears normal at 3 mm. Kidneys appear normal in size and appearance. There is no evidence of mass, stone or hydronephrosis. Spleen and inferior vena cava appear normal. Aorta was not well seen. The pancreas is obscured by overlying bowel gas. IMPRESSION: 1. Mildly enlarged liver. 2. Otherwise normal exam although the aorta and pancreas were not well seen.
[2024-11-12] VITALS (12 sets, daily range): BP systolic 94–111; BP diastolic 54–69; PULSE 95–127; RESP 17–20; TEMP 97.9–99.4; O2SAT 92–98
[2024-11-12 05:47] LABS: HEMATOCRIT 45.6 % (42-54); MEAN CORPUSCULAR HEMOGLOBIN 29.1 pg (27.0-33.0); MEAN CORPUSCULAR HGB CONC 32.9 g/dL (32.0-36.0); MEAN CORPUSCULAR VOLUME 88.5 fL (79-99); RED BLOOD CELL COUNT(AUTO) 5.15 MIL/uL (4.50-6.20); RED CELL DISTRIBUTION WIDTH 13.2 % (11.0-15.5); WHITE BLOOD COUNT (AUTO) 15.5 K/uL (4.8-10.8)
[2024-11-12 06:03] LABS: ALBUMIN 3.1 g/dL (3.5-5.0); BILIRUBIN,TOTAL 0.7 mg/dL (0.2-1.0); CREATININE 0.9 mg/dL (0.5-1.3); MAGNESIUM 2.3 mg/dL (1.80-2.40); POTASSIUM 4.1 mmol/L (3.5-5.1); TOTAL PROTEIN, SERUM 6.8 g/dL (6.0-8.3)
--- NOTE | 2024-11-12 12:36 | PN ---
[facility] PROGRESS NOTE Date of Service: Nov 12, 2024 Time of Service: 12:33 SUBJECTIVE: 11/01 patient seen at bedside, no acute events overnight. He remains intubated and sedated, on a low dose of pressors. WBC increased from 10.2 up to 14.5, potassium increased from 3.6 up to 5.4, creatinine increased from 1.0 up to 1.6, remainder of his labs are relatively unremarkable. He still has a prominent wheeze. Patient is positive for influenza. Further care per critical Care. 11/02 patient seen at bedside, no acute events overnight. He remains intubated and sedated, FiO2 has been decreased from 45 down to 40%. We will defer to pulmonology for extubation. He remains on pressors, we will wean as able. WBC increased from 14.5 up to 20.4, hemoglobin stable at 13.1, remainder of his labs are relatively unremarkable. 11/03 patient seen at bedside, no acute events overnight he remains intubated and sedated, FiO2 at 40%, peep of 5. Patient continues on pressors, we will continue to wean as able. WBC decreased from 20.4 down to 14.2, hemoglobin stable at 13.1 same as yesterday, remainder of his labs are relatively unremarkable. 11/04 patient seen at bedside, no acute events overnight. He remains intubated and sedated, FiO2 at 40% peep of 7. Patient has been weaned off pressors. WBC improved from 14.2 down to 11.3, hemoglobin decreased from 13.1 down to 12.7, remainder of his labs are relatively unremarkable. 11/05 patient is seen and examined at bedside, remains intubated, on mechanical ventilation, on fentanyl and Versed drip. He is on droplet precautions. Getting nutritional support via NG tube. WBC improving, today at 11.0, hemoglobin 12.2, hematocrit 37.8. ABG with pH of 7.37, PO2 80.7. Chest x-ray showing prominent interstitial markings with possible superimposed infiltrates. 11/06 patient has been seen and examined at bedside, remains intubated, mechanical ventilation, on CPAP trial, off sedation, remains on droplet precaution, BP 147/73, saturating 100% on mechanical ventilation. Off nutritional support via NG tube. ABG shows pH of 7.44, pCO2 47, PO2 1629. Chest x-ray stable, no vascular congestion, heart size is normal. 11/07 patient is seen and examined at bedside, extubated yesterday, currently on low-dose Precedex. Withdrawing to painful stimulation. BP 114/55, heart rate of 42, afebrile, saturating 98% on 2 L via nasal cannula. CBC with a hemoglobin 12.3, hematocrit 36.5, WBC 13.1. Potassium level 3.1. Liver enzymes with an AST of 101, ALT 405. Urine toxicology screen positive for cocaine and mar ijuana. Serology test positive for influenza type A. He will remain on droplet precautions. Chest x-ray showing stable chest. Echocardiogram pending. Family at bedside, updated. 11/08 the patient has been seen and examined at bedside, he is awake, following commands, getting nutritional support via NG tube, he is asking if it can be removed. He is off Precedex. BP 106/62, afebrile, saturating 97% on air. No chest pain, shortness shortness for breath, no cough. WBC today at 10.8, down from 13.1. Hemoglobin 13.0, hematocrit 38.2. Liver enzymes slowly trending down. Echocardiogram reviewed, LVEF 60-65%, diastolic function. was unable to be assessed. The right ventricle is normal in size, right ventricular systolic function is normal, left atrium size is normal, right atrium is mildly dilated, no valvular pathology, no pericardial effusion. Ultrasound of the abdomen pending. Mother is at bedside, the patient with a history of bipolar, on Lamictal and risperidone at home, discussed with critical Care, patient was bradycardic yesterday, he has been started on Zyprexa instead. Pending speech therapy to evaluate the patient today, as well as physical therapist. We will request psychiatric consultation as well. 11/09 the patient has been seen and examined, he has been downgraded from the ICU to the medical floor, he is alert, awake, following commands, still with the NG tube in place, clamped, he is awaiting MBS assess today. BP 104/76, heart rate of 101, afebrile, saturating normal on room air, he denies chest pain, no shortness a breath, no nausea, no vomiting, he remains alert oriented x3, not combative, not agitated. He is mood is appropriate. CBC with a hemoglobin 14.2, hematocrit 41.3, WBC 12.0. Sodium 143, potassium 3.8, chest x-ray no acute findings. We will request PT therapy to evaluate the patient and we will discuss discharge plan with case management. 11/10 patient is seen and examined, awake, sitting in the chair, following commands, getting nutritional support via NG tube. BP 105/65, afebrile, saturating 94-95% on room air, hemoglobin 16.7, hematocrit 48.9, WBC 19.9, platelet 328. Septic workup negative, leukocytosis likely secondary to use of IV steroids, patient now off steroids. Completed course of prednisone p.o. he has been restarted on risperidone 3 mg p.o. at bedtime from home dose, continue Lamictal 300 mg p.o. HS. Discussed with case management, no psychiatrist available to evaluate the patient, however the patient does not have any acute crisis, he is not combative, he is not agitated, denies suicidal or homicidal ideation, psychiatric evaluation discontinued. Patient can follow up as an outpatient. Continue home medications. Cardiology input noted and appreciated, heart rate controlled, continue to monitor. Chest x-ray done, stable, the patient underwent modified barium swallow 11/09/2024, secondary to severe oral dysphagia, unable to assess due to severity, recommended to keep the patient NPO, plan for long-term alternate means to meet nutrition/hydration. Discussed with the RN JOAQUIM today, patient to be started on multivitamin IV, we will reassess on Tuesday. 11/11 patient is seen and examined at bedside, comfortable, no acute events overnight, hemodynamically stable, afebrile, Patient initially admitted to the ICU secondary to bronchial asthma exacerbation, requiring intubation and mechanical ventilation, successfully extubated and downgraded to the medical floor, patient with a history of bipolar on Lamictal and risperidone. The patient underwent modified barium swallow 11/09/2024, secondary to severe oral dysphagia, unable to assess due to severity, recommended to keep the patient N PO, patient currently getting nutritional support via NG tube. Plan to reassess on Tuesday. 11/12/2024: Patient remains with NGT in place, pending MBS today. REVIEW OF SYSTEMS A14 point ROS was obtained all relevant positive documented otherwise ROS negative PHYSICAL EXAM GENERAL APPEARANCE: Awake, following commands, getting nutritional support via NG tube. Off Precedex. NEUROLOGICAL: Cranial nerves II-XII grossly intact. Motor is 5/5 in bilateral upper and lower extremities proximal to distal. No sensory deficits. HEENT: Face is symmetric. Pupils are equal and reactive. Extraocular movements are intact. NECK: Supple. No JVD. No thyromegaly. No submental, submandibular, pre- /postauricular, occipital or supraclavicular lymphadenopathy. CHEST: Normal chest expansion. No Telemetry. LUNGS: No bilateral expiratory wheezing CARDIOVASCULAR: Regular. S1 and S2 normal. No appreciable rubs, murmurs or gallops. ABDOMEN: Soft, nontender, and nondistended. There is no rebound, voluntary guarding, or rigidity. : Deferred. No Peoples. EXTREMITIES: Non-edematous and not cyanotic. No clubbing. Good capillary refill. SKIN: No skin breakdown. Vital Signs (last 8hr) Date Time Temp Pulse Resp B/P (MAP) Pulse Ox O2 Delivery O2 Flow Rate FiO2 11/12/24 11:47 109 11/12/24 11:18 99.3 127 18 107/69 100 Room Air 11/12/24 08:00 98 Room Air* 0 21 11/12/24 07:12 99.3 109 17 108/64 97 Room Air 11/12/24 07:03 104 18 LABS: Laboratory: Test 11/12/24 12:05 11/12/24 05:21 Range/Units Whole Blood Glucose 142 H 70-110 MG/DL White Blood Count 15.5 H 4.8-10.8 K/uL Red Blood Count 5.15 4.50-6.20 MIL/uL Hemoglobin 15.0 14.0-18.0 g/dL Hematocrit 45.6 42-54 % Mean Corpuscular Volume 88.5 79-99 fL Mean Corpuscular Hemoglobin 29.1 27.0-33.0 pg Mean Corpuscular Hemoglobin Concent 32.9 32.0-36.0 g/dL Red Cell Distribution Width 13.2 11.0-15.5 % Platelet Count 349 130-400 K/uL Mean Platelet Volume 10.1 7.5-10.5 fL Nucleated Red Blood Cells 0.0 0.0-0.19 % Sodium Level 141 136-145 mmol/L Potassium Level 4.1 3.5-5.1 mmol/L Chloride Level 102 101-111 mmol/L Carbon Dioxide Level 32 21-32 mmol/L Blood Urea Nitrogen 28 H 7-18 mg/dL Creatinine 0.9 0.5-1.3 mg/dL Glomerular Filtration Rate Calc 109 >90 mL/min Random Glucose 127 H 70-105 mg/dL Total Calcium 9.7 8.5-10.1 mg/dL Magnesium Level 2.30 1.80-2.40 mg/dL Total Bilirubin 0.7 0.2-1.0 mg/dL Aspartate Amino Transf (AST/SGOT) 60 H 10-37 U/L Alanine Aminotransferase (ALT/SGPT) 310 H 12-78 U/L Alkaline Phosphatase 185 H 50-136 U/L Total Protein 6.8 6.0-8.3 g/dL Albumin 3.1 L 3.5-5.0 g/dL Current Medications Medications (Trade) Dose Ordered Sig/Martinez Route PRN Reason Start Time Stop Time Status Last Admin Dose Admin Acetaminophen (TYLenol 325MG TAB) 650 mg Q4H PRN PO TEMPERATURE GREATER THAN 101.5 10/31/24 15:00 11/30/24 14:59 11/08/24 01:13 650 MG Acetaminophen (TYLenol 650MG SUPPOSITORY) 650 mg Q6H PRN RC MILD PAIN (1-3) 10/31/24 21:00 11/30/24 20:59 10/31/24 19:42 650 MG Albuterol (DUOneb) 1 udvial [id number] 11/01/24 10:00 11/08/24 09:13 DC 11/08/24 01:54 1 UDVIAL Albuterol (DUOneb) 1 udvial [id number] 11/01/24 02:00 11/01/24 09:42 DC 11/01/24 06:56 1 UDVIAL Albuterol (DUOneb) 1 udvial [id number] 11/08/24 14:00 12/01/24 01:59 11/12/24 07:03 1 UDVIAL Artificial Tears (Artificial Tears) 1 DROP OR AD Q8H OU 11/02/24 06:30 11/06/24 12:33 DC 11/06/24 06:49 1 DROP Azithromycin 250 ml @ 250 mls/hr Q24H IVPB 10/31/24 16:00 10/31/24 23:39 DC 10/31/24 16:50 250 MLS/HR Budesonide (Pulmicort 0.5 Mg/2ml) 0.5 mg BIDRESP IH 11/01/24 18:00 12/01/24 17:59 11/12/24 07:03 0.5 MG Cefepime HCl (MAXipime 2 gm vial) 2 gm Q8H IVPB 11/02/24 10:30 11/07/24 23:37 DC 11/07/24 18:25 2 GM Ceftriaxone Sodium (ROCEphine 1G INJ) 1 gm Q24H IVPB 10/31/24 15:00 10/31/24 23:39 DC 10/31/24 16:16 1 GM Cetirizine HCl (ZYRtec 5 MG TABLET) 10 mg DAILY PO 11/09/24 09:30 12/09/24 09:29 11/12/24 07:16 10 MG Chlorhexidine Gluconate (Peridex) 15 ml TID MM 11/02/24 09:00 11/06/24 12:33 DC 11/06/24 08:18 15 ML Dexmedetomidine/ Sodium Chloride (PRECEdex 400MCG/ 100ML-NS) 400 mcg PROTOCOL IV 11/06/24 08:30 11/08/24 12:53 DC 11/07/24 07:32 400 MCG Dextrose 1,000 ml @ 60 mls/hr [id number] IV 11/05/24 11:30 11/06/24 09:04 DC 11/05/24 11:21 60 MLS/HR Diazepam (VALium 5 mg TAB) 5 mg Q4H PRN PO ANXIETY 11/07/24 17:00 11/09/24 09:31 DC 11/08/24 20:30 5 MG Diazepam (VALium 5 mg TAB) 10 mg Q6H NG 11/06/24 09:30 11/06/24 12:32 DC 11/06/24 09:17 10 MG Diazepam (VALium 5 mg TAB) 10 mg Q6H PRN NG ANXIETY/AGITATION 11/06/24 13:00 11/06/24 17:35 DC 11/06/24 14:17 10 MG Diazepam (VALium 5 mg TAB) 10 mg Q8H NG 11/03/24 12:00 11/06/24 09:07 DC 11/06/24 03:28 10 MG Diphenhydramine HCl (BENAdryl INJ) 25 mg Q12H9 PRN IV SLEEP 11/08/24 13:30 11/09/24 23:34 DC 11/09/24 08:30 25 MG Dopamine HCl/ Dextrose 250 ml @ 0 mls/hr AD PRN IV TITRATE 11/05/24 21:00 11/08/24 12:53 DC 11/05/24 21:11 0 MLS/HR Doxycycline Hyclate 250 ml @ 125 mls/hr Q12H IV 11/01/24 00:00 11/09/24 09:31 DC 11/09/24 01:35 125 MLS/HR Enoxaparin Sodium (Lovenox) 40 mg DAILY SQ 11/01/24 09:00 12/01/24 08:59 11/12/24 07:16 40 MG Famotidine (Pepcid 20mg Vial) 20 mg BID IV 11/01/24 09:00 12/01/24 08:59 11/12/24 07:16 20 MG Famotidine (Pepcid 20mg Tab) 20 mg BID PO 10/31/24 21:00 11/01/24 01:45 DC Fentanyl Citrate 100 ml @ 2.5 mls/hr PROTOCOL IV 10/31/24 19:30 10/31/24 19:25 DC Fentanyl Citrate 2500 mcg/Sodium Chloride 250 ml @ 0 mls/hr AD PRN IV TITRATE 11/06/24 03:30 11/06/24 03:31 DC Fentanyl/Sodium Chloride 250 ml @ 0 mls/hr PROTOCOL IV 11/06/24 03:30 11/06/24 12:17 DC Fentanyl/Sodium Chloride 250 ml @ 0 mls/hr PROTOCOL IV 10/31/24 19:30 11/05/24 19:29 DC 11/05/24 19:11 10 MLS/HR Home Med (Home Medication) (Lamotrigine (Lamictal Xr) 300 MG) HS PO 11/06/24 21:00 11/06/24 17:25 DC Hydrocortisone Sodium Succinate (Solu-corTEF 100MG) 50 mg Q6H IVP 11/01/24 11:00 11/02/24 13:55 DC 11/02/24 11:15 50 MG Insulin Human Regular (humuLIN R 100 UNIT/ML 3ML) INSULIN SLIDING SCAL... Q6H6 SQ 11/02/24 00:00 12/02/24 00:00 Lactulose (Constulose 20gm/ 30ml Udcup) 20 gm BID PRN PO CONSTIPATION 10/31/24 15:00 11/30/24 14:59 11/06/24 08:18 20 GM Lamotrigine (LAMIctal 100 MG TABLET) 200 mg DAILY PO 11/07/24 11:30 11/08/24 13:32 DC 11/08/24 07:59 200 MG Lamotrigine (LAMIctal 100 MG TABLET) 300 mg HS PO 11/08/24 21:00 12/08/24 20:59 11/11/24 20:59 300 MG Lorazepam (AtiVAN) 1 mg Q4H PRN IVP ANXIETY/AGITATION 11/06/24 17:30 11/07/24 16:46 DC 11/07/24 12:28 1 MG Magnesium Sulfate 50 ml @ 0 mls/hr PROTOCOL IV 10/31/24 13:00 10/31/24 14:54 DC 10/31/24 13:08 25 MLS/HR Magnesium Sulfate 50 ml @ 0 mls/hr PROTOCOL PRN IV low mag level 10/31/24 15:00 11/30/24 14:59 Melatonin (Melatonin) 10 mg HS PO 11/06/24 21:00 12/06/24 20:59 11/11/24 20:58 10 MG Methylprednisolone Sodium Succinate (Solu-medROL 40MG) 40 mg Q12H IVP 11/06/24 20:00 11/07/24 23:34 DC 11/07/24 20:26 40 MG Methylprednisolone Sodium Succinate (Solu-medROL 40MG) 60 mg Q6H IVP 11/02/24 14:00 11/03/24 15:10 DC 11/03/24 13:35 60 MG Methylprednisolone Sodium Succinate (Solu-medROL 40MG) 60 mg Q6H IVP 11/05/24 20:00 11/06/24 08:58 DC 11/06/24 08:19 60 MG Methylprednisolone Sodium Succinate (Solu-medROL 40MG) 60 mg Q8H IVP 10/31/24 15:00 11/01/24 09:46 DC 11/01/24 06:42 60 MG Methylprednisolone Sodium Succinate (Solu-medROL 40MG) 80 mg Q6H IVP 11/03/24 20:00 11/05/24 16:10 DC 11/05/24 13:12 80 MG Midazolam HCl 50 ml @ 0 mls/hr PROTOCOL IV 10/31/24 16:30 11/06/24 12:17 DC 11/05/24 22:14 10 MLS/HR Midazolam HCl 50 mg/Sodium Chloride 50 ml @ 0 mls/hr PROTOCOL IV 10/31/24 16:00 10/31/24 16:02 DC Montelukast Sodium (SinguLAIR) 10 mg HS PO 10/31/24 21:00 11/30/24 20:59 11/11/24 20:58 10 MG Multivitamins/ Minerals 10 ml/ Folic Acid 1 mg/ Thiamine HCl 100 mg/Sodium Chloride 1,010 ml @ 0 mls/hr DAILY IV 11/10/24 09:00 11/10/24 12:59 DC 11/10/24 07:56 50 MLS/HR Nicotine (Nicoderm) 14 mg DAILY TD 11/09/24 09:00 12/09/24 08:59 11/12/24 07:16 14 MG Norepinephrine 250 ml @ 27.225 mls/ hr PROTOCOL IV 10/31/24 20:30 11/02/24 10:27 DC 11/01/24 18:24 41.06 MLS/HR Norepinephrine 250 ml @ 0 mls/hr PROTOCOL IV 10/31/24 20:30 11/01/24 22:43 DC Norepinephrine Bitartrate 250 ml @ 0 mls/hr AD PRN IV TITRATE 11/01/24 23:00 11/08/24 12:53 DC 11/03/24 22:51 6.48 MLS/HR Olanzapine (ZyPREXA 5 mg tab) 5 mg BID PO 11/06/24 17:30 11/09/24 09:31 DC 11/09/24 08:26 5 MG Ondansetron HCl (zoFRAN 4MG INJ) 4 mg Q6H PRN IVP NAUSEA/VOMITING 10/31/24 15:00 11/30/24 14:59 11/08/24 00:54 4 MG Oseltamivir Phosphate (Tamiflu) 75 mg BID PO 11/01/24 09:00 11/06/24 08:59 DC 11/05/24 20:40 75 MG Pharmacy Profile Note (Pharmacy Communication) 1 each ONCE MISC 11/03/24 15:30 11/04/24 13:19 DC Piperacillin Sod/ Tazobactam Sod (Zosyn 3.375gm+NS 50ml) 3.375 gm Q8H IV 11/01/24 00:00 11/02/24 10:26 DC 11/02/24 08:49 3.375 GM Polyethylene Glycol (MIRalax 3350 17 GM POWD.PACK) 17 gm DAILY PO 11/02/24 09:00 12/02/24 08:59 11/12/24 07:16 17 GM Polyethylene Glycol (MIRalax 3350 17 GM POWD.PACK) 17 gm ONCE PO 11/01/24 15:30 11/01/24 21:30 DC 11/01/24 16:05 17 GM Potassium Chloride 100 ml @ 100 mls/hr AD PRN IV POTASSIUM PROTOCOL 10/31/24 15:00 11/30/24 14:59 Potassium Chloride (K-Dur/Klor-Con 20meq) 20 meq AD PRN PO POTASSIUM PROTOCOL 10/31/24 15:00 11/30/24 14:59 Potassium Chloride (KCl 10% Elixir 20meq/15ml) 20 meq AD PRN PO POTASSIUM PROTOCOL 10/31/24 15:00 11/30/24 14:59 11/09/24 06:21 20 MEQ Prednisone (deltaSONE/ ORASONE 10MG) 10 mg BID PO 11/08/24 21:00 11/09/24 23:34 DC 11/09/24 21:05 10 MG Prednisone (deltaSONE/ oraSONE 20MG TAB) 10 mg BID PO 11/08/24 09:00 11/08/24 09:16 DC 11/08/24 07:59 10 MG Propofol 100 ml @ 0 mls/hr AD PRN IV TITRATE 11/05/24 21:00 11/06/24 13:44 DC Propofol (DIPRivan 1000MG/ 100ML) 1,000 mg PROTOCOL PRN IV SEDATION 10/31/24 16:00 11/06/24 12:17 DC 11/05/24 21:59 1,000 MG Risperidone (RisperDAL) 3 mg HS PO 11/06/24 21:00 11/06/24 17:25 DC Risperidone (RisperDAL) 3 mg HS PO 11/09/24 21:00 12/09/24 20:59 11/11/24 20:58 3 MG Rocuronium [place] 100 mg/ Sodium Chloride 100 ml @ 0 mls/hr PROTOCOL IV 10/31/24 16:00 10/31/24 16:44 DC Rocuronium [place] (ZemuRON) 50 mg ONCE IV 11/03/24 15:25 11/03/24 16:25 DC 11/03/24 15:27 50 MG Trazodone HCl (DesyREL/OlepTRO) 50 mg BID PO 11/08/24 21:00 11/09/24 09:31 DC 11/08/24 20:31 50 MG Vancomycin HCl 250 ml @ 125 mls/hr Q8H IV 11/02/24 20:30 11/04/24 12:45 DC 11/04/24 03:46 125 MLS/HR Vancomycin HCl 250 ml @ 125 mls/hr Q8H IV 11/04/24 13:00 11/06/24 06:04 DC 11/05/24 21:02 125 MLS/HR Vancomycin HCl (Vancomycin Protocol) 1 each AD IV 11/02/24 10:30 11/06/24 06:04 DC DIAGNOSTICS / RADIOLOGY: [ ] ASSESSMENT: Sepsis, ruled out Acute asthma exacerbation POA Acute hypoxic respiratory failure with hypoxia requiring BiPAP support on arrival POA 10 L trials unsuccessful requiring intubation 10/31/2024 at 15:42 p.m. viral syndrome POA Positive influenza A POA Active smoker smokes cigars 3-4 POA Polysubstance abuse disorder Dysphagia Chronic problems asthma, bipolar disorder. PLAN: Patient has been downgraded to the medical floor Continue supplemental oxygen via nasal cannula at 2 L to keep O2 sat greater than 92% Continue to monitor mental status and respiratory status Continue to follow critical care input and recommendation Continue bronchodilators Continue the patient on steroids, continue to taper. NGT remains in place at this time. He is pending a MBSS later today. Initiate diet if patient passes swallow study. Follow a.m. labs. Continue to replace electrolytes IV per protocol GI and DVT prophylaxis Disposition: Pending improvement in clinical status. Mother at bedside, updated, all questions answered. CHELSEA ALLRED Nov 12, 2024 12:36
--- NOTE | 2024-11-12 13:59 | NUR ---
NG TUBE INFORMED CHELSEA MONTGOMERY THAT PATIENT REMOVED NG TUBE AT THIS TIME, PATIENT STATED THAT HE WAS TIRED OF HAVING IT AND THAT HE WANTS TO EAT REAL FOOD. CHELSEA MONTGOMERY STATED TO LEAVE OUT FOR NOW AND SEE IF SPEECH THERAPY CAN EVALUATE PATIENT.
--- NOTE | 2024-11-12 14:10 | NUR ---
BEDSIDE SWALLOW EVAL COMPLETED. No s/s of aspiration. Recommend regular solids, thin liquids and pills whole with liquids as tolerated. SHELL WORKER reviewed results and recommendations with patient, family and nurse Rudy. SHELL WORKER educated patient on risks and consequences of aspiration. Speech therapy not warranted at this time. All questions answered. Addendum: 11/12/[address] [facility] Amended: Links added.
[2024-11-13] VITALS: BP 102/68; PULSE 89; RESP 20; TEMP 98.9
[2024-11-13 04:00] VITALS: BP 102/62; PULSE 78; RESP 20; TEMP 97.9
[2024-11-13 05:16] LABS: BASOPHILS # (AUTO) 0.02 K/uL (0.00-0.20); BASOPHILS % (AUTO) 0.2 % (0.0-5.0); EOSINOPHILS # (AUTO) 0.14 K/uL (0.00-0.70); EOSINOPHILS % (AUTO) 1.2 % (0.0-8.0); HEMATOCRIT 42.3 % (42-54); IMMATURE GRANULOCYTE ABSOLUTE 0.11 K/uL (0-1); LYMPHOCYTES # (AUTO) 2.4 K/uL (1.0-4.8); LYMPHOCYTES % (AUTO) 20.7 % (21.0-51.0); MEAN CORPUSCULAR HEMOGLOBIN 29.4 pg (27.0-33.0); MEAN CORPUSCULAR HGB CONC 32.6 g/dL (32.0-36.0); MEAN CORPUSCULAR VOLUME 90.2 fL (79-99); MONOCYTES # (AUTO) 1.4 K/uL (0.1-1.0); MONOCYTES % (AUTO) 12.2 % (3.0-13.0); NEUTROPHILS # (AUTO) 7.3 K/uL (1.8-7.7); NEUTROPHILS % (AUTO) 64.7 % (40.0-77.0); PLATELET COUNT (AUTO) 346 K/uL (130-400); RED BLOOD CELL COUNT(AUTO) 4.69 MIL/uL (4.50-6.20); RED CELL DISTRIBUTION WIDTH 13.2 % (11.0-15.5); WHITE BLOOD COUNT (AUTO) 11.3 K/uL (4.8-10.8)
[2024-11-13 05:31] LABS: CREATININE 0.8 mg/dL (0.5-1.3); POTASSIUM 4.1 mmol/L (3.5-5.1)
[2024-11-13 06:31] VITALS: PULSE 83; RESP 19; RESP 20; O2SAT 97
[2024-11-13 08:00] VITALS: O2SAT 98
[2024-11-13 08:19] VITALS: BP 101/58; PULSE 89; RESP 18; TEMP 98.3
[2024-11-13] MEDS ORDERED: ceTIRIzine HCL 5 MG TABLET PO (10:11)
[2024-11-13] MEDS ORDERED: BUDE0.5A3 IH (10:11)
[2024-11-13] MEDS ORDERED: MONT-46 PO (10:11)
[2024-11-13 10:43] VITALS: O2SAT 96
--- NOTE | 2024-11-13 11:35 | NUR ---
DISCHARGE HOME IV AND TELE MONITOR REMOVED. DISCHARGE INSTRUCTIONS EXPLAINED TO PATIENT. BELONGINGS PACKED AND TAKEN MY FAMILY. PATIENT STATED HE WILL GO TO [facility] TO GET REFERRED TO A MANAGER STERILE. PATIENT WHEELED DOWN TO PRIVATE CAR.
--- NOTE | 2024-11-13 11:55 | DS ---
Discharge Summary Hospital Course Summary: 44-year-old male was brought in by EMS with chief complaints of Shortness of breath. Apparently the patient called 911 given to having a asthma attack in on arrival patient was found with oxygen saturation of on room air of 54%. Patient has a significant underlying history of asthma he took albuterol inhaler at home he reports he has been using it as per ER note. Unable to obtain history data due to dyspneic we will obtain history from ER notes and from ER physician. On arrival to ED patient was dyspneic per ER physican was hardly moving air throughout all lung Corey and immediately was placed on BiPAP support and was given IV steroids and DuoNeb. ER workup positive for influenza A Patient was seen in ED the patient appears acutely ill. ER physician removed BiPAP to see how patient we will do on 10 L so far oxygenation level at 95%. However he continues to use accessory muscles to breathe he will be transition to ICU: high risk for decompensated airway. Patient was unable to tolerate 10 L became dyspneic and anxious therefore ER physician intubated patient mode PRVC rate 20 tidal volume 480 Peep: 5 FI O2 60% on sedation and patient transitioned to ICU. Consultation with critical care team obtained, for management in the setting of septic shock and intubation 2/2 acute hypoxic respiratory failure. According to the patient's mother, patient was doing well this morning and he even drove him yesterday to the clinic where she herself was diagnosed of flu. This afternoon, everything changed and happened so rapidly with complaint of sudden asthma attack and respiratory distress. Patient is now receiving 3 sedatives namely Propofol, Fentanyl and Versed which according to the bedside RN took awhile to optimize as the patient continues to fight it and tends to override the vent. He is currently on Levophed for pressor support. Urine toxicology positive for cocaine and marijuana. Patient continued with hospitalization and ICU care on pressors, mechanical ventilation IV antibiotics bronchodilators and Tamiflu. Over The course coming days, blood pressure steadily improved, pressors discontinued, patient continued on sedation, mechanical ventilation. On 11/06/2024 patient was successfully extubated, taken off Precedex and given p.r.n. medication. Patient with significant dysphagia, NGT was placed for feedings. Patient was found sinus bradycardia, 2D echo revealing EF of 60-65%. Consultation with Cardiology was obtained, recommending conservative management, no plans for dopamine or dobutamine, heart rate noted to be improved ranging in the 70s. Patient was downgraded to telemetry floor on 11/09/2024. Patient with history of bipolar disorder, as per discussions with the mother, was placed on home medications Lamictal and risperidone, p.r.n. Zyprexa. NGT remained in place, pending further recommendations and evaluation from speech therapy. Patient initiated on physical therapy. Over the course of the coming days patient's condition much improved, cultures negative, patient completed course of antibiotics, and Tamiflu. On 11/12/2024, speech therapy evaluation/bedside swallow evaluation performed no signs of aspiration noted, recommended regular solids, thin liquids and feels whole with liquids as tolerated. NGT was removed, patient initiated on regular diet, tolerating well. Pulmonology signing off, recommending outpatient follow up upon discharge. Patient hemodynamically stable, free of any further disease exacerbations. Patient was then safely discharged home, instructed on medications to continue upon discharge, and outpatient follow up with PCP and consultants. Insurance Follow Up Rep(s): Pulmonology: Dr. Bates Cardiology: GINETTE NOEL MD Procedure(s): As mentioned above. Assessment/Plan: ASSESSMENT: Sepsis, ruled out Acute asthma exacerbation POA Acute hypoxic respiratory failure with hypoxia requiring BiPAP support on arr ival POA 10 L trials unsuccessful requiring intubation 10/31/2024 at 15:42 p.m. viral syndrome POA Positive influenza A POA Active smoker smokes cigars 3-4 POA Polysubstance abuse disorder Dysphagia Chronic problems asthma, bipolar disorder. PLAN: Patient to be discharged home today. Patient instructed on medications to be continued on discharge, and outpatient follow up with PCP and consultants. Home Medications: Active Scripts [ceTIRIzine HCL 5 MG TABLET] 5 MG TABLET No Conflict Check, 10 MG PO DAILY, #30 TAB 1 Refill Prov:CHELSEA ALLRED 11/13/24 Montelukast Sodium (Singulair 10Mg) 10 Mg Tab, 10 MG PO HS, #30 TAB Prov:CHELSEA ALLRED 11/13/24 Budesonide (Budesonide) 0.5 Mg/2 Ml Ampul.neb, 0.5 MG IH BIDRESP, #30 AMP 1 Refill Prov:CHELSEA ALLRED 11/13/24 Reported Medications Fluticasone/Salmeterol (Airduo Respiclick 55-14 Mcg) 55 Mcg-14 Mcg/Actuation Aer.pow.ba, 1 PUFF IH BID for 30 Days, #1 EACH 0 Refills 11/03/24 [albuterol sulfate] No Conflict Check, 90 MCG IH QID PRN for SHORTNESS OF BREATH/WHEEZING 11/02/24 Lamotrigine (Lamictal Xr) 300 Mg Tab.er.24, 300 MG PO HS 08/10/22 Risperidone (Risperdal) 3 Mg Tablet, 3 MG PO HS, TAB 08/10/22 Time spent arranging discharge: 31-60 minutes CHELSEA ALLRED Nov 13, 2024 11:55
== END 2024-11-13 11:57 | disposition home or self-care (01) | DRG 207 ==
LOC: EDH 12:31 → EDHIP 12:32 → 2BH 23:28 → 4AH 11-09 10:35
PROVIDERS: ADMIT Internal Medicine; ATTEND Internal Medicine
PROC: 5A1955Z Respiratory Ventilation, Greater than 96 Consecutive Hours (ICD-10-PCS; principal; 2024-10-31)
PROC: 5A09357 Assistance with Respiratory Ventilation, Less than 24 Consecutive Hours, Continuous Positive Airway Pressure (ICD-10-PCS; 2024-10-31)
PROC: 0BH17EZ Insertion of Endotracheal Airway into Trachea, Via Natural or Artificial Opening (ICD-10-PCS; 2024-10-31)
PROC: 02HV33Z Insertion of Infusion Device into Superior Vena Cava, Percutaneous Approach (ICD-10-PCS; 2024-11-01)
PROC: B548ZZA Ultrasonography of Superior Vena Cava, Guidance (ICD-10-PCS; 2024-11-01)
PROC: 03HB33Z Insertion of Infusion Device into Right Radial Artery, Percutaneous Approach (ICD-10-PCS; 2024-11-01)
PROC: B54MZZA Ultrasonography of Right Upper Extremity Veins, Guidance (ICD-10-PCS; 2024-11-01)
DX: J10.08 Influenza due to other identified influenza virus with other specified pneumonia (principal); J96.01 Acute respiratory failure with hypoxia; G92.8 Other toxic encephalopathy; R57.1 Hypovolemic shock; E87.29 Other acidosis; J45.901 Unspecified asthma with (acute) exacerbation; F17.290 Nicotine dependence, other tobacco product, uncomplicated; F31.9 Bipolar disorder, unspecified; F19.10 Other psychoactive substance abuse, uncomplicated; F41.9 Anxiety disorder, unspecified; G47.00 Insomnia, unspecified; R00.1 Bradycardia, unspecified; R13.11 Dysphagia, oral phase; Z79.899 Other long term (current) drug therapy
CPT/HCPCS: 31500; 36415; 36556; 36600; 70450; 71045; 72125; 74230; 76700; 80048; 80053; 80202; 80305; 81001; 82140; 82306; 82435; 82550; 82607; 82803; 82947; 82948; 83605; 83735; 83880; 84100; 84132; 84145; 84295; 84484; 85018; 85025; 85027; 85610; 87040; 87071; 87205; 87635; 87804; 92610; 92611; 93005; 93306; 94002; 94003; 94150; 94640; 94660; 94664; 96365; 96366; 96375; 99291; C1751; G0378; J0456; J0692; J0696; J1200; J1265; J1650; J1720; J1940; J2060; J2405; J2543; J2704; J2919; J3010; J3370; J3411; J3475; J3486; J3490; J7030; J7512; 3370; A4600; A9900